=== PATIENT | male | born 1930 | race Caucasian/White ===

== ENCOUNTER 2017-07-07 23:55 | Inpatient (IN) ==
--- NOTE | 2017-07-08 00:06 | Emergency Department Note ---
Disposition Clinical Impression: Fracture of femoral neck, right, closed Qualifiers: Encounter type: initial encounter Qualified Code(s): S72.001A - Fracture of unspecified part of neck of right femur, initial encounter for closed fracture Fall Qualifiers: Encounter type: initial encounter Qualified Code(s): W19.XXXA - Unspecified fall, initial encounter Disposition: Home, Self-Care Condition: Fair Time of Disposition: 01:44 Fall HPI - General Chief Complaint: ED Extremity Injury, Lower Stated Complaint: rt hip pain fall Time Seen by Provider: 07/08/17 00:00 Nursing Notes Reviewed: Yes Vital Signs Reviewed: Yes - History of Present Illness HPI Narrative: Mr. Villarreal, 87-year-old male, presents from correction facility where he had a mechanical fall in his apartment. He was in his stocking feet went to the for kitchen and slipped. No loss of consciousness, no head trauma. He landed on his right elbow and right hip/femur. He has mild pain in his right elbow and moderate pain to his middle right femur. PMH: Atrial fibrillation on aspirin, Plavix, metoprolol, Imdur. Dementia. Parkinson's. Hyperlipidemia. No history CAD or ACS. No history of CVA or TIA. - Related Data Home Medications Medication Instructions Recorded Confirmed Aspirin Enteric Coated [Aspirin EC] 81 mg PO DAILY 02/08/16 02/08/16 Carbidopa/Levodopa 25/100 [Sinemet 1 each PO TID 02/08/16 02/08/16 25/100] Clopidogrel [Plavix] 75 mg PO DAILY 02/08/16 02/08/16 Isosorbide MONOnitrate (24 HR) 60 mg PO BID 02/08/16 02/08/16 [Imdur] Lisinopril [Zestril] 5 mg PO DAILY 02/08/16 02/08/16 Metformin HCl [Metformin HCl ER] 500 mg PO DAILY 02/08/16 02/08/16 Metoprolol Succinate [Toprol Xl] 50 mg PO BID 02/08/16 02/08/16 Nitroglycerin 0.4 mg PO AD PRN 02/08/16 02/08/16 Pravastatin Sodium 10 mg PO DAILY 02/08/16 02/08/16 Ranolazine [Ranexa] 500 mg PO BID 02/08/16 02/08/16 Previous Rx's Medication Instructions Recorded LORazepam [Ativan] 1 - 2 mg PO HS #14 tablet 02/14/16 Allergies Allergy/AdvReac Type Severity Reaction Status Date / Time No Known Allergies Allergy Verified 02/05/17 19:38 All systems ED: reviewed and negative except as stated. Review of Systems: As Per HPI Fall PMH - Past Medical History Medical history: Reports: atrial fibrillation, COPD, diabetes, hyperlipidemia, myocardial infarction Psychiatric history: Reports: no psych history - Social History Smoking Status: Former smoker Alcohol use: Reports: none Drug use: Reports: none Physical Exam Primary survey: Airway: Intact; patient is speaking in complete sentences and maintaining secretions. Breathing: No chest wall tenderness. Bilateral breath sounds equal. Circulation: Bilateral radial, posterior tibial, pulses 2/4. No hemorrhaging. Disability: GCS 15. Exposure: Lateral aspect of right elbow has superficial skin tear with spontaneous hemostasis; otherwise no abrasions, lacerations, ecchymosis, or hematomas on the patient's scalp or face, trunk, extremities. Secondary survey Vital Signs Reviewed General: Patient is alert, oriented, and in no acute distress. HEENT: No facial asymmetry. Head is normocephalic and atraumatic. PERRLA, EOMI. Nasal turbinates moist and pink without epistaxis. Oral mucosa moist. Tympanic membranes without hemotympanum bilaterally. Dentition intact. Cardiovascular: Heart regular rate and rhythm without clicks, rubs, gallops, or murmurs. No JVD. PMI nondisplaced. Respiratory: Symmetric chest rise with good respiratory effort. Bilateral breath sounds are clear without wheezing, crackles, or rhonchi. Abdomen: Bowel sounds present normoactive x-4 quadrants. Abdomen is soft, nondistended, and nontender. No organomegaly noted. Musculoskeletal: Pain with right hip flexion. Right lower extremity is 2 similar shortened and externally rotated versus left. Otherwise spontaneously moving all extremities. Neuro: Sensation light touch intact. Psych: Patient's affect is appropriate for situation. Course Course Narrative: Patient is neurovascular intact head to toe. No focal neurologic deficits. He denies chest pain. Concern for right hip fracture given physical exam findings. Patient denies any current analgesia at this time. Imaging a multiple areas shows a right femoral neck subcapital fracture. I discussed this with the patient as family at bedside. They are agreeable to admission. I discussed the patient with the admitting hospitalist, Dr. Chavez, and the on- call orthopedic surgeon, Dr. Khoury. They agreed to accept the patient with orthopedic consult and hospital admission. Head CT 07/08/17 00:00 IMPRESSION: Stable noncontrast examination of the brain without CT evidence of acute intracranial abnormality and chronic findings as described. D/ / Sameer Quick MD / Samere Quick MD Interpreting Provider: Sameer Quick MD Cervical Spine CT 07/08/17 00:01 IMPRESSION: No acute abnormality of the cervical spine with advanced multilevel degenerative changes as detailed above. D/ / Sameer Quick MD / Sameer Quick MD Interpreting Provider: Sameer Quick MD Elbow X-Ray 07/08/17 00:01 IMPRESSION: No acute osseous abnormality. D/ / Sameer Quick MD / Sameer Quick MD Interpreting Provider: Sameer Quick MD Femur X-Ray 07/08/17 00:01 IMPRESSION: Right subcapital femoral neck fracture as described. D/ / Sameer Quick MD / Sameer Quick MD Interpreting Provider: Sameer Quick MD Humerus X-Ray 07/08/17 00:01 IMPRESSION: No acute osseous abnormality. D/ / Sameer Quick MD / Sameer Quick MD Interpreting Provider: Sameer Quick MD Pelvis X-Ray 07/08/17 00:01 IMPRESSION: Right subcapital femoral neck fracture as described. D/ / Sameer Quick MD / Sameer Quick MD Interpreting Provider: Sameer Quick MD Shoulder X-Ray 07/08/17 00:01 IMPRESSION: No acute osseous abnormality. D/ / Sameer Quick MD / Sameer Quick MD Interpreting Provider: Sameer Quick MD Vital Signs Temperature 98.0 F 07/07/17 23:59 Pulse Rate 80 07/07/17 23:59 Respiratory Rate 16 07/07/17 23:59 Blood Pressure 137/84 07/07/17 23:59 O2 Sat by Pulse Oximetry 95 07/07/17 23:59 Temperature 98.0 F 07/07/17 23:59 Pulse Rate 71 07/08/17 02:01 Respiratory Rate 14 07/08/17 02:01 Blood Pressure 159/101 07/08/17 02:01 O2 Sat by Pulse Oximetry 94 07/08/17 02:01 Oxygen Delivery Oxygen Delivery Room Air Fall - Radiology Data Radiology results reviewed: Yes I reviewed the patient's radiology results. - EKG Data EKG attestation: Yes I reviewed and interpreted this EKG. EKG results narrative: EKG dated 07/08/17 and 00:17 interpreted as atrial fibrillation with a rate of 69. Appropriately narrow QRS at 108 ms. QT/QTC 400/419. Normal axis. Nonspecific ST-T changes. Compared to previous dated 02/08/2016 shows no acute ischemic changes comparison. Attestation Statement - Attestation Attestation: I, Lux Lazcano MD, personally evaluated this patient and discussed their management with the resident physician. I reviewed the resident's note and agree with the documented findings, medical decision making, and plan of care. 87-year-old male presents to the emergency department by ambulance from an assisted living facility after he slipped and fell on the floor landing on his right hip. No prolonged down time. He comes in complaining of pain in the right hip and femur area. He also has a skin tear to the right elbow but denies any significant pain in the elbow. He denies hitting his head or any loss of consciousness however he does have dementia. On examination patient is a well-developed well-nourished well-appearing elderly male in no acute distress. He is alert and appropriate. No cyanosis or diaphoresis. Chest is nontender to palpation. Breath sounds are clear and equal bilaterally. Heart irregularly irregular. Abdomen soft and nontender with normal bowel sounds. There is tenderness to palpation and movement of the right hip and proximal femur. Neurovascular function intact distally. Slight shortening noted. X-ray of the right hip shows a femoral neck fracture. CT of the head and neck negative. X-rays of the right shoulder humerus and elbow negative. The orthopedist airline lounge receptionist, Dr. Khoury, was consulted and will follow with the patient in the hospital. The hospitalist, Dr. Chavez, was consulted and accepted admission of the patient.
[2017-07-08] MEDS ORDERED: Ondansetron 4 MG/2 ML VIAL IVP ONE (01:44)
[2017-07-08] MEDS ORDERED: *HR* Morphine 2 MG/ML SYRINGE IVP ONE (01:44)
[2017-07-08] MEDS ORDERED: Acetaminophen 325 MG TABLET PO PRN (03:03)
[2017-07-08] MEDS ORDERED: Ondansetron 4 MG/2 ML VIAL IVP PRN ×3 (03:03→19:35)
[2017-07-08] MEDS ORDERED: Naloxone 0.4 MG/ML INJ IVP PRN ×3 (03:03→19:35)
[2017-07-08] MEDS ORDERED: Dextrose Gel 15 GM PO PRN ×4 (03:04→19:35)
[2017-07-08] MEDS ORDERED: D5% in Water 1,000 ML IVC PRN ×2 (03:04→19:35)
[2017-07-08] MEDS ORDERED: *HR* Dextrose 50 % in Water (Syg) 50 ML SYRINGE IVP PRN ×2 (03:04→19:35)
--- NOTE | 2017-07-08 03:09 | Internal Med History&Physical ---
Date of Encounter: 07/08/17 Time of Encounter: 03:00 Assessment and Plan (1) Fracture of femoral neck, right, closed Current visit: Yes Status: Acute Acute right subcapital femoral neck fracture - secondary to mechanical fall IV Morphine PRN, Tylenol PRN, IV fluids, NPO Pelvic x-ray - right subcapital femoral neck fracture Right elbow x-ray - no acute abnormality Right humerus x-ray - no acute abnormality Orthopedics consult - Dr. Khoury consulted from the ED Cardiac telemetry, NPO, labs in a.m., monitor closely Qualifiers: Encounter type: initial encounter Qualified Code(s): S72.001A - Fracture of unspecified part of neck of right femur, initial encounter for closed fracture (2) Fall Current visit: Yes Status: Acute Status post mechanical fall, with possible history of multiple falls - likely due to physical deconditioning Fall precautions, PT/OT consult CT head - no acute intracranial abnormality CT cervical spine - advanced multilevel degenerative changes, no acute abnormality Qualifiers: Encounter type: initial encounter Qualified Code(s): W19.XXXA - Unspecified fall, initial encounter (3) CAD (coronary artery disease) Current visit: Yes Status: Chronic 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 transplanted heart: [place] heart Associated angina: without angina Qualified Code(s): I25.10 - Atherosclerotic heart disease of [place] coronary artery without angina pectoris (4) Atrial fibrillation Current visit: Yes Status: Chronic Chronic atrial fibrillation, rate controlled Continue Aspirin, Plavix, Toprol-XL Patient is not on anticoagulation at home - likely due to fall risk and bleeding risk Qualifiers: Atrial fibrillation type: unspecified Qualified Code(s): I48.91 - Unspecified atrial fibrillation (5) Diabetes mellitus type II, non insulin dependent Current visit: Yes Status: Chronic Type 2 diabetes mellitus, [id number], hyperglycemia Continue insulin sliding scale medium dose, glucose checks every 6 hours Patient is on Metformin at home (6) Hypertension Current visit: Yes Status: Chronic Essential hypertension, controlled, monitor Continue home dose of Imdur, Toprol-XL, Zestril Qualifiers: Hypertension type: essential hypertension Qualified Code(s): I10 - Essential (primary) hypertension (7) Parkinson disease Current visit: Yes Status: Chronic Parkinson disease with dementia - without behavioral disturbances Continue home dose of Sinemet (8) Dementia Current visit: Yes Status: Chronic Chronic moderate dementia likely secondary to Parkinson's disease - without behavioral disturbances In senior home dose of Sinemet Qualifiers: Dementia type: Lewy body dementia Dementia behavioral disturbance: without behavioral disturbance Qualified Code(s): G31.83 - Dementia with Lewy bodies; F02.80 - Dementia in other diseases classified elsewhere without behavioral disturbance; F02.80 - Dementia in other diseases classified elsewhere without behavioral disturbance; F02.80 - Dementia in other diseases classified elsewhere without behavioral disturbance (9) DVT prophylaxis Current visit: Yes Status: Acute Heparin subcutaneous Internal Medicine - H&P: HPI Chief complaint: Fall, right hip pain Admitted From: Emergency Dept Plans for Post Hospital Care: Home History of present illness: Mr. Villarreal is a 87 year old male with past medical history of atrial fibrillation , COPD, diabetes, hyperlipidemia, Parkinson disease, dementia and hypertension. Patient presents to the ED from [facility] for right hip pain after a fall today. Examined in the room. Patient is awake and alert. Not in any distress. Able to answer some questions. He is overall a poor historian, likely due to dementia. No family members at bedside. Patient complains of right hip pain. States it is worse when he moves. Rates it about 5/10. No alleviating factors. Patient states he got up to walk to the kitchen today, at the [facility], and had a fall. States he did not lose consciousness. States he did not injure his head. He is unsure as to how he fell. He denies chest pain or shortness of breath. He denies headache or dizziness. Denies abdominal pain or vomiting or diarrhea. No fever. Patient seems to have landed on his right elbow and right hip. No alleviating factors. Patient does have a skin tear to his right elbow. No other associated symptoms. No other acute complaints. Initial workup in the ED is significant for right subcapital femoral neck fracture. Orthopedics was consulted from the ED. Patient will be NPO. He will be on IV morphine as needed for pain. Patient may require surgery today. Patient has been explained about his condition and bladder care in detail. Understood and agreed. No unanswered questions. CODE STATUS full code. Past Med Surg Social Fam HX - Past Medical History Medical history: atrial fibrillation, COPD, diabetes, hyperlipidemia, myocardial infarction Psychiatric history: no psych history - Past Surgical History Surgical History: coronary bypass (CABG) - Social History Smoking Status: Former smoker Smokeless Tobacco Status: No Alcohol use: none Drug use: none - Family History Mother Living Status: Father Living Status: Internal Medicine - H&P: Meds Aspirin Enteric Coated [Aspirin EC] 81 mg PO DAILY 02/08/16 [History] Carbidopa/Levodopa 25/100 [Sinemet 25/100] 1 each PO TID 02/08/16 [History] Clopidogrel [Plavix] 75 mg PO DAILY 02/08/16 [History] Isosorbide MONOnitrate (24 HR) [Imdur] 60 mg PO BID 02/08/16 [History] Lisinopril [Zestril] 5 mg PO DAILY 02/08/16 [History] Metformin HCl [Metformin HCl ER] 500 mg PO DAILY 02/08/16 [History] Metoprolol Succinate [Toprol Xl] 50 mg PO BID 02/08/16 [History] Nitroglycerin 0.4 mg PO AD PRN 02/08/16 [History] Pravastatin Sodium 10 mg PO DAILY 02/08/16 [History] Ranolazine [Ranexa] 500 mg PO BID 02/08/16 [History] LORazepam [Ativan] 1 - 2 mg PO HS #14 tablet 02/14/16 [Rx] 3 Allergy/AdvReac Type Severity Reaction Status Date / Time No Known Allergies Allergy Verified 02/05/17 19:38 All Systems PM: A 10-system review of systems was performed and is negative for pertinent findings except as documented above in the HPI. - Constitutional Constitutional: fatigue, weakness, no fever(s) - EENT Eyes: no blurry vision - Cardiovascular Cardiovascular ROS IM: no chest pain, no dyspnea, no dyspnea on exertion, no edema, no lightheadedness, no orthopnea, no palpitations, no syncope - Respiratory Respiratory: no cough, no dyspnea, no dyspnea on exertion, no wheezing, no chest congestion - Gastrointestinal Gastrointestinal: no abdominal pain, no bloating, no cramping, no diarrhea, no hematochezia, no loose stools, no nausea, no vomiting - Genitourinary Genitourinary ROS male: no dysuria - Musculoskeletal Musculoskeletal ROS IM: no back pain Additional comments: Right hip pain and right elbow pain. - Neurological Neurological ROS: confusion (History of dementia), frequent falls, no abnormal gait, no convulsions, no dizziness, no loss of vision, no numbness, no tingling - Constitutional Vitals: Temp Pulse Resp BP Pulse Ox 98.0 F 71 14 159/101 94 07/07/17 23:59 07/08/17 02:01 07/08/17 02:01 07/08/17 02:01 07/08/17 02:01 General appearance: Present: cooperative, A&O X 2, pleasant, no acute distress, answers questions appropriately Exam: Currently controlled. Able to answer questions. Patient has dementia. - Head Head exam: Present: atraumatic - Eye Eye exam: Present: EOMI - ENT ENT exam: Present: mucous membranes dry - Neck Neck exam general surgery: Present: full ROM - Respiratory Respiratory exam: Present: CTAB. Absent: rales, respiratory distress, stridor, wheezes, tachypnea - Cardiovascular Cardiovascular exam: Present: RRR, +S1, +S2 - GI/Abdominal GI/Abdominal exam: Present: soft. Absent: distended, firm, guarding, tenderness - Extremities Exam Extremities exam: Present: pedal edema (Mild bilateral lower leg edema), radial pulses palpable and symmetrical. Absent: calf tenderness, cyanotic Additional comments: Limited range of motion at the right hip. Tenderness over right hip. Mild shortening of the right lower extremity with external rotation. - Neurological Exam Neurological exam: Present: alert, no focal deficits. Absent: facial droop, speech deficit Additional comments: Awake and alert. Able to answer some questions. Able to verbalize well and follows commands. Patient is oriented to place and person but not time. He has dementia. No focal neurological deficits. Internal Med - H&P Results - Labs CBC & Chem 7: 07/08/17 04:27 07/08/17 04:27
[2017-07-08] MEDS ORDERED: 0.9 % Sodium Chloride 1,000 ML IVC SCH ×2 (03:15→19:35)
[2017-07-08 05:05] LABS: Basophils % 0.3 %; Hematocrit 46.2 % (37.5-50.1); Immature Granulocytes % 0.3 % (0-4); Lymphocytes # 1.5 K/mcL (0.6-4.6); Lymphocytes % 10.5 %; Mean Corpuscular HGB Conc 32.5 g/dL (31.6-35.5); Mean Corpuscular Hemoglobin 31.3 pg (28.0-33.3); Mean Corpuscular Volume 96.3 fL (83.0-100.0); Mean Platelet Volume 10.5 fL (9.4-12.4); Monocytes # 1.1 K/mcL (0.0-1.3); Monocytes % 7.8 %; Neutrophils # 11.4 K/mcL (1.6-8.9); Platelet Count 155 K/mcL (140-400); Red Cell Distribution Width 13.5 % (11.5-14.5); Segmented Neutrophils % 81.1 %
[2017-07-08 05:06] LABS: INR 1.1; Prothrombin Time 11.5 Seconds (9.4-12.1)
[2017-07-08 05:15] LABS: Hemoglobin A1C 6.1 %
[2017-07-08 05:18] LABS: Alanine Aminotransferase 9 Units/L (0-55); Albumin 3.5 g/dL (3.5-5.0); Albumin/Globulin Ratio 1.1 (1.1-2.2); Alkaline Phosphatase 70 Units/L (38-126); Aspartate Amino Transferase 18 Units/L (5-34); BUN/Creatinine Ratio 20 (6-26); Bilirubin,Total 0.6 mg/dL (0.2-1.2); Blood Urea Nitrogen 23 mg/dL (8-26); Calcium 9.7 mg/dL (8.6-10.8); Carbon Dioxide 24 mEq/L (19-29); Chloride 106 mEq/L (98-109); Globulin 3.3 g/dL (2.4-3.5); Glucose 141 mg/dL (70-99); Osmolality,Calculated 292 (280-300); Potassium 4.3 mEq/L (3.5-4.5); Sodium 138 mEq/L (136-145); Total Protein 6.8 g/dL (6.0-8.3); eGFR For African Americans > 60 (> 60); eGFR For Non-African Americans > 60 (> 60)
[2017-07-08] MEDS: Insulin LISPRO 300 UNITS/3 ML VIAL SQ SCH ×3 (05:28→16:27)
[2017-07-08] MEDS: *HR* Heparin 5,000 UNIT/ML VIAL SQ SCH ×2 (05:28→16:27)
--- NOTE | 2017-07-08 07:55 | Orthopedic Consult Note ---
Date of Encounter: 07/08/17 Time of Encounter: 07:58 Assessment and Plan (1) Fracture of femoral neck, right, closed Current Visit: Yes Status: Acute I did discuss the diagnosis and treatment plan with Edward. We discussed operative and non-operative treatment options. For pain control and ambulation post operatively we recommended surgical fixation with hemiarthroplasty of the right hip. We discussed the risks and benefits of surgery including but not limited to infection, blood loss, failure of surgery, DVT, PE, ME, and . He understands the risks and has elected to proceed. NPO at [place] Plan for hip hemiarthroplasty tomorrow pending medical clearance Bedrest until surgery Qualifiers: Encounter type: initial encounter Qualified Code(s): S72.001A - Fracture of unspecified part of neck of right femur, initial encounter for closed fracture History of Present Illness Chief complaint: R hip fracture HPI: Mr. Villarreal is a 87 year old male who sustained a mechanical fall onto his right hip this morning. He was brought to the emergency department and diagnosed with a displaced right femoral neck fracture. Denies other orthopedic complaints. Denies any chest pain or shortness of breath. Did not black out or lose consciousness during the fall. Past Med Surg Social Fam HX - Past Medical History Medical history: atrial fibrillation, COPD, diabetes, hyperlipidemia, myocardial infarction Psychiatric history: no psych history - Past Surgical History Surgical History: coronary bypass (CABG) - Social History Smoking Status: Former smoker Smokeless Tobacco Status: No Alcohol use: none Drug use: none - Family History Mother Living Status: Father Living Status: Medications and Allergies Aspirin Enteric Coated [Aspirin EC] 81 mg PO DAILY 02/08/16 [History] Carbidopa/Levodopa 25/100 [Sinemet 25/100] 1 each PO TID 02/08/16 [History] Clopidogrel [Plavix] 75 mg PO DAILY 02/08/16 [History] Isosorbide MONOnitrate (24 HR) [Imdur] 60 mg PO BID 02/08/16 [History] Lisinopril [Zestril] 5 mg PO DAILY 02/08/16 [History] Metformin HCl [Metformin HCl ER] 500 mg PO DAILY 02/08/16 [History] Metoprolol Succinate [Toprol Xl] 50 mg PO BID 02/08/16 [History] Nitroglycerin 0.4 mg PO AD PRN 02/08/16 [History] Pravastatin Sodium 10 mg PO DAILY 02/08/16 [History] Ranolazine [Ranexa] 500 mg PO BID 02/08/16 [History] LORazepam [Ativan] 1 - 2 mg PO HS #14 tablet 02/14/16 [Rx] 3 Allergy/AdvReac Type Severity Reaction Status Date / Time No Known Allergies Allergy Verified 02/05/17 19:38 All Systems Reviewed: A 10-system review of systems was performed and is negative for pertinent findings except as documented above in the HPI. Physical Exam - Constitutional Vitals: Temp Pulse Resp BP Pulse Ox 97.6 F 82 16 126/82 90 07/08/17 07:03 07/08/17 07:03 07/08/17 07:03 07/08/17 07:03 07/08/17 07:03 Exam: Consult Exam: Constitutional -Vitals reviewed -The patient is well developed and well nourished. -Mood is pleasant. -The patient is well groomed. Psychiatric -The patient is fully alert and oriented x 3. Respiratory: -Respiratory effort normal Abdomen: -Soft abdomen -Non tender -Non distended: Left upper extremity: -No deformities. The overlying skin is intact. No obvious signs of acute trauma. -No tenderness to palpation throughout. -No significant pain with passive motion of the shoulder, elbow, wrist, and fingers within the limits of the bed. -Able to make an "OK" sign, cross the index and long fingers, and extend the thumb. -Sensation grossly intact to light touch throughout the median, radial, and ulnar distributions. -Radial pulse is present; Fingers have good capillary refill. Right upper extremity: -No deformities. The overlying skin is intact. No obvious signs of acute trauma. -No tenderness to palpation throughout. -No significant pain with passive motion of the shoulder, elbow, wrist, and fingers within the limits of the bed. -Able to make an "OK" sign, cross the index and long fingers, and extend the thumb. -Sensation grossly intact to light touch throughout the median, radial, and ulnar distributions. -Radial pulse is present; Fingers have good capillary refill. Left lower extremity: -No deformities. The overlying skin is intact. No obvious signs of acute trauma. -No tenderness to palpation throughout. -No pain with passive motion of the hip, knee, ankle, and toes within the limits of the bed. -No pain with axial loading of the thigh. -Able to dorsiflex and plantarflex the ankle and toes. -Sensation is grossly intact to light touch throughout the sural, saphenous, superficial peroneal, and deep peroneal distributions. -Toes have good capillary refill. Right lower extremity: -Range of motion deferred due to known fracture Pain with logroll/IR Hip short/externally rotated -Able to dorsiflex and plantarflex the ankle and toes. -Sensation is grossly intact to light touch throughout the sural, saphenous, superficial peroneal, and deep peroneal distributions. -Toes have good capillary refill. Results - Labs Result Diagrams: 07/08/17 04:27 07/08/17 04:27 Labs: Abnormal lab results WBC 14.1 K/mcL (4.3-11.1) H 07/08/17 04:27 Neutrophils # 11.4 K/mcL (1.6-8.9) H 07/08/17 04:27 Glucose 141 mg/dL (70-99) H 07/08/17 04:27 Hemoglobin A1c 6.1 % (-5.6) H 07/08/17 04:27 H & H 07/08/17 Range/Units 04:27 Hgb 15.0 (12.9-16.9) g/dL Hct 46.2 (37.5-50.1) % All other labs normal. - Diagnostic results Hip x-ray: image reviewed (Displaced right femoral neck fracture) Consult Discharge Plan - Plan Referrals: Eileen Howard RIDE OPERATOR [Primary Care Provider] -
[2017-07-08] MEDS ORDERED: Aspirin Enteric Coated 81 MG Tablet PO SCH (09:00)
[2017-07-08] MEDS ORDERED: Isosorbide MONOnitrate (24 HR) 60 MG TAB.ER.24H PO SCH (09:00)
[2017-07-08] MEDS ORDERED: Ranolazine 500 MG TAB.ER.12H PO SCH (09:00)
[2017-07-08] MEDS ORDERED: Metoprolol XL (24 HR) Succ 50 MG TAB.ER.24H PO SCH (09:00)
[2017-07-08] MEDS: Carbidopa/Levodopa 25/100 TABLET PO SCH ×3 (09:32→22:18)
[2017-07-08] MEDS: *HR* Morphine 2 MG/ML SYRINGE IVP PRN ×2 (09:36→14:13)
--- NOTE | 2017-07-08 14:00 | Event Note ---
Date of Encounter: 07/08/17 Time of Encounter: 13:[address] Guillory to perform surgery. Patient seen and examined. Granddaughter at bedside. Exam found to be unchanged from Dr. Khoury' s evaluation. Spoke with daughter Anne via phone re: father's condition and plan for IM nail pending CT scan results. Granddaughter states that patient just returned from CT scan when this provider came to room. Patient pleasantly confused c/o pain in all of RLE. Awaiting consent - s/w Dr. Guillory - will await for family (daughters) to arrive to sign consent as dual POA in place.
--- NOTE | 2017-07-08 16:35 | Anesthesia Evaluation PreOp ---
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: Other (Parkinson's dementia) Other Medical History: Diabetes Type II Anesthesia History: No Prior Anesthetic Complications, Past Anesthesia (endo- AAA repair) Alcohol Use: none Drug use: none Medications and Allergies Aspirin Enteric Coated [Aspirin EC] 81 mg PO DAILY 02/08/16 [History] Carbidopa/Levodopa 25/100 [Sinemet 25/100] 1.5 tab PO TID 02/08/16 [History] Clopidogrel [Plavix] 75 mg PO DAILY 02/08/16 [History] Lisinopril [Zestril] 5 mg PO DAILY 02/08/16 [History] Metformin HCl [Metformin HCl ER] 500 mg PO DAILY 02/08/16 [History] Metoprolol Succinate [Toprol Xl] 50 mg PO BID 02/08/16 [History] Nitroglycerin 0.4 mg PO AD PRN 02/08/16 [History] Pravastatin Sodium 10 mg PO DAILY 02/08/16 [History] Ranolazine [Ranexa] 500 mg PO BID 02/08/16 [History] DULoxetine [Cymbalta] 20 mg PO DAILY 07/08/17 [History] Isosorbide MONOnitrate [Isosorbide Mononitrate ER] 120 mg PO DAILY 07/08/17 [ History] 3 Allergy/AdvReac Type Severity Reaction Status Date / Time No Known Allergies Allergy Verified 02/05/17 19:38 - Meds/Allergy Pre-op Review Medications Reviewed: Yes Allergies Reviewed: Yes Beta Blockers on Current Med List: Yes If Beta Blockers taken, Date/Time (Last Dose taken): 07/08/2017 at 0932 Anesthesia Results - Labs 07/08/17 04:27 07/08/17 04:27 - Imaging EKG: report reviewed (02/08/2016 ATRIAL FIBRILLATION ANTEROSEPTAL MYOCARDIAL INFARCTION, OF INDETERMINATE AGE) Additional studies: 02/09/2016 Echo Impressions: Mild LV systolic dysfunction, LVEF 45%. There are regional wall motion abnormalities, see diagram below. Indeterminate diastolic function due to atrial fibrillation. Normal right ventricular structure and function. Severely dilated left atrium. Mild mitral regurgitation. Mild pulmonary hypertension. Estimated RVSP = 36-41 mmHg. Anesthesia Exam Vital Signs/O2 Sat/Glucose, Most Recent Temp Pulse Resp BP Pulse Ox 98.1 F 86 16 138/81 90 07/08/17 15:48 07/08/17 15:48 07/08/17 15:48 07/08/17 15:48 07/08/17 15:48 Blood Glucose* 150 Height: 5'9''/1.75 m Weight: 226 lbs/102.9 kg NPO (# of Hours): 8 Pain Scale: 0 (at rest) Pain Scale Used: Numeric (1 - 10) - HEENT Pupil (Motor): EOMI Mallampati: II Teeth: Edentulous Oral Opening: Greater than 3 - LONG [employer] DRIER LOC: Confused - Cardiac Rhythm: Irregular Murmur: None - Pulmonary Breath Sounds: bilateral Clear Respiratory Effort: Symmetrical Anesthesia Assess/Plan ASA Score: 4 Modified [place] Scale for Level of Consciousness: Anixous, agitated or restless Anesthetic Plan: General Monitoring Plan: Standard Monitors Recovery Plan: PACU
[2017-07-08] MEDS ORDERED: Ethanol\\Acetic Acid\\Na Ace\\Ben 1,000 ML IRRIG.SOLN IR ONE (16:37)
--- NOTE | 2017-07-08 16:41 | Internal Med Progress Note ---
Date of Encounter: 07/08/17 Time of Encounter: 10:55 - Assessment and plan (1) Fracture of femoral neck, right, closed Current Visit: Yes Status: Acute Assessment and plan: With acute right subcapital femoral neck fracture. Secondary to mechanical fall. Obvious shortening and external rotation right leg. No vascular compromise noted. Family requests Dr. Guillory perform surgery. He was consulted and will take patient to surgery this evening. Femur X-Ray 07/08/17 00:01 IMPRESSION: Right subcapital femoral neck fracture as described. D/ / Sameer Quick MD / Sameer Quick MD Interpreting Provider: Sameer Quick MD Pelvis X-Ray 07/08/17 00:01 IMPRESSION: Right subcapital femoral neck fracture as described. D/ / Sameer Quick MD / Sameer Quick MD Interpreting Provider: Sameer Quick MD Hip CT 07/08/17 12:11 IMPRESSION: Acute traumatic closed right femoral neck fracture, transcervical versus subcapital. Degenerative changes to both hips, right more than left, as well as to both SI joints and to the visualized lower lumbar spine. There is also a small right hip joint effusion. Diffuse bone demineralization. Partially imaged abdominal aortic aneurysm through which partially imaged [id number] stent graft traverses. Visualized portion of the aneurysm measure 5.0 x 4.9 cm. D/ / 07/08/2017 13:53:53 Glenn Mancia MD / kaitlin Interpreting Provider: Glenn Mancia MD Qualifiers: Encounter type: initial encounter Qualified Code(s): S72.001A - Fracture of unspecified part of neck of right femur, initial encounter for closed fracture (2) CAD (coronary artery disease) of artery bypass graft Current Visit: Yes Status: Chronic Assessment and plan: Per patient history. He is status post CABG and stents. No apparent chest pain. The patient has been NPO, after surgery start aspirin, Plavix, beta jame, statin and Ranexa. Continue telemetry. EKG is A. fib with no acute ST changes. Troponins were negative. Qualifiers: [place] vs. transplanted heart: [place] heart Associated angina: without angina Qualified Code(s): I25.810 - Atherosclerosis of coronary artery bypass graft(s) without angina pectoris (3) Parkinson disease Current Visit: Yes Status: Chronic Assessment and plan: Chronic. Continue home medications. (4) Diabetes mellitus type II, non insulin dependent Current Visit: Yes Status: Chronic Assessment and plan: Patient takes metformin at home. Is being held. Continue sliding scale insulin , Accu-Cheks every 6 hours while nothing by mouth. Diabetic diet when he is able to eat again. A1c 6.1% currently. (5) DVT prophylaxis Current Visit: Yes Status: Acute Assessment and plan: Heparin subcutaneous. (6) Hypertension Current Visit: Yes Status: Chronic Assessment and plan: Blood pressure has been well controlled in the hospital setting. Continue current medication regimen. Qualifiers: Hypertension type: essential hypertension Qualified Code(s): I10 - Essential (primary) hypertension (7) Atrial fibrillation Current Visit: Yes Status: Chronic Assessment and plan: Chronic. Rate controlled with beta jame. Continue aspirin, Plavix, beta jame. Patient is not currently on anticoagulation, most likely due to fall risk and increased risk of bleeding. Qualifiers: Atrial fibrillation type: unspecified Qualified Code(s): I48.91 - Unspecified atrial fibrillation (8) Fall Current Visit: Yes Status: Acute Assessment and plan: Patient is status post mechanical fall at home. PT/OT consultations and impending. Patient with right hip fracture with surgery today. CT head was negative, CT cervical spine with chronic degenerative changes and no acute abnormalities. Elbow x-ray was negative for any acute osseous abnormality. Humerus and shoulder x-ray were negative as well. Femur and pelvis x-ray showed right subcapital femoral neck fracture. Hip CT showed acute traumatic) right femoral neck fracture, degenerative changes bilateral hips and SI joints, diffuse bone demineralization, and AAA measuring 5.0 x 4.9 cm. Qualifiers: Encounter type: initial encounter Qualified Code(s): W19.XXXA - Unspecified fall, initial encounter (9) Dementia Current Visit: Yes Status: Chronic Assessment and plan: Chronic. Continue home dose of Sinemet. Qualifiers: Dementia type: Lewy body dementia Dementia behavioral disturbance: without behavioral disturbance Qualified Code(s): G31.83 - Dementia with Lewy bodies; F02.80 - Dementia in other diseases classified elsewhere without behavioral disturbance; F02.80 - Dementia in other diseases classified elsewhere without behavioral disturbance; F02.80 - Dementia in other diseases classified elsewhere without behavioral disturbance (10) AAA (abdominal aortic aneurysm) without rupture Current Visit: Yes Status: Acute Assessment and plan: Patient with 5.0 x 4.9 cm AAA noted on CT right hip. There is evidence of prior stent graftpartially imaged. There is also partially imaged AAA to the distal abdominal aorta through which visualized portion of the stent graft traverses. Vascular consult. - Time Spent With Patient less than 15 minutes - Subjective Interval history: Patient was seen and assessed at 10:55 AM. Patient is alert, awake, not oriented. Patient states that he forgot his name. He does not answer questions appropriately. He denies pain and need for pain medication. Family at bedside, the answer questions. They have requested that Dr. Guillory do surgery on the hip. I spoke with Dr. Daniels who was manager contracting to make him aware. There is obvious shortening and external rotation to RLE. - Constitutional Vitals: Temp Pulse Resp BP Pulse Ox 98.1 F 86 16 138/81 90 07/08/17 15:48 07/08/17 15:48 07/08/17 15:48 07/08/17 15:48 07/08/17 15:48 General appearance: Present: cooperative, A&O X 1, pleasant, no acute distress. Absent: answers questions appropriately - Head Head exam: Present: atraumatic, normal inspection, normocephalic - Eye Eye exam: Present: normal appearance, conjuntiva pink, sclera anicteric - Neck Neck exam general surgery: Present: supple, trachea midline. Absent: lymphadenopathy, tenderness - Respiratory Respiratory exam: Present: chest wall tenderness, CTAB. Absent: accessory muscle use, rales, respiratory distress, rhonchi, wheezes - Cardiovascular Cardiovascular exam: Present: RRR, +S1, +S2. Absent: diastolic murmur, gallop, rubs, systolic murmur - GI/Abdominal GI/Abdominal exam: Present: normal bowel sounds, soft, no peritoneal signs. Absent: distended, hepatomegaly, tenderness - Extremities Exam Extremities exam: Present: warm, radial pulses palpable and symmetrical. Absent : calf tenderness, cyanotic, normal capillary refill, pedal edema, tenderness - Neurological Exam Neurological exam: Present: alert, altered, no focal deficits. Absent: oriented X3, facial droop, speech deficit - Skin Skin exam: Present: dry, intact, normal color. Absent: rash, warm Internal Medicine: Result - Labs CBC & Chem 7: 07/08/17 04:27 07/08/17 04:27 Labs: Short CBC 07/08/17 Range/Units 04:27 WBC 14.1 H (4.3-11.1) K/mcL Hgb 15.0 (12.9-16.9) g/dL Hct 46.2 (37.5-50.1) % Plt Count 155 (140-400) K/mcL Neutrophils # 11.4 H (1.6-8.9) K/mcL BMP 07/08/17 04:27 Sodium 138 Potassium 4.3 Chloride 106 Carbon Dioxide 24 BUN 23 Creatinine 1.13 Glucose 141 H Calcium 9.7 Cardiac Enzymes 07/08/17 Range/Units 04:27 Troponin I 0.00 (0-0.03) ng/mL Liver Function 07/08/17 Range/Units 04:27 Total Bilirubin 0.6 (0.2-1.2) mg/dL AST 18 (5-34) Units/L ALT 9 (0-55) Units/L Alkaline Phosphatase 70 (38-126) Units/L Albumin 3.5 (3.5-5.0) g/dL - ABG Interpretation ABG results: PT/INR, D-dimer PT 11.5 Seconds (9.4-12.1) 07/08/17 04:27 - Impressions Impressions Hip CT 07/08/17 12:11 IMPRESSION: Acute traumatic closed right femoral neck fracture, transcervical versus subcapital. Degenerative changes to both hips, right more than left, as well as to both SI joints and to the visualized lower lumbar spine. There is also a small right hip joint effusion. Diffuse bone demineralization. Partially imaged abdominal aortic aneurysm through which partially imaged [id number] stent graft traverses. Visualized portion of the aneurysm measure 5.0 x 4.9 cm. D/ / 07/08/2017 13:53:53 Glenn Mancia MD / kaitlin Interpreting Provider: Glenn Mancia MD Consult Discharge Plan - Plan Referrals: Eileen Howard, GUEST EXPERIENCE CAPTAIN [Primary Care Provider] -
--- NOTE | 2017-07-08 17:51 | Orthopedic Operative Note ---
Date of procedure: 07/08/17 Pre-op diagnosis: Displaced right femoral neck fracture Post-op diagnosis: same Procedure: Procedure: Right hip hemiarthroplasty Estimated blood loss: 200 cc Hardware: Metal replacement bipolar, Biomet 56 bipolar -6 head, 12 stem Procedural Notes: Displaced right femoral neck fracture Operative procedure: The patient was brought to the operating room and placed on the operating room table. After general anesthesia was administered the patient was placed in the lateral decubitus position with the operative leg up. All pressure points were padded appropriately and the head was stabilized in the neutral position. The operative extremity was prepped and draped in the sterile surgical fashion patient received IV antibiotic prior to skin incision. A standard posterior approach is made to the operative hip, the incision was made through the skin and subcutaneous tissue hemostasis was obtained with Bovie cautery. Using careful sharp dissection the fascia was identified and incised exposing the external rotators. The external rotators were released off the greater trochanter and tagged with #2 FiberWire suture. The capsule was T'd open the femoral head was removed. The femoral neck cut was made at the appropriate level. The hip was brought into internal rotation and prepared with the box maker wood followed by the canal finder followed by broaching process in 20 degrees anteversion. It was broached up to the appropriate size. The femoral implant was impacted in place in 20 degrees of anteversion. Trial reduction found the hip to be stable with the -6 head 56 bipolar. The trials were removed and the real implants were impacted in place. The hip was reduced, the hip had full extension and full flexion of the knee was in full extension.the patient had apparent equal leg length. The hip had excellent stability with forward flexion to 90 degrees adduction of 30 degrees and internal rotation of 60 degrees. The hip had no shuck. The hip was irrigated out with 2 L of pulse irrigation. The hip was closed by the PA. Fascia was closed with a running #2 FiberWire suture. The deep tissue was irrigated and closed deep with #1 PDS suture superficially with 0 PDS suture and skin was closed with zip tie. The patient was placed in a sterile dressing and abduction pillow. The patient was extubated and transferred to the recovery room in stable condition. Anesthesia: GETA Surgeon: Damián Guillory Condition: stable Disposition: PACU
[2017-07-08] MEDS ORDERED: EPHEDrine 50 MG/ML VIAL ONE (18:02)
[2017-07-08] MEDS ORDERED: *HR* Propofol 200 MG/20 ML VIAL IVP ONE (18:02)
[2017-07-08] MEDS ORDERED: *HR* FentaNYL (PF) 100 MCG/2 ML VIAL ONE (18:02)
[2017-07-08] MEDS ORDERED: Lidocaine -MPF 2% 2 ML VIAL ONE (18:02)
[2017-07-08] MEDS ORDERED: *HR* Labetalol 20 MG/4 ML SYRINGE IVP PRN (18:04)
[2017-07-08] MEDS ORDERED: *HR* HYDROmorphone (PF) 1 MG/ML SYRINGE IVP PRN (18:04)
[2017-07-08] MEDS ORDERED: *HR* HYDROmorphone 2 MG/ML SYRINGE ONE (18:19)
--- NOTE | 2017-07-08 19:23 | Anesthesia Evaluation Post Op ---
Date of Encounter: 07/08/17 Time of Encounter: 19:21 - Vital Signs Vital Signs: Vital Signs/O2 Sat, Most Current Temp Pulse Resp BP Pulse Ox 98.3 F 84 16 112/69 95 07/08/17 18:56 07/08/17 19:16 07/08/17 19:16 07/08/17 19:16 07/08/17 19:16 - Lungs Lungs: Clear Ascult./Percussion - Airway Airway: Non-obstructed - Cardiovascular Regular Rate - Mental Status Mental Status: Alert & Oriented, Answers Appropriately - Pain Pain Scale: 0 Pain Scale used: Numeric (1 - 10) - Hydration Hydration: NPO, Has not voided - Discharge PostOp Status: Transfer Patient to floor
[2017-07-08] MEDS ORDERED: Temazepam 15 MG CAPSULE PO PRN (19:35)
[2017-07-08] MEDS ORDERED: Sennosides 8.6 MG TABLET PO PRN (19:35)
[2017-07-08] MEDS ORDERED: *HR* Morphine 2 MG/ML SYRINGE IVP PRN (19:35)
[2017-07-08] MEDS ORDERED: MOM Conc 10 ML UD.LIQ PO PRN (19:35)
[2017-07-08 20:02] LABS: Hematocrit 42.5 % (37.5-50.1); Hemoglobin 14.2 g/dL (12.9-16.9)
--- NOTE | 2017-07-08 20:09 | Electrocardiograph Report ---
[place] [address] Test Date: 2017-07-08 Pat Name: Ranjith Villarreal Department: 102 Room: 3B Gender: M Laminator: : 1930 Requested By: Jesse Grace Order Number: [id number] Reading MD: Evan Watkins MD Measurements Intervals [place] Rate: 69 P: CA: 0 QRS: 55 QRSD: 108 T: 62 QT: 400 QTc: 419 Interpretive Statements ATRIAL FIBRILLATION Electronically Signed On 07-08-2017 20:08:14 EST by Evan Watkins MD
[2017-07-08] MEDS: Metoprolol XL (24 HR) Succ 50 MG TAB.ER.24H PO SCH (22:17)
[2017-07-08] MEDS: Ranolazine 500 MG TAB.ER.12H PO SCH (22:17)
[2017-07-08] MEDS: Ascorbic Acid 500 MG TABLET PO SCH (22:17)
[2017-07-09] MEDS: CeFAZolin Premix DUPLEX 2,000 MG/50 ML BAG IVPB SCH ×2 (00:35→07:35)
[2017-07-09] MEDS: Insulin LISPRO 300 UNITS/3 ML VIAL SQ SCH ×4 (03:00→17:08)
--- NOTE | 2017-07-09 06:21 | Orthopedics Progress Note ---
Date of Encounter: 07/09/17 Time of Encounter: 06:21 Subjective Interval history: Patient was seen this morning doing well without complaints. Afebrile vital signs stable. Operative extremity: Neurovascularly intact Dressing clean dry and intact Calves nontender Assessment and plan: Continue with postoperative care Objective Vital signs: Vital Signs Temp Pulse Resp BP Pulse Ox 07/09/17 03:16 98.5 F 86 17 102/63 94 07/08/17 22:06 98.2 F 80 19 96/62 94 07/08/17 21:22 97.9 F 93 18 102/65 93 07/08/17 20:12 97.4 F L 84 18 100/68 95 07/08/17 20:01 93 07/08/17 19:50 98.4 F 80 19 97/61 93 07/08/17 19:26 98.7 F 75 16 113/71 93 07/08/17 19:16 84 16 112/69 95 07/08/17 19:06 75 16 110/66 94 07/08/17 18:56 98.3 F 81 16 98/61 93 07/08/17 18:46 82 17 92/62 93 07/08/17 18:36 83 16 94/66 93 07/08/17 18:26 98.4 F 80 18 110/68 93 07/08/17 15:48 98.1 F 86 16 138/81 90 07/08/17 11:31 97.6 F 69 17 136/87 96 07/08/17 07:03 97.6 F 82 16 126/82 90 Intake and Output 07/08/17 07/08/17 07/09/17 15:59 23:59 07:59 Intake Total 400 / 400 Output Total 200 / 200 400 / 400 Balance -200 / -200 0 / 0 Intake: Oral 400 / 400 Output: Urine 0 / 0 400 / 400 Estimated Blood Loss 200 / 200 Other: Blood Glucose* 150 147 167 - Labs CBC & BMP: 07/08/17 19:18 07/08/17 04:27 Labs: Abnormal lab results WBC 14.1 K/mcL (4.3-11.1) H 07/08/17 04:27 Neutrophils # 11.4 K/mcL (1.6-8.9) H 07/08/17 04:27 Glucose 141 mg/dL (70-99) H 07/08/17 04:27 POC Glucose 167 (58-89) H 07/09/17 05:27 Hemoglobin A1c 6.1 % (-5.6) H 07/08/17 04:27 - VTE Documentation of Mechanical Device: Venous foot pump, device Consult Discharge Plan - Plan Referrals: Eileen Howard, OPERATIONS VICE PRESIDENT [Primary Care Provider] -
[2017-07-09] MEDS: *HR* Heparin 5,000 UNIT/ML VIAL SQ SCH ×2 (06:29→17:12)
[2017-07-09 07:28] LABS: Basophils # 0.1 K/mcL (0.0-0.2); Basophils % 0.4 %; Hematocrit 43.4 % (37.5-50.1); Hemoglobin 14.3 g/dL (12.9-16.9); Immature Granulocytes % 0.3 % (0-4); Lymphocytes # 0.9 K/mcL (0.6-4.6); Lymphocytes % 7.5 %; Mean Corpuscular HGB Conc 32.9 g/dL (31.6-35.5); Mean Corpuscular Hemoglobin 31.4 pg (28.0-33.3); Mean Corpuscular Volume 95.2 fL (83.0-100.0); Mean Platelet Volume 10.9 fL (9.4-12.4); Monocytes # 1.4 K/mcL (0.0-1.3); Monocytes % 11.7 %; Neutrophils # 9.4 K/mcL (1.6-8.9); Platelet Count 142 K/mcL (140-400); Red Blood Count 4.56 M/mcL (4.19-5.50); Red Cell Distribution Width 13.8 % (11.5-14.5); Segmented Neutrophils % 80.1 %
[2017-07-09] MEDS: Ranolazine 500 MG TAB.ER.12H PO SCH ×2 (07:34→20:58)
[2017-07-09] MEDS: Aspirin Enteric Coated 81 MG Tablet PO SCH (07:34)
[2017-07-09] MEDS: Ascorbic Acid 500 MG TABLET PO SCH ×2 (07:34→17:12)
[2017-07-09] MEDS: Metoprolol XL (24 HR) Succ 50 MG TAB.ER.24H PO SCH ×2 (07:35→20:58)
[2017-07-09] MEDS: Isosorbide MONOnitrate (24 HR) 60 MG TAB.ER.24H PO SCH (07:35)
[2017-07-09] MEDS: Multivit/Ca/Min/Fe/FA 1 TAB TABLET PO SCH (07:35)
[2017-07-09] MEDS: Carbidopa/Levodopa 25/100 TABLET PO SCH ×3 (07:35→20:57)
[2017-07-09 07:37] LABS: BUN/Creatinine Ratio 16 (6-26); Blood Urea Nitrogen 20 mg/dL (8-26); Carbon Dioxide 24 mEq/L (19-29); Chloride 106 mEq/L (98-109); Glucose 161 mg/dL (70-99); Osmolality,Calculated 298 (280-300); Potassium 4.4 mEq/L (3.5-4.5); Sodium 141 mEq/L (136-145); eGFR For African Americans > 60 (> 60); eGFR For Non-African Americans 54 (> 60)
[2017-07-09] MEDS ORDERED: Isosorbide MONOnitrate (24 HR) 60 MG TAB.ER.24H PO SCH (09:00)
[2017-07-09] MEDS ORDERED: NON-FORMULARY MEDICATION 1 EACH EACH (Isosorbide Mononitrate [Isosorbide Mononitrate Er] 1 PO SCH (09:00)
[2017-07-09] MEDS ORDERED: Ketorolac 30 MG/ML VIAL IVP PRN (09:59)
[2017-07-09] MEDS: Acetaminophen 325 MG TABLET PO PRN ×2 (10:03→17:12)
--- NOTE | 2017-07-09 10:59 | Internal Med Progress Note ---
Date of Encounter: 07/09/17 Time of Encounter: 10:57 - Assessment and plan (1) CAD (coronary artery disease) of artery bypass graft Current Visit: Yes Status: Chronic Assessment and plan: nom chest pain Qualifiers: [place] vs. transplanted heart: [place] heart Associated angina: without angina Qualified Code(s): I25.810 - Atherosclerosis of coronary artery bypass graft(s) without angina pectoris (2) Parkinson disease Current Visit: Yes Status: Chronic Assessment and plan: chronic continue home meds (3) Diabetes mellitus type II, non insulin dependent Current Visit: Yes Status: Chronic Assessment and plan: chronic continue sliding scale (4) Hypertension Current Visit: Yes Status: Chronic Assessment and plan: well controlled Qualifiers: Hypertension type: essential hypertension Qualified Code(s): I10 - Essential (primary) hypertension (5) Atrial fibrillation Current Visit: Yes Status: Chronic Assessment and plan: no new issues Qualifiers: Atrial fibrillation type: chronic Qualified Code(s): I48.2 - Chronic atrial fibrillation (6) Fracture of femoral neck, right, closed Current Visit: Yes Status: Acute Assessment and plan: s/p surgery no complicationawaiting bed for transfer Qualifiers: Encounter type: initial encounter Qualified Code(s): S72.001A - Fracture of unspecified part of neck of right femur, initial encounter for closed fracture (7) Dementia Current Visit: Yes Status: Chronic Assessment and plan: chronic continue current meds Qualifiers: Dementia type: Lewy body dementia Dementia behavioral disturbance: without behavioral disturbance Qualified Code(s): G31.83 - Dementia with Lewy bodies; F02.80 - Dementia in other diseases classified elsewhere without behavioral disturbance; F02.80 - Dementia in other diseases classified elsewhere without behavioral disturbance; F02.80 - Dementia in other diseases classified elsewhere without behavioral disturbance - Subjective Interval history: Patient with history of atrial fibrillation, CAD had a CABG in the past, diabetes, hypertension, Parkinson disease and dementia patient was admitted following a fall and sustained right hip fracture underwent surgery successfully, no complication the plan is for him to be transferred back to rehabilitation once bed is available . Is not having any acute issues daughter is in the room. His creatinine is mildly elevated probably due to dehydration which I will start normal saline - Constitutional Vitals: Temp Pulse Resp BP Pulse Ox 97.9 F 84 16 116/71 96 07/09/17 06:52 07/09/17 06:52 07/09/17 06:52 07/09/17 06:52 07/09/17 06:52 General appearance: Present: cooperative, A&O X 1, pleasant, no acute distress. Absent: answers questions appropriately - Head Head exam: Present: atraumatic, normocephalic - Neck Neck exam general surgery: Present: supple, trachea midline. Absent: lymphadenopathy - Respiratory Respiratory exam: Present: CTAB. Absent: accessory muscle use, rales, rhonchi, wheezes - Cardiovascular Cardiovascular exam: Present: RRR, +S1, +S2. Absent: diastolic murmur, gallop, rubs, systolic murmur Internal Medicine: Result - Labs CBC & Chem 7: 07/09/17 06:07 07/09/17 06:07 Labs: Short CBC 07/08/17 07/09/17 Range/Units 19:18 06:07 WBC 11.8 H (4.3-11.1) K/mcL Hgb 14.2 14.3 (12.9-16.9) g/dL Hct 42.5 43.4 (37.5-50.1) % Plt Count 142 (140-400) K/mcL Neutrophils # 9.4 H (1.6-8.9) K/mcL BMP 07/09/17 06:07 Sodium 141 Potassium 4.4 Chloride 106 Carbon Dioxide 24 BUN 20 Creatinine 1.27 H Glucose 161 H Calcium 9.0 - ABG Interpretation ABG results: PT/INR, D-dimer PT 11.5 Seconds (9.4-12.1) 07/08/17 04:27 - Impressions Impressions Hip CT 07/08/17 12:11 IMPRESSION: Acute traumatic closed right femoral neck fracture, transcervical versus subcapital. Degenerative changes to both hips, right more than left, as well as to both SI joints and to the visualized lower lumbar spine. There is also a small right hip joint effusion. Diffuse bone demineralization. Partially imaged abdominal aortic aneurysm through which partially imaged [id number] stent graft traverses. Visualized portion of the aneurysm measure 5.0 x 4.9 cm. D/ / 07/08/2017 13:53:53 Glenn Mancia MD / kaitlin Interpreting Provider: Glenn Mancia MD Hip X-Ray 07/08/17 16:52 IMPRESSION: 1. Interval right hip arthroplasty with no immediate complications. D/ / Luis A Parikh MD / Luis A Parikh MD Interpreting Provider: Luis A Parikh MD - VTE Documentation of Mechanical Device: Venous foot pump, device Consult Discharge Plan - Plan Referrals: Eileen Howard, TECHNICAL ANALYST [Primary Care Provider] -
[2017-07-09] MEDS ORDERED: 0.9 % Sodium Chloride 1,000 ML IVC SCH (11:45)
[2017-07-10] MEDS: Insulin LISPRO 300 UNITS/3 ML VIAL SQ SCH ×4 (00:32→17:55)
[2017-07-10 05:52] LABS: Hemoglobin 13.8 g/dL (12.9-16.9)
[2017-07-10] MEDS: *HR* Heparin 5,000 UNIT/ML VIAL SQ SCH ×2 (06:46→17:55)
--- NOTE | 2017-07-10 08:43 | Internal Med Progress Note ---
Date of Encounter: 07/10/17 Time of Encounter: 08:40 - Assessment and plan (1) CAD (coronary artery disease) of artery bypass graft Current Visit: Yes Status: Chronic Assessment and plan: no chest pain Qualifiers: [place] vs. transplanted heart: [place] heart Associated angina: without angina Qualified Code(s): I25.810 - Atherosclerosis of coronary artery bypass graft(s) without angina pectoris (2) Parkinson disease Current Visit: Yes Status: Chronic Assessment and plan: chronic (3) Diabetes mellitus type II, non insulin dependent Current Visit: Yes Status: Chronic Assessment and plan: continue sliding scale (4) Hypertension Current Visit: Yes Status: Chronic Assessment and plan: well controlled Qualifiers: Hypertension type: essential hypertension Qualified Code(s): I10 - Essential (primary) hypertension (5) Atrial fibrillation Current Visit: Yes Status: Chronic Qualifiers: Atrial fibrillation type: chronic Qualified Code(s): I48.2 - Chronic atrial fibrillation (6) Fracture of femoral neck, right, closed Current Visit: Yes Status: Acute Assessment and plan: s/p surgery no complication awaiting rehab transfer Qualifiers: Encounter type: initial encounter Qualified Code(s): S72.001A - Fracture of unspecified part of neck of right femur, initial encounter for closed fracture (7) Dementia Current Visit: Yes Status: Chronic Assessment and plan: chronic Qualifiers: Dementia type: Lewy body dementia Dementia behavioral disturbance: without behavioral disturbance Qualified Code(s): G31.83 - Dementia with Lewy bodies; F02.80 - Dementia in other diseases classified elsewhere without behavioral disturbance; F02.80 - Dementia in other diseases classified elsewhere without behavioral disturbance; F02.80 - Dementia in other diseases classified elsewhere without behavioral disturbance - Subjective Interval history: Patient with history of atrial fibrillation, CAD had a CABG in the past, diabetes, hypertension, Parkinson disease and dementia patient was admitted following a fall and sustained right hip fracture underwent surgery successfully, no complication the plan is for him to be transferred back to rehabilitation once bed is available . Is not having any acute issues daughter is in the room. His creatinine is mildly elevated probably due to dehydration which I will start normal saline today no new issues awaiting insurance approval to go back to tradition - Constitutional Vitals: Temp Pulse Resp BP Pulse Ox 98.4 F 92 16 134/73 96 07/10/17 06:58 07/10/17 06:58 07/10/17 06:58 07/10/17 06:58 07/10/17 06:58 General appearance: Present: cooperative, A&O X 1, pleasant, no acute distress. Absent: answers questions appropriately - Head Head exam: Present: atraumatic, normocephalic - Eye Eye exam: Present: PERRL, conjuntiva pink, sclera anicteric Pupils: Present: PERRL - Neck Neck exam general surgery: Present: supple, trachea midline. Absent: lymphadenopathy - Respiratory Respiratory exam: Present: CTAB. Absent: accessory muscle use, rales, rhonchi, wheezes - Cardiovascular Cardiovascular exam: Present: RRR, +S1, +S2. Absent: diastolic murmur, gallop, rubs, systolic murmur - GI/Abdominal GI/Abdominal exam: Present: normal bowel sounds, soft, no peritoneal signs. Absent: distended, tenderness Internal Medicine: Result - Labs CBC & Chem 7: 07/10/17 05:28 07/09/17 06:07 Labs: Short CBC 07/10/17 Range/Units 05:28 Hgb 13.8 (12.9-16.9) g/dL Hct 43.0 (37.5-50.1) % - ABG Interpretation ABG results: PT/INR, D-dimer PT 11.5 Seconds (9.4-12.1) 07/08/17 04:27 - VTE Documentation of Mechanical Device: Venous foot pump, device Consult Discharge Plan - Plan Referrals: Eileen Howard ROOFING CONTRACTOR [Primary Care Provider] -
--- NOTE | 2017-07-10 08:53 | Orthopedics Progress Note ---
Date of Encounter: 07/10/17 Time of Encounter: 08:53 Subjective Interval history: Patient was seen this morning doing well without complaints. Afebrile vital signs stable. Operative extremity: Neurovascularly intact Dressing clean dry and intact Calves nontender Assessment and plan: Continue with postoperative care Ortho stable for discharge Objective Vital signs: Vital Signs Temp Pulse Resp BP Pulse Ox 07/10/17 06:58 98.4 F 92 16 134/73 96 07/10/17 03:34 98.7 F 88 15 133/80 95 07/09/17 18:41 98.2 F 86 15 106/68 93 07/09/17 15:51 98.2 F 76 18 142/85 93 07/09/17 11:09 98.7 F 84 16 95/63 94 Intake and Output 07/09/17 07/10/17 07/10/17 23:59 07:59 15:59 Intake Total 1240 / 1240 Output Total 100 / 100 50 / 50 Balance 1140 / 1140 -50 / -50 Intake: IV Fluids 1000 / 1000 0.9 % Sodium Chloride 1,000 ML 1000 / 1000 @ 75 mls/hr IVC .[id number] MANDA Rx #:[id number] Oral 240 / 240 Output: Urine 100 / 100 50 / 50 Other: Meal Dinner Percent of Meal Consumed 85% # Urine Diapers 1 2 Blood Glucose* 207 147 - Labs CBC & BMP: 07/10/17 05:28 07/09/17 06:07 Labs: Abnormal lab results WBC 11.8 K/mcL (4.3-11.1) H 07/09/17 06:07 Neutrophils # 9.4 K/mcL (1.6-8.9) H 07/09/17 06:07 Monocytes # 1.4 K/mcL (0.0-1.3) H 07/09/17 06:07 Creatinine 1.27 mg/dL (0.72-1.25) H 07/09/17 06:07 Est GFR (Non-Af Amer) 54 (> 60) L 07/09/17 06:07 Glucose 161 mg/dL (70-99) H 07/09/17 06:07 POC Glucose 147 (58-89) H 07/10/17 06:51 Hemoglobin A1c 6.1 % (-5.6) H 07/08/17 04:27 - VTE Documentation of Mechanical Device: Venous foot pump, device Consult Discharge Plan - Plan Referrals: Eileen Howard CNP [Primary Care Provider] -
[2017-07-10] MEDS: Isosorbide MONOnitrate (24 HR) 60 MG TAB.ER.24H PO SCH ×2 (09:00→09:37)
[2017-07-10] MEDS: Carbidopa/Levodopa 25/100 TABLET PO SCH ×2 (09:03→16:20)
[2017-07-10] MEDS: Ranolazine 500 MG TAB.ER.12H PO SCH (09:03)
[2017-07-10] MEDS: Multivit/Ca/Min/Fe/FA 1 TAB TABLET PO SCH (09:04)
[2017-07-10] MEDS: Metoprolol XL (24 HR) Succ 50 MG TAB.ER.24H PO SCH (09:04)
[2017-07-10] MEDS: Aspirin Enteric Coated 81 MG Tablet PO SCH (09:04)
[2017-07-10] MEDS: Ascorbic Acid 500 MG TABLET PO SCH ×2 (09:04→16:20)
[2017-07-10 09:17] LABS: BUN/Creatinine Ratio 26 (6-26); Carbon Dioxide 19 mEq/L (19-29); Chloride 107 mEq/L (98-109); Glucose 127 mg/dL (70-99); Osmolality,Calculated 294 (280-300); Potassium 3.9 mEq/L (3.5-4.5); Sodium 138 mEq/L (136-145); eGFR For African Americans > 60 (> 60); eGFR For Non-African Americans 55 (> 60)
[2017-07-10 09:18] LABS: Blood Urea Nitrogen 32 mg/dL (8-26)
[2017-07-10 16:06] VITALS: BP 128/87
--- NOTE | 2017-07-10 16:44 | Discharge Summary ---
Date of Encounter: 07/10/17 Time of Encounter: 16:38 - Discharge Diagnosis (1) CAD (coronary artery disease) of artery bypass graft Priority: Secondary Status: Chronic Qualifiers: [place] vs. transplanted heart: [place] heart Associated angina: without angina Qualified Code(s): I25.810 - Atherosclerosis of coronary artery bypass graft(s) without angina pectoris (2) Parkinson disease Priority: Secondary Status: Chronic (3) Diabetes mellitus type II, non insulin dependent Priority: Secondary Status: Chronic (4) Hypertension Priority: Secondary Status: Chronic Qualifiers: Hypertension type: essential hypertension Qualified Code(s): I10 - Essential (primary) hypertension (5) Atrial fibrillation Priority: Secondary Status: Chronic Qualifiers: Atrial fibrillation type: chronic Qualified Code(s): I48.2 - Chronic atrial fibrillation (6) Fracture of femoral neck, right, closed Priority: Primary Status: Acute Qualifiers: Encounter type: initial encounter Qualified Code(s): S72.001A - Fracture of unspecified part of neck of right femur, initial encounter for closed fracture (7) Dementia Priority: Secondary Status: Chronic Qualifiers: Dementia type: Lewy body dementia Dementia behavioral disturbance: without behavioral disturbance Qualified Code(s): G31.83 - Dementia with Lewy bodies; F02.80 - Dementia in other diseases classified elsewhere without behavioral disturbance; F02.80 - Dementia in other diseases classified elsewhere without behavioral disturbance; F02.80 - Dementia in other diseases classified elsewhere without behavioral disturbance - Discharge Medications Prescriptions: Ferrous Sulfate 325 mg PO BIDWM #60 tablet Oxycodone HCl/Acetaminophen [Percocet 7.5-325 mg Tablet] 1 each PO Q4-6H PRN # 30 tablet PRN Reason: Pain Home Medications: Aspirin Enteric Coated [Aspirin EC] 81 mg PO DAILY 02/08/16 [History] Carbidopa/Levodopa 25/100 [Sinemet 25/100] 1.5 tab PO TID 02/08/16 [History] Clopidogrel [Plavix] 75 mg PO DAILY 02/08/16 [History] Lisinopril [Zestril] 5 mg PO DAILY 02/08/16 [History] Metformin HCl [Metformin HCl ER] 500 mg PO DAILY 02/08/16 [History] Metoprolol Succinate [Toprol Xl] 50 mg PO BID 02/08/16 [History] Nitroglycerin 0.4 mg PO AD PRN 02/08/16 [History] Pravastatin Sodium 10 mg PO DAILY 02/08/16 [History] Ranolazine [Ranexa] 500 mg PO BID 02/08/16 [History] DULoxetine [Cymbalta] 20 mg PO DAILY 07/08/17 [History] Isosorbide MONOnitrate [Isosorbide Mononitrate ER] 120 mg PO DAILY 07/08/17 [ History] Ferrous Sulfate 325 mg PO BIDWM #60 tablet 07/10/17 [Rx] Oxycodone HCl/Acetaminophen [Percocet 7.5-325 mg Tablet] 1 each PO Q4-6H PRN # 30 tablet 07/10/17 [Rx] Temazepam [Restoril] 15 mg PO HS PRN capsule 07/10/17 [Rx] Allergies/Adverse Reactions: 3 Allergy/AdvReac Type Severity Reaction Status Date / Time No Known Allergies Allergy Verified 02/05/17 19:38 Procedures/tests Complete & Pending: Procedures Performed prior 72 hours Category Date Time Status CT hip RT wo con [CT] Stat Cat Scan 07/08/17 12:11 Completed EKG [ECG 12 lead ECG] [ECG] Stat Y 07/08/17 15:10 Stop Req Date of admission: 07/08/17 02:55 Primary care physician: Eileen Howard CNP Consults: 07/08/17 06:21 Consult to Occupational Therapy [CONS] Routine Comment: Evaluate, develop and implement POC Reason for Consult: Fall, OT eval Consult to Physical Therapy [CONS] Routine Comment: Evaluate, develop and implement POC Reason for Consult: Fall, PT eval 07/08/17 19:35 Consult to Nurse Navigator [CONS] Routine Comment: ortho navigator Consult to Occupational Therapy [CONS] Routine Comment: Evaluate, develop and implement POC Reason for Consult: total hip replacement Consult to Physical Therapy [CONS] Routine Comment: Evaluate, develop and implement POC Reason for Consult: total hip replacement Consult to Wall To Wall Carpet Installer [CONS] Routine Reason for SW Consult: post op joint replacement RT Post Op Consult [CONS] Routine Discharging clinician: Valeri Allen Anticipated date of discharge: 07/10/17 - Patient Status Disposition: Transfer SNF Condition: Good Overall status at discharge: patient is progressing back to baseline - Discharge Instructions Additional Instructions: Discharge Instructions: Total Hip Replacement Please call [facility] ([phone]), your Primary Care Physician, or report to the Emergency Room if you have any of the following symptoms: Nausea, vomiting, fever greater that 101.5, swelling, chest pain, shortness of breath, increased pain/redness/drainage/odor for your incision site, numbness/ tingling, or any other concerning symptoms. ACTIVITY:Weight-bearing as tolerated for 8 weeks with hip dislocation precautions that physical therapy taught you. You may progress as tolerated under the guidance of your physical therapist. You do not need to sleep with a pillow between your legs. You can also seep on the operative side or on your stomach. MEDICATIONS: Upon discharge resume your home medications. Take all the medications as prescribed. Take a stool softener if taking narcotic pain medications. Stool softeners are only effective if you drink enough fluids. Drink 6-8 glass of water or fluids a day, unless this is not allowed for another health problem. Despite using stool softeners, if you haven't had a bowel movement in 3 days, please switch to a gentle laxative. Gentle laxatives are sold over the counter. You should have a bowel movement within 24 hours, if not call the office. You will be discharged from the hospital with a prescription for pain medication. You are encouraged to decrease the use of narcotic pain medication as tolerated. Should you require a refill, please call the office. [facility] prescribes narcotic pain medication for only 4-6 weeks after surgery. If you require pain medication beyond this time period, you may be referred to your Primary Care Physician or to the Pain Clinic for further evaluation. Plan ahead for refills on pain medication as many narcotics either need to be picked up at the office or mailed. It is best to call 48-72 hours in advance of needing a prescription refill so you don't run out of medication. To help control the post-operative pain, you may take NSAIDs (Aleve,Advil, Motrin, ibuprofen, naprosyn) or Tylenol as prescribed on the bottle in addition to the pain medication. ANTICOAGULATION (blood thinners): Continue your Aspirin, Lovenox or Coumadin as prescribed to help prevent a blood clot in the leg or in the lungs. As long as your incision remains dry and you tolerate the NSAIDs (Aleve, Advil, Motrin, Ibuprofen, Naprosyn), it is OK to use the NSAIDS while you are taking your anticoagulation medication. Should your incision start to drain, stop the NSAID and contact our office. Common symptoms of blood clot in the legs include: localized pain, swelling, calf tenderness, redness or discoloration of the skin. Blood clot in the lung symptoms include: shortness of breath, rapid pulse, sweating, and chest pain that worsens with deep breathing, coughing up blood, lightheadedness, feelings of anxiety. If you experience any of these symptoms notify your physician immediately, go to the emergency room, or if having trouble breathing, call 911. WOUND CARE: Leave the dressing on for 7 to 10days. You may change the dressing if it is saturated greater than 50%. Do not get the dressing wet at anytime. Wash your hands with antibacterial soap, rinse and dry prior to any wound care. If you have donn the visiting nurse or rehab facility can remove the stapes 10-14 days after surgery and place steri-strips across the wound. Leave the steri-strips in place until they fall off on their own. You may let water from the shower run on top of the steri-strips. If you do not have a visiting nurse or rehab facility, you will need to return to the office at 10-14 days for the donn to be removed. If you have itching or redness around the dressing call the office. FOLLOW-UP: Please follow up with your surgeon in the orthopedic clinic in 6 weeks from the day of surgery. If you have donn that need to be removed, you will need to come back to the office in 10-14 days from the day of surgery. - Diet and Activity Activity: other Diet: advance to your usual diet Hospital course: Mr. Villarreal is a 87 year old male - Time Spent with Patient Total time spent providing and/or coordinating discharge services: - Constitutional Vitals: Temp Pulse Resp BP Pulse Ox 98.5 F 83 16 128/87 95 07/10/17 15:48 07/10/17 15:48 07/10/17 15:48 07/10/17 15:48 07/10/17 15:48 General appearance: Present: cooperative, A&O X 1, pleasant, no acute distress. Absent: answers questions appropriately - VTE Documentation of Mechanical Device: Intermittent pneumatic compression device
--- NOTE | 2017-07-10 16:58 | Physician Discharge Referral ---
ExtendedCare Referral Info Transfer To: snf Provider in Charge after Transfer: PCP Institutional Level of Care: Skilled - Diagnosis (1) CAD (coronary artery disease) of artery bypass graft Status: Chronic (2) Parkinson disease Status: Chronic (3) Diabetes mellitus type II, non insulin dependent Status: Chronic (4) Hypertension Status: Chronic (5) Atrial fibrillation Status: Chronic (6) Fracture of femoral neck, right, closed Status: Acute (7) Dementia Status: Chronic - Transfer Medications Prescriptions: Ferrous Sulfate 325 mg PO BIDWM #60 tablet Oxycodone HCl/Acetaminophen [Percocet 7.5-325 mg Tablet] 1 each PO Q4-6H PRN # 30 tablet PRN Reason: Pain Home Medications: Aspirin Enteric Coated [Aspirin EC] 81 mg PO DAILY 02/08/16 [History] Carbidopa/Levodopa 25/100 [Sinemet 25/100] 1.5 tab PO TID 02/08/16 [History] Clopidogrel [Plavix] 75 mg PO DAILY 02/08/16 [History] Lisinopril [Zestril] 5 mg PO DAILY 02/08/16 [History] Metformin HCl [Metformin HCl ER] 500 mg PO DAILY 02/08/16 [History] Metoprolol Succinate [Toprol Xl] 50 mg PO BID 02/08/16 [History] Nitroglycerin 0.4 mg PO AD PRN 02/08/16 [History] Pravastatin Sodium 10 mg PO DAILY 02/08/16 [History] Ranolazine [Ranexa] 500 mg PO BID 02/08/16 [History] DULoxetine [Cymbalta] 20 mg PO DAILY 07/08/17 [History] Isosorbide MONOnitrate [Isosorbide Mononitrate ER] 120 mg PO DAILY 07/08/17 [ History] Ferrous Sulfate 325 mg PO BIDWM #60 tablet 07/10/17 [Rx] Oxycodone HCl/Acetaminophen [Percocet 7.5-325 mg Tablet] 1 each PO Q4-6H PRN # 30 tablet 07/10/17 [Rx] Temazepam [Restoril] 15 mg PO HS PRN capsule 07/10/17 [Rx] Allergies/Adverse Reactions: 3 Allergy/AdvReac Type Severity Reaction Status Date / Time No Known Allergies Allergy Verified 02/05/17 19:38 - Respiratory Orders Smoking Cessation: Smoking cessation has been advised. For more information, call the [place] Tobacco Quit Line at 5-697-SGKQ-NOW. - Mobility Orders Other - Rehabiliation Orders Rehab Orders: Evaluation for Physical Therapy, Evaluation for Occupational Therapy - Diet Orders Regular CERTIFICATION: I certify that the transfer of the above named patient to an Extended Care Facility is necessary for the continuing treatment of the diagnosis listed. The above information is true and accurate reflection of patient's current condition. Confidential - Redisclosure prohibited without a patient's written consent.
== END 2017-07-10 18:18 | DRG 470 ==
LOC: EMEROO 23:55 → 3NENU 23:55 → 3BNU 07-08 02:41 → 3NENU 07-08 23:53
PROVIDERS: ADMIT Family Medicine; ATTEND Internal Medicine

== ENCOUNTER 2017-07-12 12:15 | Inpatient (IN) ==
--- NOTE | 2017-07-12 12:24 | Emergency Department Note ---
Disposition Clinical Impression: Delirium due to general medical condition, Elevated troponin Disposition: Admitted As Inpatient Condition: Fair Referrals: Eileen Howard CNP [Primary Care Provider] - Forms: ED Satisfaction Letter Time of Disposition: 15:57 Altered Mental Status HPI - General Chief Complaint: ED Altered Mental Status Stated Complaint: AMS Time Seen by Provider: 07/12/17 12:20 Source: patient, family, EMS Mode of arrival: EMS Limitations: no limitations Nursing Notes Reviewed: Yes Vital Signs Reviewed: Yes - History of Present Illness HPI Narrative: 87-year-old male history of hypertension, diabetes, CAD s/p 7 stents and CABG presents to the ED via EMS from [facility] for confusion. Earlier this week on Saturday patient had right hip surgery. He has been getting treated with Toradol. Starting yesterday they reintroduced his Ativan which he has taken for several years now. Patient has been doing well with physical therapy. Earlier today around 10 o'clock he received a dose of Ativan and has since been confused and what the daughter's report unresponsive. On arrival here patient is awake joking around appears alert and knows where he is at. His pupils are pinpoint. Daughters denies any opiate medication. They deny any falls. Patient denies any, complaints at this time such as chest pain, shortness of breath, bowel pain, nausea or vomiting. Family denies any recent illness. Patient has some swelling noted to his lower extremity more so on the right. His surgery was on the right hip. Review of correction chart, patient received Percocet 7.5 mg. Unknown time of administration. MD complaint: confusion - Related Data Home Medications Medication Instructions Recorded Confirmed Aspirin Enteric Coated [Aspirin EC] 81 mg PO DAILY 02/08/16 07/12/17 Carbidopa/Levodopa 25/100 [Sinemet 1.5 tab PO TID 02/08/16 07/12/17 25/100] Clopidogrel [Plavix] 75 mg PO DAILY 02/08/16 07/12/17 Lisinopril [Zestril] 5 mg PO DAILY 02/08/16 07/12/17 Metformin HCl [Metformin HCl ER] 500 mg PO DAILY 02/08/16 07/12/17 Metoprolol Succinate [Toprol Xl] 50 mg PO BID 02/08/16 07/12/17 Nitroglycerin 0.4 mg PO AD PRN 02/08/16 07/12/17 Pravastatin Sodium 10 mg PO DAILY 02/08/16 07/12/17 Ranolazine [Ranexa] 500 mg PO BID 02/08/16 07/12/17 DULoxetine [Cymbalta] 20 mg PO DAILY 07/08/17 07/12/17 Isosorbide MONOnitrate [Isosorbide 120 mg PO DAILY 07/08/17 07/12/17 Mononitrate ER] LORazepam [Lorazepam] 2 mg PO HS 07/12/17 07/12/17 Lactose-Reduced Food [Ensure Plus] 1 bottle PO TID 07/12/17 07/12/17 Previous Rx's Medication Instructions Recorded Ferrous Sulfate 325 mg PO BIDWM #60 tablet 07/10/17 Oxycodone HCl/Acetaminophen 1 each PO Q4-6H PRN #30 tablet 07/10/17 [Percocet 7.5-325 mg Tablet] Allergies Allergy/AdvReac Type Severity Reaction Status Date / Time No Known Allergies Allergy Verified 07/12/17 13:47 All systems ED: reviewed and negative except as stated. Review of Systems: As Per HPI Constitutional: Denies: fever, chills Cardiovascular: Denies: chest pain Respiratory: Denies: cough, dyspnea Gastrointestinal: Denies: abdominal pain Musculoskeletal: Reports: arthralgia (right hip). Denies: back pain Integumentary: Denies: rash, abrasion Neurological: Denies: headache Past Medical History - Past Medical History Attestation: Yes The following information was validated with the patient. Source: obtained from family Medical history: Reports: atrial fibrillation, COPD, diabetes, hyperlipidemia, myocardial infarction Surgical history: Reports: coronary bypass (CABG) Psychiatric history: Reports: no psych history - Social History Smoking Status: Former smoker Smokeless Tobacco Status: No Alcohol use: Reports: none Drug use: Reports: none Physical Exam - General Limitations: no limitations General appearance: alert, in no apparent distress - Head Head exam: atraumatic, normocephalic, normal inspection - Eye Eye exam: Present: normal appearance, PERRL, EOMI, miosis, other ([place]) - ENT ENT exam: normal exam, normal oropharynx, mucous membranes moist - Neck Neck exam: Present: normal inspection, full ROM, trachea midline - Chest Chest inspection: Present: normal inspection, symmetric chest wall rise, other ( CABG). Absent: tenderness - Respiratory Respiratory exam: Present: normal lung sounds bilaterally. Absent: respiratory distress, wheezes - Cardiovascular Cardiovascular exam: Present: regular rate, irregular rhythm, normal heart sounds - Abdominal Exam Abdominal exam: Present: soft, Non-Tender, normal bowel sounds. Absent: tenderness, distention, guarding, rebound, rigidity - Extremities Exam Extremities exam: Present: normal inspection, full ROM, pedal edema (+2 R > L). Absent: tenderness - Neurological Exam Neurological exam: Present: alert, oriented X3 - Psychiatric Psychiatric exam: Present: normal affect, normal mood - Skin Skin exam: Present: warm, dry, intact, pallor Course Course Narrative: 87-year-old male presents for confusion. Daughters at bedside. States he is back to his baseline. On examination has been point pupils. He appears in no acute distress. No focal neural deficits. Family states he has been given Toradol and Ativan. Review of correction records show he has been receiving Percocet 7.5 mg. Suspect this could be the etiology of his symptoms today however will get a CT of the head, basic labs, EKG and troponin. - Reevaluation(s) Reevaluation #1: CT of the head is unremarkable, chronic sinusitis is suggested. Chest x-ray does not reveal any acute abnormality. Urinalysis appears contaminated and is not consistent with infection. Patient denies any symptoms at this time. Will await cultures prior to treating. Troponin was significantly elevated 0.49. He has normal creatinine. Another repeat EKG was performed and did not reveal any acute ischemic findings. Just last week's troponin was 0. I am unsure if this is the cause of his symptoms today. However will admit him for further treatment and management. His INR is subtherapeutic 1.2. As agreed with cardiology will start him on low-dose heparin for his elevated troponin and NSTEMI. Family is in agreement with this plan. Patient continues to be slightly somnolent but easily arousable and interactive with daughters. This is his baseline they report. Impression is elevated troponin - Consultations Consultation #1: Spoke with on-call hospitalist zoey Gorman to admit for altered mental status, elevated troponin, NSTEMI. No further orders at this time Time: 14:52 Consultation #2: Spoke to the barbering teacher Dr. Garcias, if INR is therapeutic no need for IV heparin. Will consult on the floor. Time: 14:52 Vital Signs Temperature 97.3 F L 07/12/17 12:18 Pulse Rate 72 07/12/17 12:18 Respiratory Rate 13 07/12/17 12:18 Blood Pressure 121/75 07/12/17 12:18 O2 Sat by Pulse Oximetry 95 07/12/17 12:18 Temperature 97.3 F L 07/12/17 12:18 Pulse Rate 68 07/12/17 15:13 Respiratory Rate 19 07/12/17 15:13 Blood Pressure 120/72 07/12/17 15:13 O2 Sat by Pulse Oximetry 97 07/12/17 15:13 Oxygen Delivery Oxygen Delivery Room Air Altered Mental Status - MDM Narrative Medical decision making narrative: Patient was discussed with my attending physician who agrees with ED management and final disposition. They independently evaluated the patient. Please refer to their attestation to this encounter for additional information. This note was generated by [employer] voice recognition software and as a result grammatical or spelling errors may occur using this program. - Medical Records Medical records reviewed: Yes I reviewed the patient's medical records. - Lab Data Lab results reviewed: Yes I reviewed the patient's lab results. Result diagrams: 07/12/17 13:00 07/12/17 13:00 Lab Results 07/12/17 07/12/17 07/12/17 Range/Units 12:25 13:00 13:00 WBC 10.1 (4.3-11.1) K/mcL RBC 3.92 L (4.19-5.50) M/mcL Hgb 12.3 L (12.9-16.9) g/dL Hct 38.1 (37.5-50.1) % MCV 97.2 (83.0-100.0) fL MCH 31.4 (28.0-33.3) pg MCHC 32.3 (31.6-35.5) g/dL RDW 14.0 (11.5-14.5) % Plt Count 173 (140-400) K/mcL MPV 10.9 (9.4-12.4) fL Immature Gran % 0.5 (0-4) % Seg Neutrophils % 78.1 % Lymphocytes % 9.6 % Monocytes % 11.4 % Eosinophils % 0.1 % Basophils % 0.3 % Neutrophils # 7.9 (1.6-8.9) K/mcL Lymphocytes # 1.0 (0.6-4.6) K/mcL Monocytes # 1.2 (0.0-1.3) K/mcL Eosinophils # 0.0 (0.0-0.6) K/mcL Basophils # 0.0 (0.0-0.2) K/mcL PT (9.4-12.1) Seconds INR APTT (26.0-36.0) Seconds Sodium 138 (136-145) mEq/L Potassium 3.7 (3.5-4.5) mEq/L Chloride 109 (98-109) mEq/L Carbon Dioxide 22 (19-29) mEq/L BUN 30 H (8-26) mg/dL Creatinine 0.86 (0.72-1.25) mg/dL Est GFR ( Amer) > 60 (> 60) Est GFR (Non-Af Amer) > 60 (> 60) BUN/Creatinine Ratio 35 H (6-26) Glucose 172 H (70-99) mg/dL POC Glucose 151 H (58-89) Calculated Osmolality 296 (280-300) Calcium 8.7 (8.6-10.8) mg/dL Total Bilirubin 0.9 (0.2-1.2) mg/dL Direct Bilirubin 0.5 (0.0-0.5) mg/dL Indirect Bilirubin 0.4 (0.0-1.2) mg/dL AST 28 (5-34) Units/L ALT 11 (0-55) Units/L Alkaline Phosphatase 58 (38-126) Units/L Troponin I (0-0.03) ng/mL Serum Total Protein 6.2 (6.0-8.3) g/dL Albumin 2.5 L (3.5-5.0) g/dL Globulin 3.7 H (2.4-3.5) g/dL Albumin/Globulin Ratio 0.7 L (1.1-2.2) Urine Color (Yellow) Urine Clarity (Clear) Urine pH (5.0-8.0) pH Units Ur Specific [place] (1.010-1.025) Urine Protein (Neg-Trace) mg/dL Urine Glucose (UA) (Normal) mg/dL Urine Ketones (Negative) mg/dL Urine Blood (Negative) Urine Nitrite (Negative) Urine Bilirubin (Negative) Urine Urobilinogen (Normal) mg/dL Ur Leukocyte Esterase (Negative) Urine Microscopic RBC (0-3) per hpf Urine Microscopic WBC (0-3) per hpf Ur Squamous Epith Cells (None-Few) per lpf Urine Bacteria (None-Few) per hpf Hyaline Casts (None-Few) per lpf Ur Culture Indicated? (NO) 07/12/17 07/12/17 07/12/17 Range/Units 13:00 13:00 13:18 WBC (4.3-11.1) K/mcL RBC (4.19-5.50) M/mcL Hgb (12.9-16.9) g/dL Hct (37.5-50.1) % MCV (83.0-100.0) fL MCH (28.0-33.3) pg MCHC (31.6-35.5) g/dL RDW (11.5-14.5) % Plt Count (140-400) K/mcL MPV (9.4-12.4) fL Immature Gran % (0-4) % Seg Neutrophils % % Lymphocytes % % Monocytes % % Eosinophils % % Basophils % % Neutrophils # (1.6-8.9) K/mcL Lymphocytes # (0.6-4.6) K/mcL Monocytes # (0.0-1.3) K/mcL Eosinophils # (0.0-0.6) K/mcL Basophils # (0.0-0.2) K/mcL PT 12.7 H (9.4-12.1) Seconds INR 1.2 APTT 27.3 (26.0-36.0) Seconds Sodium (136-145) mEq/L Potassium (3.5-4.5) mEq/L Chloride (98-109) mEq/L Carbon Dioxide (19-29) mEq/L BUN (8-26) mg/dL Creatinine (0.72-1.25) mg/dL Est GFR ( Amer) (> 60) Est GFR (Non-Af Amer) (> 60) BUN/Creatinine Ratio (6-26) Glucose (70-99) mg/dL POC Glucose (58-89) Calculated Osmolality (280-300) Calcium (8.6-10.8) mg/dL Total Bilirubin (0.2-1.2) mg/dL Direct Bilirubin (0.0-0.5) mg/dL Indirect Bilirubin (0.0-1.2) mg/dL AST (5-34) Units/L ALT (0-55) Units/L Alkaline Phosphatase (38-126) Units/L Troponin I 0.49 H* (0-0.03) ng/mL Serum Total Protein (6.0-8.3) g/dL Albumin (3.5-5.0) g/dL Globulin (2.4-3.5) g/dL Albumin/Globulin Ratio (1.1-2.2) Urine Color Dark Yellow (Yellow) Urine Clarity Clear (Clear) Urine pH 6.0 (5.0-8.0) pH Units Ur Specific [place] 1.029 H (1.010-1.025) Urine Protein Trace (Neg-Trace) mg/dL Urine Glucose (UA) Normal (Normal) mg/dL Urine Ketones Trace H (Negative) mg/dL Urine Blood Small H (Negative) Urine Nitrite Negative (Negative) Urine Bilirubin Negative (Negative) Urine Urobilinogen Normal (Normal) mg/dL Ur Leukocyte Esterase Trace H (Negative) Urine Microscopic RBC 15-30 H (0-3) per hpf Urine Microscopic WBC 0-3 (0-3) per hpf Ur Squamous Epith Cells Many H (None-Few) per lpf Urine Bacteria None Seen (None-Few) per hpf Hyaline Casts None Seen (None-Few) per lpf Ur Culture Indicated? YES A (NO) - Radiology Data Radiology results reviewed: Yes I reviewed the patient's radiology results. Chest X-Ray 07/12/17 12:20 IMPRESSION: 1. Perihilar vascular congestion without overt failure. 2. Left base atelectasis. D/ / 07/12/2017 12:52:56 Sherri Mathew MD / earnold Interpreting Provider: Sherir Mathew MD Head CT 07/12/17 12:21 IMPRESSION: No acute intracranial abnormality. Mild chronic mucosal thickening of the ethmoid air cells suggesting chronic sinusitis. D/ / Vipul Byrd MD / Vipul Byrd MD Interpreting Provider: Vipul Byrd MD - EKG Data EKG attestation: Yes I reviewed and interpreted this EKG. EKG results narrative: EKG performed 1229, atrial fibrillation 76 bpm QRS 101, normal axis, good R wave progression, no ST elevations or depression, T wave inversion in V2 seen on old EKG performed 07/08/2017. No acute ischemic changes. TPA Checklist - LKW: 3-4.5 hrs Add. Warnings/Precautions Patient/family understanding: The patient/family members have been counseled and understood the risk, benefit , and alternatives of treatment.
--- NOTE | 2017-07-12 12:24 | Emergency Department Note ---
Disposition Clinical Impression: Delirium due to general medical condition, Elevated troponin Disposition: Admitted As Inpatient Condition: Fair Referrals: Eileen Howard CNP [Primary Care Provider] - Forms: ED Satisfaction Letter General Adult HPI - General Chief complaint: ED Altered Mental Status Stated complaint: AMS Time Seen by Provider: 07/12/17 12:20 Nursing Notes Reviewed: Yes Vital Signs Reviewed: Yes - Related Data Home Medications Medication Instructions Recorded Confirmed Aspirin Enteric Coated [Aspirin EC] 81 mg PO DAILY 02/08/16 07/12/17 Carbidopa/Levodopa 25/100 [Sinemet 1.5 tab PO TID 02/08/16 07/12/17 25/100] Clopidogrel [Plavix] 75 mg PO DAILY 02/08/16 07/12/17 Lisinopril [Zestril] 5 mg PO DAILY 02/08/16 07/12/17 Metformin HCl [Metformin HCl ER] 500 mg PO DAILY 02/08/16 07/12/17 Metoprolol Succinate [Toprol Xl] 50 mg PO BID 02/08/16 07/12/17 Nitroglycerin 0.4 mg PO AD PRN 02/08/16 07/12/17 Pravastatin Sodium 10 mg PO DAILY 02/08/16 07/12/17 Ranolazine [Ranexa] 500 mg PO BID 02/08/16 07/12/17 DULoxetine [Cymbalta] 20 mg PO DAILY 07/08/17 07/12/17 Isosorbide MONOnitrate [Isosorbide 120 mg PO DAILY 07/08/17 07/12/17 Mononitrate ER] LORazepam [Lorazepam] 2 mg PO HS 07/12/17 07/12/17 Lactose-Reduced Food [Ensure Plus] 1 bottle PO TID 07/12/17 07/12/17 Previous Rx's Medication Instructions Recorded Ferrous Sulfate 325 mg PO BIDWM #60 tablet 07/10/17 Oxycodone HCl/Acetaminophen 1 each PO Q4-6H PRN #30 tablet 07/10/17 [Percocet 7.5-325 mg Tablet] Allergies Allergy/AdvReac Type Severity Reaction Status Date / Time No Known Allergies Allergy Verified 07/12/17 13:47 Past Medical History - Past Medical History Medical history: Reports: atrial fibrillation, COPD, diabetes, hyperlipidemia, myocardial infarction Surgical history: Reports: coronary bypass (CABG) Psychiatric history: Reports: no psych history - Social History Smoking Status: Former smoker Smokeless Tobacco Status: No Alcohol use: Reports: none Drug use: Reports: none Course Vital Signs Temperature 97.3 F L 07/12/17 12:18 Pulse Rate 72 07/12/17 12:18 Respiratory Rate 13 07/12/17 12:18 Blood Pressure 121/75 07/12/17 12:18 O2 Sat by Pulse Oximetry 95 07/12/17 12:18 Temperature 97.3 F L 07/12/17 12:18 Pulse Rate 68 07/12/17 13:04 Respiratory Rate 18 07/12/17 13:04 Blood Pressure 102/62 07/12/17 13:04 O2 Sat by Pulse Oximetry 97 07/12/17 13:04 Oxygen Delivery Oxygen Delivery Room Air Medical Decision Making - MDM Narrative Medical decision making narrative: I examined this patient and my medical decision-making was reviewed with the Resident Physician. I agree with the documented findings, disposition and treatment plan as described except to the extent set forth below. Patient arrives by EMS and was seen by Dr. Martini and myself, I agree with his evaluation and management plan, supervised care the patient's stay. Patient is in a nursing facility for rehabilitation from hip surgery. Daughter states she has been doing well. Was off his Ativan, the discharge him back yesterday this morning as he was very sleepy and difficult to stay or rales. Now he is more back to his normal self was still somewhat sleepy. No focal deficits. His does have a little bit of edema in his lower extremity from the surgery. No calf tenderness no signs of sepsis. Wound looks good. We will undergo workup on him then reassess. This may be medication related. Family is in agreement with this plan. This documentation is done with the assistance of [employer] dictation software. Though efforts have been made to ensure accuracy, there may be inaccuracies in manager in home or spelling or other typographical errors. 1245 hrs.: assisted confirmed that patient did get Ativan but also got Percocet today. That may explain some of his sedation. 1330 hrs.: Patient's troponin came back elevated. He denies any chest pain. That is new since she has been in the hospital. We repeated an EKG at 1343 hrs. : Showed atrial fibrillation, rate is 68, QRS is 96, QTC is 438 no signs of acute ischemia and he denies any chest pain. Compared this with his EKGs previously without change. - Lab Data Result diagrams: 07/12/17 13:00 07/12/17 13:00 Lab Results 07/12/17 07/12/17 07/12/17 Range/Units 12:25 13:00 13:00 WBC 10.1 (4.3-11.1) K/mcL RBC 3.92 L (4.19-5.50) M/mcL Hgb 12.3 L (12.9-16.9) g/dL Hct 38.1 (37.5-50.1) % MCV 97.2 (83.0-100.0) fL MCH 31.4 (28.0-33.3) pg MCHC 32.3 (31.6-35.5) g/dL RDW 14.0 (11.5-14.5) % Plt Count 173 (140-400) K/mcL MPV 10.9 (9.4-12.4) fL Immature Gran % 0.5 (0-4) % Seg Neutrophils % 78.1 % Lymphocytes % 9.6 % Monocytes % 11.4 % Eosinophils % 0.1 % Basophils % 0.3 % Neutrophils # 7.9 (1.6-8.9) K/mcL Lymphocytes # 1.0 (0.6-4.6) K/mcL Monocytes # 1.2 (0.0-1.3) K/mcL Eosinophils # 0.0 (0.0-0.6) K/mcL Basophils # 0.0 (0.0-0.2) K/mcL Sodium 138 (136-145) mEq/L Potassium 3.7 (3.5-4.5) mEq/L Chloride 109 (98-109) mEq/L Carbon Dioxide 22 (19-29) mEq/L BUN 30 H (8-26) mg/dL Creatinine 0.86 (0.72-1.25) mg/dL Est GFR ( Amer) > 60 (> 60) Est GFR (Non-Af Amer) > 60 (> 60) BUN/Creatinine Ratio 35 H (6-26) Glucose 172 H (70-99) mg/dL POC Glucose 151 H (58-89) Calculated Osmolality 296 (280-300) Calcium 8.7 (8.6-10.8) mg/dL Total Bilirubin 0.9 (0.2-1.2) mg/dL Direct Bilirubin 0.5 (0.0-0.5) mg/dL Indirect Bilirubin 0.4 (0.0-1.2) mg/dL AST 28 (5-34) Units/L ALT 11 (0-55) Units/L Alkaline Phosphatase 58 (38-126) Units/L Troponin I (0-0.03) ng/mL Serum Total Protein 6.2 (6.0-8.3) g/dL Albumin 2.5 L (3.5-5.0) g/dL Globulin 3.7 H (2.4-3.5) g/dL Albumin/Globulin Ratio 0.7 L (1.1-2.2) Urine Color (Yellow) Urine Clarity (Clear) Urine pH (5.0-8.0) pH Units Ur Specific [place] (1.010-1.025) Urine Protein (Neg-Trace) mg/dL Urine Glucose (UA) (Normal) mg/dL Urine Ketones (Negative) mg/dL Urine Blood (Negative) Urine Nitrite (Negative) Urine Bilirubin (Negative) Urine Urobilinogen (Normal) mg/dL Ur Leukocyte Esterase (Negative) Urine Microscopic RBC (0-3) per hpf Urine Microscopic WBC (0-3) per hpf Ur Squamous Epith Cells (None-Few) per lpf Urine Bacteria (None-Few) per hpf Hyaline Casts (None-Few) per lpf Ur Culture Indicated? (NO) 07/12/17 07/12/17 Range/Units 13:00 13:18 WBC (4.3-11.1) K/mcL RBC (4.19-5.50) M/mcL Hgb (12.9-16.9) g/dL Hct (37.5-50.1) % MCV (83.0-100.0) fL MCH (28.0-33.3) pg MCHC (31.6-35.5) g/dL RDW (11.5-14.5) % Plt Count (140-400) K/mcL MPV (9.4-12.4) fL Immature Gran % (0-4) % Seg Neutrophils % % Lymphocytes % % Monocytes % % Eosinophils % % Basophils % % Neutrophils # (1.6-8.9) K/mcL Lymphocytes # (0.6-4.6) K/mcL Monocytes # (0.0-1.3) K/mcL Eosinophils # (0.0-0.6) K/mcL Basophils # (0.0-0.2) K/mcL Sodium (136-145) mEq/L Potassium (3.5-4.5) mEq/L Chloride (98-109) mEq/L Carbon Dioxide (19-29) mEq/L BUN (8-26) mg/dL Creatinine (0.72-1.25) mg/dL Est GFR ( Amer) (> 60) Est GFR (Non-Af Amer) (> 60) BUN/Creatinine Ratio (6-26) Glucose (70-99) mg/dL POC Glucose (58-89) Calculated Osmolality (280-300) Calcium (8.6-10.8) mg/dL Total Bilirubin (0.2-1.2) mg/dL Direct Bilirubin (0.0-0.5) mg/dL Indirect Bilirubin (0.0-1.2) mg/dL AST (5-34) Units/L ALT (0-55) Units/L Alkaline Phosphatase (38-126) Units/L Troponin I 0.49 H* (0-0.03) ng/mL Serum Total Protein (6.0-8.3) g/dL Albumin (3.5-5.0) g/dL Globulin (2.4-3.5) g/dL Albumin/Globulin Ratio (1.1-2.2) Urine Color Dark Yellow (Yellow) Urine Clarity Clear (Clear) Urine pH 6.0 (5.0-8.0) pH Units Ur Specific [place] 1.029 H (1.010-1.025) Urine Protein Trace (Neg-Trace) mg/dL Urine Glucose (UA) Normal (Normal) mg/dL Urine Ketones Trace H (Negative) mg/dL Urine Blood Small H (Negative) Urine Nitrite Negative (Negative) Urine Bilirubin Negative (Negative) Urine Urobilinogen Normal (Normal) mg/dL Ur Leukocyte Esterase Trace H (Negative) Urine Microscopic RBC 15-30 H (0-3) per hpf Urine Microscopic WBC 0-3 (0-3) per hpf Ur Squamous Epith Cells Many H (None-Few) per lpf Urine Bacteria None Seen (None-Few) per hpf Hyaline Casts None Seen (None-Few) per lpf Ur Culture Indicated? YES A (NO)
[2017-07-12 13:06] LABS: Basophils % 0.3 %; Eosinophils % 0.1 %; Hematocrit 38.1 % (37.5-50.1); Hemoglobin 12.3 g/dL (12.9-16.9); Immature Granulocytes % 0.5 % (0-4); Lymphocytes % 9.6 %; Mean Corpuscular HGB Conc 32.3 g/dL (31.6-35.5); Mean Corpuscular Hemoglobin 31.4 pg (28.0-33.3); Mean Corpuscular Volume 97.2 fL (83.0-100.0); Mean Platelet Volume 10.9 fL (9.4-12.4); Monocytes # 1.2 K/mcL (0.0-1.3); Monocytes % 11.4 %; Neutrophils # 7.9 K/mcL (1.6-8.9); Platelet Count 173 K/mcL (140-400); Red Blood Count 3.92 M/mcL (4.19-5.50); Segmented Neutrophils % 78.1 %
[2017-07-12 13:20] LABS: Alanine Aminotransferase 11 Units/L (0-55); Albumin 2.5 g/dL (3.5-5.0); Albumin/Globulin Ratio 0.7 (1.1-2.2); Alkaline Phosphatase 58 Units/L (38-126); Aspartate Amino Transferase 28 Units/L (5-34); BUN/Creatinine Ratio 35 (6-26); Bilirubin,Direct 0.5 mg/dL (0.0-0.5); Bilirubin,Indirect 0.4 mg/dL (0.0-1.2); Bilirubin,Total 0.9 mg/dL (0.2-1.2); Blood Urea Nitrogen 30 mg/dL (8-26); Calcium 8.7 mg/dL (8.6-10.8); Carbon Dioxide 22 mEq/L (19-29); Chloride 109 mEq/L (98-109); Globulin 3.7 g/dL (2.4-3.5); Glucose 172 mg/dL (70-99); Osmolality,Calculated 296 (280-300); Potassium 3.7 mEq/L (3.5-4.5); Sodium 138 mEq/L (136-145); Total Protein 6.2 g/dL (6.0-8.3); eGFR For African Americans > 60 (> 60); eGFR For Non-African Americans > 60 (> 60)
[2017-07-12 13:24] LABS: Bilirubin,Urine Negative (Negative); Blood,Urine Small (Negative); Clarity,Urine Clear (Clear); Color,Urine Dark Yellow (Yellow); Glucose,Urine (UA) Normal (Normal); Ketones,Urine Trace mg/dL (Negative); Leukocyte Esterase,Urine Trace (Negative); Nitrite,Urine Negative (Negative); Protein,Urine Trace mg/dL (Neg-Trace); Specific Gravity,Urine 1.029 (1.010-1.025); Urobilinogen,Urine Normal (Normal)
[2017-07-12 13:26] LABS: Bacteria,Urine None Seen per hpf (None-Few); Hyaline Casts,Urine None Seen per lpf (None-Few); RBC,Urine 15-30 per hpf (0-3); Squamous Epithelial Cell,Urine Many per lpf (None-Few); WBC,Urine 0-3 per hpf (0-3)
[2017-07-12 15:00] LABS: INR 1.2; Prothrombin Time 12.7 Seconds (9.4-12.1)
[2017-07-12 15:02] LABS: Activated Partial Thrombo Time 27.3 Seconds (26.0-36.0)
[2017-07-12] MEDS ORDERED: *HR* Heparin 5,000 UNIT/ML VIAL IVP ONE (15:57)
[2017-07-12] MEDS ORDERED: *HR* Heparin 5,000 UNIT/ML VIAL IVP PRN (15:57)
[2017-07-12] MEDS: Heparin 25,000 UNIT/500 ML D5W 25,000 UNIT/500 ML MLS IVC SCH (16:29)
[2017-07-12] MEDS ORDERED: Furosemide 20 MG/2 ML VIAL IVP ONE (21:15)
[2017-07-12] MEDS ORDERED: Furosemide 20 MG TABLET PO PRN (21:16)
--- NOTE | 2017-07-12 21:43 | Internal Med History&Physical ---
Date of Encounter: 07/12/17 Time of Encounter: 21:32 Assessment and Plan (1) Lethargy Current visit: Yes Status: Acute Likely related to effect of pain medications and benzodiazepines. Will hold. Family already notices improve in the level of alertness throughout the day. CT scan of the head shows no intracranial bleed. No obvious infectious etiology (2) NSTEMI (non-ST elevated myocardial infarction) Current visit: Yes Status: Acute NSTEMI type 2 vs. 1. Etiology unclear. He may have been hypoxic from hypoventilation related to medications. However I will rule out PE since he was not on anticoagulants after hip surgery. Trend troponin. He is currently on heparin drip. (3) Afib Current visit: Yes Status: Acute Chronic persistent atrial fibrillation not on anticoagulation due to fall risk. Qualifiers: Qualified Code(s): I48.91 - Unspecified atrial fibrillation (4) Dementia Current visit: No Status: Chronic Qualifiers: Dementia type: Lewy body dementia Dementia behavioral disturbance: without behavioral disturbance Qualified Code(s): G31.83 - Dementia with Lewy bodies; F02.80 - Dementia in other diseases classified elsewhere without behavioral disturbance; F02.80 - Dementia in other diseases classified elsewhere without behavioral disturbance; F02.80 - Dementia in other diseases classified elsewhere without behavioral disturbance Internal Medicine - H&P: HPI Chief complaint: LETHARGY History of present illness: Mr. Villarreal is a 87 year old male patient with multiple medical problems who had a recent hip surgery 5 days ago presents from skilled care facility because of lethargy and altered mental status. Patient has baseline dementia but was noted today that he was more lethargic, sleepy. Patient has been taking Percocet as needed for pain approximately q 4-6 h according to documentation in addition to antivan that was started 2 days ago and received 2 mg yesterday. He has been however on antivan long-term 2 mg daily but has not started since surgery. No witnessed seizures. No reported fever chills cough expectoration diarrhea or urinary symptoms. No focal weakness. No hematemesis melena or hematochezia. He has not been on any anticoagulants after hip surgery. He denies any chest pain. Past Med Surg Social Fam HX - Past Medical History Medical history: atrial fibrillation, COPD, diabetes, hyperlipidemia, myocardial infarction Psychiatric history: no psych history - Past Surgical History Surgical History: coronary bypass (CABG) - Social History Smoking Status: Former smoker Smokeless Tobacco Status: No Alcohol use: none Drug use: none - Family History Mother Living Status: Age at : 66 Cause of : [place] Father Adopted: No Living Status: Age at : 76 Cause of : [place] Hx Family Cardiac Disorders: Yes Internal Medicine - H&P: Meds Aspirin Enteric Coated [Aspirin EC] 81 mg PO DAILY 02/08/16 [History] Carbidopa/Levodopa 25/100 [Sinemet 25/100] 1.5 tab PO TID 02/08/16 [History] Clopidogrel [Plavix] 75 mg PO DAILY 02/08/16 [History] Lisinopril [Zestril] 5 mg PO DAILY 02/08/16 [History] Metformin HCl [Metformin HCl ER] 500 mg PO DAILY 02/08/16 [History] Metoprolol Succinate [Toprol Xl] 50 mg PO BID 02/08/16 [History] Nitroglycerin 0.4 mg PO AD PRN 02/08/16 [History] Pravastatin Sodium 10 mg PO DAILY 02/08/16 [History] Ranolazine [Ranexa] 500 mg PO BID 02/08/16 [History] DULoxetine [Cymbalta] 20 mg PO DAILY 07/08/17 [History] Isosorbide MONOnitrate [Isosorbide Mononitrate ER] 120 mg PO DAILY 07/08/17 [ History] Ferrous Sulfate 325 mg PO BIDWM #60 tablet 07/10/17 [Rx] Oxycodone HCl/Acetaminophen [Percocet 7.5-325 mg Tablet] 1 each PO Q4-6H PRN # 30 tablet 07/10/17 [Rx] LORazepam [Lorazepam] 2 mg PO HS 07/12/17 [History] Lactose-Reduced Food [Ensure Plus] 1 bottle PO TID 07/12/17 [History] 3 Allergy/AdvReac Type Severity Reaction Status Date / Time No Known Allergies Allergy Verified 07/12/17 13:47 All Systems PM: A 10-system review of systems was performed and is negative for pertinent findings except as documented above in the HPI. Review of systems: 10 point ROS is negative except for HPI - Constitutional Vitals: Temp Pulse Resp BP Pulse Ox 97.3 F L 74 15 120/78 99 07/12/17 12:18 07/12/17 18:11 07/12/17 18:11 07/12/17 18:11 07/12/17 18:11 Exam: Gen.: patient is alert oriented times 3 not in distress cardiac: normal S1 S2 no additional sounds are murmurs chest: clear to auscultation abdomen: soft nontender nondistended lower extremity 1+ swelling Neuro: no focal deficits Internal Med - H&P Results - Labs CBC & Chem 7: 07/12/17 13:00 07/12/17 13:00 Labs: Cardiac Enzymes 07/12/17 Range/Units 19:19 Troponin I 0.45 H* (0-0.03) ng/mL
[2017-07-12] MEDS: *HR* Heparin 5,000 UNIT/ML VIAL IVP PRN (23:06)
[2017-07-13 04:53] LABS: BUN/Creatinine Ratio 33 (6-26); Blood Urea Nitrogen 27 mg/dL (8-26); Calcium 8.8 mg/dL (8.6-10.8); Carbon Dioxide 22 mEq/L (19-29); Chloride 106 mEq/L (98-109); Glucose 152 mg/dL (70-99); Magnesium 1.8 mg/dL (1.6-2.6); Osmolality,Calculated 296 (280-300); Potassium 3.8 mEq/L (3.5-4.5); Sodium 139 mEq/L (136-145); eGFR For African Americans > 60 (> 60); eGFR For Non-African Americans > 60 (> 60)
[2017-07-13 04:58] LABS: Basophils % 0.3 %; Hemoglobin 11.9 g/dL (12.9-16.9); Immature Granulocytes % 0.5 % (0-4); Lymphocytes # 0.8 K/mcL (0.6-4.6); Lymphocytes % 9.1 %; Mean Corpuscular HGB Conc 32.2 g/dL (31.6-35.5); Mean Corpuscular Hemoglobin 31.2 pg (28.0-33.3); Mean Corpuscular Volume 97.1 fL (83.0-100.0); Mean Platelet Volume 11.3 fL (9.4-12.4); Neutrophils # 5.8 K/mcL (1.6-8.9); Platelet Count 186 K/mcL (140-400); Red Blood Count 3.81 M/mcL (4.19-5.50); Red Cell Distribution Width 13.9 % (11.5-14.5); Segmented Neutrophils % 67.1 %
--- NOTE | 2017-07-13 07:30 | Internal Med Progress Note ---
Date of Encounter: 07/13/17 Time of Encounter: 07:28 - Assessment and plan (1) Generalized weakness Current Visit: No Status: Acute Assessment and plan: Likely due to pain medication benzodiazepine and narcotics (2) Parkinson disease Current Visit: No Status: Chronic Assessment and plan: Chronic we will continue home medication (3) Diabetes mellitus type II, non insulin dependent Current Visit: No Status: Chronic Assessment and plan: Chronic we will continue on sliding scale (4) Hypertension Current Visit: No Status: Chronic Assessment and plan: Chronic come blood pressure well controlled Qualifiers: Hypertension type: essential hypertension Qualified Code(s): I10 - Essential (primary) hypertension (5) Dementia Current Visit: No Status: Chronic Assessment and plan: Chronic we will resume home medication Qualifiers: Dementia type: Lewy body dementia Dementia behavioral disturbance: without behavioral disturbance Qualified Code(s): G31.83 - Dementia with Lewy bodies; F02.80 - Dementia in other diseases classified elsewhere without behavioral disturbance; F02.80 - Dementia in other diseases classified elsewhere without behavioral disturbance; F02.80 - Dementia in other diseases classified elsewhere without behavioral disturbance (6) Lethargy Current Visit: Yes Status: Acute (7) NSTEMI (non-ST elevated myocardial infarction) Current Visit: Yes Status: Acute Assessment and plan: The patient denies any chest pain Cardiology consult. We will also obtain CTA to rule out pulmonary embolism given recent surgery (8) Afib Current Visit: Yes Status: Chronic Assessment and plan: Chronic rate well controlled Qualifiers: Atrial fibrillation type: chronic Qualified Code(s): I48.2 - Chronic atrial fibrillation - Subjective Interval history: Patient with history of dementia, chronic atrial fibrillation, patient recently admitted underwent surgery for hip fracture and then discharged to rehabilitation patient was brought in due to increased confusion and lethargy and evaluation was found to have a positive troponin of non-STEMI patient this morning is more awake, less lethargic denies any chest pain. - Constitutional Vitals: Temp Pulse Resp BP Pulse Ox 98.2 F 80 15 124/81 97 07/13/17 07:14 07/13/17 07:14 07/13/17 07:14 07/13/17 07:14 07/13/17 07:14 - Eye Eye exam: Present: PERRL, conjuntiva pink, sclera anicteric Pupils: Present: PERRL - Respiratory Respiratory exam: Present: CTAB. Absent: accessory muscle use, rales, rhonchi, wheezes - Cardiovascular Cardiovascular exam: Present: irregular rhythm, +S1, +S2 - GI/Abdominal GI/Abdominal exam: Present: normal bowel sounds, soft, no peritoneal signs. Absent: distended, tenderness - Extremities Exam Extremities exam: Present: warm, radial pulses palpable and symmetrical. Absent : calf tenderness, cyanotic, pedal edema Internal Medicine: Result - Labs CBC & Chem 7: 07/13/17 03:53 07/13/17 03:53 Labs: Short CBC 07/13/17 Range/Units 03:53 WBC 8.6 (4.3-11.1) K/mcL Hgb 11.9 L (12.9-16.9) g/dL Hct 37.0 L (37.5-50.1) % Plt Count 186 (140-400) K/mcL Neutrophils # 5.8 (1.6-8.9) K/mcL BMP 07/13/17 03:53 Sodium 139 Potassium 3.8 Chloride 106 Carbon Dioxide 22 BUN 27 H Creatinine 0.83 Glucose 152 H Calcium 8.8 Cardiac Enzymes 07/12/17 07/13/17 07/13/17 Range/Units 19:19 00:56 03:53 Troponin I 0.45 H* 0.47 H* 0.41 H* (0-0.03) ng/mL - ABG Interpretation ABG results: PT/INR, D-dimer PT 12.7 Seconds (9.4-12.1) H 07/12/17 13:00 Consult Discharge Plan - Plan Referrals: Eileen Howard FOOD SERVICES COORDINATOR [Primary Care Provider] -
[2017-07-13] MEDS: Acetaminophen 325 MG TABLET PO PRN (08:47)
[2017-07-13] MEDS: Aspirin Enteric Coated 81 MG Tablet PO SCH (08:47)
[2017-07-13] MEDS: Carbidopa/Levodopa 25/100 TABLET PO SCH ×3 (08:48→23:36)
[2017-07-13] MEDS: Isosorbide MONOnitrate (24 HR) 60 MG TAB.ER.24H PO SCH (08:57)
[2017-07-13] MEDS: Metoprolol XL (24 HR) Succ 50 MG TAB.ER.24H PO SCH ×2 (08:57→23:36)
[2017-07-13] MEDS: Ranolazine 500 MG TAB.ER.12H PO SCH ×2 (08:57→23:36)
[2017-07-13] MEDS ORDERED: NON-FORMULARY MEDICATION 1 EACH EACH (Lactose-Reduced Food [Ensure Plus] 1 BOTTLE) PO SCH (09:00)
[2017-07-13] MEDS ORDERED: Dextrose Gel 15 GM PO PRN ×2 (09:31)
[2017-07-13] MEDS ORDERED: D5% in Water 1,000 ML IVC PRN (09:31)
[2017-07-13] MEDS ORDERED: *HR* Dextrose 50 % in Water (Syg) 50 ML SYRINGE IVP PRN (09:31)
--- NOTE | 2017-07-13 11:23 | Cardiology Consult Note ---
<Osman Jolly - Last Filed: 07/13/17 11:30> Date of Encounter: 07/13/17 Time of Encounter: 10:15 Assessment and Plan (1) Elevated troponin Current Visit: Yes Status: Acute Troponin elevation of unclear significance. Denies cardiovascular symptoms. Presented due to AMS that may have been medication related. Agree with checking CTA with recent hip surgery. Check TTE. Noted to have BLE edema. Perihilar vascular congestion on CXR. Will give IV lasix. Denies history of CHF. Records ordered from [facility]. Known severe CAD not ammendable to PCI per daughters. Continue heparin gtt. Continue asa, statin, and bb. On GDMT for CAD. (2) CAD (coronary artery disease) of artery bypass graft Current Visit: No Status: Chronic H/o remote CABG and multiple PCI. Known obstructive CAD. Continue medical therapy. Qualifiers: [place] vs. transplanted heart: redding heart Associated angina: without angina Qualified Code(s): I25.810 - Atherosclerosis of coronary artery bypass graft(s) without angina pectoris (3) Atrial fibrillation Current Visit: No Status: Chronic H/o atrial fibrillation. Appears to be permanent. Currently rate controlled. Not on AC due to fall risk. Qualifiers: Atrial fibrillation type: chronic Qualified Code(s): I48.2 - Chronic atrial fibrillation Discussion w patient/family: The assessment and plan as outlined above was discussed with the patient and/or family members who expressed understanding and agreement. All questions were answered. Thank you for involving us in the care of your patient. Please call with any questions. History of Present Illness Consult date: 07/13/17 Requesting physician: Donta Hernandez Consult reason: elevated troponin Chief complaint: AMS History of present illness: Mr. Villarreal is a 87 year old male with a past medical history of remote 3V CABG , multiple previous PCI, atrial fibrillation, parkinson' s disease, and hip fracture one week ago s/p repair. [facility]. The daughter states that he may have gotten ativan prior to the event. Cardiology consulted for troponin elevation up to 0.49. He denies chest pain, SOB, or other CV complaints. He follows with Dr. Manuel and [facility]. Last LHC was 2 years ago at [facility]. Daughters stated that he was told he could not have anymore stents and only has one artery open. Records were ordered for review. Past Med Surg Social Fam HX - Past Medical History Medical history: atrial fibrillation, COPD, coronary artery disease, diabetes, hyperlipidemia, myocardial infarction Psychiatric history: no psych history - Past Surgical History Surgical History: coronary bypass (CABG) - Social History Smoking Status: Former smoker Smokeless Tobacco Status: No Alcohol use: none Drug use: none - Family History Mother Living Status: Age at : 66 Cause of : [place] Father Adopted: No Living Status: Age at : 76 Cause of : [place] Hx Family Cardiac Disorders: Yes Medications and Allergies Aspirin Enteric Coated [Aspirin EC] 81 mg PO DAILY 02/08/16 [History] Carbidopa/Levodopa 25/100 [Sinemet 25/100] 1.5 tab PO TID 02/08/16 [History] Clopidogrel [Plavix] 75 mg PO DAILY 02/08/16 [History] Lisinopril [Zestril] 5 mg PO DAILY 02/08/16 [History] Metformin HCl [Metformin HCl ER] 500 mg PO DAILY 02/08/16 [History] Metoprolol Succinate [Toprol Xl] 50 mg PO BID 02/08/16 [History] Nitroglycerin 0.4 mg PO AD PRN 02/08/16 [History] Pravastatin Sodium 10 mg PO DAILY 02/08/16 [History] Ranolazine [Ranexa] 500 mg PO BID 02/08/16 [History] DULoxetine [Cymbalta] 20 mg PO DAILY 07/08/17 [History] Isosorbide MONOnitrate [Isosorbide Mononitrate ER] 120 mg PO DAILY 07/08/17 [ History] Ferrous Sulfate 325 mg PO BIDWM #60 tablet 07/10/17 [Rx] Oxycodone HCl/Acetaminophen [Percocet 7.5-325 mg Tablet] 1 each PO Q4-6H PRN # 30 tablet 07/10/17 [Rx] LORazepam [Lorazepam] 2 mg PO HS 07/12/17 [History] Lactose-Reduced Food [Ensure Plus] 1 bottle PO TID 07/12/17 [History] 3 Allergy/AdvReac Type Severity Reaction Status Date / Time No Known Allergies Allergy Verified 07/12/17 13:47 All Systems Review: A 10-system review of systems was performed and is negative for pertinent findings except as documented above in the HPI. Physical Examination Vital Signs Temp Pulse Resp BP Pulse Ox 07/13/17 07:14 98.2 F 80 15 124/81 97 07/13/17 05:16 97 07/13/17 04:06 77 18 128/83 97 07/12/17 22:54 98.8 F 89 17 113/72 99 07/12/17 18:11 74 15 120/78 99 07/12/17 16:36 77 19 126/77 97 07/12/17 15:13 68 19 120/72 97 07/12/17 14:10 70 19 118/70 98 07/12/17 13:04 68 18 102/62 97 07/12/17 12:50 79 17 121/75 97 07/12/17 12:18 97.3 F L 72 13 121/75 95 Intake and Output 07/12/17 07/13/17 07/13/17 23:59 07:59 15:59 Intake Total 180 / 180 0 / 0 255.8 / 255.8 Output Total 400 / 400 400 / 400 Balance -220 / -220 -400 / -400 255.8 / 255.8 Intake: IV Fluids 180 / 180 255.8 / 255.8 Heparin 25,000 UNIT/500 ML D5W 180 / 180 255.8 / 255.8 25,000 unit In 500 ml @ 10 UNIT /KG/HR 19.958 mls/hr IVC .Q24H MANDA Rx#:[id number] Oral 0 / 0 0 / 0 0 / 0 Output: Urine 400 / 400 400 / 400 Other: Meal Breakfast Percent of Meal Consumed 0% # Urine Diapers 3 Blood Glucose* 150 General: Conversant, No Apparent Distress, Other (slow to respond.) HEENT: Atraumatic, Normocephaly, Mucus Membranes Moist Neck: No JVD, Normal carotid pulses Cardiac: Other (Irregular) Lungs: Normal Breath Sounds, No Wheeze, Rales, Rhonchi Neuro: Alert and responsive, No focal deficits noted Abdomen: Soft, Non-Tender Skin: No rashes noted on visualized skin Musculoskeletal: No Chest Wall Tenderness, Other (genralized weakness) Extremities: No Clubbing, No Cyanosis, No Edema, Normal Pulses Results 07/13/17 03:53 07/13/17 03:53 Lab Results 07/13/17 10:23 APTT 37.9 H - Imaging and Cardiology Echo: pending - EKG Interpretation EKG results cardiology: personally reviewed (atrial fibrillation, no acute ST changes) Consult Discharge Plan - Plan Referrals: Eileen Howard, [employer] TRIMMER [Primary Care Provider] - <Rambo Garcias - Last Filed: 07/13/17 12:25> Date of Encounter: 07/13/17 - Attending Attestation I have personally performed a face to face evaluation on this patient. I have reviewed and agree with the care plan. History and Exam by me shows: Presented with AMS. Mild elevated trop., known triple vessel disease. Doubt ACS, would continue medical mgmt. Assessment and Plan Discussion w patient/family: The assessment and plan as outlined above was discussed with the patient and/or family members who expressed understanding and agreement. All questions were answered. Thank you for involving us in the care of your patient. Please call with any questions. History of Present Illness History of present illness: Mr. Villarreal is a 87 year old male All Systems Review: A 10-system review of systems was performed and is negative for pertinent findings except as documented above in the HPI. Results 07/13/17 03:53 07/13/17 03:53 Lab Results 07/13/17 10:23 APTT 37.9 H
[2017-07-13] MEDS: Insulin LISPRO 300 UNITS/3 ML VIAL SQ SCH ×3 (11:33→23:30)
[2017-07-13] MEDS ORDERED: Furosemide 40 MG/4 ML VIAL IVP ONE (11:45)
[2017-07-13] MEDS ORDERED: Acetaminophen 325 MG TABLET PO SCH (12:00)
[2017-07-13] MEDS: Heparin 25,000 UNIT/500 ML D5W 25,000 UNIT/500 ML MLS IVC SCH (14:29)
[2017-07-13 18:16] LABS: Activated Partial Thrombo Time 120.5 Seconds (26.0-36.0)
[2017-07-13 18:25] LABS: Heparin anti-factor XA UFH 0.71 IU/mL (0.30-0.70)
[2017-07-14] MEDS: *HR* Heparin 5,000 UNIT/ML VIAL IVP PRN (02:38)
[2017-07-14] MEDS: Metoprolol XL (24 HR) Succ 50 MG TAB.ER.24H PO SCH ×2 (08:39→21:41)
[2017-07-14] MEDS: Carbidopa/Levodopa 25/100 TABLET PO SCH ×3 (08:39→21:47)
[2017-07-14] MEDS: Aspirin Enteric Coated 81 MG Tablet PO SCH (08:40)
[2017-07-14] MEDS: Ranolazine 500 MG TAB.ER.12H PO SCH ×2 (08:40→21:42)
[2017-07-14] MEDS: Isosorbide MONOnitrate (24 HR) 60 MG TAB.ER.24H PO SCH (08:40)
[2017-07-14] MEDS: Insulin LISPRO 300 UNITS/3 ML VIAL SQ SCH ×4 (08:41→21:48)
[2017-07-14] MEDS: Heparin 25,000 UNIT/500 ML D5W 25,000 UNIT/500 ML MLS IVC SCH (09:52)
[2017-07-14 09:57] LABS: Activated Partial Thrombo Time 115.2 Seconds (26.0-36.0)
[2017-07-14] MEDS: Acetaminophen 325 MG TABLET PO PRN ×2 (10:25→21:46)
[2017-07-14 10:34] LABS: Heparin anti-factor XA UFH 0.56 IU/mL (0.30-0.70)
--- NOTE | 2017-07-14 13:39 | Internal Med Progress Note ---
Date of Encounter: 07/14/17 Time of Encounter: 12:15 - Assessment and plan (1) NSTEMI (non-ST elevated myocardial infarction) Current Visit: Yes Status: Acute Assessment and plan: Patient with history of coronary artery disease. Troponins trending down. Patient denies any chest pain. Cardiology following. Requested records from [facility] regarding patient's prior cardiac history. Currently on IV heparin drip. Also on aspirin, Plavix, statin and beta jame. Will follow cardiology recommendations. High risk for complications. (2) Atrial fibrillation Current Visit: Yes Status: Chronic Assessment and plan: Rate controlled. Currently on IV heparin for anticoagulation due to possible NSTEMI. Qualifiers: Atrial fibrillation type: chronic Qualified Code(s): I48.2 - Chronic atrial fibrillation (3) Generalized weakness Current Visit: Yes Status: Acute Assessment and plan: PT OT consulted. Plan to discharge back to skilled rehabilitation when patient is stable for discharge. (4) Hypertension Current Visit: Yes Status: Chronic Assessment and plan: Blood pressure is well controlled at this time Qualifiers: Hypertension type: essential hypertension Qualified Code(s): I10 - Essential (primary) hypertension (5) Lethargy Current Visit: Yes Status: Resolved Assessment and plan: Most likely due to medications. This is now resolved (6) Parkinson disease Current Visit: Yes Status: Chronic Assessment and plan: Continue carbidopa levodopa - Subjective Interval history: Patient is doing much better today. If she is awake and alert. Oriented. Denies any chest pain at this time. No shortness of breath. No other new complaints reported. - Constitutional Vitals: Temp Pulse Resp BP Pulse Ox 97.4 F L 75 15 128/81 94 07/14/17 11:15 07/14/17 11:15 07/14/17 11:15 07/14/17 11:15 07/14/17 11:15 General appearance: Present: cooperative, A&O X 3, pleasant, answers questions appropriately - Neck Neck exam general surgery: Present: supple, trachea midline. Absent: lymphadenopathy - Respiratory Respiratory exam: Present: CTAB. Absent: accessory muscle use, rales, rhonchi, wheezes - Cardiovascular Cardiovascular exam: Present: RRR, +S1, +S2. Absent: diastolic murmur, gallop, rubs, systolic murmur - GI/Abdominal GI/Abdominal exam: Present: normal bowel sounds, soft, no peritoneal signs. Absent: distended, tenderness - Extremities Exam Extremities exam: Present: pedal edema (Trace bilateral), warm, radial pulses palpable and symmetrical. Absent: calf tenderness, cyanotic - Neurological Exam Neurological exam: Present: CN II-XII intact, oriented X3, no focal deficits. Absent: facial droop, speech deficit - Skin Skin exam: Present: dry, intact Internal Medicine: Result - Labs CBC & Chem 7: 07/13/17 03:53 07/13/17 03:53 - ABG Interpretation ABG results: PT/INR, D-dimer PT 12.7 Seconds (9.4-12.1) H 07/12/17 13:00 Consult Discharge Plan - Plan Referrals: Eileen Howard CNP [Primary Care Provider] -
--- NOTE | 2017-07-14 14:09 | Cardiology Progress Note ---
Date of Encounter: 07/14/17 Time of Encounter: 14:10 Assessment and Plan (1) Dementia Current Visit: No Status: Chronic Per Cardiology: History of dementia. Patient alert and oriented to person only. Per nursing staff patient back to baseline. Records reviewed and patient presented initially with worsening mental status changes and lethargy. Qualifiers: Dementia type: Lewy body dementia Dementia behavioral disturbance: without behavioral disturbance Qualified Code(s): G31.83 - Dementia with Lewy bodies; F02.80 - Dementia in other diseases classified elsewhere without behavioral disturbance; F02.80 - Dementia in other diseases classified elsewhere without behavioral disturbance; F02.80 - Dementia in other diseases classified elsewhere without behavioral disturbance (2) Elevated troponin Current Visit: Yes Status: Acute Per Cardiology: Troponin elevation of unclear significance, flat and adynamic with peak of 0.49. Patient appears to be chest pain-free. CT negative for PE. Known severe CAD not ammendable to PCI per daughters (from other notes). No records noted from [facility]-- attempt to obtain. Per discussion with Dr. Vianca Garcias, echo remains similar to previous echo. We'll discontinue IV heparin drip. On aspirin, Plavix , statin, beta jame, long-acting nitrate, and Ranexa-- we'll maximize Ranexa 2000 mg by mouth twice a day. Cardiology will s/o, re-consult PRN, f/u scheduled. No cardiac rehab c/s warranted. (3) Atrial fibrillation Current Visit: Yes Status: Chronic Per Cardiology: H/o atrial fibrillation. Appears to be permanent. Currently rate controlled. Not on AC due to fall risk. Qualifiers: Atrial fibrillation type: chronic Qualified Code(s): I48.2 - Chronic atrial fibrillation (4) CAD (coronary artery disease) of artery bypass graft Current Visit: No Status: Chronic Per Cardiology: H/o remote CABG and multiple PCI. Known obstructive CAD. Continue medical therapy. Qualifiers: [place] vs. transplanted heart: [place] heart Associated angina: without angina Qualified Code(s): I25.810 - Atherosclerosis of coronary artery bypass graft(s) without angina pectoris Discussion w patient/family: No family at bedside. Subjective Principal diagnosis: Lethargy, Elevated trop Interval history: Patient seen with no family currently at bedside. Alert to person only. Patient did not know location and thought the year was 1989. He denies chest pain or any concerns. Per discussion with nurse family reports he is now back to his baseline mental status. Objective Vital Signs, Last 4 Hours Temp Pulse Resp BP Pulse Ox 07/14/17 11:15 97.4 F L 75 15 128/81 94 General: Conversant, No Apparent Distress Cardiac: Reg Rate and Rhythm, Normal S1 and S2, No Murmur Lungs: Normal Breath Sounds, No Wheeze, Rales, Rhonchi Neuro: Alert and responsive, No focal deficits noted, Other (A&O x 1) Skin: No rashes noted on visualized skin Extremities: No Edema Results 07/13/17 03:53 07/13/17 03:53 Lab Results Laboratory Tests 07/12/17 07/12/17 07/13/17 13:00 19:19 00:56 Troponin I 0.49 H* 0.45 H* 0.47 H* B-Natriuretic Peptide 07/13/17 07/13/17 03:52 03:53 Troponin I 0.41 H* B-Natriuretic Peptide 155 H ITS Impressions Chest X-Ray 07/12/17 12:20 IMPRESSION: 1. Perihilar vascular congestion without overt failure. 2. Left base atelectasis. D/ / 07/12/2017 12:52:56 Sherri Mathew MD / earnold Interpreting Provider: Sherri Mathew MD Head CT 07/12/17 12:21 IMPRESSION: No acute intracranial abnormality. Mild chronic mucosal thickening of the ethmoid air cells suggesting chronic sinusitis. D/ / Vipul Byrd MD / Vipul Byrd MD Interpreting Provider: Vipul Byrd MD Pulmonary Perfusion Imaging 07/12/17 21:11 IMPRESSION: Low probability for pulmonary embolism. D/ / Raghav Reza MD / Raghav Reza MD Interpreting Provider: Raghav Reza MD Chest CTA 07/13/17 10:00 IMPRESSION: 1. No findings of pulmonary embolism. 2. Mild cardiomegaly, left atrial dilation, and severe coronary atherosclerotic calcifications. Reflux of the contrast bolus suggests associated right heart dysfunction. 3. Trace bilateral pleural effusions. D/ / Raghav Reza MD / Raghav Reza MD Interpreting Provider: Raghav Reza MD Active Medications Acetaminophen (Tylenol) 650 mg PO Q4HR PRN PRN Reason: Fever Stop: 01/12/18 12:01 Last Admin: 07/14/17 10:25 Dose: 650 mg Aspirin (Aspirin Ec) 81 mg PO DAILY MANDA Stop: 01/12/18 09:01 Last Admin: 07/14/17 08:40 Dose: 81 mg Carbidopa/Levodopa (Sinemet) 1.5 each PO TID MANDA Stop: 01/12/18 09:01 Last Admin: 07/14/17 08:39 Dose: 1.5 each Clopidogrel Bisulfate (Plavix) 75 mg PO DAILY MANDA Stop: 01/12/18 09:01 Last Admin: 07/14/17 08:40 Dose: 75 mg Dextrose/Water (Dextrose 50% (Syg)) 25 ml IVP AD PRN PRN Reason: Hypoglycemia Stop: 01/12/18 09:32 Duloxetine HCl (Cymbalta) 20 mg PO DAILY MANDA Stop: 01/12/18 09:01 Last Admin: 07/14/17 08:40 Dose: 20 mg Furosemide (Lasix) 20 mg PO DAILY PRN PRN Reason: Edema Stop: 01/11/18 21:17 Glucagon (Glucagen) 1 mg IM ONCE PRN PRN Reason: Hypoglycemia Stop: 01/12/18 09:32 Glucose (Gluctose) 15 gm PO ONCE PRN PRN Reason: Hypoglycemia Stop: 01/12/18 09:32 Glucose (Gluctose) 30 gm PO ONCE PRN PRN Reason: Hypoglycemia Stop: 01/12/18 09:32 Heparin Sodium (Porcine) (Heparin) 4,000 unit IVP Q6HR PRN PRN Reason: SEE COMMENTS Stop: 01/11/18 15:58 Last Admin: 07/13/17 11:27 Dose: 4,000 unit Heparin Sodium (Porcine) (Heparin) 2,000 unit IVP Q6H PRN PRN Reason: SEE COMMENTS Stop: 01/11/18 15:58 Last Admin: 07/14/17 02:38 Dose: 2,000 unit Heparin Sodium/Dextrose (Heparin 25,000 Unit/500 Ml D5w) 25,000 unit in 500 mls @ 19.958 mls/hr IVC .Q24H MANDA; 10 UNIT/KG/HR PRN Reason: Protocol Stop: 01/11/18 16:01 Last Titration: 07/14/17 11:04 Dose: 11.97 unit/kg/hr, 23.9 mls/hr Dextrose (Dextrose 5%) 1,000 mls @ 100 mls/hr IVC .Q10H PRN PRN Reason: HYPOGLYCEMIA Stop: 01/12/18 09:32 Insulin Human Lispro (Humalog) 0 units SQ HS [facility] PRN Reason: Protocol Stop: 01/12/18 21:01 Last Admin: 07/13/17 23:30 Dose: Not Given Insulin Human Lispro (Humalog) 0 units SQ TIDAC [facility] PRN Reason: Protocol Stop: 01/12/18 11:31 Last Admin: 07/14/17 11:33 Dose: 4 units Isosorbide Mononitrate (Imdur) 120 mg PO DAILY [facility] Stop: 01/12/18 09:01 Last Admin: 07/14/17 08:40 Dose: 120 mg Metoprolol Succinate (Toprol Xl) 50 mg PO BID [facility] Stop: 01/12/18 09:01 Last Admin: 07/14/17 08:39 Dose: 50 mg Ranolazine (Ranexa) 500 mg PO BID [facility] Stop: 01/12/18 09:01 Last Admin: 07/14/17 08:40 Dose: 500 mg Simvastatin (Zocor) 10 mg PO HS [facility] Stop: 01/12/18 21:01 Last Admin: 07/13/17 23:33 Dose: 10 mg Consult Discharge Plan - Plan Referrals: Eileen Howard, [employer] [Primary Care Provider] -
[2017-07-15] MEDS: Acetaminophen 325 MG TABLET PO PRN ×3 (07:08→23:27)
[2017-07-15] MEDS: Insulin LISPRO 300 UNITS/3 ML VIAL SQ SCH ×4 (09:01→20:21)
[2017-07-15] MEDS: Isosorbide MONOnitrate (24 HR) 60 MG TAB.ER.24H PO SCH (09:02)
[2017-07-15] MEDS: Carbidopa/Levodopa 25/100 TABLET PO SCH ×3 (09:02→20:20)
[2017-07-15] MEDS: Aspirin Enteric Coated 81 MG Tablet PO SCH (09:02)
[2017-07-15] MEDS: Ranolazine 500 MG TAB.ER.12H PO SCH ×2 (09:02→20:20)
[2017-07-15] MEDS: Metoprolol XL (24 HR) Succ 50 MG TAB.ER.24H PO SCH ×2 (09:03→20:20)
--- NOTE | 2017-07-15 12:03 | Discharge Summary ---
Date of Encounter: 07/15/17 Time of Encounter: 09:00 - Discharge Diagnosis (1) Lethargy Priority: Primary Status: Resolved (2) NSTEMI (non-ST elevated myocardial infarction) Priority: Secondary Status: Ruled-out (3) Atrial fibrillation Priority: Secondary Status: Chronic Qualifiers: Atrial fibrillation type: chronic Qualified Code(s): I48.2 - Chronic atrial fibrillation (4) Generalized weakness Priority: Secondary Status: Acute (5) Hypertension Priority: Secondary Status: Chronic Qualifiers: Hypertension type: essential hypertension Qualified Code(s): I10 - Essential (primary) hypertension (6) Parkinson disease Priority: Secondary Status: Chronic (7) Delirium due to general medical condition Priority: Secondary Status: Acute (8) Elevated troponin Priority: Secondary Status: Acute (9) Diabetes mellitus type II, non insulin dependent Priority: Secondary Status: Chronic - Discharge Medications Home Medications: Aspirin Enteric Coated [Aspirin EC] 81 mg PO DAILY 02/08/16 [History] Carbidopa/Levodopa 25/100 [Sinemet 25/100] 1.5 tab PO TID 02/08/16 [History] Clopidogrel [Plavix] 75 mg PO DAILY 02/08/16 [History] Lisinopril [Zestril] 5 mg PO DAILY 02/08/16 [History] Metformin HCl [Metformin HCl ER] 500 mg PO DAILY 02/08/16 [History] Metoprolol Succinate [Toprol Xl] 50 mg PO BID 02/08/16 [History] Nitroglycerin 0.4 mg PO AD PRN 02/08/16 [History] Pravastatin Sodium 10 mg PO DAILY 02/08/16 [History] DULoxetine [Cymbalta] 20 mg PO DAILY 07/08/17 [History] Isosorbide MONOnitrate [Isosorbide Mononitrate ER] 120 mg PO DAILY 07/08/17 [ History] Ferrous Sulfate 325 mg PO BIDWM #60 tablet 07/10/17 [Rx] Lactose-Reduced Food [Ensure Plus] 1 bottle PO TID 07/12/17 [History] Bisacodyl [Dulcolax] 10 mg PO DAILY PRN tablet 07/15/17 [Rx] Docusate [Colace] 100 mg PO BID capsule 07/15/17 [Rx] Ranolazine [Ranexa] 1,000 mg PO BID tab.er.12h 07/15/17 [Rx] Allergies/Adverse Reactions: 3 Allergy/AdvReac Type Severity Reaction Status Date / Time No Known Allergies Allergy Verified 07/12/17 13:47 Procedures/tests Complete & Pending: Procedures Performed prior 72 hours Category Date Time Status CTA chest [CT angio chest] [CT] Routine Cat Scan 07/13/17 10:00 Completed EV echocardiogram Stat Y 07/14/17 07:40 Completed Date of admission: 07/13/17 07:35 Primary care physician: Eileen Howard CNP Consults: 07/13/17 09:36 Consult to Occupational Therapy [CONS] Routine Comment: Evaluate, develop and implement POC Reason for Consult: Right hip replacement Consult to Physical Therapy [CONS] Routine Comment: Evaluate, develop and implement POC Reason for Consult: right hip replacement by Dr. Guillory on 07/08/17 Discharging clinician: Puma Villagomez Anticipated date of discharge: 07/16/17 - Patient Status Disposition: Transfer SNF Condition: Good Functional capacity at discharge: uses cane/walker Overall status at discharge: patient is progressing back to baseline - Discharge Instructions Instructions: Atrial Fibrillation (DC), Chronic Hypertension (DC) Follow Up With: Eileen Howard CNP [Primary Care Provider] - 07/19/17 8:25 am - Diet and Activity Activity: increase activity as tolerated Diet: diabetic diet, low fat, low cholesterol, low salt diet Hospital course: Mr. Villarreal is a 87 year old male with history of Afib, CAD, COPD, Diabetes, Parkinson's disease, PR was brought in to ED from SNF after he was noted to be more lethargic and sleepy. He had received Ativan 2mg which was a senior living med but he had not received it for a while. He was in the rehab following recent hip surgery. He was evaluated here in the ED and a head CT done showed no acute intracranial abnormality. He had troponin elevation to 0.45. Cardiology was consulted. Patient was started on heparin drip due to suspected NSTEMI. CTA chest did not show any PE. Cardiology evaluated patient. 2D echo showed global dysfunction with EF 45%. Given his prior cardiac history with severe CAD not amenable to PCI, Cardiology did not recommend any further work up as patient did not have any chest pain and troponins were adynamic and stable. Heparin drip was stopped. Patient has been doing well since then. He is awake, alert and at baseline. Recommend stopping ativan. If patient becomes anxious consider using a much lower dose of short acting benzodiazepines. At this time he is stable for discharge back to SNF. He will go there once insurance approval has been obtained. - Time Spent with Patient Total time spent providing and/or coordinating discharge services: Greater than 30 minutes (35 min) - Constitutional Vitals: Temp Pulse Resp BP Pulse Ox 98.4 F 72 17 129/86 97 07/15/17 06:45 07/15/17 06:45 07/15/17 06:45 07/15/17 06:45 07/15/17 06:45 General appearance: Present: cooperative, A&O X 3, pleasant, answers questions appropriately - Neck Neck exam general surgery: Present: supple, trachea midline. Absent: lymphadenopathy - Respiratory Respiratory exam: Present: CTAB. Absent: accessory muscle use, rales, rhonchi, wheezes - Cardiovascular Cardiovascular exam: Present: RRR, +S1, +S2. Absent: diastolic murmur, gallop, rubs, systolic murmur - GI/Abdominal GI/Abdominal exam: Present: normal bowel sounds, soft, no peritoneal signs. Absent: distended, tenderness - Extremities Exam Extremities exam: Present: warm, radial pulses palpable and symmetrical. Absent : calf tenderness, cyanotic, pedal edema
--- NOTE | 2017-07-15 12:06 | Physician Discharge Referral ---
ExtendedCare Referral Info Institutional Level of Care: Skilled - Diagnosis (1) Lethargy Priority: Primary Status: Resolved (2) NSTEMI (non-ST elevated myocardial infarction) Priority: Secondary Status: Ruled-out (3) Atrial fibrillation Priority: Secondary Status: Chronic (4) Generalized weakness Priority: Secondary Status: Acute (5) Hypertension Priority: Secondary Status: Chronic (6) Parkinson disease Priority: Secondary Status: Chronic (7) Delirium due to general medical condition Priority: Secondary Status: Acute (8) Elevated troponin Priority: Secondary Status: Acute Prognosis: Fair Aware of Diagnosis: Patient, Family Aware of Prognosis: Patient, Family - Transfer Medications Home Medications: Aspirin Enteric Coated [Aspirin EC] 81 mg PO DAILY 02/08/16 [History] Carbidopa/Levodopa 25/100 [Sinemet 25/100] 1.5 tab PO TID 02/08/16 [History] Clopidogrel [Plavix] 75 mg PO DAILY 02/08/16 [History] Lisinopril [Zestril] 5 mg PO DAILY 02/08/16 [History] Metformin HCl [Metformin HCl ER] 500 mg PO DAILY 02/08/16 [History] Metoprolol Succinate [Toprol Xl] 50 mg PO BID 02/08/16 [History] Nitroglycerin 0.4 mg PO AD PRN 02/08/16 [History] Pravastatin Sodium 10 mg PO DAILY 02/08/16 [History] DULoxetine [Cymbalta] 20 mg PO DAILY 07/08/17 [History] Isosorbide MONOnitrate [Isosorbide Mononitrate ER] 120 mg PO DAILY 07/08/17 [ History] Ferrous Sulfate 325 mg PO BIDWM #60 tablet 07/10/17 [Rx] Lactose-Reduced Food [Ensure Plus] 1 bottle PO TID 07/12/17 [History] Bisacodyl [Dulcolax] 10 mg PO DAILY PRN tablet 07/15/17 [Rx] Docusate [Colace] 100 mg PO BID capsule 07/15/17 [Rx] Ranolazine [Ranexa] 1,000 mg PO BID tab.er.12h 07/15/17 [Rx] Allergies/Adverse Reactions: 3 Allergy/AdvReac Type Severity Reaction Status Date / Time No Known Allergies Allergy Verified 07/12/17 13:47 - Respiratory Orders Smoking Cessation: Smoking cessation has been advised. For more information, call the [place] Tobacco Quit Line at 3-608-ITNE-NOW. - Ancillary Orders May consult with Dentist, Head Teacher, Animal Geneticist PRN - Advance Directives Code Status: Full Code - Mobility Orders Ambulate (per PT) - Rehabiliation Orders Rehab Potential: Fair Rehab Orders: Evaluation for Physical Therapy, Evaluation for Occupational Therapy - Diet Orders Cardiac (and diabetic) House Supplement per Dietary: Ensure TID CERTIFICATION: I certify that the transfer of the above named patient to an Extended Care Facility is necessary for the continuing treatment of the diagnosis listed. The above information is true and accurate reflection of patient's current condition. Confidential - Redisclosure prohibited without a patient's written consent.
[2017-07-16] MEDS: Insulin LISPRO 300 UNITS/3 ML VIAL SQ SCH ×4 (09:10→22:29)
[2017-07-16] MEDS: Isosorbide MONOnitrate (24 HR) 60 MG TAB.ER.24H PO SCH (09:30)
[2017-07-16] MEDS: Carbidopa/Levodopa 25/100 TABLET PO SCH ×3 (09:30→20:49)
[2017-07-16] MEDS: Ranolazine 500 MG TAB.ER.12H PO SCH ×2 (09:32→20:49)
[2017-07-16] MEDS: Aspirin Enteric Coated 81 MG Tablet PO SCH (09:32)
[2017-07-16] MEDS: Metoprolol XL (24 HR) Succ 50 MG TAB.ER.24H PO SCH ×2 (09:32→20:49)
--- NOTE | 2017-07-16 11:07 | Internal Med Progress Note ---
Date of Encounter: 07/16/17 Time of Encounter: 11:03 - Subjective Interval history: Patient is an 87y/o male with extensive med history admitted for lethargy/AMS and NSTEMI from [facility]. Pt's lethargy/AMS was secondary to ativan use and he was found to have NSTEMI after his hospitalization. He was evaluated by cardiology and medical management was recommended. Pt's ativan has been discontinued and his mental status is back to baseline. He was discharged to [facility] yesterday, however discharge pending insurance authorization. Will continue patient's home medications Ranolazine added by cardiology, will continue sliding scale insulin algorithm prn monitor FS and BG vitals within acceptable range Pt seen and examined at bedside and denies any discomfort at this time pt encouraged to get out of bed to chair and increase activity as tolerated Assessment/Plan: (1) Lethargy Priority: Primary Status: Resolved (2) NSTEMI (non-ST elevated myocardial infarction) Priority: Secondary Status: Ruled-out (3) Atrial fibrillation Priority: Secondary Status: Chronic Qualifiers: Atrial fibrillation type: chronic Qualified Code(s): I48.2 - Chronic atrial fibrillation (4) Generalized weakness Priority: Secondary Status: Acute (5) Hypertension Priority: Secondary Status: Chronic Qualifiers: Hypertension type: essential hypertension Qualified Code(s): I10 - Essential (primary) hypertension (6) Parkinson disease Priority: Secondary Status: Chronic (7) Delirium due to general medical condition Priority: Secondary Status: Acute (8) Elevated troponin Priority: Secondary Status: Acute (9) Diabetes mellitus type II, non insulin dependent Priority: Secondary Status: Chronic - Constitutional Vitals: Temp Pulse Resp BP Pulse Ox 97.9 F 68 15 144/14 97 07/16/17 06:34 07/16/17 06:34 07/16/17 06:34 07/16/17 06:34 07/16/17 08:00 General appearance: Present: cooperative, A&O X 3, pleasant, answers questions appropriately - Head Head exam: Present: atraumatic, normocephalic - Eye Eye exam: Present: conjuntiva pink, sclera anicteric - Respiratory Respiratory exam: Present: CTAB. Absent: accessory muscle use, rales, rhonchi, wheezes - Cardiovascular Cardiovascular exam: Present: RRR, +S1, +S2. Absent: diastolic murmur, gallop, rubs, systolic murmur - GI/Abdominal GI/Abdominal exam: Present: normal bowel sounds, soft, no peritoneal signs. Absent: distended, tenderness - Extremities Exam Extremities exam: Present: warm, radial pulses palpable and symmetrical. Absent : calf tenderness Additional comments: trace pedal edema bilaterally - Neurological Exam Neurological exam: Present: alert, oriented X3 - Psychiatric Psychiatric exam: Present: normal affect, normal mood Internal Medicine: Result - Labs CBC & Chem 7: 07/13/17 03:53 07/13/17 03:53 - ABG Interpretation ABG results: PT/INR, D-dimer PT 12.7 Seconds (9.4-12.1) H 07/12/17 13:00 Consult Discharge Plan - Plan Instructions: Atrial Fibrillation (DC), Chronic Hypertension (DC) Referrals: Eileen Howard CNP [Primary Care Provider] - 07/19/17 8:25 am
[2017-07-16 20:11] LABS: CK-BB (CK isoenzymes) 1 % (0-0); CK-MB (CK isoenzymes) 0 % (0-4); CK-MM (CK-isoenzymes) 99 % (96-100)
--- NOTE | 2017-07-16 21:02 | Electrocardiograph Report ---
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
[2017-07-17] MEDS: Acetaminophen 325 MG TABLET PO PRN (01:10)
--- NOTE | 2017-07-17 06:52 | Electrocardiograph Report ---
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
[2017-07-17 06:53] VITALS: BP 118/72
[2017-07-17] MEDS: Metoprolol XL (24 HR) Succ 50 MG TAB.ER.24H PO SCH (07:27)
[2017-07-17] MEDS: Carbidopa/Levodopa 25/100 TABLET PO SCH (07:28)
[2017-07-17] MEDS: Ranolazine 500 MG TAB.ER.12H PO SCH (07:28)
[2017-07-17] MEDS: Aspirin Enteric Coated 81 MG Tablet PO SCH (07:28)
[2017-07-17] MEDS: Isosorbide MONOnitrate (24 HR) 60 MG TAB.ER.24H PO SCH (07:28)
[2017-07-17] MEDS: Insulin LISPRO 300 UNITS/3 ML VIAL SQ SCH ×2 (07:29→11:34)
[2017-07-17 08:35] LABS: CK Total (Ck Isoenzymes) 80 U/L (20-200)
--- NOTE | 2017-07-17 12:47 | Internal Med Progress Note ---
Date of Encounter: 07/17/17 Time of Encounter: 12:45 - Subjective Interval history: Patient is an 87y/o male with extensive med history admitted for lethargy/AMS and NSTEMI from [facility]. Pt's lethargy/AMS was secondary to ativan use and he was found to have NSTEMI after his hospitalization. He was evaluated by cardiology and medical management was recommended. Pt's ativan has been discontinued and his mental status is back to baseline. He was discharged to ECF on 07/15/17, however discharge pending insurance authorization, which has been approved today, pt will be discharged to ECF today (07/17/17) Will continue patient's home medications Ranolazine added by cardiology, will continue sliding scale insulin algorithm prn monitor FS and BG vitals within acceptable range Pt seen and examined in chair and denies any discomfort at this time pt encouraged to get out of bed to chair and increase activity as tolerated Assessment/Plan: (1) Lethargy Priority: Primary Status: Resolved (2) NSTEMI (non-ST elevated myocardial infarction) Priority: Secondary Status: Ruled-out (3) Atrial fibrillation Priority: Secondary Status: Chronic Qualifiers: Atrial fibrillation type: chronic Qualified Code(s): I48.2 - Chronic atrial fibrillation (4) Generalized weakness Priority: Secondary Status: Acute (5) Hypertension Priority: Secondary Status: Chronic Qualifiers: Hypertension type: essential hypertension Qualified Code(s): I10 - Essential (primary) hypertension (6) Parkinson disease Priority: Secondary Status: Chronic (7) Delirium due to general medical condition Priority: Secondary Status: Acute (8) Elevated troponin Priority: Secondary Status: Acute (9) Diabetes mellitus type II, non insulin dependent Priority: Secondary Status: Chronic - Constitutional Vitals: Temp Pulse Resp BP Pulse Ox 98.1 F 62 17 118/72 97 07/17/17 06:50 07/17/17 06:50 07/17/17 06:50 07/17/17 06:50 07/17/17 06:50 General appearance: Present: cooperative, A&O X 3, pleasant, answers questions appropriately - Head Head exam: Present: atraumatic, normocephalic - Eye Eye exam: Present: conjuntiva pink, sclera anicteric - Respiratory Respiratory exam: Absent: accessory muscle use, respiratory distress, wheezes - Cardiovascular Cardiovascular exam: Present: RRR, +S1, +S2. Absent: diastolic murmur, gallop, rubs, systolic murmur - GI/Abdominal GI/Abdominal exam: Present: normal bowel sounds, soft, no peritoneal signs. Absent: distended, tenderness - Extremities Exam Extremities exam: Present: warm, radial pulses palpable and symmetrical. Absent : calf tenderness - Neurological Exam Neurological exam: Present: alert, oriented X3 Internal Medicine: Result - Labs CBC & Chem 7: 07/13/17 03:53 07/13/17 03:53 - ABG Interpretation ABG results: PT/INR, D-dimer PT 12.7 Seconds (9.4-12.1) H 07/12/17 13:00 Consult Discharge Plan - Plan Instructions: Atrial Fibrillation (DC), Chronic Hypertension (DC) Referrals: Eileen Howard CNP [Primary Care Provider] - 07/19/17 8:25 am
== END 2017-07-17 16:36 | DRG 948 ==
LOC: EMEROO 12:15 → 2NENU 12:15 → SUATTDRO 07-13 07:35
PROVIDERS: ADMIT Internal Medicine; ATTEND Internal Medicine

== ENCOUNTER 2017-08-02 10:29 | Inpatient (IN) ==
[2017-08-02] MEDS ORDERED: 0.9 % Sodium Chloride 500 ML IVC ONE (10:33)
--- NOTE | 2017-08-02 10:33 | Emergency Department Note ---
Disposition Clinical Impression: Elevated troponin, GI bleed Disposition: Admitted As Inpatient Condition: Fair General Adult HPI - General Chief complaint: ED Chest Pain Stated complaint: CP last night Time Seen by Provider: 08/02/17 10:32 - Related Data Home Medications Medication Instructions Recorded Confirmed Aspirin Enteric Coated [Aspirin EC] 81 mg PO DAILY 02/08/16 08/02/17 Carbidopa/Levodopa 25/100 [Sinemet 1.5 tab PO TID 02/08/16 08/02/17 25/100] Clopidogrel [Plavix] 75 mg PO DAILY 02/08/16 08/02/17 Lisinopril [Zestril] 5 mg PO DAILY 02/08/16 08/02/17 Metformin HCl [Metformin HCl ER] 500 mg PO DAILY 02/08/16 08/02/17 Metoprolol Succinate [Toprol Xl] 50 mg PO BID 02/08/16 08/02/17 Nitroglycerin 0.4 mg PO AD PRN 02/08/16 08/02/17 Pravastatin Sodium 10 mg PO DAILY 02/08/16 08/02/17 DULoxetine [Cymbalta] 20 mg PO DAILY 07/08/17 08/02/17 Isosorbide MONOnitrate [Isosorbide 120 mg PO DAILY 07/08/17 08/02/17 Mononitrate ER] Lactose-Reduced Food [Ensure Plus] 1 bottle PO TID 07/12/17 08/02/17 Magnesium Hydroxide [Milk of 30 ml PO DAILY PRN 08/02/17 08/02/17 Magnesia] Mirtazapine 7.5 mg PO HS 08/02/17 08/02/17 Previous Rx's Medication Instructions Recorded Ferrous Sulfate 325 mg PO BIDWM #60 tablet 07/10/17 Bisacodyl [Dulcolax] 10 mg PO DAILY PRN tablet 07/15/17 Docusate [Colace] 100 mg PO BID capsule 07/15/17 Ranolazine [Ranexa] 1,000 mg PO BID tab.er.12h 07/15/17 Allergies Allergy/AdvReac Type Severity Reaction Status Date / Time No Known Allergies Allergy Verified 07/12/17 13:47 Past Medical History - Past Medical History Medical history: Reports: atrial fibrillation, COPD, coronary artery disease, diabetes, hyperlipidemia, myocardial infarction Surgical history: Reports: coronary bypass (CABG) Psychiatric history: Reports: no psych history - Social History Smoking Status: Former smoker Smokeless Tobacco Status: No Alcohol use: Reports: none Drug use: Reports: none Course Vital Signs Temperature 98.2 F 08/02/17 10:30 Pulse Rate 88 08/02/17 10:30 Respiratory Rate 20 08/02/17 10:30 Blood Pressure 108/60 08/02/17 10:30 O2 Sat by Pulse Oximetry 99 08/02/17 10:30 Temperature 97.9 F 08/02/17 16:06 Pulse Rate 70 08/02/17 16:06 Respiratory Rate 18 08/02/17 16:06 Blood Pressure 87/52 08/02/17 16:06 O2 Sat by Pulse Oximetry 99 08/02/17 15:51 Oxygen Delivery Oxygen Delivery Room Air Medical Decision Making - Lab Data Result diagrams: 08/02/17 10:51 08/02/17 10:51 Lab Results 08/02/17 08/02/17 08/02/17 Range/Units 10:51 10:51 10:51 WBC 12.7 H (4.3-11.1) K/mcL RBC 2.80 L (4.19-5.50) M/mcL Hgb 8.9 L (12.9-16.9) g/dL Hct 28.3 L (37.5-50.1) % MCV 101.1 H (83.0-100.0) fL MCH 31.8 (28.0-33.3) pg MCHC 31.4 L (31.6-35.5) g/dL RDW 14.8 H (11.5-14.5) % Plt Count 232 (140-400) K/mcL MPV 10.8 (9.4-12.4) fL Immature Gran % 0.9 (0-4) % Seg Neutrophils % 79.0 % Lymphocytes % 10.3 % Monocytes % 9.4 % Eosinophils % 0.0 % Basophils % 0.4 % Neutrophils # 10.0 H (1.6-8.9) K/mcL Lymphocytes # 1.3 (0.6-4.6) K/mcL Monocytes # 1.2 (0.0-1.3) K/mcL Eosinophils # 0.0 (0.0-0.6) K/mcL Basophils # 0.1 (0.0-0.2) K/mcL Nucleated RBCs/100 WBC 0.2 H (0) /100 WBC Sodium 136 (136-145) mEq/L Potassium 4.6 (3.5-5.1) mEq/L Chloride 105 (98-107) mEq/L Carbon Dioxide 22 L (23-29) mEq/L BUN 49 H (8-23) mg/dL Creatinine 0.93 (0.70-1.30) mg/dL Est GFR ( Amer) > 60 (> 60) Est GFR (Non-Af Amer) > 60 (> 60) BUN/Creatinine Ratio 53 H (6-26) Glucose 192 H (70-105) mg/dL Calculated Osmolality 300 (280-300) Calcium 9.4 (8.6-10.3) mg/dL Total Bilirubin 0.4 (0.3-1.0) mg/dL AST 16 (13-39) Units/L ALT 7 (7-52) Units/L Alkaline Phosphatase 68 (34-104) Units/L Troponin I 0.59 H* (< 0.04) ng/mL Serum Total Protein 6.2 L (6.4-8.9) g/dL Albumin 3.7 (3.5-5.7) g/dL Globulin 2.5 (2.4-3.5) g/dL Albumin/Globulin Ratio 1.5 (1.1-2.2) Urine Color (Yellow) Urine Clarity (Clear) Urine pH (5.0-8.0) pH Units Ur Specific [place] (1.010-1.025) Urine Protein (Neg-Trace) mg/dL Urine Glucose (UA) (Normal) mg/dL Urine Ketones (Negative) mg/dL Urine Blood (Negative) Urine Nitrite (Negative) Urine Bilirubin (Negative) Urine Urobilinogen (Normal) mg/dL Ur Leukocyte Esterase (Negative) Urine Microscopic RBC (0-3) per hpf Urine Microscopic WBC (0-3) per hpf Ur Squamous Epith Cells (None-Few) per lpf Urine Bacteria (None-Few) per hpf Hyaline Casts (None-Few) per lpf Stool Occult Blood (Negative) Blood Type Antibody Screen Crossmatch 08/02/17 08/02/17 08/02/17 Range/Units 11:03 13:25 13:35 WBC (4.3-11.1) K/mcL RBC (4.19-5.50) M/mcL Hgb (12.9-16.9) g/dL Hct (37.5-50.1) % MCV (83.0-100.0) fL MCH (28.0-33.3) pg MCHC (31.6-35.5) g/dL RDW (11.5-14.5) % Plt Count (140-400) K/mcL MPV (9.4-12.4) fL Immature Gran % (0-4) % Seg Neutrophils % % Lymphocytes % % Monocytes % % Eosinophils % % Basophils % % Neutrophils # (1.6-8.9) K/mcL Lymphocytes # (0.6-4.6) K/mcL Monocytes # (0.0-1.3) K/mcL Eosinophils # (0.0-0.6) K/mcL Basophils # (0.0-0.2) K/mcL Nucleated RBCs/100 WBC (0) /100 WBC Sodium (136-145) mEq/L Potassium (3.5-5.1) mEq/L Chloride (98-107) mEq/L Carbon Dioxide (23-29) mEq/L BUN (8-23) mg/dL Creatinine (0.70-1.30) mg/dL Est GFR ( Amer) (> 60) Est GFR (Non-Af Amer) (> 60) BUN/Creatinine Ratio (6-26) Glucose (70-105) mg/dL Calculated Osmolality (280-300) Calcium (8.6-10.3) mg/dL Total Bilirubin (0.3-1.0) mg/dL AST (13-39) Units/L ALT (7-52) Units/L Alkaline Phosphatase (34-104) Units/L Troponin I (< 0.04) ng/mL Serum Total Protein (6.4-8.9) g/dL Albumin (3.5-5.7) g/dL Globulin (2.4-3.5) g/dL Albumin/Globulin Ratio (1.1-2.2) Urine Color Yellow (Yellow) Urine Clarity Clear (Clear) Urine pH 5.0 (5.0-8.0) pH Units Ur Specific [place] 1.020 (1.010-1.025) Urine Protein Negative (Neg-Trace) mg/dL Urine Glucose (UA) Normal (Normal) mg/dL Urine Ketones Negative (Negative) mg/dL Urine Blood Negative (Negative) Urine Nitrite Negative (Negative) Urine Bilirubin Negative (Negative) Urine Urobilinogen Normal (Normal) mg/dL Ur Leukocyte Esterase Negative (Negative) Urine Microscopic RBC 0-3 (0-3) per hpf Urine Microscopic WBC 0-3 (0-3) per hpf Ur Squamous Epith Cells Moderate H (None-Few) per lpf Urine Bacteria None Seen (None-Few) per hpf Hyaline Casts None Seen (None-Few) per lpf Stool Occult Blood Positive A (Negative) Blood Type O POSITIVE Antibody Screen NEGATIVE Crossmatch See Detail Attestation Statement - Attestation Attestation: I examined this patient and my medical decision-making was reviewed with the Resident Physician. I agree with the documented findings, disposition and treatment plan as described except to the extent set forth below. Face to face time provided Patient arrives by EMS from [facility] facility after having chest pain last night that resolved after nitroglycerin. Family noted he was weak today. He appears in no acute distress on exam
--- NOTE | 2017-08-02 10:35 | Emergency Department Note ---
Disposition Clinical Impression: Elevated troponin GI bleed Qualifiers: GI bleed type/associated pathology: unspecified gastrointestinal hemorrhage type Qualified Code(s): K92.2 - Gastrointestinal hemorrhage, unspecified Disposition: Admitted As Inpatient Condition: Fair Referrals: Eileen Howard CNP [Primary Care Provider] - Forms: ED Satisfaction Letter Time of Disposition: 12:59 General Adult HPI - General Chief complaint: ED Chest Pain Stated complaint: CP last night Time Seen by Provider: 08/02/17 10:32 Source: patient Mode of arrival: EMS Limitations: no limitations Nursing Notes Reviewed: Yes Vital Signs Reviewed: Yes - History of Present Illness HPI Narrative: 87-year-old male history of CAD status post 7 stents present for evaluation of weakness and chest pain that occurred last night. Patient had chest pain that occurred last night. Patient's chest pain resolved with nitroglycerin. The time I examined the patient is chest pain-free. Patient did not receive any interventions prior to emergency department. Patient denies any nausea or vomiting. No charge breath. Family at bedside states that he has been getting progressively weak. Patient denies any other symptoms. No notable trauma or falls. Patient does have a history of A. fib not on anticoagulation. Patient denies history of GI bleeding. No dark tarry stools. No hematemesis. - Related Data Home Medications Medication Instructions Recorded Confirmed Aspirin Enteric Coated [Aspirin EC] 81 mg PO DAILY 02/08/16 08/02/17 Carbidopa/Levodopa 25/100 [Sinemet 1.5 tab PO TID 02/08/16 08/02/17 25/100] Clopidogrel [Plavix] 75 mg PO DAILY 02/08/16 08/02/17 Lisinopril [Zestril] 5 mg PO DAILY 02/08/16 08/02/17 Metformin HCl [Metformin HCl ER] 500 mg PO DAILY 02/08/16 08/02/17 Metoprolol Succinate [Toprol Xl] 50 mg PO BID 02/08/16 08/02/17 Nitroglycerin 0.4 mg PO AD PRN 02/08/16 08/02/17 Pravastatin Sodium 10 mg PO DAILY 02/08/16 08/02/17 DULoxetine [Cymbalta] 20 mg PO DAILY 07/08/17 08/02/17 Isosorbide MONOnitrate [Isosorbide 120 mg PO DAILY 07/08/17 08/02/17 Mononitrate ER] Lactose-Reduced Food [Ensure Plus] 1 bottle PO TID 07/12/17 08/02/17 Magnesium Hydroxide [Milk of 30 ml PO DAILY PRN 08/02/17 08/02/17 Magnesia] Mirtazapine 7.5 mg PO HS 08/02/17 08/02/17 Previous Rx's Medication Instructions Recorded Ferrous Sulfate 325 mg PO BIDWM #60 tablet 07/10/17 Bisacodyl [Dulcolax] 10 mg PO DAILY PRN tablet 07/15/17 Docusate [Colace] 100 mg PO BID capsule 07/15/17 Ranolazine [Ranexa] 1,000 mg PO BID tab.er.12h 07/15/17 Allergies Allergy/AdvReac Type Severity Reaction Status Date / Time No Known Allergies Allergy Verified 07/12/17 13:47 All systems ED: reviewed and negative except as stated. Constitutional: Reports: as per HPI. Denies: fever Eyes: Reports: as per HPI ENT ED: Reports: as per HPI Cardiovascular: Reports: as per HPI, chest pain Respiratory: Reports: as per HPI, dyspnea Gastrointestinal: Reports: as per HPI. Denies: nausea, vomiting Genitourinary: Reports: as per HPI Musculoskeletal: Reports: as per HPI Integumentary: Reports: as per HPI Neurological: Reports: as per HPI, weakness Psychiatric: Reports: as per HPI Endocrine: Reports: as per HPI Past Medical History - Past Medical History Medical history: Reports: atrial fibrillation, COPD, coronary artery disease, diabetes, hyperlipidemia, myocardial infarction Surgical history: Reports: coronary bypass (CABG) Psychiatric history: Reports: no psych history - Social History Smoking Status: Former smoker Smokeless Tobacco Status: No Alcohol use: Reports: none Drug use: Reports: none Physical Exam - General Limitations: no limitations General appearance: alert, in no apparent distress - Head Head exam: atraumatic, normocephalic, normal inspection - Eye Eye exam: Present: normal appearance, EOMI. Absent: scleral icterus - ENT ENT exam: normal exam - Neck Neck exam: Present: normal inspection, trachea midline - Chest Chest inspection: Present: normal inspection, symmetric chest wall rise - Respiratory Respiratory exam: Present: normal lung sounds bilaterally, other (decreased breath sounds). Absent: respiratory distress - Cardiovascular Cardiovascular exam: Present: irregular rhythm. Absent: systolic murmur - Abdominal Exam Abdominal exam: Present: soft, Non-Tender. Absent: tenderness, distention, guarding, rebound, rigidity - Extremities Exam Extremities exam: Present: normal inspection. Absent: pedal edema - Back Exam Back exam: Present: normal inspection - Neurological Exam Neurological exam: Present: alert, oriented X3, CN II-XII intact - Psychiatric Psychiatric exam: Present: normal affect, normal mood Course Course Narrative: Patient seen and examined. Patient's in no acute distress P patient's resting comfortably. Vital stable. Patient will get basic lab work, urinalysis, chest x-ray and EKG. Disposition pending. - Reevaluation(s) Reevaluation #1: Patient troponin came back elevated. Patient denying any chest pain. Time: 11:40 Reevaluation #2: Family updated on plan of care. Time: 12:24 - Consultations Consultation #1: Spoke with Dr. Hernandez, surgery who will evaluate the patient. Time: 13:20 Vital Signs Temperature 98.2 F 08/02/17 10:30 Pulse Rate 88 08/02/17 10:30 Respiratory Rate 20 08/02/17 10:30 Blood Pressure 108/60 08/02/17 10:30 O2 Sat by Pulse Oximetry 99 08/02/17 10:30 Temperature 98.2 F 08/02/17 10:30 Pulse Rate 74 08/02/17 13:34 Respiratory Rate 16 08/02/17 13:34 Blood Pressure 98/60 08/02/17 13:34 O2 Sat by Pulse Oximetry 99 08/02/17 13:34 Oxygen Delivery Oxygen Delivery Room Air Medical Decision Making - [facility] Narrative Medical decision making narrative: Patient presents for concern of generalized weakness and chest pain. Patient had chest pain last night. Resolve with nitroglycerin. Patient appears to have stable angina. Patient's labs show anemia which is worsened acutely in the past several weeks. Patient would likely need endoscopy for further evaluation. Patient's troponin is elevated as been elevated in the past. Patient denying chest pain currently. Patient likely has an upper GI bleed given the ratio elevated BUNs. Patient will be admitted to the hospitalist service with endoscopy. Patient was not anticoagulated with his elevated troponin given his concerns for GI bleed. - Lab Data Lab results reviewed: Yes I reviewed the patient's lab results. Result diagrams: 08/02/17 10:51 08/02/17 10:51 Lab Results 08/02/17 08/02/17 08/02/17 Range/Units 10:51 10:51 10:51 WBC 12.7 H (4.3-11.1) K/mcL RBC 2.80 L (4.19-5.50) M/mcL Hgb 8.9 L (12.9-16.9) g/dL Hct 28.3 L (37.5-50.1) % MCV 101.1 H (83.0-100.0) fL MCH 31.8 (28.0-33.3) pg MCHC 31.4 L (31.6-35.5) g/dL RDW 14.8 H (11.5-14.5) % Plt Count 232 (140-400) K/mcL MPV 10.8 (9.4-12.4) fL Immature Gran % 0.9 (0-4) % Seg Neutrophils % 79.0 % Lymphocytes % 10.3 % Monocytes % 9.4 % Eosinophils % 0.0 % Basophils % 0.4 % Neutrophils # 10.0 H (1.6-8.9) K/mcL Lymphocytes # 1.3 (0.6-4.6) K/mcL Monocytes # 1.2 (0.0-1.3) K/mcL Eosinophils # 0.0 (0.0-0.6) K/mcL Basophils # 0.1 (0.0-0.2) K/mcL Nucleated RBCs/100 WBC 0.2 H (0) /100 WBC Sodium 136 (136-145) mEq/L Potassium 4.6 (3.5-5.1) mEq/L Chloride 105 (98-107) mEq/L Carbon Dioxide 22 L (23-29) mEq/L BUN 49 H (8-23) mg/dL Creatinine 0.93 (0.70-1.30) mg/dL Est GFR ( Amer) > 60 (> 60) Est GFR (Non-Af Amer) > 60 (> 60) BUN/Creatinine Ratio 53 H (6-26) Glucose 192 H (70-105) mg/dL Calculated Osmolality 300 (280-300) Calcium 9.4 (8.6-10.3) mg/dL Total Bilirubin 0.4 (0.3-1.0) mg/dL AST 16 (13-39) Units/L ALT 7 (7-52) Units/L Alkaline Phosphatase 68 (34-104) Units/L Troponin I 0.59 H* (< 0.04) ng/mL Serum Total Protein 6.2 L (6.4-8.9) g/dL Albumin 3.7 (3.5-5.7) g/dL Globulin 2.5 (2.4-3.5) g/dL Albumin/Globulin Ratio 1.5 (1.1-2.2) Urine Color (Yellow) Urine Clarity (Clear) Urine pH (5.0-8.0) pH Units Ur Specific [place] (1.010-1.025) Urine Protein (Neg-Trace) mg/dL Urine Glucose (UA) (Normal) mg/dL Urine Ketones (Negative) mg/dL Urine Blood (Negative) Urine Nitrite (Negative) Urine Bilirubin (Negative) Urine Urobilinogen (Normal) mg/dL Ur Leukocyte Esterase (Negative) Urine Microscopic RBC (0-3) per hpf Urine Microscopic WBC (0-3) per hpf Ur Squamous Epith Cells (None-Few) per lpf Urine Bacteria (None-Few) per hpf Hyaline Casts (None-Few) per lpf 08/02/17 Range/Units 11:03 WBC (4.3-11.1) K/mcL RBC (4.19-5.50) M/mcL Hgb (12.9-16.9) g/dL Hct (37.5-50.1) % MCV (83.0-100.0) fL MCH (28.0-33.3) pg MCHC (31.6-35.5) g/dL RDW (11.5-14.5) % Plt Count (140-400) K/mcL MPV (9.4-12.4) fL Immature Gran % (0-4) % Seg Neutrophils % % Lymphocytes % % Monocytes % % Eosinophils % % Basophils % % Neutrophils # (1.6-8.9) K/mcL Lymphocytes # (0.6-4.6) K/mcL Monocytes # (0.0-1.3) K/mcL Eosinophils # (0.0-0.6) K/mcL Basophils # (0.0-0.2) K/mcL Nucleated RBCs/100 WBC (0) /100 WBC Sodium (136-145) mEq/L Potassium (3.5-5.1) mEq/L Chloride (98-107) mEq/L Carbon Dioxide (23-29) mEq/L BUN (8-23) mg/dL Creatinine (0.70-1.30) mg/dL Est GFR ( Amer) (> 60) Est GFR (Non-Af Amer) (> 60) BUN/Creatinine Ratio (6-26) Glucose (70-105) mg/dL Calculated Osmolality (280-300) Calcium (8.6-10.3) mg/dL Total Bilirubin (0.3-1.0) mg/dL AST (13-39) Units/L ALT (7-52) Units/L Alkaline Phosphatase (34-104) Units/L Troponin I (< 0.04) ng/mL Serum Total Protein (6.4-8.9) g/dL Albumin (3.5-5.7) g/dL Globulin (2.4-3.5) g/dL Albumin/Globulin Ratio (1.1-2.2) Urine Color Yellow (Yellow) Urine Clarity Clear (Clear) Urine pH 5.0 (5.0-8.0) pH Units Ur Specific [place] 1.020 (1.010-1.025) Urine Protein Negative (Neg-Trace) mg/dL Urine Glucose (UA) Normal (Normal) mg/dL Urine Ketones Negative (Negative) mg/dL Urine Blood Negative (Negative) Urine Nitrite Negative (Negative) Urine Bilirubin Negative (Negative) Urine Urobilinogen Normal (Normal) mg/dL Ur Leukocyte Esterase Negative (Negative) Urine Microscopic RBC 0-3 (0-3) per hpf Urine Microscopic WBC 0-3 (0-3) per hpf Ur Squamous Epith Cells Moderate H (None-Few) per lpf Urine Bacteria None Seen (None-Few) per hpf Hyaline Casts None Seen (None-Few) per lpf - Radiology Data Radiology results reviewed: Yes I reviewed the patient's radiology results. Chest X-Ray 08/02/17 10:33 IMPRESSION: 1. No active pulmonary disease. 2. Stable cardiomegaly without overt failure. D/ / Luis A Parikh MD / Luis A Parikh MD Interpreting Provider: Luis A Parikh MD - EKG Data EKG #1 Rate: normal Rhythm: A.Fib [place]/QRS: normal Q waves: aVR, v1, v2 QRS morphology: poor R-wave progression When compared to previous EKG there are: no significant changes Interpretation: nonspecific ST-T wave changes, other (QTC of 431) S.B.A.R. - S.B.A.RSamaria Situation: Demographics Background: Presenting Complaint Assessment: Vital Signs, Course and respsone to treatment, Patient/Family Expectation Recommendation: Barrier(s) to disposition, Recommendation based on pending studies, treatments, or consults S.B.A.RSamaria Report Given to: Dr. Abimael MerlosAOlamide Repor Time: 12:58
[2017-08-02 10:58] LABS: Basophils # 0.1 K/mcL (0.0-0.2); Basophils % 0.4 %; Hematocrit 28.3 % (37.5-50.1); Hemoglobin 8.9 g/dL (12.9-16.9); Immature Granulocytes % 0.9 % (0-4); Lymphocytes # 1.3 K/mcL (0.6-4.6); Lymphocytes % 10.3 %; Mean Corpuscular HGB Conc 31.4 g/dL (31.6-35.5); Mean Corpuscular Hemoglobin 31.8 pg (28.0-33.3); Mean Corpuscular Volume 101.1 fL (83.0-100.0); Mean Platelet Volume 10.8 fL (9.4-12.4); Monocytes # 1.2 K/mcL (0.0-1.3); Monocytes % 9.4 %; Nucleated Red Blood Cells 0.2 /100 WBC (0); Platelet Count 232 K/mcL (140-400); Red Cell Distribution Width 14.8 % (11.5-14.5)
[2017-08-02 11:11] LABS: Bacteria,Urine None Seen per hpf (None-Few); Bilirubin,Urine Negative (Negative); Blood,Urine Negative (Negative); Clarity,Urine Clear (Clear); Color,Urine Yellow (Yellow); Glucose,Urine (UA) Normal (Normal); Hyaline Casts,Urine None Seen per lpf (None-Few); Ketones,Urine Negative (Negative); Leukocyte Esterase,Urine Negative (Negative); Nitrite,Urine Negative (Negative); Protein,Urine Negative (Neg-Trace); RBC,Urine 0-3 per hpf (0-3); Squamous Epithelial Cell,Urine Moderate per lpf (None-Few); Urobilinogen,Urine Normal (Normal)
[2017-08-02 11:13] LABS: WBC,Urine 0-3 per hpf (0-3)
[2017-08-02] MEDS ORDERED: Aspirin 81 MG TAB.CHEW PO ONE (11:40)
[2017-08-02 12:08] LABS: Alanine Aminotransferase 7 Units/L (7-52); Albumin 3.7 g/dL (3.5-5.7); Albumin/Globulin Ratio 1.5 (1.1-2.2); Alkaline Phosphatase 68 Units/L (34-104); Aspartate Amino Transferase 16 Units/L (13-39); BUN/Creatinine Ratio 53 (6-26); Bilirubin,Total 0.4 mg/dL (0.3-1.0); Blood Urea Nitrogen 49 mg/dL (8-23); Calcium 9.4 mg/dL (8.6-10.3); Carbon Dioxide 22 mEq/L (23-29); Chloride 105 mEq/L (98-107); Globulin 2.5 g/dL (2.4-3.5); Glucose 192 mg/dL (70-105); Osmolality,Calculated 300 (280-300); Potassium 4.6 mEq/L (3.5-5.1); Sodium 136 mEq/L (136-145); Total Protein 6.2 g/dL (6.4-8.9); eGFR For African Americans > 60 (> 60); eGFR For Non-African Americans > 60 (> 60)
[2017-08-02] MEDS ORDERED: Pantoprazole 40 MG VIAL IVP ONE ×2 (12:57→14:17)
[2017-08-02] MEDS ORDERED: Naloxone 0.4 MG/ML INJ IVP PRN (13:59)
[2017-08-02] MEDS ORDERED: Pantoprazole 80 MG in 0.9 % Sodium Chloride 250 ML IVC SCH ×2 (14:30→18:30)
--- NOTE | 2017-08-02 15:04 | Internal Med History&Physical ---
Date of Encounter: 08/02/17 Time of Encounter: 14:00 Assessment and Plan (1) GI bleed Current visit: Yes Status: Acute 1 she has been experiencing increased weakness and chest pain. He has no history of previous GI bleed denies any tarry stools or hematemesis. He was occult stool positive He has had a 4 point drop in his hemoglobin since July 26. He is on aspirin and Plavix. He has been typed and screened for 1 unit we will continue to monitor H&H and maintain hemoglobin greater than 9 due to cardiovascular disease. 2 we will hold aspirin and Plavix for now. I did discuss with Dr. Diaz concerning Informed him last stent was 2 and half years ago states okay to hold for now. 3 Dr. [id number]- consulted for GI-per ER physician 4 initiate Protonix drip 5 nothing by mouth for now Qualifiers: GI bleed type/associated pathology: unspecified gastrointestinal hemorrhage type Qualified Code(s): K92.2 - Gastrointestinal hemorrhage, unspecified (2) Elevated troponin Current visit: Yes Status: Acute 1 patient has elevated troponin at 0.59 which it was elevated on previous admission earlier this month however this is the highest it has been. He did have chest pain last night that was relieved with nitroglycerin. EKG with no ST -T wave abnormalities. Patient's hemoglobin has dropped suspect this is contributing to elevation. We will transfuse and maintain hemoglobin greater than 9. 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 Most recent stent was placed 2-1/2 years ago he does follow with cardiology Dr. Jose Manuel at [facility] 2 we will hold aspirin and Plavix for now due to GI bleed and resume once stable. Continue with statin KATHIA beta jame Ranexa and nitrates-once able to take oral medication 3 continuous cardiac monitoring Qualifiers: Coronary Disease-Associated Artery/Lesion type: [place] artery [place] vs. transplanted heart: [place] heart Associated angina: without angina Qualified Code(s): I25.10 - Atherosclerotic heart disease of [place] coronary artery without angina pectoris (6) Afib Current visit: No Status: Chronic 1 rate controlled -we are holding aspirin and Plavix for now due to bleeding we will resume metoprolol once able to have oral medications 2 continuous cardiac monitoring Qualifiers: Atrial fibrillation type: chronic Qualified Code(s): I48.2 - Chronic atrial fibrillation (7) DVT prophylaxis Current visit: No Status: Acute SCDs due to bleeding Internal Medicine - H&P: HPI Chief complaint: CP Admitted From: Emergency Dept Plans for Post Hospital Care: Home History of present illness: Mr. Villarreal is a 87 year old male prior smoking history of chronic atrial fibrillation AAA repair COPD coronary artery disease with 7 stents last done 2-1 /2 years ago diabetes hyperlipidemia IN CABG Parkinson's. information obtained from daughters who are at bedside due to patient's patient resides in a assisted living he has been experiencing increased weakness and fatigue over the past week. He did have some chest pain last night which did resolve with one nitroglycerin. He has not had any nausea vomiting abdominal pain or shortness of breath. Patient does have a history of atrial fibrillation he is not on any anticoagulations however he does take aspirin and Plavix. No history of GI bleed. No hematemesis no melena. He presented to the ER with the above complaints. Upon presentation the upper was obtained which did show hemoglobin of 8.9 which is 4. From previous hemoglobin troponin was elevated 0.59 and he was stool occult positive. Surgery was consult. Patient was given Protonix IV typed and screened and has been admitted for further workup and evaluation. Presently patient is hemodynamically stable there is no active bleeding noted I did review this case with Dr. Varghese who agrees with plan 8 Past Med Surg Social Fam HX - Past Medical History Medical history: atrial fibrillation, COPD, coronary artery disease, diabetes, hyperlipidemia, myocardial infarction Psychiatric history: no psych history - Past Surgical History Surgical History: coronary bypass (CABG) - Social History Smoking Status: Former smoker Smokeless Tobacco Status: No Alcohol use: none Drug use: none - Family History Mother Living Status: Father Adopted: No Living Status: Hx Family Cardiac Disorders: Yes Internal Medicine - H&P: Meds Aspirin Enteric Coated [Aspirin EC] 81 mg PO DAILY 02/08/16 [History] Carbidopa/Levodopa 25/100 [Sinemet 25/100] 1.5 tab PO TID 02/08/16 [History] Clopidogrel [Plavix] 75 mg PO DAILY 02/08/16 [History] Lisinopril [Zestril] 5 mg PO DAILY 02/08/16 [History] Metformin HCl [Metformin HCl ER] 500 mg PO DAILY 02/08/16 [History] Metoprolol Succinate [Toprol Xl] 50 mg PO BID 02/08/16 [History] Nitroglycerin 0.4 mg PO AD PRN 02/08/16 [History] Pravastatin Sodium 10 mg PO DAILY 02/08/16 [History] DULoxetine [Cymbalta] 20 mg PO DAILY 07/08/17 [History] Isosorbide MONOnitrate [Isosorbide Mononitrate ER] 120 mg PO DAILY 07/08/17 [ History] Ferrous Sulfate 325 mg PO BIDWM #60 tablet 07/10/17 [Rx] Lactose-Reduced Food [Ensure Plus] 1 bottle PO TID 07/12/17 [History] Bisacodyl [Dulcolax] 10 mg PO DAILY PRN tablet 07/15/17 [Rx] Docusate [Colace] 100 mg PO BID capsule 07/15/17 [Rx] Ranolazine [Ranexa] 1,000 mg PO BID tab.er.12h 07/15/17 [Rx] Magnesium Hydroxide [Milk of Magnesia] 30 ml PO DAILY PRN 08/02/17 [History] Mirtazapine 7.5 mg PO HS 08/02/17 [History] 3 Allergy/AdvReac Type Severity Reaction Status Date / Time No Known Allergies Allergy Verified 07/12/17 13:47 ROS unobtainable: due to mental status All Systems PM: A 10-system review of systems was performed and is negative for pertinent findings except as documented above in the HPI. - Constitutional Vitals: Temp Pulse Resp BP Pulse Ox 97.7 F 76 16 101/56 100 08/02/17 14:51 08/02/17 14:51 08/02/17 15:00 08/02/17 15:00 08/02/17 14:51 General appearance: Present: A&O X 2 - Head Head exam: Present: atraumatic, normocephalic - Eye Eye exam: Present: PERRL, conjuntiva pink, sclera anicteric Pupils: Present: PERRL - Neck Neck exam general surgery: Present: supple, trachea midline. Absent: lymphadenopathy - Respiratory Respiratory exam: Present: CTAB. Absent: accessory muscle use, rales, rhonchi, wheezes - Cardiovascular Cardiovascular exam: Present: RRR, +S1, +S2. Absent: diastolic murmur, gallop, rubs, systolic murmur - GI/Abdominal GI/Abdominal exam: Present: normal bowel sounds, soft, no peritoneal signs. Absent: distended, tenderness - Extremities Exam Extremities exam: Present: warm, radial pulses palpable and symmetrical. Absent : calf tenderness, cyanotic, pedal edema - Neurological Exam Neurological exam: Present: CN II-XII intact, oriented X3, no focal deficits. Absent: pronater drift, facial droop, speech deficit - Skin Skin exam: Present: dry, intact Internal Med - H&P Results - Labs CBC & Chem 7: 08/02/17 10:51 08/02/17 10:51 - EKG Data EKG comments: 08/02/17 15:15 Atrial fibrillation with no ST-T wave abnormalities - Diagnostic Studies Other Images Additional comments: Chest X-Ray 08/02/17 10:33 IMPRESSION: 1. No active pulmonary disease. 2. Stable cardiomegaly without overt failure. D/ / Luis A Parikh MD / Luis A Parikh MD Interpreting Provider: Luis A Parikh MD
[2017-08-02] MEDS ORDERED: *HR* Dextrose 50 % in Water (Syg) 50 ML SYRINGE IVP PRN (15:17)
[2017-08-02] MEDS ORDERED: Dextrose Gel 15 GM/37.5 ML TUBE PO PRN ×2 (15:17)
[2017-08-02] MEDS ORDERED: D5% in Water 1,000 ML IVC PRN (15:17)
[2017-08-02] MEDS ORDERED: 0.9 % Sodium Chloride 500 ML ONE (15:33)
--- NOTE | 2017-08-02 15:53 | General Surgery Consult Note ---
<Mary Reyna - Last Filed: 08/02/17 15:57> Date of Encounter: 08/02/17 Time of Encounter: 15:30 Assessment and Plan (1) Anemia Current Visit: Yes Status: Acute Differential diagnosis: Anemia 2/2 acute blood loss given recent right hip fx vs GI bleed 2/2 warfarin and/or plavix vs anemia of chronic disease (takes Ferrous sulfate) Ranjith had an average hemoglobin of 12 to 15 in June through 07/26/2017. On 08/02/2017 his hemoglobin was 8.9. He has had chronically elevated troponin since 07/12/2017 ranging from .49 to 0.59 today. He has had elevated BUN since 07/10/2017 ranging from 27-51 ( daughter denies history of CKD). Discussed with daughter regarding the possibility of bowel prep for scope versus supportive care and watchful waiting. Also discussed with daughters regarding a possible outcome from the scope i.e. need for surgical intervention , given his comorbidities with this be an avenue they wish to pursue. Both daughters stayed they would prefer watchful waiting and would discuss their decision about further intervention if it becomes necessary to complete a scope. This is reasonable given his stable course, lack of melena or hematochezia, and acute on chronic conditions detailed previously. Plan: Continue supportive care and transfuse as indicated per primary medicine Surgery will follow from a distance and revisit the possibility of diagnostic scopes if indicated Recommend PPI BID IV Thank you for allowing us to participate in Mr. Villarreal's care Qualifiers: Anemia type: unspecified type Qualified Code(s): D64.9 - Anemia, unspecified (2) Elevated troponin Current Visit: Yes Status: Acute Management per primary medicine (3) AAA (abdominal aortic aneurysm) without rupture Current Visit: No Status: Chronic (4) Atrial fibrillation Current Visit: No Status: Chronic Qualifiers: Atrial fibrillation type: chronic Qualified Code(s): I48.2 - Chronic atrial fibrillation (5) CAD (coronary artery disease) of artery bypass graft Current Visit: No Status: Chronic Qualifiers: [place] vs. transplanted heart: [place] heart Associated angina: without angina Qualified Code(s): I25.810 - Atherosclerosis of coronary artery bypass graft(s) without angina pectoris (6) Dementia Current Visit: No Status: Chronic Qualifiers: Dementia type: Lewy body dementia Dementia behavioral disturbance: without behavioral disturbance Qualified Code(s): G31.83 - Dementia with Lewy bodies; F02.80 - Dementia in other diseases classified elsewhere without behavioral disturbance; F02.80 - Dementia in other diseases classified elsewhere without behavioral disturbance; F02.80 - Dementia in other diseases classified elsewhere without behavioral disturbance (7) Diabetes mellitus type II, non insulin dependent Current Visit: No Status: Chronic (8) Parkinson disease Current Visit: No Status: Chronic History of Present Illness Consult date: 08/02/17 (Dr. Hoda Hernandez) Reason for consult: other (low Hgb) Requesting physician: Jonny Goode History of present illness: Subjective information obtained via interview with Pt's Daughter at bedside and record review. Ranjith is an 87-year-old male with a past medical history of dementia , Parkinson's disease, (resident at [facility] for over one year given dementia and Parkinson's), ASHD, N STEMI, CHF, /CABG, PCI (7 cardiac stents), AAA, PAF ( recently on warfarin but was d/c'd at the beginning of July), T2 DM, HTN, and a recent fall resulting in a right hip fracture. He underwent a right hip mirlande-arthroplasty on 07/08/2017. He presented on 08/02/2017 for complaints of weakness and chest pain last night. Family is at bedside and noted that he had been getting progressively weak. The patient denies black, bloody, tarry, or bright red stools. The daughter states Ranjith would not be aware of the need to report the stool findings and that the F has not reported that the patient has had any of the stool findings nor have they reported any complaints of abdominal pain or vomiting. The daughter is unsure if or when the patient has had a EGD or colonoscopy. Daughter denies family history of colon cancer. Daughter denies history of GI bleeds, but record review reveals a call to his PCP in 2014 for reported GI bleed (for which he was recommended no colonoscopy until cardiac status stabilized. He was advised to avoid constipation). As noted, he had a right hip fracture right hemiarthroplasty 07/08. He was on warfarin therapy for atrial fibrillation which was stopped in early July. He has remained on Plavix. Per record review, Ranijth had an average hemoglobin of 12 to 15 in June through 07/26/2017. On 08/02/2017 his hemoglobin was 8.9. He has had chronically elevated troponin since 07/12/2017 ranging from .49 to 0.59 today. He has had elevated BUN since 07/10/2017 ranging from 27-51 (daughter denies history of CKD). Surgery has been asked to evaluate this patient for concern of possible acute upper G.I. bleed given his elevated BUN and decreased hemoglobin. Per record review, he was hem-positive in the emergency department that there was no visible bleeding noted. The daughter preemptively states that she would prefer to support the patient with blood transfusions and observe them over the next couple days to see if there is any bleeding noted. 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) Psychiatric history: no psych history - Past Surgical History Surgical History: angioplasty/stent, coronary bypass (CABG), hip replacement - Social History Smoking Status: Former smoker Smokeless Tobacco Status: No Alcohol use: none Drug use: none - Family History Mother Living Status: Father Adopted: No Living Status: Hx Family Cardiac Disorders: Yes Medications and Allergies Aspirin Enteric Coated [Aspirin EC] 81 mg PO DAILY 02/08/16 [History] Carbidopa/Levodopa 25/100 [Sinemet 25/100] 1.5 tab PO TID 02/08/16 [History] Clopidogrel [Plavix] 75 mg PO DAILY 02/08/16 [History] Lisinopril [Zestril] 5 mg PO DAILY 02/08/16 [History] Metformin HCl [Metformin HCl ER] 500 mg PO DAILY 02/08/16 [History] Metoprolol Succinate [Toprol Xl] 50 mg PO BID 02/08/16 [History] Nitroglycerin 0.4 mg PO AD PRN 02/08/16 [History] Pravastatin Sodium 10 mg PO DAILY 02/08/16 [History] DULoxetine [Cymbalta] 20 mg PO DAILY 07/08/17 [History] Isosorbide MONOnitrate [Isosorbide Mononitrate ER] 120 mg PO DAILY 07/08/17 [ History] Ferrous Sulfate 325 mg PO BIDWM #60 tablet 07/10/17 [Rx] Lactose-Reduced Food [Ensure Plus] 1 bottle PO TID 07/12/17 [History] Bisacodyl [Dulcolax] 10 mg PO DAILY PRN tablet 07/15/17 [Rx] Docusate [Colace] 100 mg PO BID capsule 07/15/17 [Rx] Ranolazine [Ranexa] 1,000 mg PO BID tab.er.12h 07/15/17 [Rx] Magnesium Hydroxide [Milk of Magnesia] 30 ml PO DAILY PRN 08/02/17 [History] Mirtazapine 7.5 mg PO HS 08/02/17 [History] 3 Allergy/AdvReac Type Severity Reaction Status Date / Time No Known Allergies Allergy Verified 07/12/17 13:47 Review of Systems All systems PM: reviewed and no additional remarkable complaints except as stated All systems PM: A 10-system review of systems was performed and is negative for pertinent findings except as documented above in the HPI. General Surgery Exam Initial Vital Signs Temp Pulse Resp BP Pulse Ox 98.2 F 88 20 108/60 99 08/02/17 10:30 08/02/17 10:30 08/02/17 10:30 08/02/17 10:30 08/02/17 10:30 - Additional Findings VITAL SIGNS: Reviewed. Stable GENERAL: In no apparent distress. Answers questions with yes or no, but is disoriented. HEENT: Atraumatic, normocephalic, normal occular movements, hearing grossly intact. Oropharynx WNL NECK: No adenopathy, no JVD. CHEST: Chest with decreased breath sounds bilaterally. No wheezes, rales, or rhonchi. CARDIAC: regularly irregular. S1 and S2, without murmurs, gallops, or rubs. VASCULAR: No Edema. Decreased pedal pulses. ABDOMEN: No signs of trauma or bleeding noted. Bowel sounds are active in all 4 quadrants. Soft, nontender. MUSCULOSKELETAL: left arm tremors noted. Generalized weakness.. NEUROLOGIC EXAM: see general. Speech normal. Follows commands. PSYCHIATRIC: Pleasant affect. Mood normal. SKIN: ecchymosis on bilateral upper extremities Exam Initial Vital Signs Temp Pulse Resp BP Pulse Ox 98.2 F 88 20 108/60 99 08/02/17 10:30 08/02/17 10:30 08/02/17 10:30 08/02/17 10:30 08/02/17 10:30 Results - Labs 08/02/17 10:51 08/02/17 10:51 Abnormal lab results WBC 12.7 K/mcL (4.3-11.1) H 08/02/17 10:51 RBC 2.80 M/mcL (4.19-5.50) L 08/02/17 10:51 Hgb 8.9 g/dL (12.9-16.9) L 08/02/17 10:51 Hct 28.3 % (37.5-50.1) L 08/02/17 10:51 MCV 101.1 fL (83.0-100.0) H 08/02/17 10:51 MCHC 31.4 g/dL (31.6-35.5) L 08/02/17 10:51 RDW 14.8 % (11.5-14.5) H 08/02/17 10:51 Neutrophils # 10.0 K/mcL (1.6-8.9) H 08/02/17 10:51 Nucleated RBCs/100 WBC 0.2 /100 WBC (0) H 08/02/17 10:51 Carbon Dioxide 22 mEq/L (23-29) L 08/02/17 10:51 BUN 49 mg/dL (8-23) H 08/02/17 10:51 BUN/Creatinine Ratio 53 (6-26) H 08/02/17 10:51 Glucose 192 mg/dL (70-105) H 08/02/17 10:51 Troponin I 0.59 ng/mL (< 0.04) H* 08/02/17 10:51 Serum Total Protein 6.2 g/dL (6.4-8.9) L 08/02/17 10:51 Ur Squamous Epith Cells Moderate per lpf (None-Few) H 08/02/17 11:03 Stool Occult Blood Positive (Negative) A 08/02/17 13:35 All other labs normal. 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 His one daughter feels he had a blood loss event due to being anticoagulated with heparin 1 month ago., despite him having tested positive for FOBT here in the hospital now. We discussed potential causes of anemia such as MARIOLA, gastritis, ulcers, angiodysplasia, polyps, cancer. They do not want to do any scopes at this time but want to continue to watch his hemoglobins. I explained that he has not been on IVF and his Hb was 8.4 yesterday and he was transfused 2 units prbc coming up to 9.3 today which is not an appropriate response. They expressed understanding. General surgery will sign off at this point, if family wants egd/ colonoscopy as outpatient that is an option as well. Please call back if needed , thanks ok for diabetic cardiac diet at this point Qualifiers: Anemia type: unspecified type Qualified Code(s): D64.9 - Anemia, unspecified (2) Elevated troponin Current Visit: Yes Status: Acute Review of Systems ROS unobtainable: due to mental status All systems PM: reviewed and no additional remarkable complaints except as stated All systems PM: A 10-system review of systems was performed and is negative for pertinent findings except as documented above in the HPI. General Surgery Exam Initial Vital Signs Temp Pulse Resp BP Pulse Ox 98.2 F 88 20 108/60 99 08/02/17 10:30 08/02/17 10:30 08/02/17 10:30 08/02/17 10:30 08/02/17 10:30 - General physical appearance well nourished, no distress, jaundice (?) - Eyes PERRL, normal ocular movement - ENT normal mucosa, normocephalic - Neck trachea midline - Respiratory normal expansion, clear to auscultation - Cardiovascular Cardiovascular exam: Present: RRR - Abdomen Abdomen general surgery: Present: bowel sounds present, soft, non tender. Absent: tender - Integumentary Integumentary general surgery: Present: warm and dry - Neurologic Present: CN 2-12 grossly intact - Musculoskeletal Present: normal posture - Psychiatric Psychiatric general surgery: Present: oriented to person Exam Initial Vital Signs Temp Pulse Resp BP Pulse Ox 98.2 F 88 20 108/60 99 08/02/17 10:30 08/02/17 10:30 08/02/17 10:30 08/02/17 10:30 08/02/17 10:30 Results - Labs 08/03/17 07:00 08/03/17 03:31 Abnormal lab results RBC 2.63 M/mcL (4.19-5.50) L 08/02/17 18:59 Hgb 9.3 g/dL (12.9-16.9) L 08/03/17 07:00 Hct 28.3 % (37.5-50.1) L 08/03/17 07:00 RDW 15.6 % (11.5-14.5) H 08/02/17 18:59 Nucleated RBCs/100 WBC 0.5 /100 WBC (0) H 08/02/17 18:59 PT 12.3 Seconds (9.4-12.1) H 08/03/17 03:31 APTT 25.4 Seconds (26.0-36.0) L 08/02/17 18:59 Sodium 135 mEq/L (136-145) L 08/03/17 03:31 Carbon Dioxide 20 mEq/L (23-29) L 08/03/17 03:31 BUN 51 mg/dL (8-23) H 08/03/17 03:31 BUN/Creatinine Ratio 58 (6-26) H 08/03/17 03:31 Glucose 171 mg/dL (70-105) H 08/03/17 03:31 POC Glucose 176 (58-89) H 08/03/17 04:56 Troponin I 0.37 ng/mL (< 0.04) H* 08/02/17 23:05 Serum Total Protein 6.2 g/dL (6.4-8.9) L 08/02/17 10:51 Ur Squamous Epith Cells Moderate per lpf (None-Few) H 08/02/17 11:03 Stool Occult Blood Positive (Negative) A 08/02/17 13:35 Diabetes panel 08/03/17 Range/Units 03:31 Sodium 135 L (136-145) mEq/L Potassium 4.9 (3.5-5.1) mEq/L Chloride 107 (98-107) mEq/L Carbon Dioxide 20 L (23-29) mEq/L BUN 51 H (8-23) mg/dL Creatinine 0.88 (0.70-1.30) mg/dL Glucose 171 H (70-105) mg/dL Calcium 8.8 (8.6-10.3) mg/dL Calcium panel 08/03/17 Range/Units 03:31 Calcium 8.8 (8.6-10.3) mg/dL Phosphorus 3.3 (2.7-4.5) mg/dL Pituitary panel 08/03/17 Range/Units 03:31 Sodium 135 L (136-145) mEq/L Potassium 4.9 (3.5-5.1) mEq/L Chloride 107 (98-107) mEq/L Carbon Dioxide 20 L (23-29) mEq/L BUN 51 H (8-23) mg/dL Creatinine 0.88 (0.70-1.30) mg/dL Glucose 171 H (70-105) mg/dL Calcium 8.8 (8.6-10.3) mg/dL Adrenal panel 08/03/17 Range/Units 03:31 Sodium 135 L (136-145) mEq/L Potassium 4.9 (3.5-5.1) mEq/L Chloride 107 (98-107) mEq/L Carbon Dioxide 20 L (23-29) mEq/L BUN 51 H (8-23) mg/dL Creatinine 0.88 (0.70-1.30) mg/dL Glucose 171 H (70-105) mg/dL Calcium 8.8 (8.6-10.3) mg/dL All other labs normal. - Attending Attestation I have personally performed a face to face evaluation on this patient. I have reviewed and agree with the care plan. History and Exam by me shows:
[2017-08-02] MEDS ORDERED: 0.9 % Sodium Chloride 1,000 ML IVC SCH ×2 (16:30→18:47)
[2017-08-02] MEDS: Insulin LISPRO 300 UNITS/3 ML VIAL SQ SCH (18:41)
[2017-08-02] MEDS: 0.9 % Sodium Chloride 500 ML IVC ONE ×2 (18:58→19:09)
[2017-08-02 19:19] LABS: Hematocrit 26.1 % (37.5-50.1); Hemoglobin 8.4 g/dL (12.9-16.9); Lymphocytes % 16.2 %; Mean Corpuscular HGB Conc 32.2 g/dL (31.6-35.5); Mean Corpuscular Hemoglobin 31.9 pg (28.0-33.3); Mean Corpuscular Volume 99.2 fL (83.0-100.0); Mean Platelet Volume 10.7 fL (9.4-12.4); Monocytes % 10.2 %; Platelet Count 200 K/mcL (140-400); Red Blood Count 2.63 M/mcL (4.19-5.50); Red Cell Distribution Width 15.6 % (11.5-14.5); Segmented Neutrophils % 72.3 %
[2017-08-02 19:20] LABS: Basophils % 0.3 %; Lymphocytes # 1.7 K/mcL (0.6-4.6); Monocytes # 1.1 K/mcL (0.0-1.3); Neutrophils # 7.8 K/mcL (1.6-8.9); Nucleated Red Blood Cells 0.5 /100 WBC (0)
[2017-08-02] MEDS: Pantoprazole 80 MG in 0.9 % Sodium Chloride 250 ML IVC SCH (20:24)
[2017-08-02 21:08] LABS: Hematocrit 25.3 % (37.5-50.1); Hemoglobin 8.3 g/dL (12.9-16.9)
[2017-08-03] MEDS: Insulin LISPRO 300 UNITS/3 ML VIAL SQ SCH ×5 (01:13→23:54)
[2017-08-03] MEDS ORDERED: 0.9 % Sodium Chloride 250 ML ONE (02:11)
[2017-08-03 04:15] LABS: INR 1.1; Prothrombin Time 12.3 Seconds (9.4-12.1)
[2017-08-03 04:23] LABS: BUN/Creatinine Ratio 58 (6-26); Blood Urea Nitrogen 51 mg/dL (8-23); Calcium 8.8 mg/dL (8.6-10.3); Carbon Dioxide 20 mEq/L (23-29); Chloride 107 mEq/L (98-107); Glucose 171 mg/dL (70-105); Magnesium 1.9 mg/dL (1.6-2.6); Osmolality,Calculated 298 (280-300); Phosphorous 3.3 mg/dL (2.7-4.5); Potassium 4.9 mEq/L (3.5-5.1); Sodium 135 mEq/L (136-145); eGFR For African Americans > 60 (> 60); eGFR For Non-African Americans > 60 (> 60)
[2017-08-03 07:10] LABS: Hematocrit 28.3 % (37.5-50.1); Hemoglobin 9.3 g/dL (12.9-16.9)
--- NOTE | 2017-08-03 07:43 | Electrocardiograph Report ---
[place] [id number] Test Date: 2017-08-02 Pat Name: Ranjith Villarreal Department: 104 Room: 2NE27 Gender: M [employer] Consultant: : [id number] Requested By: Jonny Goode Order Number: [id number] Reading MD: Eduardo Kang DO Measurements Intervals [place] Rate: 77 P: [place]: 0 QRS: 37 QRSD: 91 T: 81 QT: 399 QTc: 431 Interpretive Statements ATRIAL FIBRILLATION SEPTAL MYOCARDIAL INFARCTION, PROBABLY OLD Electronically Signed On 08-03-2017 7:41:26 EST by Edaurdo Kang DO
[2017-08-03] MEDS: Pantoprazole 80 MG in 0.9 % Sodium Chloride 250 ML IVC SCH ×2 (07:49→21:04)
[2017-08-03] MEDS: Carbidopa/Levodopa 25/100 TABLET PO SCH ×3 (09:38→21:30)
[2017-08-03] MEDS: Aspirin 81 MG TAB.CHEW PO SCH (09:39)
[2017-08-03] MEDS: Ranolazine 500 MG TAB.ER.12H PO SCH ×2 (09:40→21:30)
--- NOTE | 2017-08-03 10:56 | Cardiology Consult Note ---
<Mamadou Bradford Ruth - Last Filed: 08/03/17 10:57> Date of Encounter: 08/03/17 Time of Encounter: 10:53 Assessment and Plan (1) Elevated troponin Current Visit: Yes Status: Acute Troponin peak 0.60, downtrended to 0.37 in setting of acute blood loss anemia/ GI bleed. Hemoccult positive. Suspect demand ischemia, nondiagnostic for ACS. Episode of chest pain prior to admission, relieved with nitro--likely secondary to blood loss. No acute EKG changes. Known hx of CAD, CABG and PCI. Echo 07/14/17 Mild global and segmental LV dysfunction. EF 45%, Mild aortic stenosis, Mild mitral regurgitation, Mild pulmonary hypertension. Unchanged from prior. No further cardiac work-up warranted in setting of GI bleed. Anticipate sign off once seen and evaluated by Dr. Manjarrez. (2) Atrial fibrillation Current Visit: Yes Status: Chronic Known chronic A-Fib, rate controlled. Recommend resuming BB once BP allows. Not on anticoagulation given high falls risk and now with GI bleed. Continue ASA only. Qualifiers: Atrial fibrillation type: chronic Qualified Code(s): I48.2 - Chronic atrial fibrillation (3) CAD (coronary artery disease) Current Visit: Yes Status: Chronic Known hx of CABG and multiple PCI. Most recent PCI 2 1/2 years ago. Plavix currently stopped due to GI bleed. Family hesitant about stopping Plavix. Continue ASA for now, resume Plavix once safe/okay from GI standpoint. Continue Statin. Recommend resuming BB and Imdur once BP allows. Continue Ranexa. Qualifiers: Coronary Disease-Associated Artery/Lesion type: curyung artery [place] vs. transplanted heart: curyung heart Associated angina: without angina Qualified Code(s): I25.10 - Atherosclerotic heart disease of curyung coronary artery without angina pectoris (4) GI bleed Current Visit: Yes Status: Acute Management per primary team/surgery. Okay to hold Plavix. Resume once safe from GI standpoint. Continue ASA if able. Qualifiers: GI bleed type/associated pathology: unspecified gastrointestinal hemorrhage type Qualified Code(s): K92.2 - Gastrointestinal hemorrhage, unspecified Discussion w patient/family: The assessment and plan as outlined above was discussed with the patient and/or family members who expressed understanding and agreement. All questions were answered. Thank you for involving us in the care of your patient. Please call with any questions. I will discuss all the above with Dr. Manjarrez and make changes as necessary. History of Present Illness Consult date: 08/03/17 Requesting physician: Juany Palma Consult reason: Elevated troponin Chief complaint: weakness, chest pain History of present illness: Mr. Villarreal is a 87 year old male with PMH of tobacco abuse, chronic atrial fibrillation, AAA repair, COPD, CAD with hx of CABG and PCI--reports 7 stents last done 2-1/2 years ago, diabetes, hyperlipidemia, Parkinson's. Pt and his family report increased weakness and fatigue over the past week. He did have some chest pain two nights ago at rest which did resolve with one nitroglycerin. Upon presentation, HGB found to be 8.9, 4 point drop from earlier this month. Stool occult positive. Has received 2 units PRBCs. Troponins 0.59, 0.60, 0.37. Pt denies chest pain or dyspnea this AM. Pt was here a week ago and found to have elevated troponins at that time, medical management was recommended. Echo at that time showed EF 45%--similar to prior. He follows with Dr. Manuel at [facility] for cardiology. Past Med Surg Social Fam HX - Past Medical History Medical history: atrial fibrillation, COPD, coronary artery disease, diabetes, hyperlipidemia, myocardial infarction Psychiatric history: no psych history - Past Surgical History Surgical History: coronary bypass (CABG) - Social History Smoking Status: Former smoker Smokeless Tobacco Status: No Alcohol use: none Drug use: none - Family History Mother Living Status: Father Adopted: No Living Status: Hx Family Cardiac Disorders: Yes Medications and Allergies Aspirin Enteric Coated [Aspirin EC] 81 mg PO DAILY 02/08/16 [History] Carbidopa/Levodopa 25/100 [Sinemet 25/100] 1.5 tab PO TID 02/08/16 [History] Clopidogrel [Plavix] 75 mg PO DAILY 02/08/16 [History] Lisinopril [Zestril] 5 mg PO DAILY 02/08/16 [History] Metformin HCl [Metformin HCl ER] 500 mg PO DAILY 02/08/16 [History] Metoprolol Succinate [Toprol Xl] 50 mg PO BID 02/08/16 [History] Nitroglycerin 0.4 mg PO AD PRN 02/08/16 [History] Pravastatin Sodium 10 mg PO DAILY 02/08/16 [History] DULoxetine [Cymbalta] 20 mg PO DAILY 07/08/17 [History] Isosorbide MONOnitrate [Isosorbide Mononitrate ER] 120 mg PO DAILY 07/08/17 [ History] Ferrous Sulfate 325 mg PO BIDWM #60 tablet 07/10/17 [Rx] Lactose-Reduced Food [Ensure Plus] 1 bottle PO TID 07/12/17 [History] Bisacodyl [Dulcolax] 10 mg PO DAILY PRN tablet 07/15/17 [Rx] Docusate [Colace] 100 mg PO BID capsule 07/15/17 [Rx] Ranolazine [Ranexa] 1,000 mg PO BID tab.er.12h 07/15/17 [Rx] Magnesium Hydroxide [Milk of Magnesia] 30 ml PO DAILY PRN 08/02/17 [History] Mirtazapine 7.5 mg PO HS 08/02/17 [History] 3 Allergy/AdvReac Type Severity Reaction Status Date / Time No Known Allergies Allergy Verified 07/12/17 13:47 All Systems Review: A 10-system review of systems was performed and is negative for pertinent findings except as documented above in the HPI. - Constitutional Constitutional: fatigue, weakness - Cardiovascular Cardiovascular: as per HPI, chest pain at rest Physical Examination Vital Signs, Last 4 Hours Pulse Resp BP Pulse Ox 08/03/17 06:58 85 17 95/63 100 Vital Signs Temp Pulse Resp BP Pulse Ox 08/03/17 06:58 85 17 95/63 100 08/03/17 05:04 97.4 F L 83 18 113/84 100 08/03/17 05:02 97.4 F L 85 18 113/84 100 08/03/17 04:57 97.4 F L 85 18 113/84 100 08/03/17 03:38 97.8 F 78 20 96/69 98 08/03/17 03:00 97.4 F L 86 20 112/79 99 08/03/17 02:34 97.8 F 83 22 100/68 100 08/03/17 02:30 97.8 F 83 18 100/68 100 08/03/17 02:15 97.7 F 81 16 107/72 100 08/02/17 23:29 97.6 F 81 20 98/66 96 08/02/17 19:00 97.6 F 75 20 93/60 99 08/02/17 18:34 98.4 F 77 14 102/61 100 08/02/17 17:23 74 14 101/54 98 08/02/17 16:06 97.9 F 70 18 87/52 08/02/17 15:51 97.7 F 74 20 89/58 99 08/02/17 15:00 16 101/56 08/02/17 14:51 97.7 F 76 14 92/59 100 08/02/17 13:34 74 16 98/60 99 08/02/17 12:13 78 14 104/68 100 Intake and Output 08/02/17 08/03/17 08/03/17 23:59 07:59 15:59 Intake Total 800 / 800 550 / 550 0 / 0 Balance 800 / 800 550 / 550 0 / 0 Intake: IV Fluids 500 / 500 250 / 250 0.9 % Sodium Chloride 500 ML @ 500 / 500 1875 mls/hr IVC .Q16M ONE Rx#: [id number] Protonix 80 MG In 0.9 % Sodium 250 / 250 Chloride 250 ML @ 25 mls/hr IVC .Q10H [facility] Rx#:[id number] Oral 0 / 0 0 / 0 0 / 0 Blood Product 300 / 300 300 / 300 Rbcs Leuko Poor As-1 Unit 300 / 300 [id number] Rbcs Leuko Poor As-1 Unit 300 / 300 [id number] Other: Meal Dinner Breakfast Percent of Meal Consumed 0% 0% # Voids 1 1 # Urine Diapers 1 Weight 99.4 kg Blood Glucose* 140 176 Patient Weight 08/03/17 23:59 Weight 99.4 kg General: Conversant, No Apparent Distress HEENT: Atraumatic, Normocephaly, Mucus Membranes Moist Neck: No JVD, Normal carotid pulses Cardiac: Other (irregularly irregular) Lungs: Normal Breath Sounds, No Wheeze, Rales, Rhonchi Neuro: Alert and responsive, No focal deficits noted Abdomen: Soft, Non-Tender Skin: No rashes noted on visualized skin Musculoskeletal: No Chest Wall Tenderness Extremities: No Clubbing, No Cyanosis, No Edema, Normal Pulses Results 08/03/17 07:00 08/03/17 03:31 Lab Results 08/02/17 08/02/17 08/02/17 18:59 18:59 18:59 WBC 10.7 Hgb 8.4 L Hct 26.1 L Plt Count 200 INR APTT 25.4 L Sodium Potassium Chloride Carbon Dioxide BUN Creatinine Glucose Calcium Magnesium Troponin I 0.60 H* 08/02/17 08/02/17 08/03/17 20:44 23:05 03:31 WBC Hgb 8.3 L Hct 25.3 L Plt Count INR APTT Sodium 135 L Potassium 4.9 Chloride 107 Carbon Dioxide 20 L BUN 51 H Creatinine 0.88 Glucose 171 H Calcium 8.8 Magnesium 1.9 Troponin I 0.37 H* 08/03/17 08/03/17 03:31 07:00 WBC Hgb 9.3 L Hct 28.3 L Plt Count INR 1.1 APTT Sodium Potassium Chloride Carbon Dioxide BUN Creatinine Glucose Calcium Magnesium Troponin I Short CBC 08/03/17 08/02/17 08/02/17 Range/Units 07:00 20:44 18:59 WBC 10.7 (4.3-11.1) K/mcL Hgb 9.3 L 8.3 L 8.4 L (12.9-16.9) g/dL Hct 28.3 L 25.3 L 26.1 L (37.5-50.1) % Plt Count 200 (140-400) K/mcL Neutrophils # 7.8 (1.6-8.9) K/mcL BMP 08/03/17 08/02/17 Range/Units 03:31 10:51 Sodium 135 L 136 (136-145) mEq/L Potassium 4.9 4.6 (3.5-5.1) mEq/L Chloride 107 105 (98-107) mEq/L Carbon Dioxide 20 L 22 L (23-29) mEq/L BUN 51 H 49 H (8-23) mg/dL Creatinine 0.88 0.93 (0.70-1.30) mg/dL Glucose 171 H 192 H (70-105) mg/dL Calcium 8.8 9.4 (8.6-10.3) mg/dL Cardiac Enzymes 08/02/17 08/02/17 08/02/17 Range/Units 23:05 18:59 10:51 Troponin I 0.37 H* 0.60 H* 0.59 H* (< 0.04) ng/mL Liver Function 08/02/17 Range/Units 10:51 Total Bilirubin 0.4 (0.3-1.0) mg/dL AST 16 (13-39) Units/L ALT 7 (7-52) Units/L Alkaline Phosphatase 68 (34-104) Units/L Albumin 3.7 (3.5-5.7) g/dL Urine 08/02/17 Range/Units 11:03 Urine Color Yellow (Yellow) Urine Clarity Clear (Clear) Urine pH 5.0 (5.0-8.0) pH Units Ur Specific Clifford 1.020 (1.010-1.025) Urine Protein Negative (Neg-Trace) mg/dL Urine Glucose (UA) Normal (Normal) mg/dL Impressions Chest X-Ray 08/02/17 10:33 IMPRESSION: 1. No active pulmonary disease. 2. Stable cardiomegaly without overt failure. D/ / Luis A Parikh MD / Luis A Parikh MD Interpreting Provider: Luis A Parikh MD Active Medications Aspirin (Aspirin) 81 mg PO DAILY MANDA Stop: 02/02/18 09:01 Last Admin: 08/03/17 09:39 Dose: 81 mg Carbidopa/Levodopa (Sinemet) 1.5 each PO TID MANDA Stop: 02/02/18 09:01 Last Admin: 08/03/17 09:38 Dose: 1.5 each Dextrose/Water (Dextrose 50% (Syg)) 25 ml IVP AD PRN PRN Reason: Hypoglycemia Stop: 02/01/18 15:18 Duloxetine HCl (Cymbalta) 20 mg PO DAILY MANDA Stop: 02/02/18 09:01 Last Admin: 08/03/17 09:39 Dose: 20 mg Glucagon (Glucagen) 1 mg IM ONCE PRN PRN Reason: Hypoglycemia Stop: 02/01/18 15:18 Glucose (Gluctose) 15 gm PO ONCE PRN PRN Reason: Hypoglycemia Stop: 02/01/18 15:18 Glucose (Gluctose) 30 gm PO ONCE PRN PRN Reason: Hypoglycemia Stop: 02/01/18 15:18 Dextrose (Dextrose 5%) 1,000 mls @ 100 mls/hr IVC .Q10H PRN PRN Reason: HYPOGLYCEMIA Stop: 02/01/18 15:18 Pantoprazole Sodium 80 mg/ (Sodium Chloride) 250 mls @ 25 mls/hr IVC .Q10H MANDA Stop: 02/01/18 20:16 Last Admin: 08/03/17 07:49 Dose: 25 mls/hr Insulin Human Lispro (Humalog) 0 units SQ Q6HR MANDA PRN Reason: Protocol Stop: 02/01/18 18:01 Last Admin: 08/03/17 05:12 Dose: 2 units Naloxone HCl (Narcan) 0.4 mg IVP Q2MIN PRN PRN Reason: Opioid Reversal Stop: 02/01/18 14:00 Ranolazine (Ranexa) 1,000 mg PO BID [facility] Stop: 02/02/18 09:01 Last Admin: 08/03/17 09:40 Dose: 1,000 mg Simvastatin (Zocor) 5 mg PO DAILY [facility] Stop: 02/02/18 09:01 Last Admin: 08/03/17 09:40 Dose: 5 mg - Imaging and Cardiology Echo: report reviewed - EKG Interpretation EKG results cardiology: personally reviewed (A-Fib rate 77.) Consult Discharge Plan - Plan Instructions: Atrial Fibrillation (DC), Gastrointestinal Bleeding (DC), Gastrointestinal Bleeding (GEN), Parkinson's Disease (DC), Parkinson's Disease ( GEN), Diabetes Mellitus Type 2 in Adults (DC), Peripheral Vascular Disorders (DC ), Anemia (GEN), Fall Prevention (DC), Parkinson's Disease, Coding Quality Coordinator (GEN ) Referrals: Eileen Howard CNP [Primary Care Provider] - <Marychuy Manjarrez - Last Filed: 08/03/17 11:30> Date of Encounter: 08/03/17 - Attending Attestation I examined this patient and my medical decision-making was reviewed with the ACCESSIONER. I agree with the documented findings, disposition and treatment plan as described. Mr. Villarreal presents with a troponin elevation, peak 0.60 in setting of acute blood loss anemia and concern for GIB. Hemoccult positive. Suspect demand ischemia in this setting. Troponin is not diagnostic for ACS. No acute ECG findings. Recent echo demonstrated stable systolic dysfunction, EF 45%. In this setting, we do not recommend an invasive cardiac workup but rather conservative management. This was discussed with the patient and his . It is reasonable to stop plavix at this time - no recent PCI. Ideally, recommend continuing aspirin but can be stopped if situation warrants. Will defer to GI and primary team. At this time, we will sign off. Please call with questions. Assessment and Plan Discussion w patient/family: The assessment and plan as outlined above was discussed with the patient and/or family members who expressed understanding and agreement. All questions were answered. Thank you for involving us in the care of your patient. Please call with any questions. History of Present Illness History of present illness: Mr. Villarreal is a 87 year old male All Systems Review: A 10-system review of systems was performed and is negative for pertinent findings except as documented above in the HPI. Physical Examination Vital Signs, Last 4 Hours Temp Pulse Resp BP Pulse Ox 08/03/17 11:17 97.6 F 83 14 97/68 98 Results 08/03/17 07:00 08/03/17 03:31 Lab Results 08/02/17 08/02/17 08/02/17 18:59 18:59 18:59 WBC 10.7 Hgb 8.4 L Hct 26.1 L Plt Count 200 INR APTT 25.4 L Sodium Potassium Chloride Carbon Dioxide BUN Creatinine Glucose Calcium Magnesium Troponin I 0.60 H* 08/02/17 08/02/17 08/03/17 20:44 23:05 03:31 WBC Hgb 8.3 L Hct 25.3 L Plt Count INR APTT Sodium 135 L Potassium 4.9 Chloride 107 Carbon Dioxide 20 L BUN 51 H Creatinine 0.88 Glucose 171 H Calcium 8.8 Magnesium 1.9 Troponin I 0.37 H* 08/03/17 08/03/17 03:31 07:00 WBC Hgb 9.3 L Hct 28.3 L Plt Count INR 1.1 APTT Sodium Potassium Chloride Carbon Dioxide BUN Creatinine Glucose Calcium Magnesium Troponin I
[2017-08-03 15:21] LABS: Albumin 3.5 g/dL (3.5-5.7); Albumin/Globulin Ratio 1.5 (1.1-2.2); Bilirubin,Direct 0.1 mg/dL (0.0-0.2); Bilirubin,Indirect 0.6 mg/dL (0.0-1.2); Bilirubin,Total 0.7 mg/dL (0.3-1.0); Globulin 2.3 g/dL (2.4-3.5); Total Protein 5.8 g/dL (6.4-8.9)
--- NOTE | 2017-08-03 16:30 | Internal Med Progress Note ---
Date of Encounter: 08/03/17 Time of Encounter: 16:28 - Assessment and plan (1) Generalized weakness Current Visit: No Status: Acute Assessment and plan: Due to G.I. bleeding. Physical therapy occupational therapy to see the patient. (2) Diabetes mellitus type II, non insulin dependent Current Visit: No Status: Chronic Assessment and plan: Sliding scale insulin. (3) Atrial fibrillation Current Visit: Yes Status: Chronic Assessment and plan: Not on anticoagulants because of risk of falls. Qualifiers: Atrial fibrillation type: chronic Qualified Code(s): I48.2 - Chronic atrial fibrillation (4) Elevated troponin Current Visit: Yes Status: Acute (5) GI bleed Current Visit: Yes Status: Acute Assessment and plan: Patient presents with G.I. bleeding, suspect upper G.I. bleeding given that disproportionately elevated the UN. Patient received units of blood yesterday. Antiproton experiment 1 more day. Gastroenterology service as well as patient family decided to pursue conservative management and scope will not be done. Follow H&H trends. Will discontinue Plavix therapy and continue aspirin 81 mg daily according to animal scientist recommendations Qualifiers: GI bleed type/associated pathology: unspecified gastrointestinal hemorrhage type Qualified Code(s): K92.2 - Gastrointestinal hemorrhage, unspecified - Subjective Interval history: Patient seen and examined. Patient has not had any bowel movements yesterday. He received 2 units of blood transfusion hemoglobin this morning 9.3. Family has decided with surgeon regarding conservative management scope will not be done. Patient denies any obvious hematemesis, melena or hematochezia.. - Constitutional Vitals: Temp Pulse Resp BP Pulse Ox 97.6 F 83 14 97/68 98 08/03/17 11:17 08/03/17 11:17 08/03/17 11:17 08/03/17 11:17 08/03/17 11:17 General appearance: Present: A&O X 2 Exam: Gen.: patient is alert oriented times 3 not in distress. Pale Cardiac: normal S1 S2 no additional sounds chest: clear auscultation abdomen: soft nontender nondistended normal bowel sounds Neuro: no focal deficits LE: 1+ swelling Internal Medicine: Result - Labs CBC & Chem 7: 08/03/17 07:00 08/03/17 03:31 Labs: Short CBC 08/02/17 08/02/17 08/03/17 Range/Units 18:59 20:44 07:00 WBC 10.7 (4.3-11.1) K/mcL Hgb 8.4 L 8.3 L 9.3 L (12.9-16.9) g/dL Hct 26.1 L 25.3 L 28.3 L (37.5-50.1) % Plt Count 200 (140-400) K/mcL Neutrophils # 7.8 (1.6-8.9) K/mcL BMP 08/03/17 03:31 Sodium 135 L Potassium 4.9 Chloride 107 Carbon Dioxide 20 L BUN 51 H Creatinine 0.88 Glucose 171 H Calcium 8.8 Cardiac Enzymes 08/02/17 08/02/17 Range/Units 18:59 23:05 Troponin I 0.60 H* 0.37 H* (< 0.04) ng/mL Liver Function 08/03/17 Range/Units 14:49 Total Bilirubin 0.7 (0.3-1.0) mg/dL Direct Bilirubin 0.1 (0.0-0.2) mg/dL AST 29 (13-39) Units/L ALT 8 (7-52) Units/L Alkaline Phosphatase 65 (34-104) Units/L Albumin 3.5 (3.5-5.7) g/dL - ABG Interpretation ABG results: PT/INR, D-dimer PT 12.3 Seconds (9.4-12.1) H 08/03/17 03:31 - VTE Documentation of Mechanical Device: Intermittent pneumatic compression device Consult Discharge Plan - Plan Instructions: Atrial Fibrillation (DC), Gastrointestinal Bleeding (DC), Gastrointestinal Bleeding (GEN), Parkinson's Disease (DC), Parkinson's Disease ( GEN), Diabetes Mellitus Type 2 in Adults (DC), Peripheral Vascular Disorders (DC ), Anemia (GEN), Fall Prevention (DC), Parkinson's Disease, 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
[2017-08-03] MEDS ORDERED: Melatonin 3 MG TABLET PO ONE (19:59)
[2017-08-04] MEDS ORDERED: hydrOXYzine pamoate 25 MG CAPSULE PO PRN (03:24)
[2017-08-04 04:47] LABS: Basophils # 0.1 K/mcL (0.0-0.2); Basophils % 0.4 %; Hematocrit 25.8 % (37.5-50.1); Hemoglobin 8.6 g/dL (12.9-16.9); Immature Granulocytes % 0.7 % (0-4); Lymphocytes # 1.2 K/mcL (0.6-4.6); Lymphocytes % 8.6 %; Mean Corpuscular HGB Conc 33.3 g/dL (31.6-35.5); Mean Corpuscular Hemoglobin 32.1 pg (28.0-33.3); Mean Corpuscular Volume 96.3 fL (83.0-100.0); Mean Platelet Volume 10.6 fL (9.4-12.4); Monocytes # 1.5 K/mcL (0.0-1.3); Monocytes % 10.8 %; Neutrophils # 10.9 K/mcL (1.6-8.9); Nucleated Red Blood Cells 1.1 /100 WBC (0); Platelet Count 163 K/mcL (140-400); Red Blood Count 2.68 M/mcL (4.19-5.50); Segmented Neutrophils % 79.5 %
[2017-08-04 05:00] LABS: BUN/Creatinine Ratio 55 (6-26); Blood Urea Nitrogen 48 mg/dL (8-23); Calcium 8.4 mg/dL (8.6-10.3); Carbon Dioxide 22 mEq/L (23-29); Chloride 108 mEq/L (98-107); Glucose 142 mg/dL (70-105); Magnesium 1.8 mg/dL (1.6-2.6); Osmolality,Calculated 299 (280-300); Potassium 4.1 mEq/L (3.5-5.1); Sodium 137 mEq/L (136-145); eGFR For African Americans > 60 (> 60); eGFR For Non-African Americans > 60 (> 60)
[2017-08-04] MEDS ORDERED: 0.9 % Sodium Chloride 1,000 ML ONE ×2 (06:49→07:06)
[2017-08-04 09:13] LABS: ABG Base Excess -13 mEq/L (-2 to 3); ABG HCO3 10 mEq/L (21-27); ABG Oxygen Saturation 100 % (95-98); ABG PCO2 16 mmHg (35-45); ABG PO2 210 mmHg (85-104); ABG TCO2 11 mEq/L (20-26)
[2017-08-04] MEDS ORDERED: 0.9 % Sodium Chloride 250 ML ONE (09:41)
[2017-08-04 09:51] LABS: BUN/Creatinine Ratio 49 (6-26); Blood Urea Nitrogen 50 mg/dL (8-23); Carbon Dioxide 16 mEq/L (23-29); Chloride 107 mEq/L (98-107); Potassium 4.2 mEq/L (3.5-5.1); Sodium 136 mEq/L (136-145); eGFR For African Americans > 60 (> 60); eGFR For Non-African Americans > 60 (> 60)
[2017-08-04 09:52] LABS: Alanine Aminotransferase 7 Units/L (7-52); Albumin 3.3 g/dL (3.5-5.7); Albumin/Globulin Ratio 1.6 (1.1-2.2); Alkaline Phosphatase 62 Units/L (34-104); Aspartate Amino Transferase 41 Units/L (13-39); Bilirubin,Total 0.7 mg/dL (0.3-1.0); Calcium 8.5 mg/dL (8.6-10.3); Globulin 2.1 g/dL (2.4-3.5); Glucose 269 mg/dL (70-105); Magnesium 2.1 mg/dL (1.6-2.6); Osmolality,Calculated 305 (280-300); Phosphorous 2.8 mg/dL (2.7-4.5); Total Protein 5.4 g/dL (6.4-8.9)
[2017-08-04 10:03] LABS: Basophils # 0.1 K/mcL (0.0-0.2); Basophils % 0.4 %; Hematocrit 29.2 % (37.5-50.1); Immature Platelets 6.1 % (1.1-6.1); Lymphocytes % 17.8 %; Mean Corpuscular HGB Conc 30.8 g/dL (31.6-35.5); Mean Corpuscular Hemoglobin 31.7 pg (28.0-33.3); Mean Corpuscular Volume 102.8 fL (83.0-100.0); Monocytes # 1.8 K/mcL (0.0-1.3); Monocytes % 8.1 %; Neutrophils # 16.2 K/mcL (1.6-8.9); Nucleated Red Blood Cells 1.2 /100 WBC (0); Platelet Count 203 K/mcL (140-400); Red Blood Count 2.84 M/mcL (4.19-5.50); Red Cell Distribution Width 17.4 % (11.5-14.5); Segmented Neutrophils % 72.7 %
[2017-08-04 10:06] LABS: Activated Partial Thrombo Time 23.2 Seconds (26.0-36.0); INR 1.2; Prothrombin Time 13.2 Seconds (9.4-12.1)
[2017-08-04] MEDS: Insulin LISPRO 300 UNITS/3 ML VIAL SQ SCH ×4 (10:12→23:22)
--- NOTE | 2017-08-04 10:12 | Event Note ---
Date of Encounter: 08/04/17 Time of Encounter: 07:30 Patient is coming with altered mental status hypotensive , with suspected GI bleed spoke with family and patient about goals of care with both daughters who are his POA , patient advised his daughter that he doesnt want aggressive measures like central line , intubation and CPR so the code status was changed to [id number] will continue volume resuscitation.
--- NOTE | 2017-08-04 10:12 | Pulmonology Consult Note ---
Date of Encounter: 08/04/17 Time of Encounter: 07:30 Assessment and Plan (1) GI bleed Current Visit: Yes Status: Acute The altered mental status and increased lactate borderline blood pressure is due to ongoing occult GI bleed , with adequate resuscitation the HR, Blood pressure and lactate are trending down . To continue PPI drip , will do empirical antibiotics for possible intrabdominal sepsis patient and family didnt want to pursue endoscopy which might need intubation as he doesnt want any aggressive measures like central line , vasopressors , intubation or CPR , ok for now for resuscitation if the symptoms doesnt turn around will concentrate on comfort measures only. Qualifiers: GI bleed type/associated pathology: unspecified gastrointestinal hemorrhage type Qualified Code(s): K92.2 - Gastrointestinal hemorrhage, unspecified (2) Altered mental status Current Visit: Yes Status: Acute contributed by hypovolemia due to blood loss anemia and cardiac output compromise by ventricular arrhythmias Qualifiers: Qualified Code(s): R41.82 - Altered mental status, unspecified (3) NSTEMI (non-ST elevated myocardial infarction) Current Visit: Yes Status: Acute Patient has significant CAD s/p CABG with due to tachyarrhythmias complicated by volume depletion troponins jumped to 3.35 patient doesnt want to pursue aggressive measures like left heart catheterization will stop trending troponins . (4) Atrial fibrillation Current Visit: Yes Status: Chronic Patient has on and off atrial fibrillation with degeneration to sinus with PVC' S and runs of V tach after volume resuscitation now the rhythm stable at atrial fibrillation. Qualifiers: Atrial fibrillation type: chronic Qualified Code(s): I48.2 - Chronic atrial fibrillation (5) Diabetes mellitus type II, non insulin dependent Current Visit: No Status: Chronic To continue the current insulin regimen. (6) DVT prophylaxis Current Visit: No Status: Acute To continue SCD'S History of Present Illness Consult date: 08/04/17 Requesting physician: Dick Varghese Reason for consult: other (altered mental status with GI bleed) Chief complaint: weakness and altered mental status History of present illness: 87 year old male with past medical history for HTN, CAD MS in the past had stents 2 years ago was on Aspirin and plavix presents to the hospital with 1 week feeling tired and weakness with some altered mental status and some chest pain , denied any hematemesis and melena found to have hemoccult in stool and found have NSTEMI , was admitted to the general medical floor where he was resuscitated , today morning he became diaphoretic pale with tachycardia with with lot of PVCS and runs of v tach patient was symptomatic found to have labile blood pressure was transferred to further closer hemodynamic monitoring when i saw the patient was confused , patient had sinus with lot of PVC'S with paroxysmal atrial fibrillation no evidence of active bleeding denied any chest pain . Past Med Surg Social Fam HX - Past Medical History Medical history: atrial fibrillation, COPD, coronary artery disease, diabetes, hyperlipidemia, myocardial infarction Psychiatric history: no psych history - Past Surgical History Surgical History: coronary bypass (CABG) - Social History Smoking Status: Former smoker Smokeless Tobacco Status: No Alcohol use: none Drug use: none - Family History Mother Living Status: Father Adopted: No Living Status: Hx Family Cardiac Disorders: Yes Medications and Allergies Aspirin Enteric Coated [Aspirin EC] 81 mg PO DAILY 02/08/16 [History] Carbidopa/Levodopa 25/100 [Sinemet 25/100] 1.5 tab PO TID 02/08/16 [History] Clopidogrel [Plavix] 75 mg PO DAILY 02/08/16 [History] Lisinopril [Zestril] 5 mg PO DAILY 02/08/16 [History] Metformin HCl [Metformin HCl ER] 500 mg PO DAILY 02/08/16 [History] Metoprolol Succinate [Toprol Xl] 50 mg PO BID 02/08/16 [History] Nitroglycerin 0.4 mg PO AD PRN 02/08/16 [History] Pravastatin Sodium 10 mg PO DAILY 02/08/16 [History] DULoxetine [Cymbalta] 20 mg PO DAILY 07/08/17 [History] Isosorbide MONOnitrate [Isosorbide Mononitrate ER] 120 mg PO DAILY 07/08/17 [ History] Ferrous Sulfate 325 mg PO BIDWM #60 tablet 07/10/17 [Rx] Lactose-Reduced Food [Ensure Plus] 1 bottle PO TID 07/12/17 [History] Bisacodyl [Dulcolax] 10 mg PO DAILY PRN tablet 07/15/17 [Rx] Docusate [Colace] 100 mg PO BID capsule 07/15/17 [Rx] Ranolazine [Ranexa] 1,000 mg PO BID tab.er.12h 07/15/17 [Rx] Magnesium Hydroxide [Milk of Magnesia] 30 ml PO DAILY PRN 08/02/17 [History] Mirtazapine 7.5 mg PO HS 08/02/17 [History] 3 Allergy/AdvReac Type Severity Reaction Status Date / Time No Known Allergies Allergy Verified 07/12/17 13:47 ROS unobtainable: due to mental status Physical Examination General appearance: lethargic Effort: mildly labored Auscultation: bilateral: clear Cardiovascular: irregular rhythm, PVC's noted Gastrointestinal: hypoactive bowel sounds other (mental status altered ) Results - Laboratory Findings CBC and BMP: 08/04/17 14:39 08/04/17 07:06 ABG ABG pH 7.40 pH Units (7.32-7.45) 08/04/17 07:35 ABG pCO2 16 mmHg (35-45) L* 08/04/17 07:35 ABG pO2 210 mmHg (85-104) H 08/04/17 07:35 ABG O2 Saturation 100 % (95-98) H 08/04/17 07:35 PT/INR, D-dimer PT 13.2 Seconds (9.4-12.1) H 08/04/17 08:04 Abnormal lab findings: Abnormal lab results WBC 22.3 K/mcL (4.3-11.1) H D 08/04/17 07:06 RBC 2.84 M/mcL (4.19-5.50) L 08/04/17 07:06 Hgb 9.0 g/dL (12.9-16.9) L 08/04/17 07:06 Hct 29.2 % (37.5-50.1) L 08/04/17 07:06 MCV 102.8 fL (83.0-100.0) H D 08/04/17 07:06 MCHC 30.8 g/dL (31.6-35.5) L 08/04/17 07:06 RDW 17.4 % (11.5-14.5) H 08/04/17 07:06 Neutrophils # 16.2 K/mcL (1.6-8.9) H 08/04/17 07:06 Monocytes # 1.8 K/mcL (0.0-1.3) H 08/04/17 07:06 Nucleated RBCs/100 WBC 1.2 /100 WBC (0) H 08/04/17 07:06 PT 13.2 Seconds (9.4-12.1) H 08/04/17 08:04 APTT 23.2 Seconds (26.0-36.0) L 08/04/17 08:04 ABG pCO2 16 mmHg (35-45) L* 08/04/17 07:35 ABG pO2 210 mmHg (85-104) H 08/04/17 07:35 ABG HCO3 10 mEq/L (21-27) L 08/04/17 07:35 ABG Total CO2 11 mEq/L (20-26) L 08/04/17 07:35 ABG O2 Saturation 100 % (95-98) H 08/04/17 07:35 ABG Base Excess -13 mEq/L (-2 to 3) L 08/04/17 07:35 Carbon Dioxide 16 mEq/L (23-29) L 08/04/17 07:06 BUN 50 mg/dL (8-23) H 08/04/17 07:06 BUN/Creatinine Ratio 49 (6-26) H 08/04/17 07:06 Glucose 269 mg/dL (70-105) H 08/04/17 07:06 POC Glucose 142 (58-89) H 08/03/17 23:51 Calculated Osmolality 305 (280-300) H 08/04/17 07:06 Lactic Acid 5.9 mmol/L (0.5-2.2) H* 08/04/17 07:06 Calcium 8.5 mg/dL (8.6-10.3) L 08/04/17 07:06 AST 41 Units/L (13-39) H 08/04/17 07:06 Troponin I 3.35 ng/mL (< 0.04) H* 08/04/17 07:06 Serum Total Protein 5.4 g/dL (6.4-8.9) L 08/04/17 07:06 Albumin 3.3 g/dL (3.5-5.7) L 08/04/17 07:06 Globulin 2.1 g/dL (2.4-3.5) L 08/04/17 07:06 Ur Squamous Epith Cells Moderate per lpf (None-Few) H 08/02/17 11:03 Stool Occult Blood Positive (Negative) A 08/02/17 13:35 - Clinical Findings Intake & Output: Intake & Output 08/03/17 08/04/17 08/04/17 23:59 07:59 15:59 Intake Total 250 / 250 1000 / 1000 Output Total 150 / 150 Balance 250 / 250 850 / 850 Consult Discharge Plan - Plan Instructions: Atrial Fibrillation (DC), Gastrointestinal Bleeding (DC), Gastrointestinal Bleeding (GEN), Parkinson's Disease (DC), Parkinson's Disease ( GEN), Diabetes Mellitus Type 2 in Adults (DC), Peripheral Vascular Disorders (DC ), Anemia (GEN), Fall Prevention (DC), Parkinson's Disease, Shooting Gallery Operator (GEN ) Referrals: Eileen Howard, DIRECTOR OF RELIGIOUS LIFE [Primary Care Provider] -
[2017-08-04] MEDS: Carbidopa/Levodopa 25/100 TABLET PO SCH ×3 (10:14→19:27)
[2017-08-04] MEDS: Ranolazine 500 MG TAB.ER.12H PO SCH ×2 (10:14→19:27)
[2017-08-04] MEDS: Aspirin 81 MG TAB.CHEW PO SCH (10:14)
[2017-08-04 14:48] LABS: Basophils % 0.2 %; Hematocrit 33.9 % (37.5-50.1); Hemoglobin 11.3 g/dL (12.9-16.9); Immature Granulocytes % 0.8 % (0-4); Immature Platelets 7.1 % (1.1-6.1); Lymphocytes # 0.8 K/mcL (0.6-4.6); Lymphocytes % 4.2 %; Mean Corpuscular HGB Conc 33.3 g/dL (31.6-35.5); Mean Corpuscular Hemoglobin 31.7 pg (28.0-33.3); Monocytes # 1.4 K/mcL (0.0-1.3); Monocytes % 7.6 %; Neutrophils # 16.2 K/mcL (1.6-8.9); Nucleated Red Blood Cells 1.4 /100 WBC (0); Platelet Count 164 K/mcL (140-400); Red Blood Count 3.57 M/mcL (4.19-5.50); Red Cell Distribution Width 17.6 % (11.5-14.5); Segmented Neutrophils % 87.2 %
[2017-08-04] MEDS: Pantoprazole 80 MG in 0.9 % Sodium Chloride 250 ML IVC SCH ×2 (17:21→17:54)
[2017-08-04] MEDS: MetroNIDAZOLE 500 MG/100 ML 500 MG/100 ML BAG IVPB SCH ×2 (19:27→23:21)
[2017-08-04] MEDS: Cefepime HCl 1,000 MG in Water for inj. (sterile) 20 ML 10 ML IVP SCH ×2 (19:28→23:22)
[2017-08-05] MEDS: Pantoprazole 80 MG in 0.9 % Sodium Chloride 250 ML IVC SCH (03:27)
[2017-08-05] MEDS: Insulin LISPRO 300 UNITS/3 ML VIAL SQ SCH ×4 (06:05→22:40)
[2017-08-05] MEDS: MetroNIDAZOLE 500 MG/100 ML 500 MG/100 ML BAG IVPB SCH ×2 (07:46→16:26)
[2017-08-05] MEDS: Cefepime HCl 1,000 MG in Water for inj. (sterile) 20 ML 10 ML IVP SCH ×2 (07:46→16:26)
[2017-08-05] MEDS: Carbidopa/Levodopa 25/100 TABLET PO SCH ×3 (07:47→21:09)
[2017-08-05] MEDS: Ranolazine 500 MG TAB.ER.12H PO SCH ×2 (07:47→21:09)
--- NOTE | 2017-08-05 10:27 | Pulmonology Progress Note ---
Date of Encounter: 08/05/17 Time of Encounter: 08:00 Assessment and Plan (1) GI bleed Current Visit: Yes Status: Resolved There is no evidence of any significant GI bleed and his hemoglobin remained stable. Hemodynamically patient stable to be transferred to the floor and the signout on to the hospitalist. Patient was empirically started on antibiotics and de-escalate if cultures remain negative. 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 Qualifiers: Atrial fibrillation type: chronic Qualified Code(s): I48.2 - Chronic atrial fibrillation Subjective Principal diagnosis: GI bleed Interval history: Patient denies any complaints Objective PUL Vital signs: Last Vital Signs Temp 97.6 F 08/05/17 10:13 Pulse 96 08/05/17 10:13 Resp 14 08/05/17 10:13 BP 120/84 08/05/17 10:13 Pulse Ox 100 08/05/17 10:13 General appearance: no acute distress Eyes: nonicteric ENT: oropharynx moist Neck: supple Effort: normal Auscultation: bilateral: diminished breath sounds Percussion: bilateral: not dull Cardiovascular: irregular rhythm Gastrointestinal: normoactive bowel sounds, non-distended Extremities: no cyanosis non-focal exam Results - Laboratory Findings CBC and BMP: 08/04/17 14:39 08/04/17 07:06 ABG ABG pH 7.40 pH Units (7.32-7.45) 08/04/17 07:35 ABG pCO2 16 mmHg (35-45) L* 08/04/17 07:35 ABG pO2 210 mmHg (85-104) H 08/04/17 07:35 ABG O2 Saturation 100 % (95-98) H 08/04/17 07:35 PT/INR, D-dimer PT 13.2 Seconds (9.4-12.1) H 08/04/17 08:04 Abnormal lab findings: Abnormal lab results WBC 18.6 K/mcL (4.3-11.1) H 08/04/17 14:39 RBC 3.57 M/mcL (4.19-5.50) L 08/04/17 14:39 Hgb 11.3 g/dL (12.9-16.9) L D 08/04/17 14:39 Hct 33.9 % (37.5-50.1) L 08/04/17 14:39 RDW 17.6 % (11.5-14.5) H 08/04/17 14:39 Neutrophils # 16.2 K/mcL (1.6-8.9) H 08/04/17 14:39 Monocytes # 1.4 K/mcL (0.0-1.3) H 08/04/17 14:39 Nucleated RBCs/100 WBC 1.4 /100 WBC (0) H 08/04/17 14:39 Immature Plt Fraction 7.1 % (1.1-6.1) H 08/04/17 14:39 PT 13.2 Seconds (9.4-12.1) H 08/04/17 08:04 APTT 23.2 Seconds (26.0-36.0) L 08/04/17 08:04 ABG pCO2 16 mmHg (35-45) L* 08/04/17 07:35 ABG pO2 210 mmHg (85-104) H 08/04/17 07:35 ABG HCO3 10 mEq/L (21-27) L 08/04/17 07:35 ABG Total CO2 11 mEq/L (20-26) L 08/04/17 07:35 ABG O2 Saturation 100 % (95-98) H 08/04/17 07:35 ABG Base Excess -13 mEq/L (-2 to 3) L 08/04/17 07:35 Carbon Dioxide 16 mEq/L (23-29) L 08/04/17 07:06 BUN 50 mg/dL (8-23) H 08/04/17 07:06 BUN/Creatinine Ratio 49 (6-26) H 08/04/17 07:06 Glucose 269 mg/dL (70-105) H 08/04/17 07:06 POC Glucose 148 (58-89) H 08/04/17 23:18 Calculated Osmolality 305 (280-300) H 08/04/17 07:06 Lactic Acid 2.5 mmol/L (0.5-2.2) H 08/04/17 14:39 Calcium 8.5 mg/dL (8.6-10.3) L 08/04/17 07:06 AST 41 Units/L (13-39) H 08/04/17 07:06 Troponin I 3.35 ng/mL (< 0.04) H* 08/04/17 07:06 Serum Total Protein 5.4 g/dL (6.4-8.9) L 08/04/17 07:06 Albumin 3.3 g/dL (3.5-5.7) L 08/04/17 07:06 Globulin 2.1 g/dL (2.4-3.5) L 08/04/17 07:06 Ur Squamous Epith Cells Moderate per lpf (None-Few) H 08/02/17 11:03 Stool Occult Blood Positive (Negative) A 08/02/17 13:35 - Clinical Findings Intake & Output: Intake & Output 08/04/17 08/05/17 08/05/17 23:59 07:59 15:59 Intake Total 370 / 370 720 / 720 706 / 706 Output Total 100 / 100 400 / 400 Balance 270 / 270 320 / 320 706 / 706 Weight 100.78 kg 96.8 kg - VTE Documentation of Mechanical Device: Intermittent pneumatic compression device Consult Discharge Plan - Plan Instructions: Atrial Fibrillation (DC), Gastrointestinal Bleeding (DC), Gastrointestinal Bleeding (GEN), Parkinson's Disease (DC), Parkinson's Disease ( GEN), Diabetes Mellitus Type 2 in Adults (DC), Peripheral Vascular Disorders (DC ), Anemia (GEN), Fall Prevention (DC), Parkinson's Disease, Windows System Admin (GEN ) Referrals: Eileen Howard, HIDE SALTER [Primary Care Provider] -
[2017-08-05] MEDS: Pantoprazole 40 MG VIAL IVP SCH (18:54)
[2017-08-06] MEDS: Cefepime HCl 1,000 MG in Water for inj. (sterile) 20 ML 10 ML IVP SCH ×3 (01:12→08:10)
[2017-08-06] MEDS: MetroNIDAZOLE 500 MG/100 ML 500 MG/100 ML BAG IVPB SCH ×3 (01:20→08:10)
[2017-08-06 03:30] LABS: Basophils % 0.3 %; Hematocrit 28.8 % (37.5-50.1); Lymphocytes # 1.2 K/mcL (0.6-4.6); Lymphocytes % 9.2 %; Mean Corpuscular HGB Conc 31.6 g/dL (31.6-35.5); Mean Corpuscular Hemoglobin 31.3 pg (28.0-33.3); Mean Platelet Volume 11.4 fL (9.4-12.4); Monocytes # 1.6 K/mcL (0.0-1.3); Monocytes % 12.1 %; Neutrophils # 10.3 K/mcL (1.6-8.9); Nucleated Red Blood Cells 2.5 /100 WBC (0); Platelet Count 131 K/mcL (140-400); Red Blood Count 2.91 M/mcL (4.19-5.50); Red Cell Distribution Width 20.1 % (11.5-14.5); Segmented Neutrophils % 77.4 %
[2017-08-06 03:34] LABS: Hemoglobin 9.1 g/dL (12.9-16.9)
[2017-08-06 03:40] LABS: BUN/Creatinine Ratio 40 (6-26); Blood Urea Nitrogen 33 mg/dL (8-23); Calcium 8.2 mg/dL (8.6-10.3); Carbon Dioxide 21 mEq/L (23-29); Chloride 110 mEq/L (98-107); Glucose 128 mg/dL (70-105); Osmolality,Calculated 293 (280-300); Potassium 3.9 mEq/L (3.5-5.1); Sodium 137 mEq/L (136-145); eGFR For African Americans > 60 (> 60); eGFR For Non-African Americans > 60 (> 60)
[2017-08-06] MEDS: Pantoprazole 40 MG VIAL IVP SCH (06:41)
[2017-08-06] MEDS: Ranolazine 500 MG TAB.ER.12H PO SCH (08:08)
[2017-08-06] MEDS: Carbidopa/Levodopa 25/100 TABLET PO SCH ×2 (08:08→17:40)
[2017-08-06] MEDS: Insulin LISPRO 300 UNITS/3 ML VIAL SQ SCH ×3 (08:10→17:43)
--- NOTE | 2017-08-06 10:45 | Internal Med Progress Note ---
Date of Encounter: 08/06/17 Time of Encounter: 09:30 - Assessment and plan (1) Acute blood loss anemia Current Visit: Yes Status: Acute Assessment and plan: s/p 4 U PRBC mostly upper GI bleed switched to PO PPI cont close monitoring Hb dropped down to 9.1 from 11.3 no need of transfusion now (2) GI bleed Current Visit: Yes Status: Acute Assessment and plan: His HB still kept on dropping slowly spoke to surgeon Dr. Guerra for further eval cont holding ASA and Plavix Qualifiers: GI bleed type/associated pathology: unspecified gastrointestinal hemorrhage type Qualified Code(s): K92.2 - Gastrointestinal hemorrhage, unspecified (3) Generalized weakness Current Visit: No Status: Acute Assessment and plan: Due to G.I. bleed feels little better today concerned for acute abdomen inf but no signs cont trending on WBC switched to PO abx Doxy (4) NSTEMI (non-ST elevated myocardial infarction) Current Visit: No Status: Acute Assessment and plan: due to demand ischemia with GI bleed Card evaluated the pt no further work up needed (5) CAD (coronary artery disease) of artery bypass graft Current Visit: No Status: Chronic Assessment and plan: resumed all other home meds.. held ASA and Plavix Qualifiers: [place] vs. transplanted heart: [place] heart Associated angina: without angina Qualified Code(s): I25.810 - Atherosclerosis of coronary artery bypass graft(s) without angina pectoris (6) Parkinson disease Current Visit: No Status: Chronic Assessment and plan: resumed home meds (7) Diabetes mellitus type II, non insulin dependent Current Visit: No Status: Chronic Assessment and plan: Sliding scale insulin. (8) Hypertension Current Visit: No Status: Chronic Assessment and plan: stable Qualifiers: Hypertension type: essential hypertension Qualified Code(s): I10 - Essential (primary) hypertension (9) Atrial fibrillation Current Visit: Yes Status: Chronic Assessment and plan: rate fairly controlled Resumed home med Metoprolol today Not on anticoagulants because of risk of falls and anemia Qualifiers: Atrial fibrillation type: chronic Qualified Code(s): I48.2 - Chronic atrial fibrillation - Subjective Interval history: 87 year old male with past medical history for PMH of tobacco abuse, chronic atrial fibrillation, AAA repair, COPD, , diabetes, hyperlipidemia, Parkinson's, HTN, dmentia, CAD with hx of CABG and PCI--reports 7 stents last done 2-1/2 years ago who was on Aspirin and plavix presented to the hospital with 1 week feeling tired and weakness with some altered mental status and some chest pain , denied any hematemesis and melena found to have hemoccult in stool and found have NSTEMI , was admitted to the general medical floor. Eventually he became diaphoretic pale with tachycardia with with lot of PVCS and runs of v tach patient was symptomatic found to have labile blood pressure was transferred to ICU further closer hemodynamic monitoring. He did receive 4 U PRBC and tolerating PO intake ok as well as his Hb seems to be little stable now. He transferred back to Telemetry for further care. Pt denied any CP / SOB. Had a BM this morning. - Constitutional Vitals: Temp Pulse Resp BP Pulse Ox 97.5 F L 99 16 126/69 100 08/06/17 08:30 08/06/17 08:30 08/06/17 08:30 08/06/17 08:30 08/06/17 08:30 General appearance: Present: A&O X 2 - Head Head exam: Present: atraumatic, normal inspection - Respiratory Respiratory exam: Present: decreased breath sounds, wheezes (mild). Absent: rales, respiratory distress, rhonchi - Cardiovascular Cardiovascular exam: Present: +S1, +S2, tachycardia (mild) - GI/Abdominal GI/Abdominal exam: Present: normal bowel sounds, soft. Absent: rebound, rigid, tenderness - Extremities Exam Extremities exam: Present: pedal edema (trace). Absent: calf tenderness, tenderness - Back Exam Back exam: Absent: CVA tenderness (L), CVA tenderness (R) - Neurological Exam Neurological exam: Present: alert, oriented X3 - Psychiatric Psychiatric exam: Present: normal affect, normal mood Internal Medicine: Result - Labs CBC & Chem 7: 08/06/17 02:52 08/06/17 02:52 Labs: Short CBC 08/06/17 Range/Units 02:52 WBC 13.3 H (4.3-11.1) K/mcL Hgb 9.1 L D (12.9-16.9) g/dL Hct 28.8 L (37.5-50.1) % Plt Count 131 L (140-400) K/mcL Neutrophils # 10.3 H (1.6-8.9) K/mcL BMP 08/06/17 02:52 Sodium 137 Potassium 3.9 Chloride 110 H Carbon Dioxide 21 L BUN 33 H Creatinine 0.83 Glucose 128 H Calcium 8.2 L - ABG Interpretation ABG results: ABG ABG pH 7.40 pH Units (7.32-7.45) 08/04/17 07:35 ABG pCO2 16 mmHg (35-45) L* 08/04/17 07:35 ABG pO2 210 mmHg (85-104) H 08/04/17 07:35 ABG O2 Saturation 100 % (95-98) H 08/04/17 07:35 PT/INR, D-dimer PT 13.2 Seconds (9.4-12.1) H 08/04/17 08:04 - VTE Documentation of Mechanical Device: Graduated compression elastic hosiery Consult Discharge Plan - Plan Instructions: Atrial Fibrillation (DC), Gastrointestinal Bleeding (DC), Gastrointestinal Bleeding (GEN), Parkinson's Disease (DC), Parkinson's Disease ( GEN), Diabetes Mellitus Type 2 in Adults (DC), Peripheral Vascular Disorders (DC ), Anemia (GEN), Fall Prevention (DC), Parkinson's Disease, Cleat Feeder (GEN ) Referrals: Eileen Howard, LEATHER SCRUBBER [Primary Care Provider] -
[2017-08-06] MEDS: Doxycycline 100 MG CAPSULE PO SCH (10:47)
[2017-08-06] MEDS: Metoprolol XL (24 HR) Succ 25 MG TAB.ER.24H PO SCH (10:47)
[2017-08-06 17:31] LABS: Hematocrit 31.6 % (37.5-50.1); Hemoglobin 9.6 g/dL (12.9-16.9)
[2017-08-07] MEDS: Carbidopa/Levodopa 25/100 TABLET PO SCH ×4 (02:51→19:43)
[2017-08-07] MEDS: Doxycycline 100 MG CAPSULE PO SCH ×3 (02:51→19:43)
[2017-08-07] MEDS: Ranolazine 500 MG TAB.ER.12H PO SCH ×3 (02:51→19:43)
[2017-08-07] MEDS: Metoprolol XL (24 HR) Succ 25 MG TAB.ER.24H PO SCH ×3 (02:51→19:43)
[2017-08-07] MEDS: Insulin LISPRO 300 UNITS/3 ML VIAL SQ SCH ×5 (02:51→19:35)
[2017-08-07] MEDS: Mirtazapine 15 MG TABLET PO SCH ×2 (02:51→19:42)
--- NOTE | 2017-08-07 12:25 | Internal Med Progress Note ---
Date of Encounter: 08/07/17 Time of Encounter: 12:23 - Assessment and plan (1) Acute blood loss anemia Current Visit: Yes Status: Acute Assessment and plan: s/p 4 U PRBC mostly upper GI bleed switched to PO PPI cont close monitoring Hb improved to 9.6 y/d evening no need of transfusion now waiting on labs today talked to pt's daughter over the ph, she does not feel comfortable to sending him to ECF today, since they may not able to provide the care he needs with his confusion as well as she wants to monitor his Hb and WBC another day. (2) GI bleed Current Visit: Yes Status: Acute Assessment and plan: Stable Hb so far cont holding ASA and Plavix spoke to airamron Dr. ortiz, who suggested out pt EGD if his Hb does not dropped down further Qualifiers: GI bleed type/associated pathology: unspecified gastrointestinal hemorrhage type Qualified Code(s): K92.2 - Gastrointestinal hemorrhage, unspecified (3) Generalized weakness Current Visit: No Status: Acute Assessment and plan: Due to G.I. bleed feels little better today concerned for acute abdomen inf but no signs cont trending on WBC switched to PO abx Doxy (4) NSTEMI (non-ST elevated myocardial infarction) Current Visit: No Status: Acute Assessment and plan: due to demand ischemia with GI bleed Card evaluated the pt no further work up needed (5) CAD (coronary artery disease) of artery bypass graft Current Visit: No Status: Chronic Assessment and plan: resumed all other home meds.. held ASA and Plavix Qualifiers: [place] vs. transplanted heart: [place] heart Associated angina: without angina Qualified Code(s): I25.810 - Atherosclerosis of coronary artery bypass graft(s) without angina pectoris (6) Parkinson disease Current Visit: No Status: Chronic Assessment and plan: resumed home meds (7) Diabetes mellitus type II, non insulin dependent Current Visit: No Status: Chronic Assessment and plan: Sliding scale insulin. (8) Hypertension Current Visit: No Status: Chronic Assessment and plan: stable Qualifiers: Hypertension type: essential hypertension Qualified Code(s): I10 - Essential (primary) hypertension (9) Atrial fibrillation Current Visit: Yes Status: Chronic Assessment and plan: rate well controlled with med Metoprolol today Not on anticoagulants because of risk of falls and anemia Qualifiers: Atrial fibrillation type: chronic Qualified Code(s): I48.2 - Chronic atrial fibrillation (10) Acute delirium Current Visit: Yes Status: Acute Assessment and plan: His delirium is due to dementia related sun down syndrome monitor closely will give him Haldol PO PRN for agitation (11) Dementia Current Visit: No Status: Chronic Qualifiers: Dementia type: Lewy body dementia Dementia behavioral disturbance: without behavioral disturbance Qualified Code(s): G31.83 - Dementia with Lewy bodies; F02.80 - Dementia in other diseases classified elsewhere without behavioral disturbance; F02.80 - Dementia in other diseases classified elsewhere without behavioral disturbance; F02.80 - Dementia in other diseases classified elsewhere without behavioral disturbance - Subjective Interval history: 87 year old male with past medical history for PMH of tobacco abuse, chronic atrial fibrillation, AAA repair, COPD, , diabetes, hyperlipidemia, Parkinson's, HTN, dmentia, CAD with hx of CABG and PCI--reports 7 stents last done 2-1/2 years ago who was on Aspirin and plavix presented to the hospital with 1 week feeling tired and weakness with some altered mental status and some chest pain , denied any hematemesis and melena found to have hemoccult in stool and found have NSTEMI , was admitted to the general medical floor. Eventually he became diaphoretic pale with tachycardia with with lot of PVCS and runs of v tach patient was symptomatic found to have labile blood pressure was transferred to ICU further closer hemodynamic monitoring. He did receive 4 U PRBC and tolerating PO intake ok as well as his Hb seems to be little stable now. He transferred back to Telemetry for further care. Pt denied any CP / SOB. Pt seems to be more confused and agitated this morning, required 1 to 1 sitter. now he is alert, awake and oriented to self. his grand daughter with him, I did talk to his daughter over the ph. - Constitutional Vitals: Temp Pulse Resp BP Pulse Ox 97.4 F L 94 19 119/76 96 08/07/17 11:38 08/07/17 11:38 08/07/17 11:38 08/07/17 11:38 08/07/17 11:38 General appearance: Present: A&O X 2 - Head Head exam: Present: atraumatic, normal inspection - Neck Neck exam general surgery: Present: supple - Respiratory Respiratory exam: Present: decreased breath sounds. Absent: rales, respiratory distress, rhonchi, wheezes - Cardiovascular Cardiovascular exam: Present: RRR, +S1, +S2. Absent: tachycardia - GI/Abdominal GI/Abdominal exam: Present: normal bowel sounds, soft. Absent: rigid, tenderness - Extremities Exam Extremities exam: Absent: calf tenderness, pedal edema, tenderness - Back Exam Back exam: Absent: CVA tenderness (L), CVA tenderness (R) - Neurological Exam Neurological exam: Present: alert, altered - Psychiatric Psychiatric exam: Present: anxious Additional comments: demented Internal Medicine: Result - Labs CBC & Chem 7: 08/06/17 17:11 08/06/17 02:52 Labs: Short CBC 08/06/17 Range/Units 17:11 Hgb 9.6 L (12.9-16.9) g/dL Hct 31.6 L (37.5-50.1) % - ABG Interpretation ABG results: ABG ABG pH 7.40 pH Units (7.32-7.45) 08/04/17 07:35 ABG pCO2 16 mmHg (35-45) L* 08/04/17 07:35 ABG pO2 210 mmHg (85-104) H 08/04/17 07:35 ABG O2 Saturation 100 % (95-98) H 08/04/17 07:35 PT/INR, D-dimer PT 13.2 Seconds (9.4-12.1) H 08/04/17 08:04 - VTE Documentation of Mechanical Device: Graduated compression elastic hosiery Consult Discharge Plan - Plan Instructions: Atrial Fibrillation (DC), Gastrointestinal Bleeding (DC), Gastrointestinal Bleeding (GEN), Parkinson's Disease (DC), Parkinson's Disease ( GEN), Diabetes Mellitus Type 2 in Adults (DC), Peripheral Vascular Disorders (DC ), Anemia (GEN), Fall Prevention (DC), Parkinson's Disease, Portfolio Lead (GEN ) Referrals: Eileen Howard BANKING OFFICER [Primary Care Provider] -
[2017-08-07 12:44] LABS: Basophils % 0.3 %; Hematocrit 28.3 % (37.5-50.1); Hemoglobin 9.2 g/dL (12.9-16.9); Immature Granulocytes % 1.4 % (0-4); Lymphocytes % 8.8 %; Mean Corpuscular HGB Conc 32.5 g/dL (31.6-35.5); Mean Corpuscular Hemoglobin 32.2 pg (28.0-33.3); Mean Platelet Volume 11.3 fL (9.4-12.4); Monocytes # 1.5 K/mcL (0.0-1.3); Monocytes % 12.5 %; Neutrophils # 9.1 K/mcL (1.6-8.9); Nucleated Red Blood Cells 2.9 /100 WBC (0); Platelet Count 153 K/mcL (140-400); Red Blood Count 2.86 M/mcL (4.19-5.50); Red Cell Distribution Width 21.2 % (11.5-14.5)
[2017-08-07] MEDS ORDERED: hydrOXYzine pamoate 25 MG CAPSULE PO PRN (13:28)
[2017-08-08 04:01] LABS: Basophils % 0.2 %; Hematocrit 30.6 % (37.5-50.1); Hemoglobin 9.7 g/dL (12.9-16.9); Lymphocytes % 8.1 %; Mean Corpuscular HGB Conc 31.7 g/dL (31.6-35.5); Mean Corpuscular Hemoglobin 31.9 pg (28.0-33.3); Mean Corpuscular Volume 100.7 fL (83.0-100.0); Monocytes # 1.5 K/mcL (0.0-1.3); Monocytes % 12.6 %; Neutrophils # 9.6 K/mcL (1.6-8.9); Nucleated Red Blood Cells 2.7 /100 WBC (0); Platelet Count 164 K/mcL (140-400); Red Blood Count 3.04 M/mcL (4.19-5.50); Red Cell Distribution Width 21.9 % (11.5-14.5); Segmented Neutrophils % 78.1 %
[2017-08-08] MEDS: Ranolazine 500 MG TAB.ER.12H PO SCH ×2 (10:00→22:22)
[2017-08-08] MEDS: Doxycycline 100 MG CAPSULE PO SCH ×2 (10:01→22:23)
[2017-08-08] MEDS: Carbidopa/Levodopa 25/100 TABLET PO SCH ×3 (10:01→22:23)
[2017-08-08] MEDS: Metoprolol XL (24 HR) Succ 25 MG TAB.ER.24H PO SCH ×2 (10:01→22:22)
[2017-08-08] MEDS: Insulin LISPRO 300 UNITS/3 ML VIAL SQ SCH ×4 (10:01→22:23)
--- NOTE | 2017-08-08 10:08 | Discharge Summary ---
Date of Encounter: 08/08/17 Time of Encounter: 09:50 - Discharge Diagnosis (1) Acute blood loss anemia Priority: Primary Status: Acute (2) GI bleed Priority: Primary Status: Acute Qualifiers: GI bleed type/associated pathology: unspecified gastrointestinal hemorrhage type Qualified Code(s): K92.2 - Gastrointestinal hemorrhage, unspecified (3) Generalized weakness Priority: Secondary Status: Acute (4) NSTEMI (non-ST elevated myocardial infarction) Priority: Secondary Status: Acute (5) CAD (coronary artery disease) of artery bypass graft Priority: Secondary Status: Chronic Qualifiers: [place] vs. transplanted heart: [place] heart Associated angina: without angina Qualified Code(s): I25.810 - Atherosclerosis of coronary artery bypass graft(s) without angina pectoris (6) Parkinson disease Priority: Secondary Status: Chronic (7) Diabetes mellitus type II, non insulin dependent Priority: Secondary Status: Chronic (8) Hypertension Priority: Secondary Status: Chronic Qualifiers: Hypertension type: essential hypertension Qualified Code(s): I10 - Essential (primary) hypertension (9) Atrial fibrillation Priority: Secondary Status: Chronic Qualifiers: Atrial fibrillation type: chronic Qualified Code(s): I48.2 - Chronic atrial fibrillation (10) Acute delirium Priority: Secondary Status: Acute (11) Dementia Priority: Secondary Status: Chronic Qualifiers: Dementia type: Lewy body dementia Dementia behavioral disturbance: without behavioral disturbance Qualified Code(s): G31.83 - Dementia with Lewy bodies; F02.80 - Dementia in other diseases classified elsewhere without behavioral disturbance; F02.80 - Dementia in other diseases classified elsewhere without behavioral disturbance; F02.80 - Dementia in other diseases classified elsewhere without behavioral disturbance - Discharge Medications Home Medications: Carbidopa/Levodopa 25/100 [Sinemet 25/100] 1.5 tab PO TID 02/08/16 [History] Lisinopril [Zestril] 5 mg PO DAILY 02/08/16 [History] Metformin HCl [Metformin HCl ER] 500 mg PO DAILY 02/08/16 [History] Metoprolol Succinate [Toprol Xl] 50 mg PO BID 02/08/16 [History] Nitroglycerin 0.4 mg PO AD PRN 02/08/16 [History] Pravastatin Sodium 10 mg PO DAILY 02/08/16 [History] DULoxetine [Cymbalta] 20 mg PO DAILY 07/08/17 [History] Isosorbide MONOnitrate [Isosorbide Mononitrate ER] 120 mg PO DAILY 07/08/17 [ History] Ferrous Sulfate 325 mg PO BIDWM #60 tablet 07/10/17 [Rx] Lactose-Reduced Food [Ensure Plus] 1 bottle PO TID 07/12/17 [History] Bisacodyl [Dulcolax] 10 mg PO DAILY PRN tablet 07/15/17 [Rx] Docusate [Colace] 100 mg PO BID capsule 07/15/17 [Rx] Ranolazine [Ranexa] 1,000 mg PO BID tab.er.12h 07/15/17 [Rx] Magnesium Hydroxide [Milk of Magnesia] 30 ml PO DAILY PRN 08/02/17 [History] Mirtazapine 7.5 mg PO HS 08/02/17 [History] Aspirin Enteric Coated [Aspirin EC] 81 mg PO DAILY #0 08/08/17 [Rx] Doxycycline 100 mg PO BID 4 Days capsule 08/08/17 [Rx] Omeprazole [PriLOSEC] 20 mg PO BIDAC capsule. 08/08/17 [Rx] Allergies/Adverse Reactions: 3 Allergy/AdvReac Type Severity Reaction Status Date / Time No Known Allergies Allergy Verified 07/12/17 13:47 Date of admission: 08/02/17 14:15 Primary care physician: Eileen Howard CNP Consults: 08/03/17 08:33 Consult to Cardiology [CONS] Routine Comment: Consulting Provider: Cardiology Nilsa Reason for Consult: GI bleed. Decision re: Aspirin and plavix. (History of CABG and 7 stents) Call Completed: Yes 08/04/17 10:08 Consult to Critical Care [CONS] Stat Consulting Provider: Pulm Crit Care & Sleep Nilsa Reason for Consult: CHANGE IN MENTAL STATUS, AFIB RVR, HYPOTENSION Call Completed: Yes 08/06/17 10:07 Consult to Invasive Line Access Team [CONS] Routine Reason for Consult: Limited access Line Type: EPIV 08/06/17 12:43 Consult to Molded Goods Controls Operator [CONS] Routine Reason for SW Consult: Patient from [facility] 08/06/17 12:46 Consult to Physical Therapy [CONS] Routine Comment: Evaluate, develop and implement POC Reason for Consult: Will need pre-cert to return to ECF 08/06/17 12:48 Consult to Occupational Therapy [CONS] Routine Comment: Evaluate, develop and implement POC Reason for Consult: Will need pre-cert to return to ECF - Patient Status Disposition: Transfer SNF Condition: Good Overall status at discharge: patient is back to baseline - Ambulatory Orders Ambulatory Orders: Complete Blood Count [HEME] Time Frame: 08/12/17, Facility: [facility], Location: Lab - Discharge Instructions Instructions: Atrial Fibrillation (DC), Gastrointestinal Bleeding (DC), Gastrointestinal Bleeding (GEN), Parkinson's Disease (DC), Parkinson's Disease ( GEN), Diabetes Mellitus Type 2 in Adults (DC), Peripheral Vascular Disorders (DC ), Anemia (GEN), Fall Prevention (DC), Parkinson's Disease, Securities Consultant (GEN ) Follow Up With: Eileen Howard CNP [Primary Care Provider] - Marychuy Manjarrez DO [Partnered Physician] - Hoda Hernandez MD [Partnered Physician] - Additional Instructions: Please discontinue Plavix until he follows with PCP / Card as an out pt. Please check CBC on Saturday, if his Hb stays stable he can resume taking ASA from saturday Need to f/u with Surgery Dr. Marcos as an out pt in 1 week for possible EGD Need to f/u with Card Dr. Manjarrez in 2-3 weeks - Diet and Activity Activity: as per physical therapy, increase activity as tolerated Diet: advance to your usual diet Hospital course: Mr. Villarreal is a 87 year old male with past medical history of tobacco abuse, chronic atrial fibrillation, AAA repair, COPD, , diabetes, hyperlipidemia, Parkinson's, HTN, dmentia, CAD with hx of CABG and PCI--reports 7 stents last done 2-1/2 years ago who was on Aspirin and plavix presented to the hospital with 1 week feeling tired and weakness with some altered mental status and some chest pain , denied any hematemesis and melena found to have hemoccult in stool and found have NSTEMI , was admitted to the general medical floor. Eventually he became diaphoretic pale with tachycardia with with lot of PVCS and runs of v tach patient was symptomatic found to have labile blood pressure was transferred to ICU further closer hemodynamic monitoring. He did receive 4 U PRBC and tolerating PO intake ok as well as his Hb seems to be stable now. He transferred back to Telemetry for further care. He does not have any more melena and his Hb stayed stable around 9.7. Pt denied any CP / SOB. 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 Initially he was placed on IV abx in suspect of questionable intra abdomen infection, however he never had fever and he never had any bright red blood per rectum. He remained afebrile. His WBC came down to 12, switched his abx to PO Doxy. Talked to pt's daughters at bed side and explained to them about current care and discharge instructions. Requested to d/ c Plavix until he follows with PCP / Card as an out pt. Also recommend to check CBC on Saturday, if his Hb stays stable he can resume taking ASA from saturday. - Time Spent with Patient Total time spent providing and/or coordinating discharge services: Greater than 30 minutes (Spent 35 minutes on this pt's discharge summaru due to his complex medical history, needed more instructins for safe discharge) - Constitutional Vitals: Temp Pulse Resp BP Pulse Ox 98.3 F 80 20 106/58 99 08/08/17 04:18 08/08/17 04:18 08/08/17 04:18 08/08/17 04:18 08/08/17 04:18 General appearance: Present: A&O X 2, no acute distress - Head Head exam: Present: atraumatic, normal inspection - Neck Neck exam general surgery: Present: supple - Respiratory Respiratory exam: Present: decreased breath sounds. Absent: rales, rhonchi, wheezes - Cardiovascular Cardiovascular exam: Present: RRR, +S1, +S2 - GI/Abdominal GI/Abdominal exam: Present: normal bowel sounds, soft. Absent: rebound, rigid, tenderness - Extremities Exam Extremities exam: Absent: calf tenderness, pedal edema, tenderness - Back Exam Back exam: Absent: CVA tenderness (L), CVA tenderness (R) - Psychiatric Additional comments: Demented - VTE Documentation of Mechanical Device: Graduated compression elastic hosiery
--- NOTE | 2017-08-08 13:01 | Physician Discharge Referral ---
ExtendedCare Referral Info Transfer To: F Provider in Charge after Transfer: PCP Institutional Level of Care: Skilled - Diagnosis (1) Acute blood loss anemia Status: Acute (2) GI bleed Status: Acute (3) Generalized weakness Status: Acute (4) NSTEMI (non-ST elevated myocardial infarction) Status: Acute (5) CAD (coronary artery disease) of artery bypass graft Status: Chronic (6) Parkinson disease Status: Chronic (7) Diabetes mellitus type II, non insulin dependent Status: Chronic (8) Hypertension Status: Chronic (9) Atrial fibrillation Status: Chronic (10) Acute delirium Status: Acute (11) Dementia Status: Chronic - Transfer Medications Home Medications: Carbidopa/Levodopa 25/100 [Sinemet 25/100] 1.5 tab PO TID 02/08/16 [History] Lisinopril [Zestril] 5 mg PO DAILY 02/08/16 [History] Metformin HCl [Metformin HCl ER] 500 mg PO DAILY 02/08/16 [History] Metoprolol Succinate [Toprol Xl] 50 mg PO BID 02/08/16 [History] Nitroglycerin 0.4 mg PO AD PRN 02/08/16 [History] Pravastatin Sodium 10 mg PO DAILY 02/08/16 [History] DULoxetine [Cymbalta] 20 mg PO DAILY 07/08/17 [History] Isosorbide MONOnitrate [Isosorbide Mononitrate ER] 120 mg PO DAILY 07/08/17 [ History] Ferrous Sulfate 325 mg PO BIDWM #60 tablet 07/10/17 [Rx] Lactose-Reduced Food [Ensure Plus] 1 bottle PO TID 07/12/17 [History] Bisacodyl [Dulcolax] 10 mg PO DAILY PRN tablet 07/15/17 [Rx] Docusate [Colace] 100 mg PO BID capsule 07/15/17 [Rx] Ranolazine [Ranexa] 1,000 mg PO BID tab.er.12h 07/15/17 [Rx] Magnesium Hydroxide [Milk of Magnesia] 30 ml PO DAILY PRN 08/02/17 [History] Mirtazapine 7.5 mg PO HS 08/02/17 [History] Aspirin Enteric Coated [Aspirin EC] 81 mg PO DAILY #0 08/08/17 [Rx] Doxycycline 100 mg PO BID 4 Days capsule 08/08/17 [Rx] Omeprazole [PriLOSEC] 20 mg PO BIDAC capsule. 08/08/17 [Rx] Allergies/Adverse Reactions: 3 Allergy/AdvReac Type Severity Reaction Status Date / Time No Known Allergies Allergy Verified 07/12/17 13:47 - Respiratory Orders Smoking Cessation: Smoking cessation has been advised. For more information, call the [place] Tobacco Quit Line at 2-536-MCQR-NOW. - Lab Orders Lab Orders: CBC (on saturday08/12/17) CERTIFICATION: I certify that the transfer of the above named patient to an Extended Care Facility is necessary for the continuing treatment of the diagnosis listed. The above information is true and accurate reflection of patient's current condition. Confidential - Redisclosure prohibited without a patient's written consent.
[2017-08-08] MEDS: Ipratropium/Albuterol Neb 3 ML IH SCH ×3 (16:24→23:53)
[2017-08-08] MEDS: Mirtazapine 15 MG TABLET PO SCH (22:24)
[2017-08-09] MEDS: Ipratropium/Albuterol Neb 3 ML IH SCH ×5 (04:37→20:38)
--- NOTE | 2017-08-09 06:55 | Electrocardiograph Report ---
[place] [id number] Test Date: 2017-08-04 Pat Name: Ranjith Villarreal Department: 109 Room: 2NE35 Gender: M Multicraft Operator: : [id number] Requested By: Aaron Rockwell Order Number: [id number] Reading MD: Evan Watkins MD Measurements Intervals [place] Rate: 123 P: 13 HI: 238 QRS: 137 QRSD: 179 T: 24 QT: 379 QTc: 452 Interpretive Statements ATRIAL FIBRILLATION WITH RAPID VENTRICULAR RESPONSE AND RATE RELATED ABERRANCY VERSUS ECTOPIC BEATS Electronically Signed On 08-09-2017 6:53:51 EST by Evan Watkins MD
[2017-08-09] MEDS: Insulin LISPRO 300 UNITS/3 ML VIAL SQ SCH ×3 (08:16→16:21)
[2017-08-09] MEDS: Metoprolol XL (24 HR) Succ 25 MG TAB.ER.24H PO SCH (08:17)
[2017-08-09] MEDS: Doxycycline 100 MG CAPSULE PO SCH (08:17)
[2017-08-09] MEDS: Carbidopa/Levodopa 25/100 TABLET PO SCH ×2 (08:17→16:18)
[2017-08-09] MEDS: Ranolazine 500 MG TAB.ER.12H PO SCH (08:17)
--- NOTE | 2017-08-09 15:50 | Internal Med Progress Note ---
Date of Encounter: 08/09/17 Time of Encounter: 15:49 - Assessment and plan (1) Acute blood loss anemia Current Visit: Yes Status: Acute Assessment and plan: s/p 4 U PRBC mostly upper GI bleed Cont PO PPI Stable HB no need of transfusion now He did not go to ECF y/d since his insurance not approved yet. He is medically stable to d/c back to ECF whenever ECF gets approval from Insurance (2) Acute delirium Current Visit: Yes Status: Acute Assessment and plan: His delirium is due to dementia related sun down syndrome monitor closely unable to give him Haldol since he is Cardi dopa gave Melatonin for Sleep tonight (3) GI bleed Current Visit: Yes Status: Acute Assessment and plan: Stable Hb so far cont holding ASA and Plavix Surgeron Dr. ortiz, suggested out pt EGD if his Hb does not dropped down further Qualifiers: GI bleed type/associated pathology: unspecified gastrointestinal hemorrhage type Qualified Code(s): K92.2 - Gastrointestinal hemorrhage, unspecified (4) Generalized weakness Current Visit: No Status: Acute Assessment and plan: Due to G.I. bleed feels little better today concerned for acute abdomen inf but no signs cont trending on WBC switched to PO abx Doxy (5) NSTEMI (non-ST elevated myocardial infarction) Current Visit: No Status: Acute Assessment and plan: due to demand ischemia with GI bleed Card evaluated the pt no further work up needed (6) CAD (coronary artery disease) of artery bypass graft Current Visit: No Status: Chronic Assessment and plan: resumed all other home meds.. held ASA and Plavix Qualifiers: [place] vs. transplanted heart: [place] heart Associated angina: without angina Qualified Code(s): I25.810 - Atherosclerosis of coronary artery bypass graft(s) without angina pectoris (7) Parkinson disease Current Visit: No Status: Chronic Assessment and plan: resumed home meds (8) Diabetes mellitus type II, non insulin dependent Current Visit: No Status: Chronic Assessment and plan: Sliding scale insulin. (9) Hypertension Current Visit: No Status: Chronic Assessment and plan: stable Qualifiers: Hypertension type: essential hypertension Qualified Code(s): I10 - Essential (primary) hypertension (10) Atrial fibrillation Current Visit: Yes Status: Chronic Assessment and plan: rate well controlled with med Metoprolol today Not on anticoagulants because of risk of falls and anemia Qualifiers: Atrial fibrillation type: chronic Qualified Code(s): I48.2 - Chronic atrial fibrillation (11) Dementia Current Visit: No Status: Chronic Qualifiers: Dementia type: Lewy body dementia Dementia behavioral disturbance: without behavioral disturbance Qualified Code(s): G31.83 - Dementia with Lewy bodies; F02.80 - Dementia in other diseases classified elsewhere without behavioral disturbance; F02.80 - Dementia in other diseases classified elsewhere without behavioral disturbance; F02.80 - Dementia in other diseases classified elsewhere without behavioral disturbance - Subjective Interval history: 87 year old male with past medical history for PMH of tobacco abuse, chronic atrial fibrillation, AAA repair, COPD, , diabetes, hyperlipidemia, Parkinson's, HTN, dmentia, CAD with hx of CABG and PCI--reports 7 stents last done 2-1/2 years ago who was on Aspirin and plavix presented to the hospital with 1 week feeling tired and weakness with some altered mental status and some chest pain , denied any hematemesis and melena found to have hemoccult in stool and found have NSTEMI , was admitted to the general medical floor. Eventually he became diaphoretic pale with tachycardia with with lot of PVCS and runs of v tach patient was symptomatic found to have labile blood pressure was transferred to ICU further closer hemodynamic monitoring. He did receive 4 U PRBC and tolerating PO intake ok as well as his Hb seems to be little stable now. He transferred back to Telemetry for further care. Pt denied any CP / SOB. Pt seems to be more more alert, awake and oriented to place, person and self today. No events over night - Constitutional Vitals: Temp Pulse Resp BP Pulse Ox 97.6 F 84 20 135/89 94 08/09/17 11:38 08/09/17 11:38 08/09/17 11:38 08/09/17 11:38 08/09/17 11:38 General appearance: Present: A&O X 2, no acute distress - Head Head exam: Present: atraumatic, normal inspection - Neck Neck exam general surgery: Present: supple - Cardiovascular Cardiovascular exam: Present: RRR, +S1, +S2. Absent: tachycardia - GI/Abdominal GI/Abdominal exam: Present: distended, normal bowel sounds, soft. Absent: rebound, rigid, tenderness - Extremities Exam Extremities exam: Present: pedal edema (trace). Absent: calf tenderness, tenderness - Back Exam Back exam: Absent: CVA tenderness (L), CVA tenderness (R) - Neurological Exam Neurological exam: Present: alert, altered - Psychiatric Psychiatric exam: Present: depressed Additional comments: demented Internal Medicine: Result - Labs CBC & Chem 7: 08/08/17 03:51 08/06/17 02:52 - ABG Interpretation ABG results: ABG ABG pH 7.40 pH Units (7.32-7.45) 08/04/17 07:35 ABG pCO2 16 mmHg (35-45) L* 08/04/17 07:35 ABG pO2 210 mmHg (85-104) H 08/04/17 07:35 ABG O2 Saturation 100 % (95-98) H 08/04/17 07:35 PT/INR, D-dimer PT 13.2 Seconds (9.4-12.1) H 08/04/17 08:04 - VTE Documentation of Mechanical Device: Graduated compression elastic hosiery Consult Discharge Plan - Plan Instructions: Atrial Fibrillation (DC), Gastrointestinal Bleeding (DC), Parkinson's Disease (DC), Parkinson's Disease (GEN), Diabetes Mellitus Type 2 in Adults (DC), Peripheral Vascular Disorders (DC), Anemia (GEN), Fall Prevention (DC), Parkinson's Disease, Senior Chemist (GEN) Additional Instructions: Please discontinue Plavix until he follows with PCP / Card as an out pt. Please check CBC on Saturday, if his Hb stays stable he can resume taking ASA from saturday Need to f/u with Surgery Dr. Marcos as an out pt in 1 week for possible EGD Need to f/u with Card Dr. Manjarrez in 2-3 weeks Referrals: Eileen Howard CNP [Primary Care Provider] - Hoda Hernandez MD [Partnered Physician] - Marychuy Manjarrez DO [Partnered Physician] -
[2017-08-10] MEDS: Ipratropium/Albuterol Neb 3 ML IH SCH ×6 (00:24→21:35)
[2017-08-10 05:14] LABS: Basophils % 0.3 %; Eosinophils # 0.7 K/mcL (0.0-0.6); Eosinophils % 6.1 %; Hematocrit 34.4 % (37.5-50.1); Hemoglobin 10.2 g/dL (12.9-16.9); Immature Granulocytes % 1.1 % (0-4); Lymphocytes # 0.8 K/mcL (0.6-4.6); Lymphocytes % 6.3 %; Mean Corpuscular HGB Conc 29.7 g/dL (31.6-35.5); Mean Corpuscular Volume 104.6 fL (83.0-100.0); Mean Platelet Volume 11.3 fL (9.4-12.4); Monocytes # 1.6 K/mcL (0.0-1.3); Monocytes % 13.5 %; Neutrophils # 8.7 K/mcL (1.6-8.9); Nucleated Red Blood Cells 1.1 /100 WBC (0); Platelet Count 150 K/mcL (140-400); Red Blood Count 3.29 M/mcL (4.19-5.50); Red Cell Distribution Width 23.4 % (11.5-14.5); Segmented Neutrophils % 72.7 %
[2017-08-10 05:30] LABS: BUN/Creatinine Ratio 24 (6-26); Blood Urea Nitrogen 21 mg/dL (8-23); Calcium 8.4 mg/dL (8.6-10.3); Carbon Dioxide 23 mEq/L (23-29); Chloride 109 mEq/L (98-107); Glucose 130 mg/dL (70-105); Osmolality,Calculated 293 (280-300); Potassium 4.2 mEq/L (3.5-5.1); Sodium 139 mEq/L (136-145); eGFR For African Americans > 60 (> 60); eGFR For Non-African Americans > 60 (> 60)
[2017-08-10 06:15] LABS: Platelet Estimate Normal (Normal)
[2017-08-10 06:16] LABS: Anisocytosis 1+ (Not Present); Polychromasia 1+ (Not Present)
[2017-08-10] MEDS: Insulin LISPRO 300 UNITS/3 ML VIAL SQ SCH ×4 (13:52→22:22)
[2017-08-10] MEDS: Doxycycline 100 MG CAPSULE PO SCH ×3 (14:00→22:21)
[2017-08-10] MEDS: Metoprolol XL (24 HR) Succ 25 MG TAB.ER.24H PO SCH ×3 (14:01→22:22)
[2017-08-10] MEDS: Ranolazine 500 MG TAB.ER.12H PO SCH ×3 (14:01→22:22)
[2017-08-10] MEDS: Carbidopa/Levodopa 25/100 TABLET PO SCH ×4 (14:01→22:22)
--- NOTE | 2017-08-10 15:46 | Internal Med Progress Note ---
Date of Encounter: 08/10/17 Time of Encounter: 11:30 - Assessment and plan (1) Acute blood loss anemia Current Visit: Yes Status: Acute Assessment and plan: s/p 4 U PRBC mostly upper GI bleed Cont PO PPI Stable HB @ 10.2 no need of transfusion now He did not go to ECF on 07/2817 since his insurance not approved yet. He is medically stable to d/c back to ECF whenever ECF gets approval from Insurance (2) Acute delirium Current Visit: Yes Status: Acute Assessment and plan: His delirium is due to dementia related sun down syndrome monitor closely unable to give him Haldol since he is Carbi dopa cont Melatonin for Sleep (3) GI bleed Current Visit: Yes Status: Acute Assessment and plan: Stable Hb so far cont holding ASA and Plavix Surgeron Dr. ortiz, suggested out pt EGD if his Hb does not dropped down further Qualifiers: GI bleed type/associated pathology: unspecified gastrointestinal hemorrhage type Qualified Code(s): K92.2 - Gastrointestinal hemorrhage, unspecified (4) Generalized weakness Current Visit: No Status: Acute Assessment and plan: Due to G.I. bleed feels little better today concerned for acute abdomen inf but no signs cont trending on WBC switched to PO abx Doxy (5) NSTEMI (non-ST elevated myocardial infarction) Current Visit: No Status: Acute Assessment and plan: due to demand ischemia with GI bleed Card evaluated the pt no further work up needed (6) CAD (coronary artery disease) of artery bypass graft Current Visit: No Status: Chronic Assessment and plan: resumed all other home meds.. held ASA and Plavix Qualifiers: [place] vs. transplanted heart: [place] heart Associated angina: without angina Qualified Code(s): I25.810 - Atherosclerosis of coronary artery bypass graft(s) without angina pectoris (7) Parkinson disease Current Visit: No Status: Chronic Assessment and plan: resumed home meds (8) Diabetes mellitus type II, non insulin dependent Current Visit: No Status: Chronic Assessment and plan: Sliding scale insulin. (9) Hypertension Current Visit: No Status: Chronic Assessment and plan: stable Qualifiers: Hypertension type: essential hypertension Qualified Code(s): I10 - Essential (primary) hypertension (10) Atrial fibrillation Current Visit: Yes Status: Chronic Assessment and plan: rate well controlled with med Metoprolol today Not on anticoagulants because of risk of falls and anemia Qualifiers: Atrial fibrillation type: chronic Qualified Code(s): I48.2 - Chronic atrial fibrillation (11) Dementia Current Visit: No Status: Chronic Qualifiers: Dementia type: Lewy body dementia Dementia behavioral disturbance: without behavioral disturbance Qualified Code(s): G31.83 - Dementia with Lewy bodies; F02.80 - Dementia in other diseases classified elsewhere without behavioral disturbance; F02.80 - Dementia in other diseases classified elsewhere without behavioral disturbance; F02.80 - Dementia in other diseases classified elsewhere without behavioral disturbance - Subjective Interval history: 87 year old male with past medical history for PMH of tobacco abuse, chronic atrial fibrillation, AAA repair, COPD, , diabetes, hyperlipidemia, Parkinson's, HTN, dmentia, CAD with hx of CABG and PCI--reports 7 stents last done 2-1/2 years ago who was on Aspirin and plavix presented to the hospital with 1 week feeling tired and weakness with some altered mental status and some chest pain , denied any hematemesis and melena found to have hemoccult in stool and found have NSTEMI , was admitted to the general medical floor. Eventually he became diaphoretic pale with tachycardia with with lot of PVCS and runs of v tach patient was symptomatic found to have labile blood pressure was transferred to ICU further closer hemodynamic monitoring. He did receive 4 U PRBC and tolerating PO intake ok as well as his Hb seems to be little stable now. He transferred back to Telemetry for further care. Pt denied any CP / SOB. Pt seems to be more more alert, awake and oriented to place, person and self today. No events over night - Constitutional Vitals: Temp Pulse Resp BP Pulse Ox 98.1 F 83 18 133/69 94 08/10/17 10:46 08/10/17 10:46 08/10/17 11:08 08/10/17 10:46 08/10/17 11:08 General appearance: Present: A&O X 2, no acute distress - Head Head exam: Present: atraumatic, normal inspection - Neck Neck exam general surgery: Present: supple - Respiratory Respiratory exam: Present: decreased breath sounds. Absent: rales, respiratory distress, rhonchi, wheezes - Cardiovascular Cardiovascular exam: Present: irregular rhythm, +S1, +S2. Absent: tachycardia - GI/Abdominal GI/Abdominal exam: Present: normal bowel sounds, soft. Absent: rebound, rigid, tenderness - Extremities Exam Extremities exam: Absent: calf tenderness, pedal edema, tenderness - Back Exam Back exam: Absent: CVA tenderness (L), CVA tenderness (R) - Psychiatric Additional comments: Demented Internal Medicine: Result - Labs CBC & Chem 7: 08/10/17 04:38 08/10/17 04:38 Labs: Short CBC 08/10/17 Range/Units 04:38 WBC 11.9 H (4.3-11.1) K/mcL Hgb 10.2 L (12.9-16.9) g/dL Hct 34.4 L (37.5-50.1) % Plt Count 150 (140-400) K/mcL Neutrophils # 8.7 (1.6-8.9) K/mcL BMP 08/10/17 04:38 Sodium 139 Potassium 4.2 Chloride 109 H Carbon Dioxide 23 BUN 21 Creatinine 0.87 Glucose 130 H Calcium 8.4 L - ABG Interpretation ABG results: ABG ABG pH 7.40 pH Units (7.32-7.45) 08/04/17 07:35 ABG pCO2 16 mmHg (35-45) L* 08/04/17 07:35 ABG pO2 210 mmHg (85-104) H 08/04/17 07:35 ABG O2 Saturation 100 % (95-98) H 08/04/17 07:35 PT/INR, D-dimer PT 13.2 Seconds (9.4-12.1) H 08/04/17 08:04 - VTE Documentation of Mechanical Device: Graduated compression elastic hosiery Consult Discharge Plan - Plan Instructions: Atrial Fibrillation (DC), Gastrointestinal Bleeding (DC), Parkinson's Disease (DC), Parkinson's Disease (GEN), Diabetes Mellitus Type 2 in Adults (DC), Peripheral Vascular Disorders (DC), Anemia (GEN), Fall Prevention (DC), Parkinson's Disease, Finishing Range Supervisor (GEN) Additional Instructions: Please discontinue Plavix until he follows with PCP / Card as an out pt. Please check CBC on Saturday, if his Hb stays stable he can resume taking ASA from saturday Need to f/u with Surgery Dr. Marcos as an out pt in 1 week for possible EGD Need to f/u with Card Dr. Manjarrez in 2-3 weeks Referrals: Eileen Howard CNP [Primary Care Provider] - Hoda Hernandez MD [Partnered Physician] - Marychuy Manjarrez DO [Partnered Physician] -
[2017-08-10] MEDS: Mirtazapine 15 MG TABLET PO SCH ×2 (22:22→22:23)
[2017-08-10] MEDS: Melatonin 3 MG TABLET PO SCH ×2 (22:22→22:23)
[2017-08-11] MEDS: Ipratropium/Albuterol Neb 3 ML IH SCH ×5 (00:07→21:21)
[2017-08-11] MEDS: Carbidopa/Levodopa 25/100 TABLET PO SCH ×3 (09:17→21:20)
[2017-08-11] MEDS: Ranolazine 500 MG TAB.ER.12H PO SCH ×2 (09:17→21:21)
[2017-08-11] MEDS: Doxycycline 100 MG CAPSULE PO SCH ×2 (09:17→21:20)
[2017-08-11] MEDS: Metoprolol XL (24 HR) Succ 25 MG TAB.ER.24H PO SCH ×2 (09:18→21:23)
[2017-08-11] MEDS: Insulin LISPRO 300 UNITS/3 ML VIAL SQ SCH ×4 (09:23→21:24)
--- NOTE | 2017-08-11 16:45 | Internal Med Progress Note ---
Date of Encounter: 08/11/17 Time of Encounter: 13:00 - Assessment and plan (1) Acute blood loss anemia Current Visit: Yes Status: Acute Assessment and plan: s/p 4 U PRBC mostly upper GI bleed Cont PO PPI Stable HB @ 10.2 no need of transfusion now He did not go to ECF on 07/2817 since his insurance not approved yet. He is medically stable to d/c back to ECF whenever ECF gets approval from Insurance (2) Acute delirium Current Visit: Yes Status: Acute Assessment and plan: His delirium is due to dementia related sun down syndrome Improved now unable to give him Haldol since he is Carbi dopa cont Melatonin for Sleep (3) GI bleed Current Visit: Yes Status: Acute Assessment and plan: Stable Hb so far cont holding ASA and Plavix Surgeron Dr. ortiz, suggested out pt EGD if his Hb does not dropped down further Qualifiers: GI bleed type/associated pathology: unspecified gastrointestinal hemorrhage type Qualified Code(s): K92.2 - Gastrointestinal hemorrhage, unspecified (4) Generalized weakness Current Visit: No Status: Acute Assessment and plan: Due to G.I. bleed finished complete course of abx. (5) NSTEMI (non-ST elevated myocardial infarction) Current Visit: No Status: Acute Assessment and plan: due to demand ischemia with GI bleed Card evaluated the pt no further work up needed (6) CAD (coronary artery disease) of artery bypass graft Current Visit: No Status: Chronic Assessment and plan: resumed all other home meds.. held ASA and Plavix Qualifiers: [place] vs. transplanted heart: [place] heart Associated angina: without angina Qualified Code(s): I25.810 - Atherosclerosis of coronary artery bypass graft(s) without angina pectoris (7) Parkinson disease Current Visit: No Status: Chronic Assessment and plan: resumed home meds (8) Diabetes mellitus type II, non insulin dependent Current Visit: No Status: Chronic Assessment and plan: Sliding scale insulin. (9) Hypertension Current Visit: No Status: Chronic Assessment and plan: stable Qualifiers: Hypertension type: essential hypertension Qualified Code(s): I10 - Essential (primary) hypertension (10) Atrial fibrillation Current Visit: Yes Status: Chronic Assessment and plan: rate well controlled with med Metoprolol Not on anticoagulants because of risk of falls and anemia Qualifiers: Atrial fibrillation type: chronic Qualified Code(s): I48.2 - Chronic atrial fibrillation (11) Dementia Current Visit: No Status: Chronic Qualifiers: Dementia type: Lewy body dementia Dementia behavioral disturbance: without behavioral disturbance Qualified Code(s): G31.83 - Dementia with Lewy bodies; F02.80 - Dementia in other diseases classified elsewhere without behavioral disturbance; F02.80 - Dementia in other diseases classified elsewhere without behavioral disturbance; F02.80 - Dementia in other diseases classified elsewhere without behavioral disturbance - Subjective Interval history: 87 year old male with past medical history for PMH of tobacco abuse, chronic atrial fibrillation, AAA repair, COPD, , diabetes, hyperlipidemia, Parkinson's, HTN, dmentia, CAD with hx of CABG and PCI--reports 7 stents last done 2-1/2 years ago who was on Aspirin and plavix presented to the hospital with 1 week feeling tired and weakness with some altered mental status and some chest pain , denied any hematemesis and melena found to have hemoccult in stool and found have NSTEMI , was admitted to the general medical floor. Eventually he became diaphoretic pale with tachycardia with with lot of PVCS and runs of v tach patient was symptomatic found to have labile blood pressure was transferred to ICU further closer hemodynamic monitoring. He did receive 4 U PRBC and tolerating PO intake ok as well as his Hb seems to be little stable now. He transferred back to Telemetry for further care. Pt denied any CP / SOB. Pt seems to be more more alert, awake and oriented to place, person and self today. No events over night..Met with his daughter at bed side and discussed about discharge plan - Constitutional Vitals: Temp Pulse Resp BP Pulse Ox 97.8 F 83 21 106/68 100 08/11/17 11:43 08/11/17 11:43 08/11/17 11:43 08/11/17 11:43 08/11/17 11:43 General appearance: Present: A&O X 2, no acute distress - Head Head exam: Present: atraumatic, normal inspection - Neck Neck exam general surgery: Present: supple - Respiratory Respiratory exam: Present: decreased breath sounds. Absent: rales, respiratory distress, wheezes - Cardiovascular Cardiovascular exam: Present: irregular rhythm, +S1, +S2. Absent: tachycardia - GI/Abdominal GI/Abdominal exam: Present: soft. Absent: rebound, rigid, tenderness - Extremities Exam Extremities exam: Present: pedal edema (trace). Absent: calf tenderness, tenderness - Back Exam Back exam: Absent: CVA tenderness (L), CVA tenderness (R) - Neurological Exam Neurological exam: Present: alert - Psychiatric Additional comments: Demented Internal Medicine: Result - Labs CBC & Chem 7: 08/10/17 04:38 08/10/17 04:38 - ABG Interpretation ABG results: ABG ABG pH 7.40 pH Units (7.32-7.45) 08/04/17 07:35 ABG pCO2 16 mmHg (35-45) L* 08/04/17 07:35 ABG pO2 210 mmHg (85-104) H 08/04/17 07:35 ABG O2 Saturation 100 % (95-98) H 08/04/17 07:35 PT/INR, D-dimer PT 13.2 Seconds (9.4-12.1) H 08/04/17 08:04 - VTE Documentation of Mechanical Device: Intermittent pneumatic compression device Consult Discharge Plan - Plan Instructions: Atrial Fibrillation (DC), Gastrointestinal Bleeding (DC), Parkinson's Disease (DC), Parkinson's Disease (GEN), Diabetes Mellitus Type 2 in Adults (DC), Peripheral Vascular Disorders (DC), Anemia (GEN), Fall Prevention (DC), Parkinson's Disease, 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 Please check CBC on Saturday, if his Hb stays stable he can resume taking ASA from saturday Need to f/u with Surgery Dr. Marcos as an out pt in 1 week for possible EGD Need to f/u with Card Dr. Manjarrez in 2-3 weeks Referrals: Eileen Howard CNP [Primary Care Provider] - Hoda Hernandez MD [Partnered Physician] - Marychuy Manjarrez DO [Partnered Physician] -
[2017-08-11] MEDS: Mirtazapine 15 MG TABLET PO SCH (21:22)
[2017-08-11] MEDS: Melatonin 3 MG TABLET PO SCH (21:23)
[2017-08-12] MEDS: Ipratropium/Albuterol Neb 3 ML IH SCH ×7 (00:23→23:57)
[2017-08-12] MEDS: Insulin LISPRO 300 UNITS/3 ML VIAL SQ SCH ×4 (09:42→22:27)
[2017-08-12] MEDS: Doxycycline 100 MG CAPSULE PO SCH (09:42)
[2017-08-12] MEDS: Carbidopa/Levodopa 25/100 TABLET PO SCH ×3 (09:42→22:31)
[2017-08-12] MEDS: Metoprolol XL (24 HR) Succ 25 MG TAB.ER.24H PO SCH ×2 (09:43→22:28)
[2017-08-12] MEDS: Ranolazine 500 MG TAB.ER.12H PO SCH ×2 (09:43→22:31)
--- NOTE | 2017-08-12 15:01 | Internal Med Progress Note ---
Date of Encounter: 08/12/17 Time of Encounter: 14:59 - Assessment and plan (1) Acute blood loss anemia Current Visit: Yes Status: Acute Assessment and plan: s/p 4 U PRBC mostly upper GI bleed Cont PO PPI Stable HB @ 10.2 no need of transfusion now He did not go to ECF on 07/2817 since his insurance not approved yet. He is medically stable to d/c back to ECF whenever ECF gets approval from Insurance (2) Acute delirium Current Visit: Yes Status: Acute Assessment and plan: His delirium is due to dementia related sun down syndrome Improved now unable to give him Haldol since he is Carbi dopa cont Melatonin for Sleep (3) GI bleed Current Visit: Yes Status: Acute Assessment and plan: Stable Hb so far cont holding ASA and Plavix Surgeon Dr. ortiz, suggested out pt EGD if his Hb does not dropped down further Qualifiers: GI bleed type/associated pathology: unspecified gastrointestinal hemorrhage type Qualified Code(s): K92.2 - Gastrointestinal hemorrhage, unspecified (4) Generalized weakness Current Visit: No Status: Acute Assessment and plan: Due to G.I. bleed finished complete course of abx. (5) NSTEMI (non-ST elevated myocardial infarction) Current Visit: No Status: Acute Assessment and plan: due to demand ischemia with GI bleed Card evaluated the pt no further work up needed (6) CAD (coronary artery disease) of artery bypass graft Current Visit: No Status: Chronic Assessment and plan: resumed all other home meds.. Since his Hb stable.. resume ASA today Cont holding Plavix Qualifiers: [place] vs. transplanted heart: [place] heart Associated angina: without angina Qualified Code(s): I25.810 - Atherosclerosis of coronary artery bypass graft(s) without angina pectoris (7) Parkinson disease Current Visit: No Status: Chronic Assessment and plan: resumed home meds (8) Diabetes mellitus type II, non insulin dependent Current Visit: No Status: Chronic Assessment and plan: Sliding scale insulin. (9) Hypertension Current Visit: No Status: Chronic Assessment and plan: stable Qualifiers: Hypertension type: essential hypertension Qualified Code(s): I10 - Essential (primary) hypertension (10) Atrial fibrillation Current Visit: Yes Status: Chronic Assessment and plan: rate well controlled with med Metoprolol Not on anticoagulants because of risk of falls and anemia Qualifiers: Atrial fibrillation type: chronic Qualified Code(s): I48.2 - Chronic atrial fibrillation (11) Dementia Current Visit: No Status: Chronic Qualifiers: Dementia type: Lewy body dementia Dementia behavioral disturbance: without behavioral disturbance Qualified Code(s): G31.83 - Dementia with Lewy bodies; F02.80 - Dementia in other diseases classified elsewhere without behavioral disturbance; F02.80 - Dementia in other diseases classified elsewhere without behavioral disturbance; F02.80 - Dementia in other diseases classified elsewhere without behavioral disturbance - Subjective Interval history: 87 year old male with past medical history for PMH of tobacco abuse, chronic atrial fibrillation, AAA repair, COPD, , diabetes, hyperlipidemia, Parkinson's, HTN, dmentia, CAD with hx of CABG and PCI--reports 7 stents last done 2-1/2 years ago who was on Aspirin and plavix presented to the hospital with 1 week feeling tired and weakness with some altered mental status and some chest pain , denied any hematemesis and melena found to have hemoccult in stool and found have NSTEMI , was admitted to the general medical floor. Eventually he became diaphoretic pale with tachycardia with with lot of PVCS and runs of v tach patient was symptomatic found to have labile blood pressure was transferred to ICU further closer hemodynamic monitoring. He did receive 4 U PRBC and tolerating PO intake ok as well as his Hb seems to be little stable now. He transferred back to Telemetry for further care. Pt denied any CP / SOB. Pt seems to be more more alert, awake and oriented to place, person and self today. No events over night..y/d met with his daughter at bed side and discussed about discharge plan - Constitutional Vitals: Temp Pulse Resp BP Pulse Ox 96 F L 98 24 102/65 96 08/12/17 11:25 08/12/17 14:02 08/12/17 14:02 08/12/17 14:02 08/12/17 14:02 General appearance: Present: A&O X 2, no acute distress - Head Head exam: Present: atraumatic, normal inspection - Neck Neck exam general surgery: Present: supple - Respiratory Respiratory exam: Present: decreased breath sounds. Absent: rales, respiratory distress, rhonchi, wheezes - Cardiovascular Cardiovascular exam: Present: irregular rhythm, +S1, +S2. Absent: tachycardia - GI/Abdominal GI/Abdominal exam: Present: soft. Absent: rebound, rigid - Extremities Exam Extremities exam: Present: pedal edema (trace). Absent: calf tenderness, tenderness - Back Exam Back exam: Absent: CVA tenderness (L), CVA tenderness (R) - Neurological Exam Neurological exam: Present: alert, altered - Psychiatric Additional comments: demented Internal Medicine: Result - Labs CBC & Chem 7: 08/10/17 04:38 08/10/17 04:38 - ABG Interpretation ABG results: ABG ABG pH 7.40 pH Units (7.32-7.45) 08/04/17 07:35 ABG pCO2 16 mmHg (35-45) L* 08/04/17 07:35 ABG pO2 210 mmHg (85-104) H 08/04/17 07:35 ABG O2 Saturation 100 % (95-98) H 08/04/17 07:35 PT/INR, D-dimer PT 13.2 Seconds (9.4-12.1) H 08/04/17 08:04 - VTE Documentation of Mechanical Device: Intermittent pneumatic compression device Consult Discharge Plan - Plan Instructions: Atrial Fibrillation (DC), Gastrointestinal Bleeding (DC), Parkinson's Disease (DC), Parkinson's Disease (GEN), Diabetes Mellitus Type 2 in Adults (DC), Peripheral Vascular Disorders (DC), Anemia (GEN), Fall Prevention (DC), Parkinson's Disease, 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 Please check CBC on Saturday, if his Hb stays stable he can resume taking ASA from saturday Need to f/u with Surgery Dr. Marcos as an out pt in 1 week for possible EGD Need to f/u with Card Dr. Manjarrez in 2-3 weeks Referrals: Eileen Howard CNP [Primary Care Provider] - Hoda Hernandez MD [Partnered Physician] - Marychuy Manjarrez DO [Partnered Physician] -
[2017-08-12] MEDS: Aspirin Enteric Coated 81 MG Tablet PO SCH (17:20)
[2017-08-12] MEDS: Mirtazapine 15 MG TABLET PO SCH (22:31)
[2017-08-12] MEDS: Melatonin 3 MG TABLET PO SCH (22:31)
[2017-08-13] MEDS: Ipratropium/Albuterol Neb 3 ML IH SCH ×3 (04:28→11:54)
[2017-08-13] MEDS: Carbidopa/Levodopa 25/100 TABLET PO SCH (09:23)
[2017-08-13] MEDS: Metoprolol XL (24 HR) Succ 25 MG TAB.ER.24H PO SCH (09:23)
[2017-08-13] MEDS: Aspirin Enteric Coated 81 MG Tablet PO SCH (09:23)
[2017-08-13] MEDS: Ranolazine 500 MG TAB.ER.12H PO SCH (09:24)
[2017-08-13] MEDS: Insulin LISPRO 300 UNITS/3 ML VIAL SQ SCH ×2 (09:25→12:04)
[2017-08-13 11:10] LABS: Basophils % 0.3 %; Hematocrit 35.5 % (37.5-50.1); Immature Granulocytes % 0.5 % (0-4); Lymphocytes # 0.7 K/mcL (0.6-4.6); Lymphocytes % 5.9 %; Mean Corpuscular Hemoglobin 31.7 pg (28.0-33.3); Mean Corpuscular Volume 102.3 fL (83.0-100.0); Monocytes # 1.3 K/mcL (0.0-1.3); Monocytes % 10.7 %; Neutrophils # 9.7 K/mcL (1.6-8.9); Platelet Count 191 K/mcL (140-400); Red Blood Count 3.47 M/mcL (4.19-5.50); Red Cell Distribution Width 21.2 % (11.5-14.5); Segmented Neutrophils % 82.6 %
--- NOTE | 2017-08-13 11:10 | Internal Med Progress Note ---
Date of Encounter: 08/13/17 Time of Encounter: 11:04 - Subjective Interval history: Patient seen and examined with daughter present at bedside. Resting comfortably in bed and denies any discomfort at this time. As per daughter pt has parkinson's dementia and is mental status waxes and wanes. At this time he was oriented to self, daughter, and place. No overnight issues reported. D/C pending ECF placement If ECF placement is arranged today, pt is stable for discharge today (1) Acute blood loss anemia Current Visit: Yes Status: Acute Assessment and plan: s/p 4 U PRBC mostly upper GI bleed Cont PO PPI Stable HB @ 11.0 no need of transfusion now He did not go to ECF on 07/2817 since his insurance not approved yet. He is medically stable to d/c back to ECF whenever ECF gets approval from Insurance (2) Acute delirium Current Visit: Yes Status: Acute Assessment and plan: His delirium is due to dementia related sun down syndrome Improved now unable to give him Haldol since he is Carbi dopa cont Melatonin for Sleep (3) GI bleed Current Visit: Yes Status: Acute Assessment and plan: Stable Hb so far cont holding ASA and Plavix Surgeon Dr. ortiz, suggested out pt EGD if his Hb does not dropped down further Qualifiers: GI bleed type/associated pathology: unspecified gastrointestinal hemorrhage type Qualified Code(s): K92.2 - Gastrointestinal hemorrhage, unspecified (4) Generalized weakness Current Visit: No Status: Acute Assessment and plan: Due to G.I. bleed finished complete course of abx. (5) NSTEMI (non-ST elevated myocardial infarction) Current Visit: No Status: Acute Assessment and plan: due to demand ischemia with GI bleed Card evaluated the pt no further work up needed (6) CAD (coronary artery disease) of artery bypass graft Current Visit: No Status: Chronic Assessment and plan: resumed all other home meds.. Since his Hb stable.. resume ASA Cont holding Plavix Qualifiers: [place] vs. transplanted heart: [place] heart Associated angina: without angina Qualified Code(s): I25.810 - Atherosclerosis of coronary artery bypass graft(s) without angina pectoris (7) Parkinson disease Current Visit: No Status: Chronic Assessment and plan: resumed home meds (8) Diabetes mellitus type II, non insulin dependent Current Visit: No Status: Chronic Assessment and plan: Sliding scale insulin. (9) Hypertension Current Visit: No Status: Chronic Assessment and plan: stable Qualifiers: Hypertension type: essential hypertension Qualified Code(s): I10 - Essential (primary) hypertension (10) Atrial fibrillation Current Visit: Yes Status: Chronic Assessment and plan: rate well controlled with med Metoprolol Not on anticoagulants because of risk of falls and anemia Qualifiers: Atrial fibrillation type: chronic Qualified Code(s): I48.2 - Chronic atrial fibrillation (11) Dementia Current Visit: No Status: Chronic Qualifiers: Dementia type: Lewy body dementia Dementia behavioral disturbance: without behavioral disturbance Qualified Code(s): G31.83 - Dementia with Lewy bodies; F02.80 - Dementia in other diseases classified elsewhere without behavioral disturbance; F02.80 - Dementia in other diseases classified elsewhere without behavioral disturbance; F02.80 - Dementia in other diseases classified elsewhere without behavioral disturbance - Constitutional Vitals: Temp Pulse Resp BP Pulse Ox 97.2 F L 87 19 119/78 97 08/13/17 07:45 08/13/17 07:45 08/13/17 07:45 08/13/17 07:45 08/13/17 07:45 General appearance: Present: A&O X 2, no acute distress, obese - Head Head exam: Present: atraumatic, normocephalic - Eye Eye exam: Present: conjuntiva pink, sclera anicteric - Respiratory Respiratory exam: Present: CTAB. Absent: respiratory distress, wheezes - Cardiovascular Cardiovascular exam: Present: RRR, +S1, +S2. Absent: diastolic murmur, gallop, rubs, systolic murmur - GI/Abdominal GI/Abdominal exam: Present: normal bowel sounds, soft, no peritoneal signs. Absent: distended, tenderness - Extremities Exam Extremities exam: Present: pedal edema (trace pedal edema bilaterally ), warm, radial pulses palpable and symmetrical. Absent: calf tenderness - Neurological Exam Neurological exam: Present: alert - Psychiatric Psychiatric exam: Present: normal affect, normal mood Internal Medicine: Result - Labs CBC & Chem 7: 08/13/17 10:54 08/13/17 10:54 - ABG Interpretation ABG results: ABG ABG pH 7.40 pH Units (7.32-7.45) 08/04/17 07:35 ABG pCO2 16 mmHg (35-45) L* 08/04/17 07:35 ABG pO2 210 mmHg (85-104) H 08/04/17 07:35 ABG O2 Saturation 100 % (95-98) H 08/04/17 07:35 PT/INR, D-dimer PT 13.2 Seconds (9.4-12.1) H 08/04/17 08:04 - VTE Documentation of Mechanical Device: Intermittent pneumatic compression device Consult Discharge Plan - Plan Instructions: Atrial Fibrillation (DC), Gastrointestinal Bleeding (DC), Parkinson's Disease (DC), Parkinson's Disease (GEN), Diabetes Mellitus Type 2 in Adults (DC), Peripheral Vascular Disorders (DC), Anemia (GEN), Fall Prevention (DC), Parkinson's Disease, 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 Please check CBC on Saturday, if his Hb stays stable he can resume taking ASA from saturday Need to f/u with Surgery Dr. Marcos as an out pt in 1 week for possible EGD Need to f/u with Card Dr. Manjarrez in 2-3 weeks Referrals: Eileen Howard CNP [Primary Care Provider] - Hoda Hernandez MD [Partnered Physician] - Marychuy Manjarrez DO [Partnered Physician] -
[2017-08-13 11:26] LABS: BUN/Creatinine Ratio 19 (6-26); Blood Urea Nitrogen 16 mg/dL (8-23); Calcium 8.6 mg/dL (8.6-10.3); Carbon Dioxide 25 mEq/L (23-29); Chloride 104 mEq/L (98-107); Glucose 165 mg/dL (70-105); Osmolality,Calculated 283 (280-300); Sodium 134 mEq/L (136-145); eGFR For African Americans > 60 (> 60); eGFR For Non-African Americans > 60 (> 60)
[2017-08-13 16:30] VITALS: BP 142/76
== END 2017-08-13 15:24 | DRG 377 ==
LOC: EMEROO 10:29 → 2NENU 14:15 → SUATTDRO 14:15 → 2NENU 15:02 → ICNU 08-04 07:30 → 2NENU 08-05 09:55
PROVIDERS: ADMIT Hospitalist; ATTEND Internal Medicine

== ENCOUNTER 2017-08-30 14:31 | Inpatient (IN) ==
--- NOTE | 2017-08-30 15:01 | Emergency Department Note ---
Disposition Clinical Impression: CHF (congestive heart failure) Qualifiers: Congestive heart failure type: unspecified Congestive heart failure chronicity : chronic Qualified Code(s): I50.9 - Heart failure, unspecified UTI (urinary tract infection) Qualifiers: Urinary tract infection type: acute cystitis Hematuria presence: without hematuria Qualified Code(s): N30.00 - Acute cystitis without hematuria Disposition: Admitted As Inpatient Condition: Good Time of Disposition: 19:00 Altered Mental Status HPI - General Chief Complaint: ED Altered Mental Status Stated Complaint: AMS Time Seen by Provider: 08/30/17 14:40 Source: EMS Limitations: no limitations Nursing Notes Reviewed: Yes Vital Signs Reviewed: Yes - History of Present Illness HPI Narrative: Mr. Villarreal, an 87yo male, presents from [facility] via EMS for evaluation of slurring speech. No facial asymmetry or focal motor defects. Last known well was 2 days ago per his daughter. She is well familiar with the patient. She describes slurring of speech and occasional stuttering which interrupts otherwise would be complete sentences. At baseline, patient is pleasantly mildly demented. ROS: Positive: As above Negative: Trauma, headache, fever, chills, nausea, vomiting, chest pains, palpitations, abdominal pain, hematochezia, melena, dysuria, changes in vision - Related Data Home Medications Medication Instructions Recorded Confirmed Carbidopa/Levodopa 25/100 [Sinemet 1.5 tab PO Q8H 02/08/16 08/30/17 25/100] Lisinopril [Zestril] 5 mg PO DAILY 02/08/16 08/30/17 Metformin HCl [Metformin HCl ER] 500 mg PO DAILY 02/08/16 08/30/17 Metoprolol Succinate [Toprol Xl] 50 mg PO BID 02/08/16 08/30/17 Nitroglycerin 0.4 mg PO Q5M PRN 02/08/16 08/30/17 Pravastatin Sodium 10 mg PO HS 02/08/16 08/30/17 DULoxetine [Cymbalta] 20 mg PO DAILY 07/08/17 08/30/17 Isosorbide MONOnitrate [Isosorbide 120 mg PO DAILY 07/08/17 08/30/17 Mononitrate ER] Lactose-Reduced Food [Ensure Plus] 1 bottle PO TID 07/12/17 08/30/17 Magnesium Hydroxide [Milk of 30 ml PO DAILY PRN 08/02/17 08/30/17 Magnesia] Acetaminophen [Tylenol] 650 mg PO Q6H 08/30/17 08/30/17 Calcium Carbonate [Calcium] 500 mg PO DAILY 08/30/17 08/30/17 Ferrous Sulfate 324 mg PO BID 08/30/17 08/30/17 LORazepam [Ativan] 0.5 mg PO BID 08/30/17 08/30/17 Oseltamivir [Tamiflu] 75 mg PO DAILY 08/30/17 08/30/17 Pantoprazole Sodium [Protonix] 40 mg PO BID 08/30/17 08/30/17 Sennosides [Senna] 17.2 mg PO DAILY 08/30/17 08/30/17 Sucralfate [Carafate] 1 gm PO TID 08/30/17 08/30/17 Previous Rx's Medication Instructions Recorded Bisacodyl [Dulcolax] 10 mg PO DAILY PRN tablet 07/15/17 Docusate [Colace] 100 mg PO BID capsule 07/15/17 Ranolazine [Ranexa] 1,000 mg PO BID tab.er.12h 07/15/17 Aspirin Enteric Coated [Aspirin EC] 81 mg PO DAILY #0 08/08/17 Allergies Allergy/AdvReac Type Severity Reaction Status Date / Time ezetimibe [From Zetia] AdvReac See Verified 08/30/17 16:18 Comments Widshjx-Knk-Tmr Reductase AdvReac See Verified 08/30/17 16:18 Inhibitor Comments All systems ED: reviewed and negative except as stated. Review of Systems: As Per HPI Past Medical History - Past Medical History Medical history: Reports: atrial fibrillation, COPD, coronary artery disease, diabetes, hyperlipidemia, myocardial infarction Surgical history: Reports: coronary bypass (CABG) Psychiatric history: Reports: no psych history - Social History Smoking Status: Former smoker Smokeless Tobacco Status: No Alcohol use: Reports: none Drug use: Reports: none Physical Exam Vital Signs Reviewed General: Patient is alert, oriented, and in no acute distress. HEENT: No facial asymmetry. Head is normocephalic and atraumatic. PERRL, EOMI. oral mucosa tacky. Trachea midline. Cardiovascular: Heart regular rate and rhythm without clicks, rubs, gallops, or murmurs. No JVD. PMI nondisplaced. Respiratory: Symmetric chest rise with good respiratory effort. Bilateral breath sounds are clear without wheezing, crackles, or rhonchi. Abdomen: Bowel sounds present normoactive x-4 quadrants. Abdomen is soft, nondistended, and nontender. No organomegaly noted. Musculoskeletal: Muscle strength 5/5 and symmetric bilaterally in upper and lower extremities. Neuro: Cranial nerves II through XII without deficit. Sensation light touch intact. No pronator drift. No finger-nose ataxia. Intermittent mild slurring of speech. Psych: Patient's affect is appropriate for situation. - General Limitations: no limitations General appearance: alert Course Course Narrative: Patient presents with slurring of speech noticed this morning by his daughter; last known well as 2 days ago. I saw the patient in this department 2 days ago and assisted in relocating his right hip dislocation. At that time, patient had no noticeable slurring of speech. He does, however, have mild intermittent slurred speech today. No facial asymmetry. No focal motor deficits. No focal sensory deficits. Daughter also notes that patient recently had a urinary catheter which was left in place several days beyond its intended removal date. Patient's chest x-ray and 1+ pitting bilateral edema lean towards congestive heart failure. CT chest suspicious for pneumonia however patient has no white count, is saturating well on room air. In speaking with the admitting hospitalist, Dr. Varghese, he agrees to accept the patient for continued evaluation and management. We will begin Lasix 40 mg IV push and hold on antibiotics at that time. Urinalysis is pending. 19:40 Straight cath urinalysis is consistent with UTI. This clinically makes sense given patient's 2.5wk indwelling catheter removed Saturday. Will begin empiric rocephin. Chest X-Ray 08/30/17 14:40 IMPRESSION: Cardiomegaly and evidence of pulmonary edema, including trace bilateral pleural effusions. Findings may reflect congestive heart failure. D/ /30/2017 15:07:13 Fern Chavira MD / Christiane Inman Interpreting Provider: Fern Chavira MD Head CT 08/30/17 14:44 IMPRESSION: 1. No acute intracranial abnormality. 2. Diffuse cerebral atrophy with chronic small vessel ischemic disease. D/ / Luis A Parikh MD / Luis A Parikh MD Interpreting Provider: Luis A Parikh MD Chest CT 08/30/17 14:57 IMPRESSION: Small-moderate layering bilateral pleural effusions with associated passive atelectasis. Additional airspace disease may indicate pneumonia. D/ / Baldev Harrell MD / Baldev Harrell MD Interpreting Provider: Baldev Harrell MD Abdomen/Pelvis CT 08/30/17 14:58 IMPRESSION: 1. No acute findings within the abdomen or pelvis. No evidence of obstructive uropathy. Moderate diffuse colonic stool burden with suggestion of fecal impaction. Diverticulosis without acute features. 2. Suspected cholelithiasis with no acute features. 3. Fusiform infrarenal abdominal aortic aneurysm with evidence of previous endovascular repair. Maximum diameter 6.1 cm. RECOMMENDATIONS: Managing Abdominal Aortic Aneurysms Greater than or equal to 5.5 cm: Referral to vascular surgeon. *For abdominal aortas with maximum diameter of 2.6-2.9 cm meeting criteria for AAA (>50% of proximal normal segment). Reference: J Vasc Surg. 2008;50(4 Suppl):S2-49 D/ / 08/30/2017 18:07:32 Michael Meehan MD / kaitlin Interpreting Provider: Michael Meehan MD Vital Signs Temperature 97.3 F L 08/30/17 14:33 Pulse Rate 76 08/30/17 14:33 Respiratory Rate 18 08/30/17 14:33 Blood Pressure 113/94 08/30/17 14:33 O2 Sat by Pulse Oximetry 97 08/30/17 14:33 Temperature 97.6 F 08/31/17 11:01 Pulse Rate 89 08/31/17 11:01 Respiratory Rate 14 08/31/17 11:01 Blood Pressure 113/79 08/31/17 11:01 O2 Sat by Pulse Oximetry 100 08/31/17 11:01 Oxygen Delivery Oxygen Delivery Nasal Cannula Altered Mental Status - Medical Records Medical records reviewed: Yes I reviewed the patient's medical records. - Lab Data Result diagrams: 08/31/17 04:50 08/31/17 04:50 Lab Results 08/30/17 08/30/17 08/30/17 Range/Units 15:46 15:46 15:46 WBC 6.8 (4.3-11.1) K/mcL RBC 3.31 L (4.19-5.50) M/mcL Hgb 10.2 L (12.9-16.9) g/dL Hct 34.0 L (37.5-50.1) % MCV 102.7 H (83.0-100.0) fL MCH 30.8 (28.0-33.3) pg MCHC 30.0 L (31.6-35.5) g/dL RDW 18.8 H (11.5-14.5) % Plt Count 296 (140-400) K/mcL MPV 10.8 (9.4-12.4) fL Immature Gran % 0.9 (0-4) % Seg Neutrophils % 75.5 % Lymphocytes % 11.9 % Monocytes % 11.4 % Eosinophils % 0.0 % Basophils % 0.3 % Neutrophils # 5.2 (1.6-8.9) K/mcL Lymphocytes # 0.8 (0.6-4.6) K/mcL Monocytes # 0.8 (0.0-1.3) K/mcL Eosinophils # 0.0 (0.0-0.6) K/mcL Basophils # 0.0 (0.0-0.2) K/mcL Nucleated RBCs/100 WBC 0.7 H (0) /100 WBC PT 15.8 H (9.4-12.1) Seconds INR 1.5 APTT 26.9 (26.0-36.0) Seconds Sodium 143 (136-145) mEq/L Potassium 3.7 (3.5-5.1) mEq/L Chloride 109 H (98-107) mEq/L Carbon Dioxide 26 (23-29) mEq/L BUN 22 (8-23) mg/dL Creatinine 0.91 (0.70-1.30) mg/dL Est GFR ( Amer) > 60 (> 60) Est GFR (Non-Af Amer) > 60 (> 60) BUN/Creatinine Ratio 24 (6-26) Glucose 126 H (70-105) mg/dL Calculated Osmolality 301 H (280-300) Lactic Acid (0.5-2.2) mmol/L Calcium 8.8 (8.6-10.3) mg/dL Troponin I (< 0.04) ng/mL B-Natriuretic Peptide (Less than 100) pg/mL Urine Color (Yellow) Urine Clarity (Clear) Urine pH (5.0-8.0) pH Units Ur Specific [place] (1.010-1.025) Urine Protein (Neg-Trace) mg/dL Urine Glucose (UA) (Normal) mg/dL Urine Ketones (Negative) mg/dL Urine Blood (Negative) Urine Nitrite (Negative) Urine Bilirubin (Negative) Urine Urobilinogen (Normal) mg/dL Ur Leukocyte Esterase (Negative) Urine Microscopic RBC (0-3) per hpf Urine Microscopic WBC (0-3) per hpf Ur Squamous Epith Cells (None-Few) per lpf Urine Bacteria (None-Few) per hpf Hyaline Casts (None-Few) per lpf Ur Culture Indicated? (NO) 08/30/17 08/30/17 08/30/17 Range/Units 15:46 15:46 15:46 WBC (4.3-11.1) K/mcL RBC (4.19-5.50) M/mcL Hgb (12.9-16.9) g/dL Hct (37.5-50.1) % MCV (83.0-100.0) fL MCH (28.0-33.3) pg MCHC (31.6-35.5) g/dL RDW (11.5-14.5) % Plt Count (140-400) K/mcL MPV (9.4-12.4) fL Immature Gran % (0-4) % Seg Neutrophils % % Lymphocytes % % Monocytes % % Eosinophils % % Basophils % % Neutrophils # (1.6-8.9) K/mcL Lymphocytes # (0.6-4.6) K/mcL Monocytes # (0.0-1.3) K/mcL Eosinophils # (0.0-0.6) K/mcL Basophils # (0.0-0.2) K/mcL Nucleated RBCs/100 WBC (0) /100 WBC PT (9.4-12.1) Seconds INR APTT (26.0-36.0) Seconds Sodium (136-145) mEq/L Potassium (3.5-5.1) mEq/L Chloride (98-107) mEq/L Carbon Dioxide (23-29) mEq/L BUN (8-23) mg/dL Creatinine (0.70-1.30) mg/dL Est GFR ( Amer) (> 60) Est GFR (Non-Af Amer) (> 60) BUN/Creatinine Ratio (6-26) Glucose (70-105) mg/dL Calculated Osmolality (280-300) Lactic Acid 2.2 (0.5-2.2) mmol/L Calcium (8.6-10.3) mg/dL Troponin I < 0.03 (< 0.04) ng/mL B-Natriuretic Peptide 783 H (Less than 100) pg/mL Urine Color (Yellow) Urine Clarity (Clear) Urine pH (5.0-8.0) pH Units Ur Specific [place] (1.010-1.025) Urine Protein (Neg-Trace) mg/dL Urine Glucose (UA) (Normal) mg/dL Urine Ketones (Negative) mg/dL Urine Blood (Negative) Urine Nitrite (Negative) Urine Bilirubin (Negative) Urine Urobilinogen (Normal) mg/dL Ur Leukocyte Esterase (Negative) Urine Microscopic RBC (0-3) per hpf Urine Microscopic WBC (0-3) per hpf Ur Squamous Epith Cells (None-Few) per lpf Urine Bacteria (None-Few) per hpf Hyaline Casts (None-Few) per lpf Ur Culture Indicated? (NO) 08/30/17 Range/Units 19:15 WBC (4.3-11.1) K/mcL RBC (4.19-5.50) M/mcL Hgb (12.9-16.9) g/dL Hct (37.5-50.1) % MCV (83.0-100.0) fL MCH (28.0-33.3) pg MCHC (31.6-35.5) g/dL RDW (11.5-14.5) % Plt Count (140-400) K/mcL MPV (9.4-12.4) fL Immature Gran % (0-4) % Seg Neutrophils % % Lymphocytes % % Monocytes % % Eosinophils % % Basophils % % Neutrophils # (1.6-8.9) K/mcL Lymphocytes # (0.6-4.6) K/mcL Monocytes # (0.0-1.3) K/mcL Eosinophils # (0.0-0.6) K/mcL Basophils # (0.0-0.2) K/mcL Nucleated RBCs/100 WBC (0) /100 WBC PT (9.4-12.1) Seconds INR APTT (26.0-36.0) Seconds Sodium (136-145) mEq/L Potassium (3.5-5.1) mEq/L Chloride (98-107) mEq/L Carbon Dioxide (23-29) mEq/L BUN (8-23) mg/dL Creatinine (0.70-1.30) mg/dL Est GFR ( Amer) (> 60) Est GFR (Non-Af Amer) (> 60) BUN/Creatinine Ratio (6-26) Glucose (70-105) mg/dL Calculated Osmolality (280-300) Lactic Acid (0.5-2.2) mmol/L Calcium (8.6-10.3) mg/dL Troponin I (< 0.04) ng/mL B-Natriuretic Peptide (Less than 100) pg/mL Urine Color Red A (Yellow) Urine Clarity Clear (Clear) Urine pH 5.0 (5.0-8.0) pH Units Ur Specific [place] > 1.030 H (1.010-1.025) Urine Protein 30 H (Neg-Trace) mg/dL Urine Glucose (UA) Normal (Normal) mg/dL Urine Ketones Trace H (Negative) mg/dL Urine Blood Trace H (Negative) Urine Nitrite Positive A (Negative) Urine Bilirubin Small H (Negative) Urine Urobilinogen Normal (Normal) mg/dL Ur Leukocyte Esterase Small H (Negative) Urine Microscopic RBC 5-15 H (0-3) per hpf Urine Microscopic WBC 0-3 (0-3) per hpf Ur Squamous Epith Cells Moderate H (None-Few) per lpf Urine Bacteria None Seen (None-Few) per hpf Hyaline Casts None Seen (None-Few) per lpf Ur Culture Indicated? YES A (NO) - EKG Data EKG attestation: Yes I reviewed and interpreted this EKG. EKG results narrative: EKG dated 08/30/17 at 14:43 and interpreted as sinus rhythm with a rate of 77. Normal intervals. Normal axis. Nonspecific ST-T changes. Compared to previous dated 08/14/2017 show no acute extremity changes comparison; Davidson rojas also had an EKG. Attestation Statement - Attestation Attestation: I, Robert Clay DO, examined this patient [id number] and my medical decision-making was reviewed with Dr. Jesse Grace, Resident Physician. I agree with the documented findings, disposition and treatment plan as described except to the extent set forth below. Please see my progress notes for details. 87-year-old male presents to emergency room in the care of the family after being seen today at his [facility]. The family is concerned because he was acting more confused. They are concerned about a possible stroke. On presentation here the patient is confused but he does use bilateral upper and lower extremities with symmetry. He has difficulty with answering questions with yes no signs of acute facial droop or symptoms. The time of onset was unknown based on 24+ hours with of symptoms and the last time the family had seen him being greater than [address] of the head chest x-ray screening laboratory workup infectious etiology will be completed at this time with concern being the patient has an infection causing altered mentation of strokelike evaluation. He is not currently an acute stroke based on the symptoms presentation and history. Evaluation will be completed looking for other etiology and evaluating for stroke at this time. CT head was negative for bleed or signs of ischemia presentation. Urinalysis is positive for acute urinary tract infection. Patient started on Rocephin here. Symptoms do appear to be associated with infectious etiology. He is currently not septic but with the altered mentation we will treat appropriately. Fluid hydration given as needed. Impression vital signs of otherwise been stable. Symptomatic control to be completed in the hospital setting. No other acute pathology. Patient is hemodynamically stable. Family is informed to comfortable with the plan. CT imaging and laboratory workup was reviewed. Patient will be admitted for definitive management and stabilization. Detailed documentation of physical exam, medical intervention, medical decision-making and disposition in the resident physician's note. No critical care provider this patient's treatment course
[2017-08-30 16:12] LABS: Basophils % 0.3 %; Hemoglobin 10.2 g/dL (12.9-16.9); Immature Granulocytes % 0.9 % (0-4); Lymphocytes # 0.8 K/mcL (0.6-4.6); Lymphocytes % 11.9 %; Mean Corpuscular Hemoglobin 30.8 pg (28.0-33.3); Mean Corpuscular Volume 102.7 fL (83.0-100.0); Mean Platelet Volume 10.8 fL (9.4-12.4); Monocytes # 0.8 K/mcL (0.0-1.3); Monocytes % 11.4 %; Neutrophils # 5.2 K/mcL (1.6-8.9); Nucleated Red Blood Cells 0.7 /100 WBC (0); Platelet Count 296 K/mcL (140-400); Red Blood Count 3.31 M/mcL (4.19-5.50); Red Cell Distribution Width 18.8 % (11.5-14.5); Segmented Neutrophils % 75.5 %
[2017-08-30 16:18] LABS: INR 1.5; Prothrombin Time 15.8 Seconds (9.4-12.1)
[2017-08-30 16:21] LABS: Activated Partial Thrombo Time 26.9 Seconds (26.0-36.0)
[2017-08-30 16:23] LABS: BUN/Creatinine Ratio 24 (6-26); Blood Urea Nitrogen 22 mg/dL (8-23); Calcium 8.8 mg/dL (8.6-10.3); Carbon Dioxide 26 mEq/L (23-29); Chloride 109 mEq/L (98-107); Glucose 126 mg/dL (70-105); Osmolality,Calculated 301 (280-300); Potassium 3.7 mEq/L (3.5-5.1); Sodium 143 mEq/L (136-145); eGFR For African Americans > 60 (> 60); eGFR For Non-African Americans > 60 (> 60)
[2017-08-30] MEDS ORDERED: Furosemide 40 MG/4 ML VIAL IVP ONE (18:44)
[2017-08-30 19:38] LABS: Bilirubin,Urine Small (Negative); Blood,Urine Trace (Negative); Clarity,Urine Clear (Clear); Color,Urine Red (Yellow); Glucose,Urine (UA) Normal (Normal); Ketones,Urine Trace mg/dL (Negative); Leukocyte Esterase,Urine Small (Negative); Nitrite,Urine Positive (Negative); Protein,Urine 30 mg/dL (Neg-Trace); Specific Gravity,Urine > 1.030 (1.010-1.025); Urobilinogen,Urine Normal (Normal)
[2017-08-30 19:40] LABS: Bacteria,Urine None Seen per hpf (None-Few); Hyaline Casts,Urine None Seen per lpf (None-Few); Squamous Epithelial Cell,Urine Moderate per lpf (None-Few); WBC,Urine 0-3 per hpf (0-3)
[2017-08-30] MEDS ORDERED: cefTRIAXone 1,000 MG in Water for inj. (sterile) 20 ML 10 ML IVP ONE (19:41)
[2017-08-30] MEDS ORDERED: Naloxone 0.4 MG/ML INJ IVP PRN (23:03)
[2017-08-30] MEDS ORDERED: Acetaminophen 325 MG TABLET PO PRN (23:03)
[2017-08-30] MEDS ORDERED: Nitroglycerin 0.4 MG TAB.SUBL SL PRN (23:15)
[2017-08-30] MEDS ORDERED: MOM Conc 10 ML UD.LIQ PO PRN (23:15)
[2017-08-30] MEDS ORDERED: Lactulose Oral Soln 20 GM/30 ML UDC PO ONE (23:17)
[2017-08-31] MEDS: Carbidopa/Levodopa 25/100 TABLET PO SCH ×4 (00:47→23:29)
--- NOTE | 2017-08-31 03:45 | Internal Med History&Physical ---
Date of Encounter: 08/30/17 Time of Encounter: 21:00 Assessment and Plan (1) Acute metabolic encephalopathy Current visit: Yes Status: Acute Most likely due to CHF exacerbation or UTI. Will treat the underlying disease. However, patient present with slurred speech, need to rule out CVA. - Place patient on continuous cardiac monitoring - Echo and duplex carotid - MRI in a.m. - PTOT evaluation - Patient passed bedside swallow screen, diet has been placed (2) CAD (coronary artery disease) of artery bypass graft Current visit: No Status: Chronic Denies chest pain. Continue home medications Qualifiers: [place] vs. transplanted heart: [place] heart Associated angina: without angina Qualified Code(s): I25.810 - Atherosclerosis of coronary artery bypass graft(s) without angina pectoris (3) Parkinson disease Current visit: No Status: Chronic Continue home medication carbidopa and levodopa (4) Diabetes mellitus type II, non insulin dependent Current visit: No Status: Chronic Cover patient with a sliding scale insulin (5) DVT prophylaxis Current visit: No Status: Acute Heparin subcutaneously (6) Hypertension Current visit: No Status: Chronic Continue home medications Qualifiers: Hypertension type: essential hypertension Qualified Code(s): I10 - Essential (primary) hypertension (7) CHF exacerbation Current visit: Yes Status: Acute Previous echo reviewed, EF 45%. Patient has elevated BNP and chest x-ray shows pulmonary edema. Consider CHF exacerbation. Patient is not in respiratory distress at this point. - Continue Lasix 40 mg IV twice a day - Strict in and out - Cardiac and fluid restriction diet. - Body weight daily. - Continue home medication beta ajme and KATHIA inhibitor Qualifiers: Congestive heart failure type: systolic Qualified Code(s): I50.23 - Acute on chronic systolic (congestive) heart failure (8) UTI (urinary tract infection) Current visit: Yes Status: Acute Continue Rocephin 1000 mg IV daily. Follow-up urine culture Qualifiers: Urinary tract infection type: acute cystitis Hematuria presence: without hematuria Qualified Code(s): N30.00 - Acute cystitis without hematuria Internal Medicine - H&P: HPI Chief complaint: Altered mental status Admitted From: Long-term Nursing Facility Plans for Post Hospital Care: [facility] History of present illness: Mr. Villarreal is a 87 year old male with history of systolic CHF, CAD, diabetes, send from [facility] for altered mental status. Patient is not a good historian and the family is not at the bedside. History is obtained from old chart and transportation documentation. Patient was found slurred speech. Last known well was 2 days ago per his daughter. Patient was sent to rule out CVA. In the emergency room, CT head shows negative. Patient was found pulmonary edema and elevated BNP. Patient also has UTI for urinary analysis. Patient was admitted for further management. The RN Ree has discussed CODE STATUS with the patient's daughter. She was told patient is DNR CCA. Past Med Surg Social Fam HX - Past Medical History Medical history: atrial fibrillation, COPD, coronary artery disease, diabetes, hyperlipidemia, myocardial infarction Psychiatric history: no psych history - Past Surgical History Surgical History: coronary bypass (CABG) - Social History Smoking Status: Former smoker Smokeless Tobacco Status: No Alcohol use: none Drug use: none - Family History Mother Living Status: Father Adopted: No Living Status: Cause of : heart attack Hx Family Cardiac Disorders: Yes Hx Family Respiratory Disorders: No Hx Family Cancer: Yes (Mother) Hx Family GI Disorders: No Hx Family Genitourinary Disorders: No Hx Family Endocrine Disorder: No Hx Family Musculoskeletal Disorders: No Hx Family Neuromuscular Disorders: No Hx Family Neurologic Disorders: No Hx Family HEENT Disorders: No Hx Family Autoimmune Disorders: No Hx Family Reproductive Disorders: No Hx Family Psychosocial Disorders: No Hx Family Medical Disorders: No Internal Medicine - H&P: Meds Carbidopa/Levodopa 25/100 [Sinemet 25/100] 1.5 tab PO Q8H 02/08/16 [History] Lisinopril [Zestril] 5 mg PO DAILY 02/08/16 [History] Metformin HCl [Metformin HCl ER] 500 mg PO DAILY 02/08/16 [History] Metoprolol Succinate [Toprol Xl] 50 mg PO BID 02/08/16 [History] Nitroglycerin 0.4 mg PO Q5M PRN 02/08/16 [History] Pravastatin Sodium 10 mg PO HS 02/08/16 [History] DULoxetine [Cymbalta] 20 mg PO DAILY 07/08/17 [History] Isosorbide MONOnitrate [Isosorbide Mononitrate ER] 120 mg PO DAILY 07/08/17 [ History] Lactose-Reduced Food [Ensure Plus] 1 bottle PO TID 07/12/17 [History] Bisacodyl [Dulcolax] 10 mg PO DAILY PRN tablet 07/15/17 [Rx] Docusate [Colace] 100 mg PO BID capsule 07/15/17 [Rx] Ranolazine [Ranexa] 1,000 mg PO BID tab.er.12h 07/15/17 [Rx] Magnesium Hydroxide [Milk of Magnesia] 30 ml PO DAILY PRN 08/02/17 [History] Aspirin Enteric Coated [Aspirin EC] 81 mg PO DAILY #0 08/08/17 [Rx] Acetaminophen [Tylenol] 650 mg PO Q6H 08/30/17 [History] Calcium Carbonate [Calcium] 500 mg PO DAILY 08/30/17 [History] Ferrous Sulfate 324 mg PO BID 08/30/17 [History] LORazepam [Ativan] 0.5 mg PO BID 08/30/17 [History] Oseltamivir [Tamiflu] 75 mg PO DAILY 08/30/17 [History] Pantoprazole Sodium [Protonix] 40 mg PO BID 08/30/17 [History] Sennosides [Senna] 17.2 mg PO DAILY 08/30/17 [History] Sucralfate [Carafate] 1 gm PO TID 08/30/17 [History] 3 Allergy/AdvReac Type Severity Reaction Status Date / Time ezetimibe [From Zetia] AdvReac See Verified 08/30/17 16:18 Comments Dhtpjfk-Gxm-Rpm Reductase AdvReac See Verified 08/30/17 16:18 Inhibitor Comments All Systems PM: A 10-system review of systems was performed and is negative for pertinent findings except as documented above in the HPI. - Constitutional Vitals: Temp Pulse Resp BP Pulse Ox 98.1 F 72 17 108/68 98 08/31/17 02:58 08/31/17 02:58 08/31/17 02:58 08/31/17 02:58 08/31/17 02:58 General appearance: Present: A&O X 1, pleasant, no acute distress, answers questions appropriately - Head Head exam: Present: atraumatic, normocephalic - Eye Eye exam: Present: PERRL, conjuntiva pink, sclera anicteric Pupils: Present: PERRL - Neck Neck exam general surgery: Present: supple, trachea midline. Absent: lymphadenopathy - Respiratory Respiratory exam: Present: CTAB. Absent: accessory muscle use, rales, rhonchi, wheezes - Cardiovascular Cardiovascular exam: Present: RRR, +S1, +S2. Absent: diastolic murmur, gallop, rubs, systolic murmur - GI/Abdominal GI/Abdominal exam: Present: normal bowel sounds, soft, no peritoneal signs. Absent: distended, tenderness - Extremities Exam Extremities exam: Present: warm, radial pulses palpable and symmetrical. Absent : calf tenderness, cyanotic, pedal edema - Neurological Exam Neurological exam: Present: CN II-XII intact, oriented X3, no focal deficits, facial droop (Patient has left facial drop but I was told it is old). Absent: pronater drift, speech deficit - Skin Skin exam: Present: dry, intact Internal Med - H&P Results - Labs CBC & Chem 7: 08/30/17 15:46 08/30/17 15:46 - EKG Data -: EKG Interpreted by Myself EKG shows normal: sinus rhythm Rate: normal
[2017-08-31] MEDS ORDERED: D5% in Water 1,000 ML IVC PRN (03:46)
[2017-08-31] MEDS ORDERED: *HR* Dextrose 50 % in Water (Syg) 50 ML SYRINGE IVP PRN (03:46)
[2017-08-31] MEDS ORDERED: Dextrose Gel 15 GM/37.5 ML TUBE PO PRN ×2 (03:46)
[2017-08-31 05:12] LABS: Basophils # 0.1 K/mcL (0.0-0.2); Basophils % 0.6 %; Eosinophils # 0.5 K/mcL (0.0-0.6); Eosinophils % 5.8 %; Hematocrit 33.6 % (37.5-50.1); Immature Granulocytes % 0.5 % (0-4); Lymphocytes # 0.8 K/mcL (0.6-4.6); Lymphocytes % 10.3 %; Mean Corpuscular HGB Conc 29.8 g/dL (31.6-35.5); Mean Corpuscular Hemoglobin 30.3 pg (28.0-33.3); Mean Corpuscular Volume 101.8 fL (83.0-100.0); Mean Platelet Volume 10.5 fL (9.4-12.4); Monocytes # 0.9 K/mcL (0.0-1.3); Neutrophils # 5.5 K/mcL (1.6-8.9); Platelet Count 254 K/mcL (140-400); Red Cell Distribution Width 19.1 % (11.5-14.5); Segmented Neutrophils % 70.8 %
[2017-08-31 05:22] LABS: BUN/Creatinine Ratio 20 (6-26); Blood Urea Nitrogen 18 mg/dL (8-23); Calcium 8.6 mg/dL (8.6-10.3); Carbon Dioxide 29 mEq/L (23-29); Chloride 110 mEq/L (98-107); Glucose 101 mg/dL (70-105); Magnesium 1.9 mg/dL (1.6-2.6); Osmolality,Calculated 300 (280-300); Potassium 3.7 mEq/L (3.5-5.1); Sodium 144 mEq/L (136-145); eGFR For African Americans > 60 (> 60); eGFR For Non-African Americans > 60 (> 60)
[2017-08-31] MEDS: *HR* Heparin 5,000 UNIT/ML VIAL SQ SCH ×2 (06:03→17:21)
[2017-08-31] MEDS: Insulin LISPRO 300 UNITS/3 ML VIAL SQ SCH ×4 (08:00→20:40)
[2017-08-31] MEDS: Aspirin Enteric Coated 81 MG Tablet PO SCH (08:14)
[2017-08-31] MEDS: Sucralfate 1 GM TABLET PO SCH ×3 (08:14→20:30)
[2017-08-31] MEDS: Sennosides 8.6 MG TABLET PO SCH (08:15)
[2017-08-31] MEDS: Isosorbide MONOnitrate (24 HR) 60 MG TAB.ER.24H PO SCH (08:15)
[2017-08-31] MEDS: Furosemide 40 MG/4 ML VIAL IVP SCH ×2 (08:16→20:28)
[2017-08-31] MEDS: Ranolazine 500 MG TAB.ER.12H PO SCH ×2 (08:16→20:30)
[2017-08-31] MEDS: *HR* LORazepam 0.5 MG TABLET PO SCH ×2 (08:16→20:30)
[2017-08-31] MEDS: Metoprolol XL (24 HR) Succ 50 MG TAB.ER.24H PO SCH ×2 (08:16→20:30)
[2017-08-31] MEDS: (Ensure Plus] 1 BOTTLE) PO SCH ×3 (08:33→20:30)
--- NOTE | 2017-08-31 08:33 | Internal Med Progress Note ---
Date of Encounter: 08/31/17 Time of Encounter: 08:00 - Assessment and plan (1) CHF exacerbation Current Visit: Yes Status: Acute Assessment and plan: Hx of systolic heart failure chronically with EF of 45% Does not need oxygen supplementation Continue IV diuresis and monitoring of fluid status with I/Os and weights. Qualifiers: Congestive heart failure type: systolic Qualified Code(s): I50.23 - Acute on chronic systolic (congestive) heart failure (2) Acute metabolic encephalopathy Current Visit: Yes Status: Acute Assessment and plan: MRI negative for acute CVA Most likely related to UTI and exac CHF Will continue supportive care with IV abx and diuresis for now. (3) UTI (urinary tract infection) Current Visit: Yes Status: Acute Assessment and plan: Currently on IV abx. Clinically stable at this time. Qualifiers: Urinary tract infection type: acute cystitis Hematuria presence: without hematuria Qualified Code(s): N30.00 - Acute cystitis without hematuria (4) CAD (coronary artery disease) of artery bypass graft Current Visit: No Status: Chronic Assessment and plan: Chronic issue. Qualifiers: [place] vs. transplanted heart: [place] heart Associated angina: without angina Qualified Code(s): I25.810 - Atherosclerosis of coronary artery bypass graft(s) without angina pectoris (5) Diabetes mellitus Current Visit: No Status: Chronic Assessment and plan: Continue to monitor blood sugars and cover as needed. Qualifiers: Diabetes mellitus type: type 2 Diabetes mellitus complication status: without complication Diabetes mellitus joint terminal attack controller insulin use: without fci use Qualified Code(s): E11.9 - Type 2 diabetes mellitus without complications (6) Afib Current Visit: No Status: Chronic Assessment and plan: Chronic issue Qualifiers: Atrial fibrillation type: chronic Qualified Code(s): I48.2 - Chronic atrial fibrillation (7) Hypertension Current Visit: No Status: Chronic Assessment and plan: Controlled at this time. Qualifiers: Hypertension type: essential hypertension Qualified Code(s): I10 - Essential (primary) hypertension (8) Parkinson disease Current Visit: No Status: Chronic Assessment and plan: Chronic issue - Subjective Interval history: Mr Villarreal is currently admitted for acute encephalopathy and UTI. He remains moderate to high risk due to potential for worsening clinical status. He is on Mr Villarreal just awoke. He is still quite confused and is not sure where he is at this time. No fever noted. He is on abx for UTI. His breathing seems OK at this time. He is being diuresed with IV Lasix. - Constitutional Vitals: Temp Pulse Resp BP Pulse Ox 98.1 F 84 15 123/79 96 08/31/17 06:40 08/31/17 06:40 08/31/17 06:40 08/31/17 06:40 08/31/17 06:40 General appearance: Present: A&O X 1, pleasant, no acute distress, answers questions appropriately - Head Head exam: Present: normocephalic - Eye Eye exam: Present: EOMI, conjuntiva pink - ENT ENT exam: Present: mucous membranes dry - Respiratory Respiratory exam: Present: decreased breath sounds, rales - Cardiovascular Cardiovascular exam: Present: RRR. Absent: tachycardia - GI/Abdominal GI/Abdominal exam: Present: soft. Absent: tenderness - Extremities Exam Extremities exam: Present: pedal edema, warm. Absent: tenderness - Neurological Exam Neurological exam: Present: alert, no focal deficits - Skin Skin exam: Present: warm. Absent: rash Internal Medicine: Result - Labs CBC & Chem 7: 08/31/17 04:50 08/31/17 04:50 Labs: Short CBC 08/31/17 Range/Units 04:50 WBC 7.8 (4.3-11.1) K/mcL Hgb 10.0 L (12.9-16.9) g/dL Hct 33.6 L (37.5-50.1) % Plt Count 254 (140-400) K/mcL Neutrophils # 5.5 (1.6-8.9) K/mcL BMP 08/31/17 04:50 Sodium 144 Potassium 3.7 Chloride 110 H Carbon Dioxide 29 BUN 18 Creatinine 0.92 Glucose 101 Calcium 8.6 - ABG Interpretation ABG results: PT/INR, D-dimer PT 15.8 Seconds (9.4-12.1) H 08/30/17 15:46 Consult Discharge Plan - Plan Referrals: Eileen Howard, SUPERVISOR IN [employer] TESTING [Primary Care Provider] -
[2017-08-31] MEDS ORDERED: cefTRIAXone 1,000 MG in Water for inj. (sterile) 10 ML IVP SCH (19:00)
[2017-09-01] MEDS: *HR* Heparin 5,000 UNIT/ML VIAL SQ SCH ×2 (05:30→16:55)
[2017-09-01 06:46] LABS: BUN/Creatinine Ratio 20 (6-26); Blood Urea Nitrogen 18 mg/dL (8-23); Carbon Dioxide 29 mEq/L (23-29); Chloride 103 mEq/L (98-107); Glucose 116 mg/dL (70-105); Potassium 3.3 mEq/L (3.5-5.1); Sodium 141 mEq/L (136-145); eGFR For African Americans > 60 (> 60); eGFR For Non-African Americans > 60 (> 60)
[2017-09-01 06:47] LABS: Calcium 8.6 mg/dL (8.6-10.3); Magnesium 1.8 mg/dL (1.6-2.6); Osmolality,Calculated 295 (280-300)
[2017-09-01 06:58] LABS: Hematocrit 34.8 % (37.5-50.1); Hemoglobin 10.5 g/dL (12.9-16.9); Mean Corpuscular HGB Conc 30.2 g/dL (31.6-35.5); Mean Corpuscular Hemoglobin 30.2 pg (28.0-33.3); Mean Platelet Volume 10.6 fL (9.4-12.4); Platelet Count 262 K/mcL (140-400); Red Blood Count 3.48 M/mcL (4.19-5.50); Red Cell Distribution Width 18.6 % (11.5-14.5)
[2017-09-01] MEDS: Insulin LISPRO 300 UNITS/3 ML VIAL SQ SCH ×4 (07:31→21:20)
[2017-09-01] MEDS: Furosemide 40 MG/4 ML VIAL IVP SCH ×2 (08:44→21:16)
[2017-09-01] MEDS: Sennosides 8.6 MG TABLET PO SCH (08:46)
[2017-09-01] MEDS: Aspirin Enteric Coated 81 MG Tablet PO SCH (08:47)
[2017-09-01] MEDS: Carbidopa/Levodopa 25/100 TABLET PO SCH ×2 (08:47→15:02)
[2017-09-01] MEDS: Ranolazine 500 MG TAB.ER.12H PO SCH ×2 (08:48→21:19)
[2017-09-01] MEDS: Isosorbide MONOnitrate (24 HR) 60 MG TAB.ER.24H PO SCH (08:48)
[2017-09-01] MEDS: Metoprolol XL (24 HR) Succ 50 MG TAB.ER.24H PO SCH ×2 (08:48→21:20)
[2017-09-01] MEDS: Sucralfate 1 GM TABLET PO SCH ×3 (08:49→21:19)
[2017-09-01] MEDS: *HR* LORazepam 0.5 MG TABLET PO SCH ×2 (08:49→21:19)
[2017-09-01] MEDS ORDERED: Vancomycin 1,250 MG in D5% in Water 250 ML IVPB SCH (12:00)
[2017-09-01] MEDS: (Ensure Plus] 1 BOTTLE) PO SCH ×3 (13:04→21:24)
[2017-09-01] MEDS: Ampicillin/Sulbactam 1,500 MG in 0.9 % Sodium Chloride Mini Bag 100 ML IVPB SCH ×2 (13:20→18:10)
--- NOTE | 2017-09-01 14:28 | Internal Med Progress Note ---
Date of Encounter: 09/01/17 Time of Encounter: 08:00 - Assessment and plan (1) UTI (urinary tract infection) Current Visit: Yes Status: Acute Assessment and plan: Culture with enterococcus - sensitivities pending. Abx changed to Unasyn and Vanc pending results of sensitivities. Qualifiers: Urinary tract infection type: acute cystitis Hematuria presence: without hematuria Qualified Code(s): N30.00 - Acute cystitis without hematuria (2) CHF exacerbation Current Visit: Yes Status: Acute Assessment and plan: Currently has been slowly improving. Weaning oxygen as able Continue diuresis and change to PO when able as well. Qualifiers: Congestive heart failure type: systolic Qualified Code(s): I50.23 - Acute on chronic systolic (congestive) heart failure (3) Acute metabolic encephalopathy Current Visit: Yes Status: Acute Assessment and plan: Seems to be a little better today. Continue treatment of UTI and CHF Continue supportive care. (4) CAD (coronary artery disease) of artery bypass graft Current Visit: No Status: Chronic Assessment and plan: Chronic issue. Qualifiers: [place] vs. transplanted heart: [place] heart Associated angina: without angina Qualified Code(s): I25.810 - Atherosclerosis of coronary artery bypass graft(s) without angina pectoris (5) Diabetes mellitus Current Visit: No Status: Chronic Assessment and plan: Continue to monitor blood sugars and cover as needed. Blood sugar fairly controlled at this time. Qualifiers: Diabetes mellitus type: type 2 Diabetes mellitus complication status: without complication Diabetes mellitus mcc insulin use: without termite control servicer use Qualified Code(s): E11.9 - Type 2 diabetes mellitus without complications (6) Afib Current Visit: No Status: Chronic Assessment and plan: Chronic issue Qualifiers: Atrial fibrillation type: chronic Qualified Code(s): I48.2 - Chronic atrial fibrillation (7) Hypertension Current Visit: No Status: Chronic Assessment and plan: Controlled at this time. Qualifiers: Hypertension type: essential hypertension Qualified Code(s): I10 - Essential (primary) hypertension (8) Parkinson disease Current Visit: No Status: Chronic Assessment and plan: Chronic issue (9) Hypokalemia Current Visit: Yes Status: Acute Assessment and plan: Replace today. - Subjective Interval history: Mr Villarreal is currently admitted for acute encephalopathy and UTI. He remains moderate to high risk due to potential for worsening clinical status. Mr Villarreal seems somewhat clearer today. He is answering questions more appropriately. No fever. Daughters at bedside and feel he is doing somewhat better. Urine cx with Enterococcus - sensitivities pending. Hip xray was OK - no dislocation. Pain is controlled at this time. - Constitutional Vitals: Temp Pulse Resp BP Pulse Ox 98.0 F 70 15 119/83 93 09/01/17 06:34 09/01/17 06:34 09/01/17 06:34 09/01/17 06:34 09/01/17 07:44 General appearance: Present: A&O X 1, pleasant, answers questions appropriately - Head Head exam: Present: atraumatic, normocephalic - Eye Eye exam: Present: EOMI, conjuntiva pink - ENT ENT exam: Present: mucous membranes dry - Respiratory Respiratory exam: Present: decreased breath sounds, CTAB. Absent: rales, rhonchi, wheezes - Cardiovascular Cardiovascular exam: Present: irregular rhythm. Absent: tachycardia - GI/Abdominal GI/Abdominal exam: Present: soft. Absent: tenderness - Extremities Exam Extremities exam: Present: warm. Absent: tenderness - Neurological Exam Neurological exam: Present: alert, no focal deficits - Skin Skin exam: Present: dry, warm. Absent: rash Internal Medicine: Result - Labs CBC & Chem 7: 09/01/17 06:15 09/01/17 06:15 Labs: Short CBC 09/01/17 Range/Units 06:15 WBC 6.4 (4.3-11.1) K/mcL Hgb 10.5 L (12.9-16.9) g/dL Hct 34.8 L (37.5-50.1) % Plt Count 262 (140-400) K/mcL [facility] 09/01/17 06:15 Sodium 141 Potassium 3.3 L Chloride 103 Carbon Dioxide 29 BUN 18 Creatinine 0.90 Glucose 116 H Calcium 8.6 - ABG Interpretation ABG results: PT/INR, D-dimer PT 15.8 Seconds (9.4-12.1) H 08/30/17 15:46 - Impressions Impressions Pelvis X-Ray 08/31/17 17:01 IMPRESSION: No acute osseous abnormality in the pelvis. Osteopenia. Status post right hip arthroplasty. No evidence of dislocation. D/ / Shefali Villarreal MD / Shefali Villarreal MD Interpreting Provider: Shefali Villarreal MD Echocardiogram 08/31/17 23:01 Impressions: LVEF 50%. Indeterminate diastolic function. Normal right ventricular structure and function. Moderate aortic stenosis. Moderate mitral regurgitation. Mild tricuspid regurgitation. Interatrial septum not well evaluated. Suboptimal image quality to detect PFO with saline contrast injection. No pulmonary hypertension. Left Ventricular Wall Motion: Rest Echo Findings The apical septal wall was hypokinetic. The mid inferior septal and basal inferior septal welch were akinetic. The mid anterior septal and basal anterior septal welch were dyskinetic. All other wall segments showed normal motion. Findings: Study Quality * Technically adequate exam. ECG Findings * Atrial fibrillation. Left Ventricle * LVEF 50%. * Indeterminate diastolic function. * Normal LV size and wall thickness. Right Ventricle * Normal right ventricular structure and function. Left Atrium * Severely dilated left atrium. Right Atrium * Mildly dilated right atrium. Aortic Valve * No aortic regurgitation. * Aortic valve not well visualized. * Moderate aortic stenosis. MELI 1.2cm2 Mitral Valve * No mitral stenosis. * Mildly calcified mitral valve leaflets. * Moderate mitral regurgitation. Tricuspid Valve * Tricuspid valve not well visualized. * Mild tricuspid regurgitation. Pulmonic Valve * Pulmonic valve is not well visualized. * No pulmonic stenosis. * Trace pulmonic regurgitation. Pulmonary Artery * Pulmonary artery not well visualized. Aorta * Normally sized aortic root. Pericardium * There is no pericardial effusion present. Interatrial Septum * Interatrial septum not well evaluated. Suboptimal image quality to detect PFO with saline contrast injection. IVC * The IVC is not well evaluated. Consult Discharge Plan - Plan Referrals: Eileen Howard, CABLE TECHNICIAN [Primary Care Provider] -
[2017-09-02] MEDS: Carbidopa/Levodopa 25/100 TABLET PO SCH ×3 (00:09→15:44)
[2017-09-02] MEDS: Ampicillin/Sulbactam 1,500 MG in 0.9 % Sodium Chloride Mini Bag 100 ML IVPB SCH ×2 (00:09→04:59)
[2017-09-02] MEDS ORDERED: *HR* LORazepam 2 MG/ML VIAL IVP ONE ×2 (04:35→06:00)
[2017-09-02 04:40] LABS: Hematocrit 35.8 % (37.5-50.1); Hemoglobin 11.2 g/dL (12.9-16.9); Mean Corpuscular HGB Conc 31.3 g/dL (31.6-35.5); Mean Corpuscular Hemoglobin 30.5 pg (28.0-33.3); Mean Corpuscular Volume 97.5 fL (83.0-100.0); Mean Platelet Volume 10.6 fL (9.4-12.4); Platelet Count 250 K/mcL (140-400); Red Blood Count 3.67 M/mcL (4.19-5.50); Red Cell Distribution Width 18.6 % (11.5-14.5)
[2017-09-02] MEDS: *HR* Heparin 5,000 UNIT/ML VIAL SQ SCH ×2 (04:59→18:34)
[2017-09-02 05:04] LABS: BUN/Creatinine Ratio 21 (6-26); Blood Urea Nitrogen 24 mg/dL (8-23); Calcium 8.7 mg/dL (8.6-10.3); Carbon Dioxide 29 mEq/L (23-29); Chloride 100 mEq/L (98-107); Glucose 117 mg/dL (70-105); Osmolality,Calculated 291 (280-300); Potassium 3.6 mEq/L (3.5-5.1); Sodium 138 mEq/L (136-145); eGFR For African Americans > 60 (> 60); eGFR For Non-African Americans > 60 (> 60)
[2017-09-02] MEDS ORDERED: Aminoglycoside Consult 1 EACH MC ONE (07:28)
[2017-09-02] MEDS: Insulin LISPRO 300 UNITS/3 ML VIAL SQ SCH ×4 (07:41→21:49)
[2017-09-02] MEDS: Sennosides 8.6 MG TABLET PO SCH (08:40)
[2017-09-02] MEDS: *HR* LORazepam 0.5 MG TABLET PO SCH ×2 (08:41→21:32)
[2017-09-02] MEDS: Aspirin Enteric Coated 81 MG Tablet PO SCH (08:41)
[2017-09-02] MEDS: Sucralfate 1 GM TABLET PO SCH ×3 (08:41→21:23)
[2017-09-02] MEDS: Isosorbide MONOnitrate (24 HR) 60 MG TAB.ER.24H PO SCH (08:41)
[2017-09-02] MEDS: Ranolazine 500 MG TAB.ER.12H PO SCH ×2 (08:42→21:31)
[2017-09-02] MEDS: Furosemide 40 MG/4 ML VIAL IVP SCH ×2 (08:42→17:59)
[2017-09-02] MEDS: Metoprolol XL (24 HR) Succ 50 MG TAB.ER.24H PO SCH ×2 (08:42→21:36)
[2017-09-02] MEDS: (Ensure Plus] 1 BOTTLE) PO SCH (08:58)
[2017-09-02] MEDS: Ampicillin 2 GM in 0.9 % Sodium Chloride Mini Bag 100 ML IVPB SCH ×3 (12:36→21:56)
[2017-09-02] MEDS ORDERED: traZODone 50 MG TABLET PO PRN (15:37)
--- NOTE | 2017-09-02 15:42 | Internal Med Progress Note ---
<Baldev Singh - Last Filed: 09/02/17 15:37> Date of Encounter: 09/02/17 Time of Encounter: 15:39 - Assessment and plan (1) Acute metabolic encephalopathy Current Visit: Yes Status: Acute Assessment and plan: Continues to be confused and does not answer questions appropriately. MRI negative for acute CVA. Most likely multifactorial 2/2 UTI and exacerbation of CHF. - continue supportive care w/ IV abx and diuresis - agitation at night will give trazodone, if fails consider haldol or seroquel (2) UTI (urinary tract infection) Current Visit: Yes Status: Acute Assessment and plan: Culture with enterococcus, resistent ot doxycycline only - deescalated abx to ampicillin - strict I/O - will closely monitor clinical status Qualifiers: Urinary tract infection type: acute cystitis Hematuria presence: without hematuria Qualified Code(s): N30.00 - Acute cystitis without hematuria (3) CHF exacerbation Current Visit: Yes Status: Acute Assessment and plan: Patient remains altered. - Wean oxygen as able - Continue diuresis and change to PO when able as well. Qualifiers: Congestive heart failure type: systolic Qualified Code(s): I50.23 - Acute on chronic systolic (congestive) heart failure (4) CAD (coronary artery disease) of artery bypass graft Current Visit: No Status: Chronic Assessment and plan: Chronic issue. Qualifiers: [place] vs. transplanted heart: [place] heart Associated angina: without angina Qualified Code(s): I25.810 - Atherosclerosis of coronary artery bypass graft(s) without angina pectoris (5) Parkinson disease Current Visit: No Status: Chronic Assessment and plan: Chronic issue (6) Hypertension Current Visit: No Status: Chronic Assessment and plan: Controlled at this time. Qualifiers: Hypertension type: essential hypertension Qualified Code(s): I10 - Essential (primary) hypertension (7) Afib Current Visit: No Status: Chronic Assessment and plan: Chronic issue Qualifiers: Atrial fibrillation type: chronic Qualified Code(s): I48.2 - Chronic atrial fibrillation (8) Diabetes mellitus Current Visit: No Status: Chronic Assessment and plan: Continue to monitor blood sugars and cover as needed. Blood sugar fairly controlled at this time. 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 Patient remains confused, and mumbled when seen. He was able to report that he was at "[facility]" and where and when he was born, these questions were not asked and patient responded with this information when asked "how are you doing". Hx unattainable due to current mental state. - Constitutional Vitals: Temp Pulse Resp BP Pulse Ox 98.1 F 70 19 107/64 86 09/01/17 19:00 09/02/17 11:09 09/02/17 11:09 09/02/17 11:09 09/02/17 11:09 General appearance: Present: A&O X 1, disheveled, pleasant - Head Head exam: Present: atraumatic, normocephalic - Respiratory Respiratory exam: Present: CTAB. Absent: accessory muscle use, rales, rhonchi, wheezes - Cardiovascular Cardiovascular exam: Present: RRR, +S1, +S2. Absent: diastolic murmur, gallop, rubs, systolic murmur - GI/Abdominal GI/Abdominal exam: Present: normal bowel sounds, soft, no peritoneal signs. Absent: distended, tenderness - Expanded GI/Abdominal Exam GI/Abdominal exam expanded: Absent: ascites, heel tap sign, Olsen's sign, obturator sign, psoas sign, Rovsing's sign, tenderness at McBurney's Point - Psychiatric Psychiatric exam: Present: agitated. Absent: anxious, depressed Additional comments: patient was confused, and disoriented during exam Internal Medicine: Result - Labs CBC & Chem 7: 09/02/17 03:36 09/02/17 03:36 Labs: Short CBC 09/02/17 Range/Units 03:36 WBC 7.0 (4.3-11.1) K/mcL Hgb 11.2 L (12.9-16.9) g/dL Hct 35.8 L (37.5-50.1) % Plt Count 250 (140-400) K/mcL BMP 09/02/17 03:36 Sodium 138 Potassium 3.6 Chloride 100 Carbon Dioxide 29 BUN 24 H Creatinine 1.13 Glucose 117 H Calcium 8.7 - ABG Interpretation ABG results: PT/INR, D-dimer PT 15.8 Seconds (9.4-12.1) H 08/30/17 15:46 Consult Discharge Plan - Plan Referrals: Eileen Howard CNP [Primary Care Provider] - <Martir Paul - Last Filed: 09/02/17 17:54> Date of Encounter: 09/02/17 - Assessment and plan (1) UTI (urinary tract infection) Current Visit: Yes Status: Acute Qualifiers: Urinary tract infection type: acute cystitis Hematuria presence: without hematuria Qualified Code(s): N30.00 - Acute cystitis without hematuria (2) Enterococcal infection Current Visit: Yes Status: Acute Assessment and plan: UTI (3) CHF exacerbation Current Visit: Yes Status: Acute Qualifiers: Congestive heart failure type: systolic Qualified Code(s): I50.23 - Acute on chronic systolic (congestive) heart failure (4) Acute metabolic encephalopathy Current Visit: Yes Status: Acute (5) CAD (coronary artery disease) of artery bypass graft Current Visit: No Status: Chronic Qualifiers: [place] vs. transplanted heart: [place] heart Associated angina: without angina Qualified Code(s): I25.810 - Atherosclerosis of coronary artery bypass graft(s) without angina pectoris (6) Diabetes mellitus Current Visit: No Status: Chronic Qualifiers: Diabetes mellitus type: type 2 Diabetes mellitus complication status: without complication Diabetes mellitus prison insulin use: without laborer marine terminal use Qualified Code(s): E11.9 - Type 2 diabetes mellitus without complications (7) Afib Current Visit: No Status: Chronic Qualifiers: Atrial fibrillation type: chronic Qualified Code(s): I48.2 - Chronic atrial fibrillation (8) Hypertension Current Visit: No Status: Chronic Qualifiers: Hypertension type: essential hypertension Qualified Code(s): I10 - Essential (primary) hypertension (9) Parkinson disease Current Visit: No Status: Chronic (10) Hypokalemia Current Visit: Yes Status: Resolved - Constitutional Vitals: Temp Pulse Resp BP Pulse Ox 98.1 F 70 19 107/64 86 09/01/17 19:00 09/02/17 11:09 09/02/17 11:09 09/02/17 11:09 09/02/17 11:09 Internal Medicine: Result - Labs CBC & Chem 7: 09/02/17 03:36 09/02/17 03:36 Labs: Short CBC 09/02/17 Range/Units 03:36 WBC 7.0 (4.3-11.1) K/mcL Hgb 11.2 L (12.9-16.9) g/dL Hct 35.8 L (37.5-50.1) % Plt Count 250 (140-400) K/mcL BMP 09/02/17 03:36 Sodium 138 Potassium 3.6 Chloride 100 Carbon Dioxide 29 BUN 24 H Creatinine 1.13 Glucose 117 H Calcium 8.7 - ABG Interpretation ABG results: PT/INR, D-dimer PT 15.8 Seconds (9.4-12.1) H 08/30/17 15:46 - Attending Attestation I examined this patient and my medical decision-making was reviewed with the Resident Physician on 09/02/17. I agree with the documented findings, disposition and treatment plan as described except to the extent set forth below. Mr Villarreal is currently admitted for UTI and acute encephalopathy. He remains moderate to high risk due to potential for worsening clinical status. Mr Villarreal was more agitated last night. He received medication and was sleeping this AM. No fever or chills noted. Appetite fair. Exam Alert. Confused to person, place and time Mucus membranes dry Heart irreg Lungs diminished Abd soft I/P 1. Enterococcal UTI - changed to Ampicillin today 2. Acute encephalopathy - Trazodone added for night. Further diagnoses and plan as above.
[2017-09-03] MEDS: Ampicillin 2 GM in 0.9 % Sodium Chloride Mini Bag 100 ML IVPB SCH ×6 (01:05→21:57)
[2017-09-03] MEDS: Carbidopa/Levodopa 25/100 TABLET PO SCH ×4 (04:56→22:04)
[2017-09-03] MEDS: *HR* Heparin 5,000 UNIT/ML VIAL SQ SCH ×2 (05:06→17:20)
--- NOTE | 2017-09-03 06:50 | Electrocardiograph Report ---
[place] [id number] Test Date: 2017-08-30 Pat Name: Ranjith Villarreal Department: 102 Room: [id number] Gender: M Director Of Radio Services: : 1930 Requested By: Jesse Grace Order Number: [id number] Reading MD: Evan Watkins MD Measurements Intervals Era Rate: 77 P: MT: 0 QRS: 64 QRSD: 105 T: 65 QT: 406 QTc: 438 Interpretive Statements ATRIAL FIBRILLATION Electronically Signed On 09-03-2017 6:48:46 EST by Evan Watkins MD
[2017-09-03 07:40] LABS: BUN/Creatinine Ratio 23 (6-26); Blood Urea Nitrogen 23 mg/dL (8-23); Calcium 8.8 mg/dL (8.6-10.3); Carbon Dioxide 30 mEq/L (23-29); Chloride 100 mEq/L (98-107); Glucose 113 mg/dL (70-105); Osmolality,Calculated 292 (280-300); Potassium 3.5 mEq/L (3.5-5.1); Sodium 139 mEq/L (136-145); eGFR For African Americans > 60 (> 60); eGFR For Non-African Americans > 60 (> 60)
[2017-09-03 08:07] LABS: Hematocrit 37.3 % (37.5-50.1); Hemoglobin 11.6 g/dL (12.9-16.9); Mean Corpuscular HGB Conc 31.1 g/dL (31.6-35.5); Mean Corpuscular Hemoglobin 30.9 pg (28.0-33.3); Mean Corpuscular Volume 99.2 fL (83.0-100.0); Mean Platelet Volume 10.7 fL (9.4-12.4); Platelet Count 227 K/mcL (140-400); Red Blood Count 3.76 M/mcL (4.19-5.50); Red Cell Distribution Width 18.6 % (11.5-14.5)
[2017-09-03] MEDS: Insulin LISPRO 300 UNITS/3 ML VIAL SQ SCH ×4 (08:18→22:02)
[2017-09-03] MEDS: Furosemide 40 MG/4 ML VIAL IVP SCH ×2 (08:19→17:20)
[2017-09-03] MEDS: Oseltamivir Phosphate 30 MG CAPSULE PO SCH (08:28)
[2017-09-03] MEDS: Sennosides 8.6 MG TABLET PO SCH (08:29)
[2017-09-03] MEDS: Ranolazine 500 MG TAB.ER.12H PO SCH ×2 (08:29→22:04)
[2017-09-03] MEDS: Aspirin Enteric Coated 81 MG Tablet PO SCH (08:30)
[2017-09-03] MEDS: *HR* LORazepam 0.5 MG TABLET PO SCH (08:30)
[2017-09-03] MEDS: Sucralfate 1 GM TABLET PO SCH ×3 (08:30→22:04)
[2017-09-03] MEDS: Metoprolol XL (24 HR) Succ 50 MG TAB.ER.24H PO SCH ×2 (08:30→22:01)
[2017-09-03] MEDS: Isosorbide MONOnitrate (24 HR) 60 MG TAB.ER.24H PO SCH (08:30)
--- NOTE | 2017-09-03 17:22 | Internal Med Progress Note ---
<Baldev Singh - Last Filed: 09/03/17 17:20> Date of Encounter: 09/03/17 Time of Encounter: 10:00 - Assessment and plan (1) Acute metabolic encephalopathy Current Visit: Yes Status: Acute Assessment and plan: MRI negative for acute CVA. Most likely multifactorial 2/2 UTI and exacerbation of CHF. Today patient is A+O x3, mentation has returned back to baseline. - patient will continue to be monitored tonight, if no events overnight expect D /C tomorrow - continue supportive care w/ IV abx and diuresis - trazodone appears effective, continue trazodone and consider prescribing at discharge (2) UTI (urinary tract infection) Current Visit: Yes Status: Acute Assessment and plan: Culture with enterococcus, resistent to doxycycline only - continue ampicillin day 2 - strict I/O - will closely monitor clinical status Qualifiers: Urinary tract infection type: acute cystitis Hematuria presence: without hematuria Qualified Code(s): N30.00 - Acute cystitis without hematuria (3) CHF exacerbation Current Visit: Yes Status: Acute Assessment and plan: patient is currently euvolemic. and not showing symptoms of chf - keep cath for now - Wean oxygen as able - Continue diuresis and change to PO when able as well. Qualifiers: Congestive heart failure type: systolic Qualified Code(s): I50.23 - Acute on chronic systolic (congestive) heart failure (4) CAD (coronary artery disease) of artery bypass graft Current Visit: No Status: Chronic Assessment and plan: Chronic issue. Qualifiers: [place] vs. transplanted heart: [place] heart Associated angina: without angina Qualified Code(s): I25.810 - Atherosclerosis of coronary artery bypass graft(s) without angina pectoris (5) Parkinson disease Current Visit: No Status: Chronic Assessment and plan: Chronic issue (6) Hypertension Current Visit: No Status: Chronic Assessment and plan: Controlled at this time. Qualifiers: Hypertension type: essential hypertension Qualified Code(s): I10 - Essential (primary) hypertension (7) Afib Current Visit: No Status: Chronic Assessment and plan: Chronic issue Qualifiers: Atrial fibrillation type: chronic Qualified Code(s): I48.2 - Chronic atrial fibrillation (8) Diabetes mellitus Current Visit: No Status: Chronic Assessment and plan: Continue to monitor blood sugars and cover as needed. Blood sugar fairly controlled at this time. Qualifiers: Diabetes mellitus type: type 2 Diabetes mellitus complication status: without complication Diabetes mellitus watermelon harvesting supervisor insulin use: without watermelon harvesting supervisor use Qualified Code(s): E11.9 - Type 2 diabetes mellitus without complications - Subjective Interval history: Mr Villarreal is an 87 yo M who is currently admitted for acute encephalopathy and UTI. Patient is coherent and appropriately answering questions today. Patient states he remembers me and feels a lot better today. He reports he slept really well last night, and remains tired. Patient denies feeling confused, fever or chills, n/v, SOB, chest pain, orthopnea, PND. - Constitutional Vitals: Temp Pulse Resp BP Pulse Ox 97.8 F 77 18 106/61 92 09/03/17 16:43 09/03/17 16:43 09/03/17 16:43 09/03/17 16:43 09/03/17 16:43 General appearance: Present: disheveled, A&O X 3, pleasant, no acute distress, answers questions appropriately - Head Head exam: Present: atraumatic, normocephalic - Respiratory Respiratory exam: Present: CTAB. Absent: accessory muscle use, rales, rhonchi, wheezes - Cardiovascular Cardiovascular exam: Present: RRR, +S1, +S2. Absent: diastolic murmur, gallop, rubs, systolic murmur - GI/Abdominal GI/Abdominal exam: Present: normal bowel sounds, soft, no peritoneal signs. Absent: distended, tenderness - Psychiatric Psychiatric exam: Present: normal affect, normal mood Internal Medicine: Result - Labs CBC & Chem 7: 09/03/17 06:52 09/03/17 06:52 Labs: Short CBC 09/03/17 Range/Units 06:52 WBC 5.6 (4.3-11.1) K/mcL Hgb 11.6 L (12.9-16.9) g/dL Hct 37.3 L (37.5-50.1) % Plt Count 227 (140-400) K/mcL BMP 09/03/17 06:52 Sodium 139 Potassium 3.5 Chloride 100 Carbon Dioxide 30 H BUN 23 Creatinine 1.00 Glucose 113 H Calcium 8.8 - ABG Interpretation ABG results: PT/INR, D-dimer PT 15.8 Seconds (9.4-12.1) H 08/30/17 15:46 Consult Discharge Plan - Plan Referrals: Eileen Howard, [place] [Primary Care Provider] - <Martir Paul - Last Filed: 09/03/17 18:18> Date of Encounter: 09/03/17 - Assessment and plan (1) UTI (urinary tract infection) Current Visit: Yes Status: Acute Qualifiers: Urinary tract infection type: acute cystitis Hematuria presence: without hematuria Qualified Code(s): N30.00 - Acute cystitis without hematuria (2) Enterococcal infection Current Visit: Yes Status: Acute (3) CHF exacerbation Current Visit: Yes Status: Acute Qualifiers: Congestive heart failure type: systolic Qualified Code(s): I50.23 - Acute on chronic systolic (congestive) heart failure (4) Acute metabolic encephalopathy Current Visit: Yes Status: Acute (5) CAD (coronary artery disease) of artery bypass graft Current Visit: No Status: Chronic Qualifiers: [place] vs. transplanted heart: [place] heart Associated angina: without angina Qualified Code(s): I25.810 - Atherosclerosis of coronary artery bypass graft(s) without angina pectoris (6) Diabetes mellitus Current Visit: No Status: Chronic Qualifiers: Diabetes mellitus type: type 2 Diabetes mellitus complication status: without complication Diabetes mellitus snf insulin use: without snf use Qualified Code(s): E11.9 - Type 2 diabetes mellitus without complications (7) Afib Current Visit: No Status: Chronic Qualifiers: Atrial fibrillation type: chronic Qualified Code(s): I48.2 - Chronic atrial fibrillation (8) Hypertension Current Visit: No Status: Chronic Qualifiers: Hypertension type: essential hypertension Qualified Code(s): I10 - Essential (primary) hypertension (9) Parkinson disease Current Visit: No Status: Chronic (10) Hypokalemia Current Visit: Yes Status: Resolved - Constitutional Vitals: Temp Pulse Resp BP Pulse Ox 97.8 F 77 18 106/61 92 09/03/17 16:43 09/03/17 16:43 09/03/17 16:43 09/03/17 16:43 09/03/17 16:43 Internal Medicine: Result - Labs CBC & Chem 7: 09/03/17 06:52 09/03/17 06:52 Labs: Short CBC 09/03/17 Range/Units 06:52 WBC 5.6 (4.3-11.1) K/mcL Hgb 11.6 L (12.9-16.9) g/dL Hct 37.3 L (37.5-50.1) % Plt Count 227 (140-400) K/mcL [facility] 09/03/17 06:52 Sodium 139 Potassium 3.5 Chloride 100 Carbon Dioxide 30 H BUN 23 Creatinine 1.00 Glucose 113 H Calcium 8.8 - ABG Interpretation ABG results: PT/INR, D-dimer PT 15.8 Seconds (9.4-12.1) H 08/30/17 15:46 - Attending Attestation I examined this patient and my medical decision-making was reviewed with the Resident Physician on 09/03/17. I agree with the documented findings, disposition and treatment plan as described except to the extent set forth below. Mr Villarreal is currently admitted with acute encephalopathy and enterococcal UTI. He remains moderate to high risk due to potential for worsening clinical status. Mr Villarreal is intermittently confused today. Denies pain. No fever. Breathing OK at this time. Exam Alert. Comfortable Mucus membranes dry Heart distant No wheeze Abd soft I/P 1. Enterococcal UTI 2. Encephalopathy Further diagnoses and plan as above Anticipate return to SNF tomorrow. Spoke with daughter at bedside. Will d/c Ativan and iron. He has hallucinations at night so will try low dose Seroquel instead of Trazadone.
[2017-09-04] MEDS: Ampicillin 2 GM in 0.9 % Sodium Chloride Mini Bag 100 ML IVPB SCH ×4 (02:43→17:03)
[2017-09-04] MEDS: *HR* Heparin 5,000 UNIT/ML VIAL SQ SCH (06:31)
[2017-09-04] MEDS: Carbidopa/Levodopa 25/100 TABLET PO SCH ×2 (06:31→16:31)
[2017-09-04] MEDS: Insulin LISPRO 300 UNITS/3 ML VIAL SQ SCH ×3 (08:08→17:03)
[2017-09-04] MEDS: Oseltamivir Phosphate 30 MG CAPSULE PO SCH (08:12)
[2017-09-04] MEDS: Metoprolol XL (24 HR) Succ 50 MG TAB.ER.24H PO SCH (08:13)
[2017-09-04] MEDS: Aspirin Enteric Coated 81 MG Tablet PO SCH (08:13)
[2017-09-04] MEDS: Ranolazine 500 MG TAB.ER.12H PO SCH (08:13)
[2017-09-04] MEDS: Sennosides 8.6 MG TABLET PO SCH (08:13)
[2017-09-04] MEDS: Sucralfate 1 GM TABLET PO SCH ×2 (08:13→16:32)
[2017-09-04] MEDS: Furosemide 40 MG/4 ML VIAL IVP SCH ×2 (08:14→16:32)
[2017-09-04] MEDS: Isosorbide MONOnitrate (24 HR) 60 MG TAB.ER.24H PO SCH (08:24)
--- NOTE | 2017-09-04 09:41 | Discharge Summary ---
<Baldev Singh - Last Filed: 09/04/17 10:06> Date of Encounter: 09/04/17 Time of Encounter: 09:34 - Discharge Diagnosis (1) Acute metabolic encephalopathy Priority: Primary Status: Acute (2) UTI (urinary tract infection) Priority: Secondary Status: Acute Qualifiers: Urinary tract infection type: acute cystitis Hematuria presence: without hematuria Qualified Code(s): N30.00 - Acute cystitis without hematuria (3) CHF exacerbation Priority: Secondary Status: Acute Qualifiers: Congestive heart failure type: systolic Qualified Code(s): I50.23 - Acute on chronic systolic (congestive) heart failure (4) CAD (coronary artery disease) of artery bypass graft Priority: Secondary Status: Chronic Qualifiers: [place] vs. transplanted heart: [place] heart Associated angina: without angina Qualified Code(s): I25.810 - Atherosclerosis of coronary artery bypass graft(s) without angina pectoris (5) Parkinson disease Priority: Secondary Status: Chronic (6) Hypertension Priority: Secondary Status: Chronic Qualifiers: Hypertension type: essential hypertension Qualified Code(s): I10 - Essential (primary) hypertension (7) Afib Priority: Secondary Status: Chronic Qualifiers: Atrial fibrillation type: chronic Qualified Code(s): I48.2 - Chronic atrial fibrillation (8) Diabetes mellitus Priority: Secondary Status: Chronic Qualifiers: Diabetes mellitus type: type 2 Diabetes mellitus complication status: without complication Diabetes mellitus snf insulin use: without snf use Qualified Code(s): E11.9 - Type 2 diabetes mellitus without complications - Discharge Medications Prescriptions: Ampicillin Trihydrate 500 mg PO DAILY 4 Days #4 capsule Quetiapine Fumarate [Seroquel] 25 mg PO HS 30 Days #30 tablet Home Medications: Carbidopa/Levodopa 25/100 [Sinemet 25/100] 1.5 tab PO Q8H 02/08/16 [History] Lisinopril [Zestril] 5 mg PO DAILY 02/08/16 [History] Metformin HCl [Metformin HCl ER] 500 mg PO DAILY 02/08/16 [History] Metoprolol Succinate [Toprol Xl] 50 mg PO BID 02/08/16 [History] Nitroglycerin 0.4 mg PO Q5M PRN 02/08/16 [History] Pravastatin Sodium 10 mg PO HS 02/08/16 [History] DULoxetine [Cymbalta] 20 mg PO DAILY 11/27/17 [History] Isosorbide MONOnitrate [Isosorbide Mononitrate ER] 120 mg PO DAILY 07/08/17 [ History] Lactose-Reduced Food [Ensure Plus] 1 bottle PO TID 07/12/17 [History] Bisacodyl [Dulcolax] 10 mg PO DAILY PRN tablet 07/15/17 [Rx] Docusate [Colace] 100 mg PO BID capsule 07/15/17 [Rx] Ranolazine [Ranexa] 1,000 mg PO BID tab.er.12h 07/15/17 [Rx] Magnesium Hydroxide [Milk of Magnesia] 30 ml PO DAILY PRN 08/02/17 [History] Aspirin Enteric Coated [Aspirin EC] 81 mg PO DAILY #0 08/08/17 [Rx] Acetaminophen [Tylenol] 650 mg PO Q6H 08/30/17 [History] Calcium Carbonate [Calcium] 500 mg PO DAILY 08/30/17 [History] Ferrous Sulfate 324 mg PO BID 08/30/17 [History] LORazepam [Ativan] 0.5 mg PO BID 08/30/17 [History] Oseltamivir [Tamiflu] 75 mg PO DAILY 08/30/17 [History] Pantoprazole Sodium [Protonix] 40 mg PO BID 08/30/17 [History] Sennosides [Senna] 17.2 mg PO DAILY 08/30/17 [History] Sucralfate [Carafate] 1 gm PO TID 08/30/17 [History] Ampicillin Trihydrate 500 mg PO DAILY 4 Days #4 capsule 09/04/17 [Rx] Quetiapine Fumarate [Seroquel] 25 mg PO HS 30 Days #30 tablet 09/04/17 [Rx] Allergies/Adverse Reactions: 3 Allergy/AdvReac Type Severity Reaction Status Date / Time ezetimibe [From Zetia] AdvReac See Verified 08/30/17 16:18 Comments Idgymhl-Tbf-Fxg Reductase AdvReac See Verified 08/30/17 16:18 Inhibitor Comments Date of admission: 08/30/17 23:03 Primary care physician: Eileen Howard CNP Consults: 08/30/17 23:08 Consult to Occupational Therapy [CONS] Stat Comment: Evaluate, develop and implement POC Reason for Consult: weakness Consult to Physical Therapy [CONS] Routine Comment: Evaluate, develop and implement POC Reason for Consult: weakness - Patient Status Disposition: Transfer SNF Condition: Good Functional capacity at discharge: bed bound Overall status at discharge: patient is progressing back to baseline - Discharge Instructions Follow Up With: Eileen Howard CNP [Primary Care Provider] - Additional Instructions: ambulate with assistance - Diet and Activity Activity: increase activity as tolerated Diet: low salt diet Hospital course: Mr. Villarreal is a 87 year old male pmh of systolic CHF, CAD, diabetes, and sent from alf for altered mental status. Symptomatically patient was confused, slurred speech. Patient was admitted to rule out CVA. CT head was taken in ED and no acute processes were found. Patient had an elevated BNP 783 , as well as UTI on UA. His AMS was most likely multifactoral from CHF exacerbation and UTI. Patient was diuresed during hospitalization, and treated with Ampicillin for 3 days. He was originally treated with unasyn and vanc, and deescalated after urine cultures returned positive for enterococcus sensitive to ampicillin. Patient remained confused for 2 days and was agitated throughout the night. He was initiated on Trazodone and mentation improved, and the night before discharge patient was given seroquel and patient in the morning was back to baseline. Further workup included: Ct chest - Small-moderate layering bilateral pleural effusions with associated passive atelectasis. Additional airspace disease may indicate pneumonia. ct abd/pevlis - No acute findings within the abdomen or pelvis. suspected cholelithiasis carotid imaging - LOIS 60-79%, and L 40-59% echo - LVEF 50%, normal wall motiion Patient was treated with 3 days of ampicillin inpatient, and will be sent home with 4 more doses. And he will also be sent with a prescription for seroquel. Time spent discussing smoking cessation with patient: more than 10 minutes - Time Spent with Patient Total time spent providing and/or coordinating discharge services: Greater than 30 minutes - Constitutional Vitals: Temp Pulse Resp BP Pulse Ox 97.7 F 73 16 105/78 94 09/04/17 07:24 09/04/17 07:24 09/04/17 07:24 09/04/17 07:24 09/04/17 07:24 General appearance: Present: disheveled, A&O X 3, pleasant, no acute distress, answers questions appropriately - Head Head exam: Present: atraumatic, normocephalic - Respiratory Respiratory exam: Present: CTAB. Absent: accessory muscle use, rales, rhonchi, wheezes - Cardiovascular Cardiovascular exam: Present: RRR, +S1, +S2. Absent: diastolic murmur, gallop, rubs, systolic murmur - Psychiatric Psychiatric exam: Present: normal affect, normal mood <Martir Paul - Last Filed: 09/04/17 12:52> Date of Encounter: 09/04/17 - Discharge Diagnosis (1) UTI (urinary tract infection) Priority: Primary Status: Acute Qualifiers: Urinary tract infection type: acute cystitis Hematuria presence: without hematuria Qualified Code(s): N30.00 - Acute cystitis without hematuria (2) Enterococcal infection Priority: Secondary Status: Acute (3) CHF exacerbation Status: Resolved Qualifiers: Congestive heart failure type: systolic Qualified Code(s): I50.23 - Acute on chronic systolic (congestive) heart failure (4) Acute metabolic encephalopathy Status: Resolved (5) CAD (coronary artery disease) of artery bypass graft Status: Chronic Qualifiers: [place] vs. transplanted heart: [place] heart Associated angina: without angina Qualified Code(s): I25.810 - Atherosclerosis of coronary artery bypass graft(s) without angina pectoris (6) Diabetes mellitus Status: Chronic Qualifiers: Diabetes mellitus type: type 2 Diabetes mellitus complication status: without complication Diabetes mellitus snf insulin use: without intermediate project manager use Qualified Code(s): E11.9 - Type 2 diabetes mellitus without complications (7) Afib Status: Chronic Qualifiers: Atrial fibrillation type: chronic Qualified Code(s): I48.2 - Chronic atrial fibrillation (8) Hypertension Status: Chronic Qualifiers: Hypertension type: essential hypertension Qualified Code(s): I10 - Essential (primary) hypertension (9) Parkinson disease Status: Chronic (10) Hypokalemia Priority: Secondary Status: Resolved Date of admission: 08/30/17 23:03 Primary care physician: Eileen Howard CNP Consults: 08/30/17 23:08 Consult to Occupational Therapy [CONS] Stat Comment: Evaluate, develop and implement POC Reason for Consult: weakness Consult to Physical Therapy [CONS] Routine Comment: Evaluate, develop and implement POC Reason for Consult: weakness Hospital course: Mr. Villarreal is a 87 year old male - Time Spent with Patient Total time spent providing and/or coordinating discharge services: 38min - Constitutional Vitals: Temp Pulse Resp BP Pulse Ox 97.6 F 65 16 98/66 94 09/04/17 11:09 09/04/17 11:09 09/04/17 11:09 09/04/17 11:09 09/04/17 11:09 - Attending Attestation I examined this patient and my medical decision-making was reviewed with the Resident Physician on 09/04/17. I agree with the documented findings, disposition and treatment plan as described except to the extent set forth below. Mr Villarreal has been admitted due to acute encephalopathy and UTI. He is now afebrile with stable vitals. He slept well last night with Seroquel and did not have hallucinations. He is ready for discharge to SNF Exam Alert. Comfortable Mucus membranes dry Heart not tachy Lungs clear Plan D/C to SNF today Complete Ampicillin Continue Seroquel for nighttime hallucinations from Parkinsons
[2017-09-04 11:11] VITALS: BP 98/66
== END 2017-09-04 17:07 | DRG 291 ==
LOC: 2NENU 14:31 → EMEROO 14:31 → 2NENU 20:00
PROVIDERS: ADMIT Internal Medicine; ATTEND Internal Medicine

== ENCOUNTER 2017-09-06 14:20 | Inpatient (IN) ==
--- NOTE | 2017-09-06 14:18 | Discharge Summary ---
Date of Encounter: 09/16/17 Time of Encounter: 14:54 - Discharge Diagnosis (1) Pain with hip hemiarthroplasty Priority: Primary Status: Acute Qualifiers: Encounter type: subsequent encounter Qualified Code(s): T84.84XD - Pain due to internal orthopedic prosthetic devices, implants and grafts, subsequent encounter; Z96.649 - Presence of unspecified artificial hip joint; Z96.649 - Presence of unspecified artificial hip joint (2) Generalized weakness Priority: Secondary Status: Chronic (3) CAD (coronary artery disease) of artery bypass graft Priority: Secondary Status: Chronic Qualifiers: [place] vs. transplanted heart: [place] heart Associated angina: with unspecified angina Qualified Code(s): I25.709 - Atherosclerosis of coronary artery bypass graft(s), unspecified, with unspecified angina pectoris (4) Parkinson disease Priority: Secondary Status: Chronic (5) Diabetes mellitus type II, non insulin dependent Priority: Secondary Status: Chronic (6) DVT prophylaxis Priority: Secondary Status: Acute (7) Hypertension Priority: Secondary Status: Chronic Qualifiers: Hypertension type: essential hypertension Qualified Code(s): I10 - Essential (primary) hypertension (8) Atrial fibrillation Priority: Secondary Status: Chronic Qualifiers: Atrial fibrillation type: chronic Qualified Code(s): I48.2 - Chronic atrial fibrillation (9) Dementia Priority: Secondary Status: Chronic Qualifiers: Dementia type: Alzheimer's disease Alzheimer's disease onset: unspecified onset Dementia behavioral disturbance: with behavioral disturbance Qualified Code(s): G30.9 - Alzheimer's disease, unspecified; F02.81 - Dementia in other diseases classified elsewhere with behavioral disturbance; F02.81 - Dementia in other diseases classified elsewhere with behavioral disturbance; F02.81 - Dementia in other diseases classified elsewhere with behavioral disturbance (10) AAA (abdominal aortic aneurysm) without rupture Priority: Secondary Status: Chronic (11) CHF (congestive heart failure) Priority: Primary Status: Chronic Qualifiers: Congestive heart failure type: diastolic Congestive heart failure chronicity: chronic Qualified Code(s): I50.32 - Chronic diastolic (congestive ) heart failure (12) JOSE (acute kidney injury) Priority: Primary Status: Acute (13) Acute respiratory failure Priority: Primary Status: Acute Qualifiers: Respiratory failure complication: hypoxia Qualified Code(s): J96.01 - Acute respiratory failure with hypoxia (14) Acute systolic CHF (congestive heart failure) Priority: Primary Status: Acute (15) Cardiac arrest Priority: Primary Status: Acute - Discharge Medications Prescriptions: Aspirin Enteric Coated [Aspirin EC] 325 mg PO BID #20 tablet. OxyCOD[place] Immed Rel [Roxicodone 5 MG] 5 mg PO Q4HR PRN #20 tablet PRN Reason: Pain Home Medications: Carbidopa/Levodopa 25/100 [Sinemet 25/100] 1 tab PO Q8H 02/08/16 [History] Lisinopril [Zestril] 5 mg PO DAILY 02/08/16 [History] Metformin HCl [Metformin HCl ER] 500 mg PO DAILY 02/08/16 [History] Metoprolol Succinate [Toprol Xl] 50 mg PO BID 02/08/16 [History] Nitroglycerin 0.4 mg PO Q5M PRN 02/08/16 [History] DULoxetine [Cymbalta] 20 mg PO DAILY 07/08/17 [History] Isosorbide MONOnitrate [Isosorbide Mononitrate ER] 120 mg PO DAILY 07/08/17 [ History] Bisacodyl [Dulcolax] 10 mg PO DAILY PRN tablet 07/15/17 [Rx] Docusate [Colace] 100 mg PO BID capsule 07/15/17 [Rx] Ranolazine [Ranexa] 1,000 mg PO BID tab.er.12h 07/15/17 [Rx] Magnesium Hydroxide [Milk of Magnesia] 30 ml PO DAILY PRN 08/02/17 [History] Aspirin Enteric Coated [Aspirin EC] 81 mg PO DAILY #0 08/08/17 [Rx] Acetaminophen [Tylenol] 650 mg PO Q6H 08/30/17 [History] Calcium Carbonate [Calcium] 500 mg PO DAILY 08/30/17 [History] Ferrous Sulfate 324 mg PO BID 08/30/17 [History] LORazepam [Ativan] 0.5 mg PO BID PRN 08/30/17 [History] Pantoprazole Sodium [Protonix] 40 mg PO BID 08/30/17 [History] Sennosides [Senna] 17.2 mg PO DAILY 08/30/17 [History] Sucralfate [Carafate] 1 gm PO TIDAC 08/30/17 [History] Quetiapine Fumarate [Seroquel] 25 mg PO HS 30 Days #30 tablet 09/04/17 [Rx] Aspirin Enteric Coated [Aspirin EC] 325 mg PO BID #20 tablet. 09/06/17 [Rx] OxyCODONE Immed Rel [Roxicodone 5 MG] 5 mg PO Q4HR PRN #20 tablet 09/06/17 [Rx] Lactose-Reduced Food [Ensure Liquid] 1 bottle PO TIDAC 09/13/17 [History] Allergies/Adverse Reactions: 3 Allergy/AdvReac Type Severity Reaction Status Date / Time ezetimibe [From Zetia] AdvReac See Verified 09/06/17 15:18 Comments Irbsgll-Gba-Den Reductase AdvReac See Verified 09/06/17 15:18 Inhibitor Comments Primary care physician: Eileen Howard CNP - Patient Status Disposition: Overall status at discharge: other - Discharge Instructions Follow Up With: Anny Currie PAC [Physician Supervisor Sc[employer]] - 09/19/17 2:45 pm (If PT still in hospital at the time of this appointment, we will reschedule appointment.) Damián Guillory MD [Partnered Physician] - 10/09/17 5:15 pm Eduardo Kang DO [Partnered Physician] - 09/19/17 8:15 am (If PT still in hospital at the time of this appointment, we will need to contact office and reschedule appointment.) Rosa Maria Mendiola [Non-Partnered Physician] - (PATIENT IS FROM [facility] NO PCP APPOINTMENT NEEDED) - Hospital Course Hospital course: Mr. Villarreal is a 87 year old male Status post revision total hip replacement last week. Patient developed respiratory distress was intubated for almost a week. Patient was socially extubated and transferred to the regular floor. This morning the patient was noted to be in slight respiratory distress was evaluated by the medical team and there was concern that he aspirated. Patient was transferred to [facility]. Patient subsequently . - Time Spent with Patient Total time spent providing and/or coordinating discharge services:
[2017-09-06] MEDS ORDERED: CeFAZolin Syr 2,000MG/20 ML 2,000 MG/20 ML SYRINGE IVPB ONE (15:02)
[2017-09-06] MEDS ORDERED: Ringers Solution, Lactated 1,000 ML IVC SCH (15:15)
--- NOTE | 2017-09-06 15:17 | History & Physical Report ---
Date of Encounter: 09/06/17 Time of Encounter: 15:17 24 Hour HP Update - Instructions Instructions: If the History and Physical is less than 30 days old and was completed prior to A.M. admission and or procedure and has NOT been updated on calendar day of procedure please complete this update prior to performing procedure. - Update Patient reports changes in Medical Condition: No Changes in examination, assessment, or condition: No Changes in Medication: No Preop tests/diagnostics Reviewed: Yes Surgery Remains Indicated: Yes Consent for Planned Operative Procedure(s) Verified: Yes - Pre-Operative Checklist Preoperative Checklist Indicated: No Prophylactic Antibiotic Ordered: Yes Is VTE Prophylaxis Indicated?: Yes
--- NOTE | 2017-09-06 15:35 | Anesthesia Evaluation PreOp ---
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: Other (Parkinson's dementia) Other Medical History: Diabetes Type II Anesthesia History: No Prior Anesthetic Complications, Past Anesthesia (endo- AAA repair) Alcohol Use: none Drug use: none Medications and Allergies Carbidopa/Levodopa 25/100 [Sinemet 25/100] 1.5 tab PO Q8H 02/08/16 [History] Lisinopril [Zestril] 5 mg PO DAILY 02/08/16 [History] Metformin HCl [Metformin HCl ER] 500 mg PO DAILY 02/08/16 [History] Metoprolol Succinate [Toprol Xl] 50 mg PO BID 02/08/16 [History] Nitroglycerin 0.4 mg PO Q5M PRN 02/08/16 [History] Pravastatin Sodium 10 mg PO HS 02/08/16 [History] DULoxetine [Cymbalta] 20 mg PO DAILY 07/08/17 [History] Isosorbide MONOnitrate [Isosorbide Mononitrate ER] 120 mg PO DAILY 07/08/17 [ History] Lactose-Reduced Food [Ensure Plus] 1 bottle PO TID 07/12/17 [History] Bisacodyl [Dulcolax] 10 mg PO DAILY PRN tablet 07/15/17 [Rx] Docusate [Colace] 100 mg PO BID capsule 07/15/17 [Rx] Ranolazine [Ranexa] 1,000 mg PO BID tab.er.12h 07/15/17 [Rx] Magnesium Hydroxide [Milk of Magnesia] 30 ml PO DAILY PRN 08/02/17 [History] Aspirin Enteric Coated [Aspirin EC] 81 mg PO DAILY #0 08/08/17 [Rx] Acetaminophen [Tylenol] 650 mg PO Q6H 08/30/17 [History] Calcium Carbonate [Calcium] 500 mg PO DAILY 08/30/17 [History] Ferrous Sulfate 324 mg PO BID 08/30/17 [History] LORazepam [Ativan] 0.5 mg PO BID 08/30/17 [History] Oseltamivir [Tamiflu] 75 mg PO DAILY 08/30/17 [History] Pantoprazole Sodium [Protonix] 40 mg PO BID 08/30/17 [History] Sennosides [Senna] 17.2 mg PO DAILY 08/30/17 [History] Sucralfate [Carafate] 1 gm PO TID 08/30/17 [History] Ampicillin Trihydrate 500 mg PO DAILY 4 Days #4 capsule 09/04/17 [Rx] Quetiapine Fumarate [Seroquel] 25 mg PO HS 30 Days #30 tablet 09/04/17 [Rx] 3 Allergy/AdvReac Type Severity Reaction Status Date / Time ezetimibe [From Zetia] AdvReac See Verified 09/06/17 15:18 Comments Imwhgne-Rsp-Hvt Reductase AdvReac See Verified 09/06/17 15:18 Inhibitor Comments - Meds/Allergy Pre-op Review Medications Reviewed: Yes Allergies Reviewed: Yes Beta Blockers on Current Med List: Yes If Beta Blockers taken, Date/Time (Last Dose taken): 09/06/2017 at 0900 Anesthesia Results - Labs Laboratory Tests 08/30/17 09/05/17 09/05/17 15:46 04:50 04:50 WBC 7.0 Hgb 13.0 Hct 42.2 Plt Count 217 PT 15.8 H INR 1.5 APTT 26.9 Sodium 139 Potassium 3.7 BUN 21 Creatinine 1.09 - Imaging EKG: report reviewed (08/30/2017 A-Fib, septal infarct 02/08/2016 ATRIAL FIBRILLATION ANTEROSEPTAL MYOCARDIAL INFARCTION, OF INDETERMINATE AGE) Additional studies: 08/31/2017 Echo Impressions: LVEF 50%. Indeterminate diastolic function. Normal right ventricular structure and function. Moderate aortic stenosis. MELI 1.2cm2 Moderate mitral regurgitation. Mild tricuspid regurgitation. Interatrial septum not well evaluated. Suboptimal image quality to detect PFO with saline contrast injection. No pulmonary hypertension. 02/09/2016 Echo Impressions: Mild LV systolic dysfunction, LVEF 45%. There are regional wall motion abnormalities, see diagram below. Indeterminate diastolic function due to atrial fibrillation. Normal right ventricular structure and function. Severely dilated left atrium. Mild mitral regurgitation. Mild pulmonary hypertension. Estimated RVSP = 36-41 mmHg. 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 Patient's POA wishes to proceed.) Modified Renan Scale for Level of Consciousness: Cooperative, oriented, and tranquil (patient confused but otherwise cooperative and tranquil) Anesthetic Plan: General Monitoring Plan: Standard Monitors, A-Line Recovery Plan: PACU
[2017-09-06] MEDS ORDERED: Heparin 1,000 UNITS/500 mL 500 ML ONE (16:06)
[2017-09-06] MEDS ORDERED: Povidone-Iodine 5% 60 ML, Sodium Chloride IRRigation 500 ML IR ONE (16:10)
[2017-09-06] MEDS ORDERED: *HR* FentaNYL (PF) 100 MCG/2 ML VIAL ONE (16:24)
[2017-09-06] MEDS ORDERED: Lidocaine -MPF 2% 2 ML VIAL ONE ×2 (16:25→16:29)
[2017-09-06] MEDS ORDERED: *HR* Etomidate 40 MG/20 ML VIAL IVP ONE (16:26)
[2017-09-06] MEDS ORDERED: *HR* Succinylcholine 200 MG/10 ML VIAL IVP ONE (16:27)
[2017-09-06] MEDS ORDERED: *HR* Remifentanil 2 MG VIAL IVP ONE (16:29)
[2017-09-06] MEDS ORDERED: *HR* Phenylephrine 10 MG/ML VIAL ONE (16:31)
[2017-09-06] MEDS ORDERED: Lidocaine -MPF 4% 5 ML AMPUL ONE (16:51)
[2017-09-06] MEDS ORDERED: Ethanol\\Acetic Acid\\Na Ace\\Ben 1,000 ML IRRIG.SOLN IR ONE (16:54)
[2017-09-06] MEDS ORDERED: EPHEDrine 50 MG/ML VIAL ONE (17:25)
[2017-09-06] MEDS ORDERED: Dexamethasone 4 MG/ML VIAL ONE (17:46)
[2017-09-06] MEDS ORDERED: Ondansetron 4 MG/2 ML VIAL ONE (17:46)
[2017-09-06] MEDS ORDERED: *HR* Enoxaparin 30 MG/0.3 ML SYRINGE SQ SCH (18:00)
--- NOTE | 2017-09-06 18:38 | Orthopedic Operative Note ---
Date of procedure: 09/06/17 Pre-op diagnosis: Unstable right total hip Post-op diagnosis: same Procedure: Procedure: Right Total Hip Replacment robotic-assisted Estimated blood loss: 400 cc Hardware: Metal and polyethylene replacement. [place] DM Cup: cup 62 with a constrained liner Femoral size 9 stem Head: head +8 Procedural Notes: Well-positioned hemiarthroplasty bipolar right hip. Patient' s hip actually very stable on exam after arthrotomy. Operative procedure: The patient was brought to the operating room and placed on the operating room table. After general anesthesia was administered the patient was placed in the lateral decubitus position with the operative leg up. All pressure points were padded appropriately and the head was stabilized in the neutral position. The operative extremity was prepped and draped in the sterile surgical fashion patient received IV antibiotic prior to skin incision. 3 Steinmann pins were placed in the iliac crest 3 cm proximal to the anterior superior iliac spine this was for the robotic-assisted sensor. This was done through a small 2 cm incision. A standard posterior approach is made to the operative hip, the incision was made through the old incision, through the skin and subcutaneous tissue hemostasis was obtained with Bovie cautery. Using careful sharp dissection the fascia was identified and incised hematoma was encountered and cultured. Soft tissue scar was removed. Leg lengths were measured. The hip was examined patient had excellent stability. Flexion to 90 degrees adduction of greater than 30 degrees and internal rotation of greater than 60 degrees until the hip dislocated. The femoral component was removed without incident. Attention was then turned to the acetabulum. An anterior capsulotomy was performed for the anterior retractor. Soft tissues removed from the acetabulum. Patient noted to have grade 4 arthritic changes acetabulum. The acetabulum checkpoint was placed confirmed. The acetabulum was then mapped with robotic assistance. Based on the preoperative plan the acetabulum was reamed in one step with a 61 reamer. The 62 acetabulum was impacted with robotic assistance and 40 degrees of abduction and 10 degrees of anteversion. The constrained liner was seated. The hip was brought back in to internal rotation and prepared with the reaming process to a size 9/10 all by broaching process in 20 degrees anteversion. It was broached up to the appropriate size 9. Trial reduction revealed leg lengths close to normal. The femoral implant was impacted in place in 20 degrees of anteversion. Trial reduction found the hip to be stable with 8 head and [place]. The trials were removed and the real implants were impacted in place. The hip was reduced, patient had robotic confirmed leg length of 10mm longer than the contralateral side. The hip had excellent stability with the constrained liner. The hips after 2 minutes with a Betadine saline solution. It was irrigated out with 2 L of pulse irrigation. The checkpoints were removed, Steinmann pins were removed. The deep tissue was irrigated and closed deep with #1 PDS suture superficially with 0 PDS suture and skin was closed with Dermabond and zip tie. The patient was placed in a sterile dressing and abduction pillow. The patient was extubated and transferred to the recovery room in stable condition. Anesthesia: GETA Surgeon: Damián Guillory Was there an high school assistant football coach present: No Estimated blood loss (cc): 400 Condition: stable Disposition: PACU
[2017-09-06 20:13] LABS: Hematocrit 33.2 % (37.5-50.1)
[2017-09-06 20:28] LABS: Hemoglobin 10.5 g/dL (12.9-16.9)
[2017-09-06] MEDS ORDERED: traMADol 50 MG TABLET PO PRN (21:15)
[2017-09-06] MEDS ORDERED: Dextrose Gel 15 GM/37.5 ML TUBE PO PRN ×2 (21:15)
[2017-09-06] MEDS ORDERED: Ondansetron 4 MG/2 ML VIAL IVP PRN (21:15)
[2017-09-06] MEDS ORDERED: MOM Conc 10 ML UD.LIQ PO PRN (21:15)
[2017-09-06] MEDS ORDERED: *HR* OxyCODONE/APAP 5/325 TABLET PO PRN (21:15)
[2017-09-06] MEDS ORDERED: Naloxone 0.4 MG/ML INJ IVP PRN (21:15)
[2017-09-06] MEDS ORDERED: D5% in Water 1,000 ML IVC PRN (21:15)
[2017-09-06] MEDS ORDERED: Sennosides 8.6 MG TABLET PO PRN (21:15)
[2017-09-06] MEDS ORDERED: *HR* OxyCODONE Immed Rel 5 MG TABLET PO PRN (21:15)
[2017-09-06] MEDS ORDERED: *HR* Dextrose 50 % in Water (Syg) 50 ML SYRINGE IVP PRN (21:15)
[2017-09-06] MEDS ORDERED: Temazepam 15 MG CAPSULE PO PRN (21:15)
[2017-09-06] MEDS: *HR* HYDROmorphone (PF) 1 MG/ML SYRINGE IVP PRN (21:49)
[2017-09-06] MEDS: CeFAZolin Premix DUPLEX 2,000 MG/50 ML BAG IVPB SCH (22:16)
[2017-09-06] MEDS: *HR* LORazepam 2 MG/ML VIAL IVP PRN (22:17)
[2017-09-06] MEDS: Ringers Solution, Lactated 1,000 ML IVC SCH (22:24)
[2017-09-06] MEDS: Insulin LISPRO 300 UNITS/3 ML VIAL SQ SCH ×2 (22:30→22:33)
[2017-09-06] MEDS: Ascorbic Acid 500 MG TABLET PO SCH (22:33)
[2017-09-07 03:48] LABS: Hematocrit 31.5 % (37.5-50.1); Hemoglobin 9.8 g/dL (12.9-16.9)
[2017-09-07 04:15] LABS: BUN/Creatinine Ratio 23 (6-26); Blood Urea Nitrogen 25 mg/dL (8-23); Calcium 8.8 mg/dL (8.6-10.3); Carbon Dioxide 29 mEq/L (23-29); Chloride 104 mEq/L (98-107); Glucose 156 mg/dL (70-105); Osmolality,Calculated 294 (280-300); Potassium 4.4 mEq/L (3.5-5.1); Sodium 138 mEq/L (136-145); eGFR For African Americans > 60 (> 60); eGFR For Non-African Americans > 60 (> 60)
[2017-09-07] MEDS: *HR* LORazepam 2 MG/ML VIAL IVP PRN (04:15)
[2017-09-07] MEDS: CeFAZolin Premix DUPLEX 2,000 MG/50 ML BAG IVPB SCH (04:16)
[2017-09-07] MEDS ORDERED: *HR* Enoxaparin 30 MG/0.3 ML SYRINGE SQ SCH (06:00)
[2017-09-07] MEDS: Insulin LISPRO 300 UNITS/3 ML VIAL SQ SCH ×4 (07:50→21:15)
[2017-09-07] MEDS: *HR* HYDROmorphone (PF) 1 MG/ML SYRINGE IVP PRN ×2 (08:06→15:34)
[2017-09-07] MEDS: Ascorbic Acid 500 MG TABLET PO SCH ×2 (08:06→15:08)
[2017-09-07] MEDS: Multivit/Ca/Min/Fe/FA 1 TAB TABLET PO SCH (08:06)
[2017-09-07] MEDS: Ringers Solution, Lactated 1,000 ML IVC SCH (11:15)
--- NOTE | 2017-09-07 14:42 | Internal Medicine Consult Note ---
Date of Encounter: 09/07/17 Time of Encounter: 14:38 - Assessment and Plan (1) Hypotension Current Visit: Yes Status: Acute Assessment and plan: Multifactorial secondary to anesthesia, blood loss, and pain medications. Hypotension has resolved. Safe to hold IV fluid hydration for now, as patient has a history of CHF. Patient is safe to be just transferred out of the medical ICU to orthopedics unit. Continue to monitor vital signs every 4 hours. Continue to hold home blood pressure medications until systolic blood pressure persistently greater than 130 Qualifiers: Hypotension type: unspecified hypotension type Qualified Code(s): I95.9 - Hypotension, unspecified (2) Parkinson disease Current Visit: Yes Status: Chronic Assessment and plan: Resume home meds (3) Diabetes mellitus type II, non insulin dependent Current Visit: Yes Status: Chronic Assessment and plan: FS acceptable Continue sliding scale insulin, ADA diet, monitor FS ACHS (4) DVT prophylaxis Current Visit: Yes Status: Acute Assessment and plan: Continue ASA BID for hip surgery prophylaxis (5) Hypertension Current Visit: Yes Status: Chronic Assessment and plan: Hold blood pressure medications for now-Isosorbide, MEtoprolol, Lisinopril Resume for SBP >130 Qualifiers: Hypertension type: essential hypertension Qualified Code(s): I10 - Essential (primary) hypertension (6) Atrial fibrillation Current Visit: Yes Status: Chronic Assessment and plan: Not on anticoagulation due to falls and GIB HR controlled at this time Metoprolol for HR >110 Qualifiers: Atrial fibrillation type: paroxysmal Qualified Code(s): I48.0 - Paroxysmal atrial fibrillation (7) Dementia Current Visit: Yes Status: Chronic Assessment and plan: REsume home meds Fall risk, place on fall precautions Qualifiers: Dementia type: Alzheimer's disease Alzheimer's disease onset: unspecified onset Dementia behavioral disturbance: with behavioral disturbance Qualified Code(s): G30.9 - Alzheimer's disease, unspecified; F02.81 - Dementia in other diseases classified elsewhere with behavioral disturbance; F02.81 - Dementia in other diseases classified elsewhere with behavioral disturbance; F02.81 - Dementia in other diseases classified elsewhere with behavioral disturbance (8) CAD (coronary artery disease) Current Visit: Yes Status: Chronic Assessment and plan: Continue ASA. Plavix held since last admission for GIB Qualifiers: Coronary Disease-Associated Artery/Lesion type: [place] artery [place] vs. transplanted heart: [place] heart Associated angina: without angina Qualified Code(s): I25.10 - Atherosclerotic heart disease of [place] coronary artery without angina pectoris (9) History of right hip hemiarthroplasty Current Visit: Yes Status: Acute Assessment and plan: POD 1 Management per ortho PTOT and DVT prophylaxis (10) CHF (congestive heart failure) Current Visit: Yes Status: Chronic Assessment and plan: Euvolemic at this time, pedal edema is chronic Continue to monitor ECHO from last admission 08/2017 noted Qualifiers: Congestive heart failure type: diastolic Congestive heart failure chronicity: chronic Qualified Code(s): I50.32 - Chronic diastolic (congestive ) heart failure Internal Medicine - CN: HPI - Data of Consult Patient: new to practice Consult date: 09/07/17 Requesting Physician: Damián Guillory MD - Consult Narrative Reason for consult: Hypotension History of present illness: Mr. Villarreal is a 87 year old male with past medical history of tobacco abuse, chronic atrial fibrillation, AAA repair, COPD, , diabetes, hyperlipidemia, Parkinson's, HTN, dmentia, CAD with hx of CABG and PCI--reports 7 stents last done 2-1/2 years ago He was admitted to [facility] by orthopedic surgery for right hip replacement. He is seen and evaluated in the intensive care unit with his daughter at the bedside. Today's postop day 1. Medicine is consulted for evaluation for hypertension and management of his multiple medical problems. The patient has had multiple admissions in the past 3 months or right hip dislocation, and GI bleed respectively. He is a resident of a retirement facility, and currently has no complaints. Patient also reports a recent diagnosis of moderate aortic stenosis without surgical intervention. The patient developed hypotension immediately postop last night and was transferred to the medical ICU. He has had less than 800 cc of IV fluid resuscitation, and his blood pressure has been stable. He did not require pressors. HE is asymptomatic and oriented to person and sometimes place at baseline, he is currently disoriented to time. EBL in surgery magan to be ~400cc. Baseline Hb is 11-12, Hb today is 9.8. No other labs to review Past Med Surg Social Fam HX - Past Medical History Medical history: atrial fibrillation, COPD, coronary artery disease, diabetes, hyperlipidemia, myocardial infarction Psychiatric history: no psych history - Past Surgical History Surgical History: coronary bypass (CABG) - Social History Smoking Status: Unknown if ever smoked Smokeless Tobacco Status: No Alcohol use: none Drug use: none - Family History Mother Living Status: Father Adopted: No Living Status: Hx Family Cardiac Disorders: Yes Hx Family Respiratory Disorders: No Hx Family Cancer: Yes (Mother) Hx Family GI Disorders: No Hx Family Endocrine Disorder: No Hx Family Neuromuscular Disorders: No Hx Family Neurologic Disorders: No Hx Family HEENT Disorders: No Hx Family Autoimmune Disorders: No Internal Medicine - CN: Meds Carbidopa/Levodopa 25/100 [Sinemet 25/100] 1.5 tab PO Q8H 02/08/16 [History] Lisinopril [Zestril] 5 mg PO DAILY 02/08/16 [History] Metformin HCl [Metformin HCl ER] 500 mg PO DAILY 02/08/16 [History] Metoprolol Succinate [Toprol Xl] 50 mg PO BID 02/08/16 [History] Nitroglycerin 0.4 mg PO Q5M PRN 02/08/16 [History] Pravastatin Sodium 10 mg PO HS 02/08/16 [History] DULoxetine [Cymbalta] 20 mg PO DAILY 07/08/17 [History] Isosorbide MONOnitrate [Isosorbide Mononitrate ER] 120 mg PO DAILY 07/08/17 [ History] Lactose-Reduced Food [Ensure Plus] 1 bottle PO TID 07/12/17 [History] Bisacodyl [Dulcolax] 10 mg PO DAILY PRN tablet 07/15/17 [Rx] Docusate [Colace] 100 mg PO BID capsule 07/15/17 [Rx] Ranolazine [Ranexa] 1,000 mg PO BID tab.er.12h 07/15/17 [Rx] Magnesium Hydroxide [Milk of Magnesia] 30 ml PO DAILY PRN 08/02/17 [History] Aspirin Enteric Coated [Aspirin EC] 81 mg PO DAILY #0 08/08/17 [Rx] Acetaminophen [Tylenol] 650 mg PO Q6H 08/30/17 [History] Calcium Carbonate [Calcium] 500 mg PO DAILY 08/30/17 [History] Ferrous Sulfate 324 mg PO BID 08/30/17 [History] LORazepam [Ativan] 0.5 mg PO BID 08/30/17 [History] Oseltamivir [Tamiflu] 75 mg PO DAILY 08/30/17 [History] Pantoprazole Sodium [Protonix] 40 mg PO BID 08/30/17 [History] Sennosides [Senna] 17.2 mg PO DAILY 08/30/17 [History] Sucralfate [Carafate] 1 gm PO TID 08/30/17 [History] Ampicillin Trihydrate 500 mg PO DAILY 4 Days #4 capsule 09/04/17 [Rx] Quetiapine Fumarate [Seroquel] 25 mg PO HS 30 Days #30 tablet 09/04/17 [Rx] Aspirin Enteric Coated [Aspirin EC] 325 mg PO BID #20 tablet. 09/06/17 [Rx] OxyCODONE Immed Rel [Roxicodone 5 MG] 5 mg PO Q4HR PRN #20 tablet 09/06/17 [Rx] 3 Allergy/AdvReac Type Severity Reaction Status Date / Time ezetimibe [From Zetia] AdvReac See Verified 09/06/17 15:18 Comments Esimlnn-Ofn-Whp Reductase AdvReac See Verified 09/06/17 15:18 Inhibitor Comments Internal Medicine - CN: Exam - Constitutional Vitals: Temp Pulse Resp BP Pulse Ox 97.8 F 77 16 110/58 100 09/07/17 11:38 09/07/17 13:05 09/07/17 13:05 09/07/17 13:05 09/07/17 13:05 General appearance IM: Present: A&O X 2, no acute distress, obese - Eye Eye exam: Present: EOMI, PERRL - Neck Neck exam general surgery: Present: normal inspection - Respiratory Respiratory exam: Present: CTAB - Cardiovascular Cardiovascular exam IM: Present: RRR, +S1, +S2, systolic murmur - Additional comments: [place] draining clear urine - Extremities Exam Extremities exam IM: Present: pedal edema - Back Exam Back exam: Present: normal inspection - Neurological Exam Neurological exam: Present: alert, no focal deficits. Absent: oriented X3, facial droop, speech deficit - Skin Skin exam IM: Present: intact. Absent: rash Internal Medicine - CN: Reslt - Labs CBC & Chem 7: 09/07/17 03:38 09/07/17 03:38 Labs: Short CBC 09/06/17 09/07/17 Range/Units 19:54 03:38 Hgb 10.5 L D 9.8 L (12.9-16.9) g/dL Hct 33.2 L 31.5 L (37.5-50.1) % BMP 09/07/17 03:38 Sodium 138 Potassium 4.4 Chloride 104 Carbon Dioxide 29 BUN 25 H Creatinine 1.09 Glucose 156 H Calcium 8.8 - Impressions Impressions Hip X-Ray 09/06/17 15:19 IMPRESSION: Postsurgical changes of the right hip. D/ / Sherri Mcpherson Cha, MD / Sherri Mcpherson Cha, MD Interpreting Provider: Sherri Mcpherson Cha, MD Consult Discharge Plan - Plan Referrals: Eileen Howard CNP [Primary Care Provider] - Prescriptions: OxyCODONE Immed Rel [Roxicodone 5 MG] 5 mg PO Q4HR PRN #20 tablet PRN Reason: Pain Aspirin Enteric Coated [Aspirin EC] 325 mg PO BID #20 tablet.
[2017-09-07] MEDS: Carbidopa/Levodopa 25/100 TABLET PO SCH ×2 (15:08→22:22)
[2017-09-07] MEDS: *HR* LORazepam 0.5 MG TABLET PO SCH (21:13)
[2017-09-08] MEDS ORDERED: *HR* Heparin 5,000 UNIT/ML VIAL IVP PRN (01:09)
[2017-09-08] MEDS ORDERED: Amiodarone Premix 150 MG/100 ML BAG IVPB ONE (01:11)
[2017-09-08] MEDS ORDERED: Lacri-Lube 3.5 GM TUBE BOTH EYES PRN (01:21)
[2017-09-08] MEDS ORDERED: Ipratropium/Albuterol Neb 3 ML IH PRN (01:25)
[2017-09-08] MEDS ORDERED: Dextrose Gel 15 GM/37.5 ML TUBE PO PRN ×2 (01:27)
[2017-09-08] MEDS ORDERED: *HR* Dextrose 50 % in Water (Syg) 50 ML SYRINGE IVP PRN (01:27)
[2017-09-08] MEDS ORDERED: D5% in Water 1,000 ML IVC PRN (01:27)
[2017-09-08] MEDS ORDERED: Amiodarone Premix 360 MG/200 ML BAG IVC ONE (01:30)
[2017-09-08] MEDS ORDERED: 0.9 % Sodium Chloride 1,000 ML IVC SCH (01:30)
[2017-09-08 01:35] LABS: Basophils % 0.3 %; Hematocrit 34.3 % (37.5-50.1); Hemoglobin 10.3 g/dL (12.9-16.9); Immature Granulocytes % 1.1 % (0-4); Lymphocytes # 3.7 K/mcL (0.6-4.6); Lymphocytes % 25.6 %; Mean Corpuscular Hemoglobin 30.6 pg (28.0-33.3); Mean Corpuscular Volume 101.8 fL (83.0-100.0); Mean Platelet Volume 10.8 fL (9.4-12.4); Monocytes # 1.7 K/mcL (0.0-1.3); Monocytes % 11.5 %; Platelet Count 211 K/mcL (140-400); Red Blood Count 3.37 M/mcL (4.19-5.50); Red Cell Distribution Width 18.1 % (11.5-14.5); Segmented Neutrophils % 61.5 %
[2017-09-08 01:48] LABS: INR 1.1; Prothrombin Time 12.4 Seconds (9.4-12.1)
[2017-09-08 01:50] LABS: Activated Partial Thrombo Time 28.7 Seconds (26.0-36.0)
[2017-09-08] MEDS: Ringers Solution, Lactated 1,000 ML IVC SCH ×2 (01:54→13:58)
[2017-09-08 01:59] LABS: ABG Base Excess -1 mEq/L (-2 to 3); ABG HCO3 23 mEq/L (21-27); ABG Oxygen Saturation 94 % (95-98); ABG PCO2 37 mmHg (35-45); ABG PH 7.41 pH Units (7.32-7.45); ABG PO2 70 mmHg (85-104); ABG TCO2 25 mEq/L (20-26); Blood Gas Modality ASSIST CONTROL; Blood Gas PEEP 5 cm H2O; Blood Gas Respiration Rate 12; Blood Gas VT 500 cc
[2017-09-08 02:00] LABS: Alanine Aminotransferase 5 Units/L (7-52); Albumin 3.2 g/dL (3.5-5.7); Albumin/Globulin Ratio 1.3 (1.1-2.2); Alkaline Phosphatase 72 Units/L (34-104); Aspartate Amino Transferase 33 Units/L (13-39); BUN/Creatinine Ratio 18 (6-26); Bilirubin,Total 0.6 mg/dL (0.3-1.0); Blood Urea Nitrogen 23 mg/dL (8-23); Carbon Dioxide 22 mEq/L (23-29); Chloride 102 mEq/L (98-107); Globulin 2.5 g/dL (2.4-3.5); Glucose 211 mg/dL (70-105); Osmolality,Calculated 296 (280-300); Potassium 3.8 mEq/L (3.5-5.1); Sodium 138 mEq/L (136-145); Total Protein 5.7 g/dL (6.4-8.9); eGFR For African Americans > 60 (> 60); eGFR For Non-African Americans 55 (> 60)
[2017-09-08] MEDS: Heparin 25,000 UNIT/500 ML D5W 25,000 UNIT/500 ML BAG IVC SCH ×2 (02:00→23:35)
[2017-09-08] MEDS ORDERED: Potassium Chloride Elixir 20 MEQ/15 ML UDC PO ONE (02:04)
[2017-09-08] MEDS: Piperacillin/Tazobactam 3.375 GM/200 ML BAG IVPB SCH ×3 (02:17→16:51)
--- NOTE | 2017-09-08 02:26 | Event Note ---
Date of Encounter: 09/08/17 Time of Encounter: 00:45 Izabel perkins called around 0045. Patient was in agonal breathing, no pulse palpable Performed CPR and delivered 2mg total of epinephrine with ROSC approx 8-10 mins. Intubated Transfer to ICU Review on tele in unit revealed at leas 1-2 mins of VT rhythm which likely explains code Post-op patient since saturday. Missed lovenox dose per report Hx of CAD s/p stents, AFib Repeat EKG after code noted AFib - appears chronic per family Collateral hx of his dtr revealed similar VT episodes when he was here for GIB recently A/P - Admit to ICU - consult card and PCCM to evaluate - D/w cardiology conference planner who will see - will likely get TTE - check post intubated CXR, KUB for ETT and OGT placement - amiodarone gtt with bolus given evidence of VT on tele - IVF bolus - repeat labs, ABG -correct lytes - IV zosyn empiric coverage for aspiration while unconscious - start empiric heparing gtt w/o bolus, check doppler US of b/l LE - unsure he had VTE but will empirically treat for now to avoid further decline/delay if present d/w 2 dtrs, patient is critically ill with high risk of mortality, morbidity At 240 AM, his 2 dtrs who has joint POA has decided to change his code status to DNRCCA. No shocks or compression
[2017-09-08] MEDS: FentaNYL (PF) 1,000 MCG in 0.9 % Sodium Chloride 80 ML IVC SCH (03:24)
[2017-09-08] MEDS: Famotidine 20 MG/2 ML VIAL IVP SCH ×3 (03:31→19:06)
[2017-09-08] MEDS ORDERED: 0.9 % Sodium Chloride 1,000 ML IVC ONE (03:32)
[2017-09-08] MEDS: Lacri-Lube 3.5 GM TUBE BOTH EYES SCH ×5 (04:16→20:00)
[2017-09-08] MEDS: Ipratropium/Albuterol Neb 3 ML IH SCH ×4 (04:25→23:10)
[2017-09-08 05:53] LABS: Basophils % 0.2 %; Hematocrit 30.7 % (37.5-50.1); Hemoglobin 9.2 g/dL (12.9-16.9); Immature Granulocytes % 0.6 % (0-4); Lymphocytes # 1.2 K/mcL (0.6-4.6); Lymphocytes % 8.9 %; Mean Corpuscular Hemoglobin 30.4 pg (28.0-33.3); Mean Corpuscular Volume 101.3 fL (83.0-100.0); Mean Platelet Volume 10.9 fL (9.4-12.4); Monocytes # 2.1 K/mcL (0.0-1.3); Monocytes % 15.9 %; Neutrophils # 9.6 K/mcL (1.6-8.9); Platelet Count 190 K/mcL (140-400); Red Blood Count 3.03 M/mcL (4.19-5.50); Red Cell Distribution Width 18.4 % (11.5-14.5); Segmented Neutrophils % 74.4 %
[2017-09-08 05:57] LABS: INR 1.2; Prothrombin Time 13.3 Seconds (9.4-12.1)
[2017-09-08] MEDS: Carbidopa/Levodopa 25/100 TABLET PO SCH ×3 (06:00→19:59)
[2017-09-08 06:03] LABS: Activated Partial Thrombo Time 98.5 Seconds (26.0-36.0)
[2017-09-08 06:11] LABS: Alanine Aminotransferase 4 Units/L (7-52); Albumin 2.8 g/dL (3.5-5.7); Albumin/Globulin Ratio 1.3 (1.1-2.2); Alkaline Phosphatase 63 Units/L (34-104); Aspartate Amino Transferase 32 Units/L (13-39); BUN/Creatinine Ratio 19 (6-26); Bilirubin,Direct 0.2 mg/dL (0.0-0.2); Bilirubin,Indirect 0.3 mg/dL (0.0-1.2); Bilirubin,Total 0.5 mg/dL (0.3-1.0); Blood Urea Nitrogen 22 mg/dL (8-23); Calcium 8.1 mg/dL (8.6-10.3); Carbon Dioxide 23 mEq/L (23-29); Chloride 106 mEq/L (98-107); Globulin 2.2 g/dL (2.4-3.5); Glucose 231 mg/dL (70-105); Magnesium 1.8 mg/dL (1.6-2.6); Osmolality,Calculated 297 (280-300); Potassium 4.4 mEq/L (3.5-5.1); Sodium 138 mEq/L (136-145); eGFR For African Americans > 60 (> 60); eGFR For Non-African Americans > 60 (> 60)
[2017-09-08 06:35] LABS: ABG Base Excess -2 mEq/L (-2 to 3); ABG HCO3 23 mEq/L (21-27); ABG Oxygen Saturation 100 % (95-98); ABG PCO2 37 mmHg (35-45); ABG PO2 194 mmHg (85-104); ABG TCO2 24 mEq/L (20-26); Blood Gas Modality ASSIST CONTROL; Blood Gas PEEP 5 cm H2O; Blood Gas Respiration Rate 12; Blood Gas VT 500 cc
--- NOTE | 2017-09-08 07:08 | Pulmonology Consult Note ---
<Kyle De La Rosa - Last Filed: 09/08/17 11:34> Date of Encounter: 09/08/17 Time of Encounter: 07:10 Assessment and Plan (1) Acute respiratory failure Current Visit: Yes Status: Acute Intubated early this morning after CODE BLUE with hypoxia Chest x-ray shows improvement in interstitial pulmonary edema Sedated on fentanyl and Precedex Ventilator settings: 12/500/60/5 Most recent ABG demonstrates pH of 7.40, PCO2 37, PO2 194, HCO3 23 Patient is able to follow some commands and nod his head during questioning There is a suspicion for possible aspiration last night and patient was started on IV Zosyn DuoNeb's every 4 as needed Checking sputum cx Patient remains high-risk and we will monitor closely throughout the day. Consider SAT tomorrow Qualifiers: Respiratory failure complication: hypoxia Qualified Code(s): J96.01 - Acute respiratory failure with hypoxia (2) Cardiac arrest Current Visit: Yes Status: Acute CODE BLUE was called around 0045 as patient was expansion agonal breathing with no pulse palpable. CPR was initiated with epinephrine 1 mg delivered twice. ROSC see was obtained approximately 8-10 minutes patient was intubated throughout ACLS. Review of telemetry revealed the patient experienced 1-2 minutes of ventricular tachycardia. Per EMR reviewed, patient missed Lovenox dose per report and postcode EKG reveals atrial fibrillation. Chest x-ray shows improvement in interstitial pulmonary edema On evaluation this morning, Doppler ultrasound showed a left common femoral and left popliteal DVT. We will continue amiodarone and heparin drip Discontinue maintenance fluids Added albumin 500 mL Cardiology was consulted Repeat echo ordered - preliminary shows no right heart strain Continue IV Zosyn (3) Hypotension Current Visit: Yes Status: Acute Possibly multifactorial previously from anesthesia, blood loss, pain medications Blood pressure was 80s over 40s this morning but is ada to 100/75 Holding maintenance fluids Tolerating albumin well Continue to home blood pressure medications and monitor vital signs every 4 hours Qualifiers: Hypotension type: unspecified hypotension type Qualified Code(s): I95.9 - Hypotension, unspecified (4) Deep vein thrombosis (DVT) of left lower extremity Current Visit: Yes Status: Acute On evaluation this morning, Doppler ultrasound showed a left common femoral and left popliteal DVT. Repeat echocardiogram this morning - pending results but pulmonary shows no right heart strain Continue heparin drip Qualifiers: Affected thrombotic vein of extremity: popliteal Chronicity: acute Qualified Code(s): I82.432 - Acute embolism and thrombosis of left popliteal vein (5) Parkinson disease Current Visit: Yes Status: Chronic Resuming home medications. Unaware of baseline (6) Diabetes mellitus type II, non insulin dependent Current Visit: Yes Status: Chronic Continue sliding scale insulin, monitor FS (7) Atrial fibrillation Current Visit: Yes Status: Chronic Patient was on antiplatelet due to history of falls and GI bleeding Patient is currently on amiodarone drip for recent V. tach Heparin drip Metoprolol as needed for heart rate greater than 110 Qualifiers: Atrial fibrillation type: paroxysmal Qualified Code(s): I48.0 - Paroxysmal atrial fibrillation (8) Hypertension Current Visit: Yes Status: Chronic Holding due to hypotension Qualifiers: Hypertension type: essential hypertension Qualified Code(s): I10 - Essential (primary) hypertension (9) Dementia Current Visit: Yes Status: Chronic Resuming home meds Qualifiers: Dementia type: Alzheimer's disease Alzheimer's disease onset: unspecified onset Dementia behavioral disturbance: with behavioral disturbance Qualified Code(s): G30.9 - Alzheimer's disease, unspecified; F02.81 - Dementia in other diseases classified elsewhere with behavioral disturbance; F02.81 - Dementia in other diseases classified elsewhere with behavioral disturbance; F02.81 - Dementia in other diseases classified elsewhere with behavioral disturbance (10) CAD (coronary artery disease) Current Visit: Yes Status: Chronic Known hx of CABG and multiple PCI. Most recent PCI 3 years ago Holding beta jame and Imdur Qualifiers: Coronary Disease-Associated Artery/Lesion type: [place] artery [place] vs. transplanted heart: [place] heart Associated angina: without angina Qualified Code(s): I25.10 - Atherosclerotic heart disease of [place] coronary artery without angina pectoris (11) CHF (congestive heart failure) Current Visit: Yes Status: Chronic Echocardiogram was on 08/31/17 dementia rating EF 50%, indeterminate diastolic function, moderate aortic stenosis, moderate MR, mild TR. Apical septal welch were hypokinetic, mid inferior septal and basal inferior septal welch were akinetic, mid anteroseptal and basal anterior septal welch are dyskinetic. Repeat echo pending this morning but shows no right heart strain - pending official read No evidence of acute decompensation Chest x-ray shows improvement of interstitial pulmonary edema We will continue to monitor daily Qualifiers: Congestive heart failure type: diastolic Congestive heart failure chronicity: chronic Qualified Code(s): I50.32 - Chronic diastolic (congestive ) heart failure (12) History of right hip hemiarthroplasty Current Visit: Yes Status: Acute Postop day #2 status post right hip hemiarthroplasty Orthopedic surgery following (13) DVT prophylaxis Current Visit: Yes Status: Acute Continue heparin drip History of Present Illness History of present illness: Mr. Hutchinson is a very pleasant 87-year-old male with a past history of dementia, atrial fibrillation, hypertension, type 2 diabetes, Parkinson's disease, coronary artery disease status post CABG and stents, CHF and history of abdominal aortic aneurysm who presented to [facility] on 09/06 for right hip hemiarthroplasty by Dr. Guillory. Patient was subsequently extubated and transferred to the recovery room in stable condition. Postoperative course was spent in the secure unit due to bed availability in the hospital team is managing his chronic medical conditions. Of note, patient has been experiencing progressive hypotension was thought to be multifactorial secondary to anesthesia, blood loss and pain medications. Blood pressure is really improved and was transferred out of the ICU to the orthopedic unit last night. CODE HUBERT was called around 0045 as patient was expansion agonal breathing with no pulse palpable. CPR was initiated with epinephrine 1 mg delivered twice. ROSC see was obtained approximately 8-10 minutes patient was intubated throughout ACLS. Patient was transferred to the intensive care unit for further monitoring and thus, pulmonary/critical care team was consulted. Review of telemetry revealed the patient experienced 1-2 minutes of ventricular tachycardia. Per EMR reviewed, patient missed Lovenox dose per report and postcode EKG reveals atrial fibrillation. Patient was started on amiodarone drip with bolus, maintenance fluids, IV Zosyn and heparin drip without bolus. Cardiology was consulted. On evaluation this morning, Doppler ultrasound showed a left common femoral and left popliteal DVT. Chest x-ray shows improvement in interstitial pulmonary edema. ET tube is in place as well as enteric tube. Blood gases morning demonstrates pH 7.40, PCO2 37, PO2 194, HCO3 23. Mild bump in white count of 12.9. Lactic acid trending down from 6.9 -> 3.0 this morning. Ventilator settings are at 12, 500, 60, 5. Most recent echocardiogram was on 08/31/17 dementia rating EF 50%, indeterminate diastolic function, moderate aortic stenosis, moderate MR, mild TR. Apical septal welch were hypokinetic, mid inferior septal and basal inferior septal welch were akinetic, mid anteroseptal and basal anterior septal welch are dyskinetic. Repeat echo pending this morning but shows no right heart strain. We will continue to follow patient and offer further recommendations as needed. Past Med Surg Social Fam HX - Past Medical History Medical history: atrial fibrillation, COPD, coronary artery disease, diabetes, hyperlipidemia, myocardial infarction Psychiatric history: no psych history - Past Surgical History Surgical History: coronary bypass (CABG) - Social History Smoking Status: Unknown if ever smoked Smokeless Tobacco Status: No Alcohol use: none Drug use: none - Family History Mother Living Status: Father Adopted: No Living Status: Hx Family Cardiac Disorders: Yes Hx Family Respiratory Disorders: No Hx Family Cancer: Yes (Mother) Hx Family GI Disorders: No Hx Family Endocrine Disorder: No Hx Family Neuromuscular Disorders: No Hx Family Neurologic Disorders: No Hx Family HEENT Disorders: No Hx Family Autoimmune Disorders: No Medications and Allergies Carbidopa/Levodopa 25/100 [Sinemet 25/100] 1.5 tab PO Q8H 02/08/16 [History] Lisinopril [Zestril] 5 mg PO DAILY 02/08/16 [History] Metformin HCl [Metformin HCl ER] 500 mg PO DAILY 02/08/16 [History] Metoprolol Succinate [Toprol Xl] 50 mg PO BID 02/08/16 [History] Nitroglycerin 0.4 mg PO Q5M PRN 02/08/16 [History] Pravastatin Sodium 10 mg PO HS 02/08/16 [History] DULoxetine [Cymbalta] 20 mg PO DAILY 07/08/17 [History] Isosorbide MONOnitrate [Isosorbide Mononitrate ER] 120 mg PO DAILY 07/08/17 [ History] Lactose-Reduced Food [Ensure Plus] 1 bottle PO TID 07/12/17 [History] Bisacodyl [Dulcolax] 10 mg PO DAILY PRN tablet 07/15/17 [Rx] Docusate [Colace] 100 mg PO BID capsule 07/15/17 [Rx] Ranolazine [Ranexa] 1,000 mg PO BID tab.er.12h 07/15/17 [Rx] Magnesium Hydroxide [Milk of Magnesia] 30 ml PO DAILY PRN 08/02/17 [History] Aspirin Enteric Coated [Aspirin EC] 81 mg PO DAILY #0 08/08/17 [Rx] Acetaminophen [Tylenol] 650 mg PO Q6H 08/30/17 [History] Calcium Carbonate [Calcium] 500 mg PO DAILY 08/30/17 [History] Ferrous Sulfate 324 mg PO BID 08/30/17 [History] LORazepam [Ativan] 0.5 mg PO BID 08/30/17 [History] Oseltamivir [Tamiflu] 75 mg PO DAILY 08/30/17 [History] Pantoprazole Sodium [Protonix] 40 mg PO BID 08/30/17 [History] Sennosides [Senna] 17.2 mg PO DAILY 08/30/17 [History] Sucralfate [Carafate] 1 gm PO TID 08/30/17 [History] Ampicillin Trihydrate 500 mg PO DAILY 4 Days #4 capsule 09/04/17 [Rx] Quetiapine Fumarate [Seroquel] 25 mg PO HS 30 Days #30 tablet 09/04/17 [Rx] Aspirin Enteric Coated [Aspirin EC] 325 mg PO BID #20 tablet. 09/06/17 [Rx] OxyCODONE Immed Rel [Roxicodone 5 MG] 5 mg PO Q4HR PRN #20 tablet 09/06/17 [Rx] 3 Allergy/AdvReac Type Severity Reaction Status Date / Time ezetimibe [From Zetia] AdvReac See Verified 09/06/17 15:18 Comments [id number] Reductase AdvReac See Verified 09/06/17 15:18 Inhibitor Comments ROS unobtainable: due to endotracheal tube All Systems: A 10-system review of systems was performed and is negative for pertinent findings except as documented above in the HPI. Physical Examination Vital Signs: Vital Signs, Last 4 Hours Temp Pulse Resp BP Pulse Ox 09/08/17 06:15 86 17 98/61 100 09/08/17 05:30 94 19 106/62 100 09/08/17 04:29 15 100 09/08/17 04:00 98.7 F 92 13 91/61 98 09/08/17 03:30 87 12 95/62 100 General appearance: no acute distress (Patient is able to respond to simple commands and nod during questioning) Eyes: nonicteric ENT: oropharynx moist Neck: supple Effort: normal Inspection: normal Auscultation: bilateral: clear Cardiovascular: regular rate and rhythm Gastrointestinal: normoactive bowel sounds, non-distended Integumentary: normal, other (Incision is clean dry intact) Extremities: no cyanosis, no edema, no clubbing Musculoskeletal: other (Right knee brace in place.) unable to assess due to mental status Ventilator Settings Ventilator Settings: Ventilator Settings, Last 8 Hours Ventilator Mode A/C Ventilator Mode A/C Ventilator Mode A/C Ventilator Mode VC+ Ventilator Mode A/C Ventilator Mode A/C Ventilator Mode A/C Ventilator Mode A/C Ventilator Mode A/C Ventilator Tidal Volume 500 Setting Ventilator Tidal Volume 500 Setting Ventilator Tidal Volume 500 Setting Ventilator Tidal Volume 500 Setting Ventilator Tidal Volume 500 Setting Ventilator Tidal Volume 500 Setting Ventilator Tidal Volume 500 Setting Ventilator Tidal Volume 500 Setting Ventilator Tidal Volume 500 Setting Ventilator Respiratory Rate 12 Setting Ventilator Respiratory Rate 12 Setting Ventilator Respiratory Rate 12 Setting Ventilator Respiratory Rate 12 Setting Ventilator Respiratory Rate 12 Setting Ventilator Respiratory Rate 12 Setting Ventilator Respiratory Rate 12 Setting Ventilator Respiratory Rate 12 Setting Ventilator Respiratory Rate 12 Setting Actual Respiratory Rate 17 Actual Respiratory Rate 19 Actual Respiratory Rate 14 Actual Respiratory Rate 13 Actual Respiratory Rate 12 Actual Respiratory Rate 15 Actual Respiratory Rate 14 Positive End Expiratory 5 Pressure Positive End Expiratory 5 Pressure Positive End Expiratory 5 Pressure Positive End Expiratory 5 Pressure Positive End Expiratory 5 Pressure Positive End Expiratory 5 Pressure Positive End Expiratory 5 Pressure Positive End Expiratory 5 Pressure Positive End Expiratory 5 Pressure Peak Inspiratory Airway 26 Pressure Peak Inspiratory Airway 26 Pressure Peak Inspiratory Airway 30 Pressure Peak Inspiratory Airway 26 Pressure Peak Inspiratory Airway 29 Pressure Peak Inspiratory Airway 25 Pressure Peak Inspiratory Airway 26 Pressure Results - Laboratory Findings CBC and BMP: 09/08/17 05:31 09/08/17 05:31 ABG ABG pH 7.40 pH Units (7.32-7.45) 09/08/17 06:32 ABG pCO2 37 mmHg (35-45) 09/08/17 06:32 ABG pO2 194 mmHg (85-104) H D 09/08/17 06:32 ABG O2 Saturation 100 % (95-98) H 09/08/17 06:32 PT/INR, D-dimer PT 13.3 Seconds (9.4-12.1) H 09/08/17 05:31 Abnormal lab findings: Abnormal lab results WBC 12.9 K/mcL (4.3-11.1) H 09/08/17 05:31 RBC 3.03 M/mcL (4.19-5.50) L 09/08/17 05:31 Hgb 9.2 g/dL (12.9-16.9) L 09/08/17 05:31 Hct 30.7 % (37.5-50.1) L 09/08/17 05:31 MCV 101.3 fL (83.0-100.0) H 09/08/17 05:31 MCHC 30.0 g/dL (31.6-35.5) L 09/08/17 05:31 RDW 18.4 % (11.5-14.5) H 09/08/17 05:31 Neutrophils # 9.6 K/mcL (1.6-8.9) H 09/08/17 05:31 Monocytes # 2.1 K/mcL (0.0-1.3) H 09/08/17 05:31 PT 13.3 Seconds (9.4-12.1) H 09/08/17 05:31 APTT 98.5 Seconds (26.0-36.0) H D 09/08/17 05:31 ABG pO2 194 mmHg (85-104) H D 09/08/17 06:32 ABG O2 Saturation 100 % (95-98) H 09/08/17 06:32 Glucose 231 mg/dL (70-105) H 09/08/17 05:31 POC Glucose 203 (58-89) H 09/08/17 01:16 Lactic Acid 3.0 mmol/L (0.5-2.2) H 09/08/17 05:31 Calcium 8.1 mg/dL (8.6-10.3) L 09/08/17 05:31 ALT 4 Units/L (7-52) L 09/08/17 05:31 Troponin I 1.76 ng/mL (< 0.04) H* 09/08/17 05:31 Serum Total Protein 5.0 g/dL (6.4-8.9) L 09/08/17 05:31 Albumin 2.8 g/dL (3.5-5.7) L 09/08/17 05:31 Globulin 2.2 g/dL (2.4-3.5) L 09/08/17 05:31 - Microbiology Findings Microbiology Findings: Microbiology, Last 48 Hours 09/06/17 18:12 Wound Culture - Preliminary Right Hip No growth. 09/06/17 18:12 Gram Stain - Final Right Hip - Clinical Findings Intake & Output: Intake & Output 09/07/17 09/07/17 09/08/17 15:59 23:59 07:59 Intake Total 1390 / 1390 60 / 60 1300 / 1300 Output Total 340 / 340 45 / 45 390 / 390 Balance 1050 / 1050 15 / 15 910 / 910 Consult Discharge Plan - Plan Referrals: Eileen Howard, [employer]ER [Primary Care Provider] - Prescriptions: OxyCODONE Immed Rel [Roxicodone 5 MG] 5 mg PO Q4HR PRN #20 tablet PRN Reason: Pain Aspirin Enteric Coated [Aspirin EC] 325 mg PO BID #20 tablet. <Benny Suarez W - Last Filed: 09/08/17 13:15> Date of Encounter: 09/08/17 All Systems: A 10-system review of systems was performed and is negative for pertinent findings except as documented above in the HPI. Physical Examination Vital Signs: Vital Signs, Last 4 Hours Temp Pulse Resp BP Pulse Ox 09/08/17 12:00 101 16 113/75 99 09/08/17 11:09 24 99 09/08/17 11:00 100.4 F H 101 16 113/75 99 09/08/17 10:00 91 24 93/61 98 09/08/17 09:26 13 98 Ventilator Settings Ventilator Settings: Ventilator Settings, Last 8 Hours Ventilator Mode A/C Ventilator Mode A/C Ventilator Mode A/C Ventilator Mode A/C Ventilator Mode A/C Ventilator Mode A/C Ventilator Tidal Volume 500 Setting Ventilator Tidal Volume 500 Setting Ventilator Tidal Volume 500 Setting Ventilator Tidal Volume 500 Setting Ventilator Tidal Volume 500 Setting Ventilator Tidal Volume 500 Setting Ventilator Respiratory Rate 12 Setting Ventilator Respiratory Rate 12 Setting Ventilator Respiratory Rate 12 Setting Ventilator Respiratory Rate 12 Setting Ventilator Respiratory Rate 12 Setting Ventilator Respiratory Rate 12 Setting Actual Respiratory Rate 22 Actual Respiratory Rate 14 Actual Respiratory Rate 14 Actual Respiratory Rate 30 Actual Respiratory Rate 12 Actual Respiratory Rate 17 Actual Respiratory Rate 19 Positive End Expiratory 5 Pressure Positive End Expiratory 5 Pressure Positive End Expiratory 5 Pressure Positive End Expiratory 5 Pressure Positive End Expiratory 5 Pressure Positive End Expiratory 5 Pressure Positive End Expiratory 5 Pressure Positive End Expiratory 5 Pressure Peak Inspiratory Airway 24 Pressure Peak Inspiratory Airway 24 Pressure Peak Inspiratory Airway 26 Pressure Peak Inspiratory Airway 26 Pressure Peak Inspiratory Airway 26 Pressure Results - Laboratory Findings CBC and BMP: 09/08/17 05:31 09/08/17 05:31 ABG ABG pH 7.40 pH Units (7.32-7.45) 09/08/17 06:32 ABG pCO2 37 mmHg (35-45) 09/08/17 06:32 ABG pO2 194 mmHg (85-104) H D 09/08/17 06:32 ABG O2 Saturation 100 % (95-98) H 09/08/17 06:32 PT/INR, D-dimer PT 13.3 Seconds (9.4-12.1) H 09/08/17 05:31 Abnormal lab findings: Abnormal lab results WBC 12.9 K/mcL (4.3-11.1) H 09/08/17 05:31 RBC 3.03 M/mcL (4.19-5.50) L 09/08/17 05:31 Hgb 9.2 g/dL (12.9-16.9) L 09/08/17 05:31 Hct 30.7 % (37.5-50.1) L 09/08/17 05:31 MCV 101.3 fL (83.0-100.0) H 09/08/17 05:31 MCHC 30.0 g/dL (31.6-35.5) L 09/08/17 05:31 RDW 18.4 % (11.5-14.5) H 09/08/17 05:31 Neutrophils # 9.6 K/mcL (1.6-8.9) H 09/08/17 05:31 Monocytes # 2.1 K/mcL (0.0-1.3) H 09/08/17 05:31 PT 13.3 Seconds (9.4-12.1) H 09/08/17 05:31 APTT 136.4 Seconds (26.0-36.0) H* 09/08/17 10:25 ABG pO2 194 mmHg (85-104) H D 09/08/17 06:32 ABG O2 Saturation 100 % (95-98) H 09/08/17 06:32 Glucose 231 mg/dL (70-105) H 09/08/17 05:31 POC Glucose 203 (58-89) H 09/08/17 01:16 Lactic Acid 3.0 mmol/L (0.5-2.2) H 09/08/17 05:31 Calcium 8.1 mg/dL (8.6-10.3) L 09/08/17 05:31 ALT 4 Units/L (7-52) L 09/08/17 05:31 Troponin I 1.76 ng/mL (< 0.04) H* 09/08/17 05:31 Serum Total Protein 5.0 g/dL (6.4-8.9) L 09/08/17 05:31 Albumin 2.8 g/dL (3.5-5.7) L 09/08/17 05:31 Globulin 2.2 g/dL (2.4-3.5) L 09/08/17 05:31 - Microbiology Findings Microbiology Findings: Microbiology, Last 48 Hours 09/06/17 18:12 Wound Culture - Preliminary Right Hip No growth. 09/06/17 18:12 Gram Stain - Final Right Hip - Clinical Findings Intake & Output: Intake & Output 09/07/17 09/08/17 09/08/17 23:59 07:59 15:59 Intake Total 60 / 60 1300 / 1300 525 / 525 Output Total 45 / 45 465 / 465 100 / 100 Balance 15 835 / 835 425 / 425 - Attending Attestation I examined this patient and my medical decision-making was reviewed with the Resident Physician. I agree with the documented findings, disposition and treatment plan as described except to the extent set forth below. We independently had [id number] contact with the patient I spent 33min of Critical Care time with this patient. It involved decision making of high complexity to assess, manipulate, and support vital organ system failure and/or to prevent further life threatening deterioration of the patient' s condition. The time involved in the performance of separately reportable procedures was not counted toward critical care time. Patient seen and examined at bedside Labs, radiology, chart personally reviewed. Management was reviewed during multidisciplinary critical care rounds. VP CONSTRUCTION: Post cardiac arrest neurological function appears intact at least grossly. Suspect underlying delirium with worsening agitation starting Precedex for this. Because of GCS greater than 8 he was not a candidate for hypothermia protocol Pulm: Acute respiratory failure around the time of the cardiac arrest he is on ventilator with acceptable gas exchange. Plan for spontaneous breathing trial in the morning Cards: Status post cardiac arrest unclear rhythm may have been ventricular arrhythmia although he was not on the monitor at the initial time that CPR was started. History of coronary artery disease and troponin elevation which makes ACS possibility cardiology has been consulted for this echocardiogram pending also on the differential is pulmonary embolus and his been started on empiric heparin for this possibility. Vandana duplex today was positive for DVT which appears acute given these findings I would not subject the patient to contrast load for CT PE and will empirically treat with high intensity heparin at this time. He is otherwise hemodynamically stable. . Because of atrial fibrillation and ventricular arrhythmia overnight he has been loaded and maintained on infusion of amiodarone we will discuss with cardiology about any further recommendations. He is borderline hypotensive at this time and will give a small challenge of crystalloid to assess for response. Lactate was elevated to at the time of the arrest but is now trending down we will continue to monitor this FEN-GI: Nothing by mouth for now GI prophylaxis given Renal: No clear evidence a Time but he is certainly at risk given status post cardiac arrest we will attempt to avoid nephrotoxins as possible repeat renal function pending monitor urine output and electrolytes ID: Concern for sepsis versus inflammatory response he is at risk for aspiration during the cardiac arrest although chest x-ray not clearly identified as such. He is on empiric antimicrobials for hospital-acquired infection such as Pseudomonas and MRSA was planned to de-escalate in 24-48 hours. Broad-spectrum cultures have been obtained Heme/Onc: No overt evidence of hemorrhage H&H remained stable he is on heparin infusion will continue to monitor per protocol Endo: Glucose Monitored Integ/MSK: Skin Care per routine ICU Nursing Protocol to prevent ulcers. Lines: All lines examined without evidence of infection : Dispo: Remain in ICU for ongoing care CODE: DNAR
[2017-09-08] MEDS ORDERED: Vancomycin 1,500 MG in D5% in Water 250 ML IVPB ONE ×2 (07:37→08:00)
[2017-09-08] MEDS ORDERED: *HR* Midazolam HCl 2 MG/2 ML VIAL IVP ONE (08:43)
[2017-09-08] MEDS: Amiodarone Premix 360 MG/200 ML BAG IVC SCH ×2 (09:08→20:38)
[2017-09-08] MEDS: Insulin LISPRO 300 UNITS/3 ML VIAL SQ SCH ×4 (09:08→20:01)
[2017-09-08] MEDS: Multivit/Ca/Min/Fe/FA 1 TAB TABLET PO SCH (09:09)
[2017-09-08] MEDS: *HR* LORazepam 0.5 MG TABLET PO SCH ×2 (09:09→19:45)
[2017-09-08] MEDS: Ascorbic Acid 500 MG TABLET PO SCH ×2 (09:09→16:50)
[2017-09-08] MEDS: Chlorhexidine Rinse 15 ML MOUTHWASH MM SCH ×2 (09:18→19:59)
--- NOTE | 2017-09-08 10:06 | Orthopedics Progress Note ---
Date of Encounter: 09/08/17 Time of Encounter: 10:04 Subjective Interval history: S: Events of last night noted. The patient went back to the floor, but had a run of V-Tach. The patient was coded and placed back in the ICU. DVT was found this morning on ultrasound. Patient currently on Amiodorone and Heparin O: Vitals currently stable Right thigh dressings clean, dry, intact Drain pulled with 25 cc output Cannot perform neurologic exam due to mental status. A: Post right constrained total hip Readmitted to ICU after code last night P: Resume postoperative care Supportive care per the hospitalist. Objective Vital signs: Vital Signs Temp Pulse Resp BP Pulse Ox 09/08/17 09:26 13 98 09/08/17 08:00 82 14 103/75 99 09/08/17 07:43 14 81/40 100 09/08/17 07:40 86 09/08/17 07:35 99.0 F 09/08/17 07:00 93 12 81/67 100 09/08/17 06:15 86 17 98/61 100 09/08/17 05:30 94 19 106/62 100 09/08/17 04:29 15 100 09/08/17 04:00 98.7 F 92 13 91/61 98 09/08/17 03:30 87 12 95/62 100 09/08/17 02:45 89 15 95/61 100 09/08/17 02:03 14 98 09/08/17 01:05 99.9 F H 163 22 132/100 100 09/08/17 00:55 140 128/76 09/07/17 23:38 98.7 F 101 16 101/63 92 09/07/17 21:42 97.5 F L 100 17 109/61 93 09/07/17 17:52 79 09/07/17 17:44 75 13 106/60 97 09/07/17 16:45 79 13 102/59 100 09/07/17 15:40 98.3 F 09/07/17 15:13 77 15 100 09/07/17 14:05 84 12 108/61 100 09/07/17 13:05 74 16 110/58 100 09/07/17 12:12 78 13 98 09/07/17 11:38 97.8 F 09/07/17 11:00 74 13 116/72 99 09/07/17 10:15 77 13 117/59 98 Intake and Output 09/07/17 09/08/17 09/08/17 23:59 07:59 15:59 Intake Total 60 60 1300 / 1300 Output Total 45 465 / 465 Balance 835 / 835 Intake: IV Fluids 1300 / 1300 0.9 % Sodium Chloride 1,000 ML 1000 / 1000 @ 500 mls/hr IVC .Q2H ONE Rx#: [id number] Amiodarone Premix 150mg/100mL 100 / 100 150 mg In 100 ml @ 300 mls/hr IVPB ONCE ONE Rx#:[id number] Zosyn Premix 3.375 GM/200 ML 3. 200 / 200 375 gm In 200 ml @ 50 mls/hr IVPB Q8H [facility] Rx#:[id number] Oral 60 / 60 Output: Catheter 400 / 400 Wound Drainage 65 / 65 Right Hip 65 / 65 Other: Blood Glucose* 95 243 - Labs CBC & BMP: 09/08/17 05:31 09/08/17 05:31 Labs: Abnormal lab results WBC 12.9 K/mcL (4.3-11.1) H 09/08/17 05:31 RBC 3.03 M/mcL (4.19-5.50) L 09/08/17 05:31 Hgb 9.2 g/dL (12.9-16.9) L 09/08/17 05:31 Hct 30.7 % (37.5-50.1) L 09/08/17 05:31 MCV 101.3 fL (83.0-100.0) H 09/08/17 05:31 MCHC 30.0 g/dL (31.6-35.5) L 09/08/17 05:31 RDW 18.4 % (11.5-14.5) H 09/08/17 05:31 Neutrophils # 9.6 K/mcL (1.6-8.9) H 09/08/17 05:31 Monocytes # 2.1 K/mcL (0.0-1.3) H 09/08/17 05:31 PT 13.3 Seconds (9.4-12.1) H 09/08/17 05:31 APTT 98.5 Seconds (26.0-36.0) H D 09/08/17 05:31 ABG pO2 194 mmHg (85-104) H D 09/08/17 06:32 ABG O2 Saturation 100 % (95-98) H 09/08/17 06:32 Glucose 231 mg/dL (70-105) H 09/08/17 05:31 POC Glucose 203 (58-89) H 09/08/17 01:16 Lactic Acid 3.0 mmol/L (0.5-2.2) H 09/08/17 05:31 Calcium 8.1 mg/dL (8.6-10.3) L 09/08/17 05:31 ALT 4 Units/L (7-52) L 09/08/17 05:31 Troponin I 1.76 ng/mL (< 0.04) H* 09/08/17 05:31 Serum Total Protein 5.0 g/dL (6.4-8.9) L 09/08/17 05:31 Albumin 2.8 g/dL (3.5-5.7) L 09/08/17 05:31 Globulin 2.2 g/dL (2.4-3.5) L 09/08/17 05:31 - VTE Documentation of Mechanical Device: Venous foot pump, device Consult Discharge Plan - Plan Referrals: Eileen Howard CNP [Primary Care Provider] - Prescriptions: Aspirin Enteric Coated [Aspirin EC] 325 mg PO BID #20 tablet.dr LoveDONSavanah Immed Rel [Roxicodone 5 MG] 5 mg PO Q4HR PRN #20 tablet PRN Reason: Pain
--- NOTE | 2017-09-08 10:33 | Orthopedics Progress Note ---
Date of Encounter: 09/07/17 Time of Encounter: 12:30 Subjective Interval history: NOTE THIS IS A LATE ENTRY OF YESTERDAY'S VISIT S: Patient was seen on 09/07/17, and pain was well controlled to the right hip O: Afebrile with stable vital signs Right thigh dressing was clean, dry, intact Drain had minimal sanguinous output A: Post revision right hip arthroplasty P: Discussed with Dr. Hinds Patient was to be transferred to the floor Continue postoperative care. Objective Vital signs: Vital Signs Temp Pulse Resp BP Pulse Ox 09/08/17 09:26 13 98 09/08/17 08:00 82 14 103/75 99 09/08/17 07:43 14 81/40 100 09/08/17 07:40 86 09/08/17 07:35 99.0 F 09/08/17 07:00 93 12 81/67 100 09/08/17 06:15 86 17 98/61 100 09/08/17 05:30 94 19 106/62 100 09/08/17 04:29 15 100 09/08/17 04:00 98.7 F 92 13 91/61 98 09/08/17 03:30 87 12 95/62 100 09/08/17 02:45 89 15 95/61 100 09/08/17 02:03 14 98 09/08/17 01:05 99.9 F H 163 22 132/100 100 09/08/17 00:55 140 128/76 09/07/17 23:38 98.7 F 101 16 101/63 92 09/07/17 21:42 97.5 F L 100 17 109/61 93 09/07/17 17:52 79 09/07/17 17:44 75 13 106/60 97 09/07/17 16:45 79 13 102/59 100 09/07/17 15:40 98.3 F 09/07/17 15:13 77 15 100 09/07/17 14:05 84 12 108/61 100 09/07/17 13:05 74 16 110/58 100 09/07/17 12:12 78 13 98 09/07/17 11:38 97.8 F 09/07/17 11:00 74 13 116/72 99 Intake and Output 09/07/17 09/08/17 09/08/17 23:59 07:59 15:59 Intake Total 60 / 60 1300 / 1300 Output Total 465 / 465 Balance 835 / 835 Intake: IV Fluids 1300 / 1300 0.9 % Sodium Chloride 1,000 ML 1000 / 1000 @ 500 mls/hr IVC .Q2H ONE Rx#: [id number] Amiodarone Premix 150mg/100mL 100 / 100 150 mg In 100 ml @ 300 mls/hr IVPB ONCE ONE Rx#:[id number] Zosyn Premix 3.375 GM/200 ML 3. 200 / 200 375 gm In 200 ml @ 50 mls/hr IVPB Q8H [facility] Rx#:[id number] Oral 60 / 60 Output: Catheter 400 / 400 Wound Drainage 65 / 65 Right Hip 65 Other: Blood Glucose* 95 243 - Labs CBC & BMP: 09/08/17 05:31 09/08/17 05:31 Labs: Abnormal lab results WBC 12.9 K/mcL (4.3-11.1) H 09/08/17 05:31 RBC 3.03 M/mcL (4.19-5.50) L 09/08/17 05:31 Hgb 9.2 g/dL (12.9-16.9) L 09/08/17 05:31 Hct 30.7 % (37.5-50.1) L 09/08/17 05:31 MCV 101.3 fL (83.0-100.0) H 09/08/17 05:31 MCHC 30.0 g/dL (31.6-35.5) L 09/08/17 05:31 RDW 18.4 % (11.5-14.5) H 09/08/17 05:31 Neutrophils # 9.6 K/mcL (1.6-8.9) H 09/08/17 05:31 Monocytes # 2.1 K/mcL (0.0-1.3) H 09/08/17 05:31 PT 13.3 Seconds (9.4-12.1) H 09/08/17 05:31 APTT 98.5 Seconds (26.0-36.0) H D 09/08/17 05:31 ABG pO2 194 mmHg (85-104) H D 09/08/17 06:32 ABG O2 Saturation 100 % (95-98) H 09/08/17 06:32 Glucose 231 mg/dL (70-105) H 09/08/17 05:31 POC Glucose 203 (58-89) H 09/08/17 01:16 Lactic Acid 3.0 mmol/L (0.5-2.2) H 09/08/17 05:31 Calcium 8.1 mg/dL (8.6-10.3) L 09/08/17 05:31 ALT 4 Units/L (7-52) L 09/08/17 05:31 Troponin I 1.76 ng/mL (< 0.04) H* 09/08/17 05:31 Serum Total Protein 5.0 g/dL (6.4-8.9) L 09/08/17 05:31 Albumin 2.8 g/dL (3.5-5.7) L 09/08/17 05:31 Globulin 2.2 g/dL (2.4-3.5) L 09/08/17 05:31 - VTE Documentation of Mechanical Device: Venous foot pump, device Consult Discharge Plan - Plan Referrals: Eileen Howard, ASH COLLECTOR [Primary Care Provider] - Prescriptions: Aspirin Enteric Coated [Aspirin EC] 325 mg PO BID #20 tablet. OxyCODONSavanah Immed Rel [Roxicodone 5 MG] 5 mg PO Q4HR PRN #20 tablet PRN Reason: Pain
[2017-09-08 11:25] LABS: Activated Partial Thrombo Time 136.4 Seconds (26.0-36.0)
[2017-09-08 11:26] LABS: Heparin anti-factor XA UFH 0.65 IU/mL (0.30-0.70)
--- NOTE | 2017-09-08 11:49 | Cardiology Consult Note ---
Date of Encounter: 09/08/17 Time of Encounter: 10:30 Assessment and Plan (1) Cardiopulmonary arrest with successful resuscitation Current Visit: Yes Status: Acute Successful resuscitation, unclear precipitating event, EKG changes have resolved , initial troponin not suggestive of acute ischemic event, repeat pending. On heparin IV for possible ACS, possible PE, lower extremity dopplers pending to eval for source of blood clot with PE in differential. (2) CAD (coronary artery disease) of artery bypass graft Current Visit: Yes Status: Chronic Severe triple vessel CAD, post CABG, post PCI, last PCI 2014 with seven stents at [facility], follows at [facility] with Dr. Manuel, old records ordered, serial EKGs do not demonstrate evolving OH, appears stable, lateral ST seg depression has resolved , repeat troponin pending. Very technically limited echo shows EF 35%, down from 45% on previous study, decrease may be due to technical limitations, no obvious new subsegmental wall motion abnormalites, Would continue beta blockade, serial EKGs and troponins q 8 x one more set. Qualifiers: [place] vs. transplanted heart: [place] heart Associated angina: with stable angina Qualified Code(s): I25.708 - Atherosclerosis of coronary artery bypass graft(s), unspecified, with other forms of angina pectoris (3) Atrial fibrillation by electrocardiogram Current Visit: Yes Status: Chronic chronic a fib with fairly well controlled ventricular response, had episodes of tachyarrhtymia prior to arrest, not clearly VT vs. A fib with aberrancy, now on IV amiodarone with resolution of tachyarrhythias, continue IV amiodarone for now. Code(s): I48.91 - Unspecified atrial fibrillation (4) Dementia Current Visit: Yes Status: Acute PT is following commands, unable to evaluate further due to intubation. Qualifiers: Dementia type: unspecified type Dementia behavioral disturbance: without behavioral disturbance Qualified Code(s): F03.90 - Unspecified dementia without behavioral disturbance (5) History of right hip hemiarthroplasty Current Visit: Yes Status: Acute Discussion w patient/family: The assessment and plan as outlined above was discussed with the patient and/or family members who expressed understanding and agreement. All questions were answered. Thank you for involving us in the care of your patient. Please call with any questions. History of Present Illness Consult date: 09/08/17 Requesting physician: Damián Guillory Consult reason: Arrhythmia Chief complaint: Right hip pain History of present illness: Mr. Villarreal is a 87 year old male initially admitted for right hip repair, underwent surgical intervention 09/06/2017, was recovering uneventfully, developed episodes of tachycardia, respiratory arrest, was successfully ressusitated. Pt placed on ventilatory support, IV amiodarone, transiently required pressor support. He is now intubated, awake, follows commands. He shakes his head no to questions of chest pain or pressure, motions for tube removal. Past Med Surg Social Fam HX - Past Medical History Medical history: atrial fibrillation, COPD, coronary artery disease, diabetes, hyperlipidemia, myocardial infarction Psychiatric history: no psych history - Past Surgical History Surgical History: coronary bypass (CABG) - Social History Smoking Status: Unknown if ever smoked Smokeless Tobacco Status: No Alcohol use: none Drug use: none - Family History Mother Living Status: Father Adopted: No Living Status: Hx Family Cardiac Disorders: Yes Hx Family Respiratory Disorders: No Hx Family Cancer: Yes (Mother) Hx Family GI Disorders: No Hx Family Endocrine Disorder: No Hx Family Neuromuscular Disorders: No Hx Family Neurologic Disorders: No Hx Family HEENT Disorders: No Hx Family Autoimmune Disorders: No Medications and Allergies Carbidopa/Levodopa 25/100 [Sinemet 25/100] 1.5 tab PO Q8H 02/08/16 [History] Lisinopril [Zestril] 5 mg PO DAILY 02/08/16 [History] Metformin HCl [Metformin HCl ER] 500 mg PO DAILY 02/08/16 [History] Metoprolol Succinate [Toprol Xl] 50 mg PO BID 02/08/16 [History] Nitroglycerin 0.4 mg PO Q5M PRN 02/08/16 [History] Pravastatin Sodium 10 mg PO HS 02/08/16 [History] DULoxetine [Cymbalta] 20 mg PO DAILY 07/08/17 [History] Isosorbide MONOnitrate [Isosorbide Mononitrate ER] 120 mg PO DAILY 07/08/17 [ History] Lactose-Reduced Food [Ensure Plus] 1 bottle PO TID 07/12/17 [History] Bisacodyl [Dulcolax] 10 mg PO DAILY PRN tablet 07/15/17 [Rx] Docusate [Colace] 100 mg PO BID capsule 07/15/17 [Rx] Ranolazine [Ranexa] 1,000 mg PO BID tab.er.12h 07/15/17 [Rx] Magnesium Hydroxide [Milk of Magnesia] 30 ml PO DAILY PRN 08/02/17 [History] Aspirin Enteric Coated [Aspirin EC] 81 mg PO DAILY #0 08/08/17 [Rx] Acetaminophen [Tylenol] 650 mg PO Q6H 08/30/17 [History] Calcium Carbonate [Calcium] 500 mg PO DAILY 08/30/17 [History] Ferrous Sulfate 324 mg PO BID 08/30/17 [History] LORazepam [Ativan] 0.5 mg PO BID 08/30/17 [History] Oseltamivir [Tamiflu] 75 mg PO DAILY 08/30/17 [History] Pantoprazole Sodium [Protonix] 40 mg PO BID 08/30/17 [History] Sennosides [Senna] 17.2 mg PO DAILY 08/30/17 [History] Sucralfate [Carafate] 1 gm PO TID 08/30/17 [History] Ampicillin Trihydrate 500 mg PO DAILY 4 Days #4 capsule 09/04/17 [Rx] Quetiapine Fumarate [Seroquel] 25 mg PO HS 30 Days #30 tablet 09/04/17 [Rx] Aspirin Enteric Coated [Aspirin EC] 325 mg PO BID #20 tablet. 09/06/17 [Rx] OxyCODONE Immed Rel [Roxicodone 5 MG] 5 mg PO Q4HR PRN #20 tablet 09/06/17 [Rx] 3 Allergy/AdvReac Type Severity Reaction Status Date / Time ezetimibe [From Zetia] AdvReac See Verified 09/06/17 15:18 Comments Xscoqss-Orf-Huy Reductase AdvReac See Verified 09/06/17 15:18 Inhibitor Comments ROS unobtainable: due to endotracheal tube All Systems Review: A 10-system review of systems was performed and is negative for pertinent findings except as documented above in the HPI. Physical Examination Vital Signs, Last 4 Hours Temp Pulse Resp BP Pulse Ox 09/08/17 11:09 24 99 09/08/17 11:00 100.4 F H 96 17 92/64 100 09/08/17 10:00 91 24 93/61 98 09/08/17 09:26 13 98 09/08/17 09:00 91 15 89/62 100 09/08/17 08:00 82 14 103/75 99 09/08/17 07:43 14 81/40 100 HEENT: Atraumatic Neck: No JVD, Normal carotid pulses Cardiac: Other (irregularly irregular, heart rate 100 to 120) Lungs: Other (Scattered rhonchi) Neuro: Alert and responsive, No focal deficits noted, Other (with pt intubated, moves arms and legs to command) Skin: No rashes noted on visualized skin Musculoskeletal: No Chest Wall Tenderness Extremities: No Cyanosis Results 09/08/17 05:31 09/08/17 05:31 Lab Results 09/08/17 09/08/17 09/08/17 01:19 01:19 01:19 WBC 14.6 H D Hgb 10.3 L Hct 34.3 L Plt Count 211 INR APTT Sodium 138 Potassium 3.8 Chloride 102 Carbon Dioxide 22 L BUN 23 Creatinine 1.25 Glucose 211 H Calcium 9.0 Magnesium 2.0 Total Bilirubin 0.6 AST 33 ALT 5 L Alkaline Phosphatase 72 Troponin I 0.14 H* 09/08/17 09/08/17 09/08/17 01:19 05:31 05:31 WBC 12.9 H Hgb 9.2 L Hct 30.7 L Plt Count 190 INR 1.1 APTT 28.7 Sodium Potassium Chloride Carbon Dioxide BUN Creatinine Glucose Calcium Magnesium Total Bilirubin AST ALT Alkaline Phosphatase Troponin I 1.76 H* 09/08/17 09/08/17 09/08/17 05:31 05:31 10:25 WBC Hgb Hct Plt Count INR 1.2 APTT 98.5 H D 136.4 H* Sodium 138 Potassium 4.4 Chloride 106 Carbon Dioxide 23 BUN 22 Creatinine 1.13 Glucose 231 H Calcium 8.1 L Magnesium 1.8 Total Bilirubin 0.5 AST 32 ALT 4 L Alkaline Phosphatase 63 Troponin I - Imaging and Cardiology Chest Xray: report reviewed - EKG Interpretation EKG results cardiology: personally reviewed (Atrial fib with controlled ventricular response, Lateral EKG changes present early this AM have resolved, back at baseline.) Consult Discharge Plan - Plan Referrals: Eileen Howard, ELECTRIC REFRIGERATOR SERVICER [Primary Care Provider] - Prescriptions: OxyCODONE Immed Rel [Roxicodone 5 MG] 5 mg PO Q4HR PRN #20 tablet PRN Reason: Pain Aspirin Enteric Coated [Aspirin EC] 325 mg PO BID #20 tablet.
[2017-09-08] MEDS: Aspirin 81 MG TAB.CHEW PO SCH (12:49)
[2017-09-08] MEDS: Dexmedetomidine HCl 400 MCG/100 ML MLS IVC SCH (13:19)
[2017-09-08 17:28] LABS: Basophils % 0.3 %; Hematocrit 27.5 % (37.5-50.1); Hemoglobin 8.4 g/dL (12.9-16.9); Immature Granulocytes % 0.4 % (0-4); Lymphocytes # 1.3 K/mcL (0.6-4.6); Lymphocytes % 13.4 %; Mean Corpuscular HGB Conc 30.5 g/dL (31.6-35.5); Mean Corpuscular Hemoglobin 30.3 pg (28.0-33.3); Mean Corpuscular Volume 99.3 fL (83.0-100.0); Mean Platelet Volume 10.6 fL (9.4-12.4); Monocytes # 1.4 K/mcL (0.0-1.3); Neutrophils # 6.6 K/mcL (1.6-8.9); Platelet Count 156 K/mcL (140-400); Red Blood Count 2.77 M/mcL (4.19-5.50); Red Cell Distribution Width 18.4 % (11.5-14.5); Segmented Neutrophils % 70.9 %
[2017-09-08 17:44] LABS: BUN/Creatinine Ratio 21 (6-26); Blood Urea Nitrogen 21 mg/dL (8-23); Calcium 8.1 mg/dL (8.6-10.3); Carbon Dioxide 20 mEq/L (23-29); Chloride 108 mEq/L (98-107); Glucose 143 mg/dL (70-105); Magnesium 1.8 mg/dL (1.6-2.6); Osmolality,Calculated 285 (280-300); Potassium 3.6 mEq/L (3.5-5.1); Sodium 135 mEq/L (136-145); eGFR For African Americans > 60 (> 60); eGFR For Non-African Americans > 60 (> 60)
[2017-09-09] MEDS: Lacri-Lube 3.5 GM TUBE BOTH EYES SCH ×7 (00:46→23:34)
[2017-09-09] MEDS: Piperacillin/Tazobactam 3.375 GM/200 ML BAG IVPB SCH ×3 (02:29→18:42)
[2017-09-09] MEDS: FentaNYL (PF) 1,000 MCG in 0.9 % Sodium Chloride 80 ML IVC SCH (02:31)
[2017-09-09] MEDS: Ringers Solution, Lactated 1,000 ML IVC SCH (03:49)
[2017-09-09] MEDS: Dexmedetomidine HCl 400 MCG/100 ML MLS IVC SCH (03:50)
[2017-09-09 05:25] LABS: Basophils % 0.4 %; Hematocrit 27.4 % (37.5-50.1); Hemoglobin 8.4 g/dL (12.9-16.9); Immature Granulocytes % 0.3 % (0-4); Mean Corpuscular HGB Conc 30.7 g/dL (31.6-35.5); Mean Corpuscular Hemoglobin 30.9 pg (28.0-33.3); Mean Corpuscular Volume 100.7 fL (83.0-100.0); Mean Platelet Volume 10.8 fL (9.4-12.4); Monocytes # 1.1 K/mcL (0.0-1.3); Monocytes % 14.7 %; Neutrophils # 5.5 K/mcL (1.6-8.9); Platelet Count 137 K/mcL (140-400); Red Blood Count 2.72 M/mcL (4.19-5.50); Red Cell Distribution Width 18.3 % (11.5-14.5); Segmented Neutrophils % 71.6 %
[2017-09-09 05:29] LABS: INR 1.3; Prothrombin Time 14.3 Seconds (9.4-12.1)
[2017-09-09 05:48] LABS: ABG Base Excess 1 mEq/L (-2 to 3); ABG HCO3 25 mEq/L (21-27); ABG Oxygen Saturation 97 % (95-98); ABG PCO2 39 mmHg (35-45); ABG PH 7.42 pH Units (7.32-7.45); ABG PO2 92 mmHg (85-104); ABG TCO2 26 mEq/L (20-26); Blood Gas Modality ASSIST CONTROL; Blood Gas PEEP 5 cm H2O; Blood Gas Respiration Rate 12; Blood Gas VT 500 cc
[2017-09-09 05:51] LABS: Activated Partial Thrombo Time 90.4 Seconds (26.0-36.0)
[2017-09-09] MEDS: Carbidopa/Levodopa 25/100 TABLET PO SCH ×3 (05:54→21:15)
[2017-09-09] MEDS: Famotidine 20 MG/2 ML VIAL IVP SCH ×2 (05:54→21:07)
--- NOTE | 2017-09-09 06:56 | Orthopedics Progress Note ---
Date of Encounter: 09/09/17 Time of Encounter: 06:55 - Assessment and Plan (1) Pain with hip hemiarthroplasty Current Visit: No Status: Acute Qualifiers: Encounter type: subsequent encounter Qualified Code(s): T84.84XD - Pain due to internal orthopedic prosthetic devices, implants and grafts, subsequent encounter; Z96.649 - Presence of unspecified artificial hip joint; Z96.649 - Presence of unspecified artificial hip joint (2) Generalized weakness Current Visit: No Status: Chronic (3) CAD (coronary artery disease) of artery bypass graft Current Visit: No Status: Chronic Qualifiers: [place] vs. transplanted heart: [place] heart Associated angina: with unspecified angina Qualified Code(s): I25.709 - Atherosclerosis of coronary artery bypass graft(s), unspecified, with unspecified angina pectoris (4) Parkinson disease Current Visit: Yes Status: Chronic (5) Diabetes mellitus type II, non insulin dependent Current Visit: Yes Status: Chronic (6) DVT prophylaxis Current Visit: Yes Status: Acute (7) Hypertension Current Visit: Yes Status: Chronic Qualifiers: Hypertension type: essential hypertension Qualified Code(s): I10 - Essential (primary) hypertension (8) Atrial fibrillation Current Visit: Yes Status: Chronic Qualifiers: Atrial fibrillation type: chronic Qualified Code(s): I48.2 - Chronic atrial fibrillation (9) Dementia Current Visit: Yes Status: Chronic Qualifiers: Dementia type: Alzheimer's disease Alzheimer's disease onset: unspecified onset Dementia behavioral disturbance: with behavioral disturbance Qualified Code(s): G30.9 - Alzheimer's disease, unspecified; F02.81 - Dementia in other diseases classified elsewhere with behavioral disturbance; F02.81 - Dementia in other diseases classified elsewhere with behavioral disturbance; F02.81 - Dementia in other diseases classified elsewhere with behavioral disturbance (10) AAA (abdominal aortic aneurysm) without rupture Current Visit: No Status: Chronic (11) Afib Current Visit: No Status: Chronic Qualifiers: Atrial fibrillation type: unspecified Qualified Code(s): I48.91 - Unspecified atrial fibrillation (12) CHF (congestive heart failure) Current Visit: Yes Status: Chronic Qualifiers: Congestive heart failure type: diastolic Congestive heart failure chronicity: chronic Qualified Code(s): I50.32 - Chronic diastolic (congestive ) heart failure Subjective Interval history: Patient seen this morning still intubated dressing clean dry and intact Plan as per ICU team Objective Vital signs: Vital Signs Temp Pulse Resp BP Pulse Ox 09/09/17 06:00 82 15 84/56 100 09/09/17 05:30 76 13 86/54 99 09/09/17 04:39 97.9 F 09/09/17 04:00 81 14 102/55 100 09/09/17 03:44 14 98 09/09/17 03:30 76 09/09/17 03:00 84 15 89/53 97 09/09/17 02:03 17 99 09/09/17 02:00 82 16 90/57 98 09/09/17 01:00 80 17 86/50 97 09/09/17 00:30 79 16 91/52 95 09/09/17 00:20 98.4 F 09/08/17 23:30 87 13 86/52 96 09/08/17 23:12 14 98 09/08/17 22:00 87 13 90/49 97 09/08/17 21:53 14 96 09/08/17 21:00 90 16 88/55 97 09/08/17 20:45 98 16 86/57 95 09/08/17 19:59 99.9 F H 09/08/17 19:30 18 97 09/08/17 19:00 94 15 92/59 94 09/08/17 18:06 93 17 86/55 96 09/08/17 17:12 22 91/57 96 09/08/17 16:30 100.0 F H 09/08/17 16:18 21 88/58 97 09/08/17 15:01 90 14 97/61 95 09/08/17 14:39 18 89/57 98 09/08/17 13:00 102 23 93/70 99 09/08/17 12:00 101 16 113/75 99 09/08/17 11:09 24 99 09/08/17 11:00 100.4 F H 101 16 113/75 99 09/08/17 10:00 91 24 93/61 98 09/08/17 09:26 13 98 09/08/17 09:00 93 21 91/64 99 09/08/17 08:00 82 14 103/75 99 09/08/17 07:43 14 81/40 100 09/08/17 07:40 86 09/08/17 07:35 99.0 F 09/08/17 07:00 93 12 81/67 100 Intake and Output 09/08/17 09/08/17 09/09/17 15:59 23:59 07:59 Intake Total 525 / 525 825 / 825 652 / 652 Output Total 100 / 100 200 / 200 225 / 225 Balance 425 / 425 625 / 625 427 / 427 Intake: IV Fluids 525 / 525 825 / 825 652 / 652 ALBURX 5% 12.5 gm In 250 ml @ 250 / 250 60 mls/hr IVC .Q4H10M [facility] Rx#: [id number] Amiodarone Drip Premix 360mg/ 200 / 200 200mL 360 mg In 200 ml @ 0.5 MG /MIN 16.667 mls/hr IVC CONT [facility] Rx#:[id number] PRECEDEX Premix 400 mcg In 100 100 / 100 ml @ 0.2 MCG/KG/HR 4.69 mls/hr IVC .[id number] [facility] Rx#:[id number] FentaNYL (PF) 1,000 MCG In 0.9 100 / 100 % Sodium Chloride 80 ML @ 50 MCG/HR 5 mls/hr IVC CONT [facility] Rx #:[id number] Heparin 25,000 UNIT/500 ML D5W 275 / 275 225 / 225 252 / 252 25,000 unit In 500 ml @ 14 UNIT /KG/HR 26.264 mls/hr IVC . Q19H3M [facility] Rx#:[id number] Zosyn Premix 3.375 GM/200 ML 3. 400 / 400 200 / 200 375 gm In 200 ml @ 50 mls/hr IVPB Q8H [facility] Rx#:[id number] Output: Catheter 100 / 100 150 / 150 225 / 225 Gastric Drainage 50 / 50 Other: Weight 99.5 kg Blood Glucose* 202 161 185 Patient Weight 09/09/17 23:59 Weight 99.5 kg - Labs CBC & BMP: 09/09/17 05:15 09/08/17 17:20 Labs: Abnormal lab results RBC 2.72 M/mcL (4.19-5.50) L 09/09/17 05:15 Hgb 8.4 g/dL (12.9-16.9) L 09/09/17 05:15 Hct 27.4 % (37.5-50.1) L 09/09/17 05:15 MCV 100.7 fL (83.0-100.0) H 09/09/17 05:15 MCHC 30.7 g/dL (31.6-35.5) L 09/09/17 05:15 RDW 18.3 % (11.5-14.5) H 09/09/17 05:15 Plt Count 137 K/mcL (140-400) L 09/09/17 05:15 PT 14.3 Seconds (9.4-12.1) H 09/09/17 05:15 APTT 90.4 Seconds (26.0-36.0) H D 09/09/17 05:15 Sodium 135 mEq/L (136-145) L 09/08/17 17:20 Chloride 108 mEq/L (98-107) H 09/08/17 17:20 Carbon Dioxide 20 mEq/L (23-29) L 09/08/17 17:20 Glucose 143 mg/dL (70-105) H 09/08/17 17:20 POC Glucose 202 (58-89) H 09/08/17 23:57 Calcium 8.1 mg/dL (8.6-10.3) L 09/08/17 17:20 ALT 4 Units/L (7-52) L 09/08/17 05:31 Troponin I 1.76 ng/mL (< 0.04) H* 09/08/17 05:31 Serum Total Protein 5.0 g/dL (6.4-8.9) L 09/08/17 05:31 Albumin 2.8 g/dL (3.5-5.7) L 09/08/17 05:31 Globulin 2.2 g/dL (2.4-3.5) L 09/08/17 05:31 - VTE Documentation of Mechanical Device: Venous foot pump, device Consult Discharge Plan - Plan Referrals: Eileen Howard CNP [Primary Care Provider] - Prescriptions: Aspirin Enteric Coated [Aspirin EC] 325 mg PO BID #20 tablet.dr Hernandez Immed Rel [Roxicodone 5 MG] 5 mg PO Q4HR PRN #20 tablet PRN Reason: Pain
[2017-09-09] MEDS ORDERED: *HR* EPINEPHrine 1 MG/10 ML SYRINGE IVP ONE (08:44)
[2017-09-09] MEDS: Ipratropium/Albuterol Neb 3 ML IH SCH ×4 (08:46→23:20)
--- NOTE | 2017-09-09 08:56 | Pulmonology Progress Note ---
<Ilya Carrillo Ruth - Last Filed: 09/09/17 11:26> Date of Encounter: 09/09/17 Time of Encounter: 08:54 Assessment and Plan (1) Acute respiratory failure Current Visit: Yes Status: Acute Intubated yesterday after CODE BLUE with hypoxia Chest x-ray shows improvement in interstitial pulmonary edema Sedated on fentanyl and Precedex - pt is easily arousable and responds to commands Ventilator settings: 12/500/30/5 Most recent ABG demonstrates pH of 7.42, PCO2 39, PO2 92, HCO3 25 IV Zosyn for suspicious of aspiration DuoNeb's every 4 as needed Sputum culture pending Nutrition consulted - enteral feeding and BG checks q4h Qualifiers: Respiratory failure complication: hypoxia Qualified Code(s): J96.01 - Acute respiratory failure with hypoxia (2) Cardiopulmonary arrest with successful resuscitation Current Visit: Yes Status: Acute UNIQUE GASPAR was called around 0045 yesterday as patient was expansion agonal breathing with no pulse palpable. CPR was initiated with epinephrine 1 mg delivered twice. ROSC see was obtained approximately 8-10 minutes patient was intubated throughout ACLS. Review of telemetry revealed the patient experienced 1-2 minutes of ventricular tachycardia. Per EMR review, patient missed Lovenox dose per report and postcode EKG reveals atrial fibrillation. Chest x-ray shows improvement in interstitial pulmonary edema Doppler ultrasound showed a left common femoral and left popliteal DVT. We will continue amiodarone and heparin drip Albumin 75g for hypotension Cardiology consulted - appreciate recommendations Repeat echo ordered - prelim no right heart strain, EF 35% down from 50% (3) Hypotension Current Visit: Yes Status: Acute Likely secondary to blood loss, anesthesia, pain medications Continue to hold home BP meds Will give another dose of albumin today Qualifiers: Hypotension type: unspecified hypotension type Qualified Code(s): I95.9 - Hypotension, unspecified (4) Deep vein thrombosis (DVT) of left lower extremity Current Visit: Yes Status: Acute Continue heparin drip Qualifiers: Affected thrombotic vein of extremity: popliteal Chronicity: acute Qualified Code(s): I82.432 - Acute embolism and thrombosis of left popliteal vein (5) Atrial fibrillation Current Visit: Yes Status: Chronic Currently rate controlled On amiodarone drip - recent V-tach Metoprolol PRN for HR >110 Qualifiers: Atrial fibrillation type: chronic Qualified Code(s): I48.2 - Chronic atrial fibrillation (6) History of right hip hemiarthroplasty Current Visit: Yes Status: Acute Postop day #3 status post right hip hemiarthroplasty Orthopedic surgery following (7) CHF (congestive heart failure) Current Visit: Yes Status: Chronic Echocardiogram was on 08/31/17 dementia rating EF 50%, indeterminate diastolic function, moderate aortic stenosis, moderate MR, mild TR. Apical septal welch were hypokinetic, mid inferior septal and basal inferior septal welch were akinetic, mid anteroseptal and basal anterior septal welch are dyskinetic. Repeat echo pending this morning but shows no right heart strain - pending official read No evidence of acute decompensation Chest x-ray shows improvement of interstitial pulmonary edema Qualifiers: Congestive heart failure type: diastolic Congestive heart failure chronicity: chronic Qualified Code(s): I50.32 - Chronic diastolic (congestive ) heart failure (8) CAD (coronary artery disease) Current Visit: Yes Status: Chronic Hx CAD with multiple stents - most recent PCI 2.5-3 years ago Qualifiers: Coronary Disease-Associated Artery/Lesion type: [place] artery [place] vs. transplanted heart: [place] heart Associated angina: without angina Qualified Code(s): I25.10 - Atherosclerotic heart disease of [place] coronary artery without angina pectoris (9) Parkinson disease Current Visit: Yes Status: Chronic (10) Diabetes mellitus type II, non insulin dependent Current Visit: Yes Status: Chronic (11) DVT prophylaxis Current Visit: Yes Status: Acute Heparin drip Subjective Principal diagnosis: Acute Repsiratory Failure Interval history: Pt seen and examined at bedside. Easily arousable and responds to commands. Objective PUL Vital signs: Last Vital Signs Temp 98.3 F 09/09/17 07:20 Pulse 80 09/09/17 08:00 Resp 18 09/09/17 08:00 BP 90/54 09/09/17 08:00 Pulse Ox 99 09/09/17 08:16 General appearance: no acute distress Eyes: nonicteric ENT: oropharynx moist Effort: normal Auscultation: bilateral: clear Cardiovascular: irregular rhythm (rate controlled) Gastrointestinal: normoactive bowel sounds Integumentary: normal Extremities: no cyanosis, no edema unable to assess due to mental status Ventilator Settings Ventilator Settings: Ventilator Settings, Last 8 Hours Ventilator Mode A/C Ventilator Mode A/C Ventilator Mode A/C Ventilator Mode A/C Ventilator Mode A/C Ventilator Mode A/C Ventilator Mode A/C Ventilator Mode A/C Ventilator Mode A/C Ventilator Mode A/C Ventilator Mode A/C Ventilator Tidal Volume 500 Setting Ventilator Tidal Volume 500 Setting Ventilator Tidal Volume 500 Setting Ventilator Tidal Volume 500 Setting Ventilator Tidal Volume 500 Setting Ventilator Tidal Volume 500 Setting Ventilator Tidal Volume 500 Setting Ventilator Tidal Volume 500 Setting Ventilator Tidal Volume 500 Setting Ventilator Tidal Volume 500 Setting Ventilator Tidal Volume 500 Setting Ventilator Respiratory Rate 12 Setting Ventilator Respiratory Rate 12 Setting Ventilator Respiratory Rate 12 Setting Ventilator Respiratory Rate 12 Setting Ventilator Respiratory Rate 12 Setting Ventilator Respiratory Rate 12 Setting Ventilator Respiratory Rate 12 Setting Ventilator Respiratory Rate 12 Setting Ventilator Respiratory Rate 12 Setting Ventilator Respiratory Rate 12 Setting Ventilator Respiratory Rate 12 Setting Actual Respiratory Rate 18 Actual Respiratory Rate 16 Actual Respiratory Rate 15 Actual Respiratory Rate 13 Actual Respiratory Rate 14 Actual Respiratory Rate 16 Actual Respiratory Rate 15 Actual Respiratory Rate 15 Actual Respiratory Rate 17 Actual Respiratory Rate 17 Positive End Expiratory 5 Pressure Positive End Expiratory 5 Pressure Positive End Expiratory 5 Pressure Positive End Expiratory 5 Pressure Positive End Expiratory 5 Pressure Positive End Expiratory 5 Pressure Positive End Expiratory 5 Pressure Positive End Expiratory 5 Pressure Positive End Expiratory 5 Pressure Positive End Expiratory 5 Pressure Positive End Expiratory 5 Pressure Peak Inspiratory Airway 26 Pressure Peak Inspiratory Airway 26 Pressure Peak Inspiratory Airway 25 Pressure Peak Inspiratory Airway 27 Pressure Peak Inspiratory Airway 27 Pressure Peak Inspiratory Airway 29 Pressure Peak Inspiratory Airway 27 Pressure Peak Inspiratory Airway 27 Pressure Results - Laboratory Findings CBC and BMP: 09/09/17 05:15 09/09/17 05:15 ABG ABG pH 7.42 pH Units (7.32-7.45) 09/09/17 05:45 ABG pCO2 39 mmHg (35-45) 09/09/17 05:45 ABG pO2 92 mmHg (85-104) 09/09/17 05:45 ABG O2 Saturation 97 % (95-98) 09/09/17 05:45 PT/INR, D-dimer PT 14.3 Seconds (9.4-12.1) H 09/09/17 05:15 Abnormal lab findings: Abnormal lab results RBC 2.72 M/mcL (4.19-5.50) L 09/09/17 05:15 Hgb 8.4 g/dL (12.9-16.9) L 09/09/17 05:15 Hct 27.4 % (37.5-50.1) L 09/09/17 05:15 MCV 100.7 fL (83.0-100.0) H 09/09/17 05:15 MCHC 30.7 g/dL (31.6-35.5) L 09/09/17 05:15 RDW 18.3 % (11.5-14.5) H 09/09/17 05:15 Plt Count 137 K/mcL (140-400) L 09/09/17 05:15 PT 14.3 Seconds (9.4-12.1) H 09/09/17 05:15 APTT 90.4 Seconds (26.0-36.0) H D 09/09/17 05:15 Sodium 135 mEq/L (136-145) L 09/08/17 17:20 Chloride 108 mEq/L (98-107) H 09/08/17 17:20 Carbon Dioxide 20 mEq/L (23-29) L 09/08/17 17:20 Glucose 143 mg/dL (70-105) H 09/08/17 17:20 POC Glucose 202 (58-89) H 09/08/17 23:57 Calcium 8.1 mg/dL (8.6-10.3) L 09/08/17 17:20 ALT 4 Units/L (7-52) L 09/08/17 05:31 Troponin I 1.76 ng/mL (< 0.04) H* 09/08/17 05:31 Serum Total Protein 5.0 g/dL (6.4-8.9) L 09/08/17 05:31 Albumin 2.8 g/dL (3.5-5.7) L 09/08/17 05:31 Globulin 2.2 g/dL (2.4-3.5) L 09/08/17 05:31 - Microbiology Findings Microbiology Findings: Microbiology, Last 48 Hours 09/06/17 18:12 Wound Culture - Final Right Hip No growth. 09/08/17 07:50 Sputum Culture - Preliminary Sputum - Clinical Findings Intake & Output: Intake & Output 09/08/17 09/09/17 09/09/17 23:59 07:59 15:59 Intake Total 825 / 825 652 / 652 Output Total 200 / 200 375 / 375 Balance 625 / 625 277 / 277 Weight 99.5 kg - VTE Documentation of Mechanical Device: Venous foot pump, device Consult Discharge Plan - Plan Referrals: Eileen Howard, [place] [Primary Care Provider] - Prescriptions: OxyCODONE Immed Rel [Roxicodone 5 MG] 5 mg PO Q4HR PRN #20 tablet PRN Reason: Pain Aspirin Enteric Coated [Aspirin EC] 325 mg PO BID #20 tablet.Julia Payton S - Last Filed: 09/10/17 08:29> Date of Encounter: 09/10/17 Objective PUL Vital signs: Last Vital Signs Temp 98.7 F 09/09/17 11:00 Pulse 82 09/09/17 14:00 Resp 17 09/09/17 17:04 BP 96/59 09/09/17 14:00 Pulse Ox 100 09/09/17 17:04 Ventilator Settings Ventilator Settings: Ventilator Settings, Last 8 Hours Ventilator Mode A/C Ventilator Mode A/C Ventilator Mode A/C Ventilator Mode A/C Ventilator Mode A/C Ventilator Mode A/C Ventilator Mode A/C Ventilator Tidal Volume 500 Setting Ventilator Tidal Volume 500 Setting Ventilator Tidal Volume 500 Setting Ventilator Tidal Volume 500 Setting Ventilator Tidal Volume 500 Setting Ventilator Tidal Volume 500 Setting Ventilator Tidal Volume 500 Setting Ventilator Respiratory Rate 12 Setting Ventilator Respiratory Rate 12 Setting Ventilator Respiratory Rate 12 Setting Ventilator Respiratory Rate 12 Setting Ventilator Respiratory Rate 12 Setting Ventilator Respiratory Rate 12 Setting Ventilator Respiratory Rate 12 Setting Actual Respiratory Rate 16 Actual Respiratory Rate 13 Actual Respiratory Rate 14 Actual Respiratory Rate 15 Actual Respiratory Rate 16 Actual Respiratory Rate 14 Actual Respiratory Rate 16 Positive End Expiratory 5 Pressure Positive End Expiratory 5 Pressure Positive End Expiratory 5 Pressure Positive End Expiratory 5 Pressure Positive End Expiratory 5 Pressure Positive End Expiratory 5 Pressure Positive End Expiratory 5 Pressure Peak Inspiratory Airway 30 Pressure Peak Inspiratory Airway 27 Pressure Peak Inspiratory Airway 26 Pressure Results - Laboratory Findings CBC and BMP: 09/10/17 05:49 09/10/17 05:49 ABG ABG pH 7.42 pH Units (7.32-7.45) 09/09/17 05:45 ABG pCO2 39 mmHg (35-45) 09/09/17 05:45 ABG pO2 92 mmHg (85-104) 09/09/17 05:45 ABG O2 Saturation 97 % (95-98) 09/09/17 05:45 PT/INR, D-dimer PT 14.3 Seconds (9.4-12.1) H 09/09/17 05:15 Abnormal lab findings: Abnormal lab results RBC 2.72 M/mcL (4.19-5.50) L 09/09/17 05:15 Hgb 8.4 g/dL (12.9-16.9) L 09/09/17 05:15 Hct 27.4 % (37.5-50.1) L 09/09/17 05:15 MCV 100.7 fL (83.0-100.0) H 09/09/17 05:15 MCHC 30.7 g/dL (31.6-35.5) L 09/09/17 05:15 RDW 18.3 % (11.5-14.5) H 09/09/17 05:15 Plt Count 137 K/mcL (140-400) L 09/09/17 05:15 PT 14.3 Seconds (9.4-12.1) H 09/09/17 05:15 APTT 54.2 Seconds (26.0-36.0) H 09/09/17 12:17 Sodium 134 mEq/L (136-145) L 09/09/17 05:15 Carbon Dioxide 20 mEq/L (23-29) L 09/09/17 05:15 Glucose 171 mg/dL (70-105) H 09/09/17 05:15 POC Glucose 202 (58-89) H 09/08/17 23:57 Calcium 8.1 mg/dL (8.6-10.3) L 09/09/17 05:15 ALT 5 Units/L (7-52) L 09/09/17 05:15 Troponin I 1.76 ng/mL (< 0.04) H* 09/08/17 05:31 Serum Total Protein 4.8 g/dL (6.4-8.9) L 09/09/17 05:15 Albumin 2.8 g/dL (3.5-5.7) L 09/09/17 05:15 Globulin 2.0 g/dL (2.4-3.5) L 09/09/17 05:15 Urine Clarity Turbid (Clear) A 09/09/17 11:05 Ur Specific Delia > 1.030 (1.010-1.025) H 09/09/17 11:05 Urine Protein 100 mg/dL (Neg-Trace) H 09/09/17 11:05 Urine Blood Large (Negative) H 09/09/17 11:05 Urine Microscopic RBC 30-50 per hpf (0-3) H 09/09/17 11:05 Urine Microscopic WBC 30-50 per hpf (0-3) H 09/09/17 11:05 Ur Squamous Epith Cells Many per lpf (None-Few) H 09/09/17 11:05 Granular Casts Few per lpf (None Seen) H 09/09/17 11:05 - Microbiology Findings Microbiology Findings: Microbiology, Last 48 Hours 09/06/17 18:12 Anaerobic Culture - Final Right Hip Anaerobic conditions were compromised due to failure of the anaerobic pouch to seal correctly, therefore, sample cannot be assessed for anaerobic organisms. 09/06/17 18:12 Wound Culture - Final Right Hip No growth. 09/08/17 07:50 Sputum Culture - Preliminary Sputum - Clinical Findings Intake & Output: Intake & Output 09/09/17 09/09/17 09/09/17 07:59 15:59 23:59 Intake Total 682 / 682 686 / 686 265 / 265 Output Total 375 / 375 100 / 100 Balance 307 / 307 586 / 586 265 / 265 Weight 99.5 kg - Attending Attestation I saw and evaluated this patient and my medical decision-making was reviewed with the Resident Physician. I agree with the documented findings, disposition and treatment plan as described except to the extent set forth below. We independently had [id number] contact with the patient I spent of 35 minutes of Critical Care time with this patient. It involved decision making of high complexity to assess, manipulate, and support vital organ system failure and/or to prevent further life threatening deterioration of the patient's condition. The time involved in the performance of separately reportable procedures was not counted toward critical care time. Patient seen and examined at bedside Labs, radiology, chart personally reviewed. LEAD PHARMACY TECHNICIAN:Patient is agitated follows commands on and off , will need good regimen for his agitation otherwise it will be a difficult to liberation to ventilator Pulm:acute respiratory failure secondary to code blue has aspiration like picture with fluid overload will cotinue broad spectrum antibiotics will descalate since cultures are negative ,low suspcion PE with no evidence of RV strain in ECHO cannot rule out PE because of JOSE to continue heparin drip for DVT , adjusted some TV volume and RR Cards: Patient had a cardiopulmonary arrest due to unstable V tachycardia , according to cardiology patient will need LHC but not be candidate because of comorbidities FEN-GI:Tube feeds Renal:Labs and output reviewed ID:To descalate antibiotics Heme/Onc:No acute issues Endo: Glucose Monitored Integ/MSK: Skin Care per routine ICU Nursing Protocol to prevent ulcers. Lines: All lines examined without evidence of infection : Dispo: Critrically ill CODE:DNR CCA
[2017-09-09] MEDS: Amiodarone Premix 360 MG/200 ML BAG IVC SCH ×2 (09:17→21:08)
[2017-09-09] MEDS: Ascorbic Acid 500 MG TABLET PO SCH ×2 (09:18→18:45)
[2017-09-09] MEDS: *HR* LORazepam 0.5 MG TABLET PO SCH (09:19)
[2017-09-09] MEDS: Aspirin 81 MG TAB.CHEW PO SCH (09:19)
[2017-09-09] MEDS: Multivit/Ca/Min/Fe/FA 1 TAB TABLET PO SCH (09:19)
[2017-09-09] MEDS: Chlorhexidine Rinse 15 ML MOUTHWASH MM SCH ×2 (09:19→21:08)
[2017-09-09] MEDS: Insulin LISPRO 300 UNITS/3 ML VIAL SQ SCH ×5 (09:21→21:10)
[2017-09-09 09:35] LABS: Alanine Aminotransferase 5 Units/L (7-52); Albumin 2.8 g/dL (3.5-5.7); Albumin/Globulin Ratio 1.4 (1.1-2.2); Alkaline Phosphatase 53 Units/L (34-104); Aspartate Amino Transferase 26 Units/L (13-39); BUN/Creatinine Ratio 18 (6-26); Bilirubin,Direct 0.2 mg/dL (0.0-0.2); Bilirubin,Indirect 0.3 mg/dL (0.0-1.2); Bilirubin,Total 0.5 mg/dL (0.3-1.0); Blood Urea Nitrogen 19 mg/dL (8-23); Calcium 8.1 mg/dL (8.6-10.3); Carbon Dioxide 20 mEq/L (23-29); Chloride 105 mEq/L (98-107); Glucose 171 mg/dL (70-105); Magnesium 1.7 mg/dL (1.6-2.6); Osmolality,Calculated 284 (280-300); Potassium 3.5 mEq/L (3.5-5.1); Sodium 134 mEq/L (136-145); Total Protein 4.8 g/dL (6.4-8.9); eGFR For African Americans > 60 (> 60); eGFR For Non-African Americans > 60 (> 60)
--- NOTE | 2017-09-09 09:38 | Cardiology Progress Note ---
Date of Encounter: 09/09/17 Time of Encounter: 09:30 Assessment and Plan (1) Cardiopulmonary arrest with successful resuscitation Current Visit: Yes Status: Acute S/p cardiopulmonary arrest 09/08/17. He recieved CPR and epi x1 with ROSC. Noted to have VT 2 min prior to event. He was started on IV amiodarone. On heparin IV for DVT seen on venous doppler. PE may be possibility. Troponin found to elevated at 0.14 and 1.76 s/p CPR. 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 Last PCI was at [facility] in 2014. Daughter reported that he has known CAD not amendable to PCI during last visit. Recent visit for GI bleed with troponin up to 3.35. Medical management recommended at that time. Follows with Dr. Manuel at [facility]. Will order records. Continue IV amiodarone while intubated. We will convert to oral once able. TTE pending, prelim read yesterday, EF reduced to 35% from 50%. Last TTE 08/31/16-LVEF 50%. Indeterminate diastolic function. Normal right ventricular structure and function. Moderate aortic stenosis. Moderate mitral regurgitation. Mild tricuspid regurgitation. Interatrial septum not well evaluated. Suboptimal image quality to detect PFO with saline contrast injection. No pulmonary hypertension. Further recommendations after TTE. Not a good [facility] candidate to acute anemia recent GI bleed (Hgb 13.0-> 8.4) and would likely not tolerate triple therapy. We will discuss plan of care with daughters. Consider PE work-up. Venous doppler + DVT. (2) Elevated troponin Current Visit: No Status: Acute Troponin 0.14, 1.76 s/p cardiopulmonary arrest. Known CAD, s/p CABG and miltiple PCI. Known CAD not amendable to PCI. Last C in 2014 at [facility]. Records ordered. TTE final results pending. Continue asa, statin, and bb. On heparin gtt (on hold temporarily for line placement). (3) Atrial fibrillation Current Visit: Yes Status: Chronic Currently rate controlled on IV amiodarone. On heparin gtt in the setting of DVT. Previously not on AC due to GI bleed. Qualifiers: Atrial fibrillation type: chronic Qualified Code(s): I48.2 - Chronic atrial fibrillation (4) CAD (coronary artery disease) of artery bypass graft Current Visit: Yes Status: Chronic Severe triple vessel CAD, post CABG, post PCI, last PCI 2014 with seven stents at [facility], follows at [facility] with Dr. Manuel, old records ordered. Asa, statin. Hold bb d/t hypotension. May require pressor support per primary team. Awaiting line placement. Qualifiers: [place] vs. transplanted heart: [place] heart Associated angina: with stable angina Qualified Code(s): I25.708 - Atherosclerosis of coronary artery bypass graft(s), unspecified, with other forms of angina pectoris (5) Atrial fibrillation by electrocardiogram Current Visit: Yes Status: Chronic chronic a fib with fairly well controlled ventricular response, had episodes of tachyarrhtymia prior to arrest, not clearly VT vs. A fib with aberrancy, now on IV amiodarone with resolution of tachyarrhythias, continue IV amiodarone for now. Discussion w patient/family: The assessment and plan as outlined above was discussed with the patient and/or family members who expressed understanding and agreement. All questions were answered. Thank you for involving us in the care of your patient. Please call with any questions. Subjective Principal diagnosis: Acute Repsiratory Failure Interval history: Patient awake on ventilator. Sedation turned off in preparation for c-pap trial. He does not follow commands for me. Appears agitated and is smacking my hands away when try to assess hand grasp. Objective Vital Signs, Last 4 Hours Temp Pulse Resp BP Pulse Ox 09/09/17 08:16 99 09/09/17 08:00 78 18 90/54 99 09/09/17 07:20 98.3 F 09/09/17 07:00 77 16 80/51 98 09/09/17 06:00 82 15 84/56 100 General: No Apparent Distress, Other (sedated on ventilator) HEENT: Atraumatic, Normocephaly, Mucus Membranes Moist Neck: No JVD, Normal carotid pulses Lungs: Normal Breath Sounds, No Wheeze, Rales, Rhonchi, Other (on assist control ventilator support) Neuro: Alert and responsive, Other (WIll not follow commands currently due to agitation. Moving all extremities) Abdomen: Soft, Non-Tender Skin: No rashes noted on visualized skin Musculoskeletal: Other (C/o tenderness with palpation of chest wall) Extremities: No Clubbing, No Cyanosis, Other (1+ BLE edema noted, leg wedge intact. Right hip dressing dry and intact. ) Results 09/09/17 05:15 09/09/17 05:15 Lab Results 09/08/17 09/08/17 09/08/17 10:25 16:43 17:20 WBC 9.4 Hgb 8.4 L Hct 27.5 L Plt Count 156 INR APTT 136.4 H* 84.1 H Sodium Potassium Chloride Carbon Dioxide BUN Creatinine Glucose Calcium Magnesium Total Bilirubin AST ALT Alkaline Phosphatase 09/08/17 09/08/17 09/09/17 17:20 22:40 05:15 WBC 7.7 Hgb 8.4 L Hct 27.4 L Plt Count 137 L INR APTT 42.9 H Sodium 135 L Potassium 3.6 Chloride 108 H Carbon Dioxide 20 L BUN 21 Creatinine 1.02 Glucose 143 H Calcium 8.1 L Magnesium 1.8 Total Bilirubin AST ALT Alkaline Phosphatase 09/09/17 09/09/17 05:15 05:15 WBC Hgb Hct Plt Count INR 1.3 APTT 90.4 H D Sodium 134 L Potassium 3.5 Chloride 105 Carbon Dioxide 20 L BUN 19 Creatinine 1.03 Glucose 171 H Calcium 8.1 L Magnesium 1.7 Total Bilirubin 0.5 AST 26 ALT 5 L Alkaline Phosphatase 53 TTE 08/31/16- LVEF 50%. Indeterminate diastolic function. Normal right ventricular structure and function. Moderate aortic stenosis. Moderate mitral regurgitation. Mild tricuspid regurgitation. Interatrial septum not well evaluated. Suboptimal image quality to detect PFO with saline contrast injection. No pulmonary hypertension. - Imaging and Cardiology Echo: report reviewed - EKG Interpretation EKG results cardiology: personally reviewed - VTE Documentation of Mechanical Device: Venous foot pump, device Consult Discharge Plan - Plan Referrals: Eileen Howard, [employer] TROLLEY [Primary Care Provider] - Prescriptions: OxyCODONE Immed Rel [Roxicodone 5 MG] 5 mg PO Q4HR PRN #20 tablet PRN Reason: Pain Aspirin Enteric Coated [Aspirin EC] 325 mg PO BID #20 tablet.
[2017-09-09] MEDS ORDERED: Haloperidol Lactate 5 MG/ML VIAL IVP ONE (09:57)
[2017-09-09 11:19] LABS: Bilirubin,Urine Negative (Negative); Blood,Urine Large (Negative); Clarity,Urine Turbid (Clear); Color,Urine Yellow (Yellow); Glucose,Urine (UA) Normal (Normal); Ketones,Urine Negative (Negative); Leukocyte Esterase,Urine Negative (Negative); Nitrite,Urine Negative (Negative); Protein,Urine 100 mg/dL (Neg-Trace); Specific Gravity,Urine > 1.030 (1.010-1.025); Urobilinogen,Urine Normal (Normal)
[2017-09-09 11:22] LABS: Bacteria,Urine None Seen per hpf (None-Few); RBC,Urine 30-50 per hpf (0-3); Squamous Epithelial Cell,Urine Many per lpf (None-Few); WBC,Urine 30-50 per hpf (0-3)
[2017-09-09 11:23] LABS: Potassium,Urine 71.4 mEq/L; Sodium, Urine 63.3 mEq/L
[2017-09-09 11:43] LABS: Granular Casts,Urine Few per lpf (None Seen); Hyaline Casts,Urine Few per lpf (None-Few)
[2017-09-09 12:14] LABS: Uric Acid Crystals,Urine Present
[2017-09-09] MEDS: *HR* Heparin 5,000 UNIT/ML VIAL IVP PRN (14:27)
[2017-09-09] MEDS: Heparin 25,000 UNIT/500 ML D5W 25,000 UNIT/500 ML BAG IVC SCH ×2 (18:32→21:08)
[2017-09-09] MEDS: Ferrous Sulfate Oral Soln 300 MG/5 ML UDC PO SCH (18:44)
[2017-09-09] MEDS: Docusate Oral Soln 100 MG/10 ML UDC PO SCH (21:06)
[2017-09-09 22:21] LABS: Activated Partial Thrombo Time 164.1 Seconds (26.0-36.0)
[2017-09-09 22:31] LABS: Heparin anti-factor XA UFH 0.52 IU/mL (0.30-0.70)
[2017-09-10] MEDS: Dexmedetomidine HCl 400 MCG/100 ML MLS IVC SCH ×2 (01:32→22:44)
[2017-09-10] MEDS: Lacri-Lube 3.5 GM TUBE BOTH EYES SCH ×6 (02:59→23:21)
[2017-09-10] MEDS: Ipratropium/Albuterol Neb 3 ML IH SCH ×4 (04:39→23:11)
[2017-09-10 05:04] LABS: ABG Base Excess -2 mEq/L (-2 to 3); ABG HCO3 23 mEq/L (21-27); ABG Oxygen Saturation 97 % (95-98); ABG PCO2 37 mmHg (35-45); ABG PO2 94 mmHg (85-104); ABG TCO2 24 mEq/L (20-26); Blood Gas Modality ASSIST CONTROL; Blood Gas PEEP 5 cm H2O; Blood Gas Respiration Rate 12; Blood Gas VT 500 cc
[2017-09-10 06:02] LABS: Basophils % 0.3 %; Hematocrit 25.8 % (37.5-50.1); Hemoglobin 7.9 g/dL (12.9-16.9); Immature Granulocytes % 0.3 % (0-4); Mean Corpuscular HGB Conc 30.6 g/dL (31.6-35.5); Mean Corpuscular Hemoglobin 30.2 pg (28.0-33.3); Mean Corpuscular Volume 98.5 fL (83.0-100.0); Mean Platelet Volume 10.9 fL (9.4-12.4); Monocytes # 0.8 K/mcL (0.0-1.3); Monocytes % 9.7 %; Platelet Count 136 K/mcL (140-400); Red Blood Count 2.62 M/mcL (4.19-5.50); Red Cell Distribution Width 18.3 % (11.5-14.5); Segmented Neutrophils % 76.7 %
[2017-09-10] MEDS: FentaNYL (PF) 1,000 MCG in 0.9 % Sodium Chloride 80 ML IVC SCH (06:09)
[2017-09-10] MEDS: Carbidopa/Levodopa 25/100 TABLET PO SCH ×3 (06:11→23:20)
[2017-09-10 06:13] LABS: INR 1.3; Prothrombin Time 14.6 Seconds (9.4-12.1)
[2017-09-10 06:14] LABS: Alanine Aminotransferase 4 Units/L (7-52); Albumin/Globulin Ratio 1.6 (1.1-2.2); Alkaline Phosphatase 48 Units/L (34-104); Aspartate Amino Transferase 14 Units/L (13-39); BUN/Creatinine Ratio 18 (6-26); Bilirubin,Direct 0.2 mg/dL (0.0-0.2); Bilirubin,Indirect 0.4 mg/dL (0.0-1.2); Bilirubin,Total 0.6 mg/dL (0.3-1.0); Blood Urea Nitrogen 18 mg/dL (8-23); Calcium 8.2 mg/dL (8.6-10.3); Carbon Dioxide 22 mEq/L (23-29); Chloride 104 mEq/L (98-107); Globulin 1.9 g/dL (2.4-3.5); Glucose 183 mg/dL (70-105); Magnesium 1.9 mg/dL (1.6-2.6); Osmolality,Calculated 285 (280-300); Potassium 3.4 mEq/L (3.5-5.1); Sodium 134 mEq/L (136-145); Total Protein 4.9 g/dL (6.4-8.9); eGFR For African Americans > 60 (> 60); eGFR For Non-African Americans > 60 (> 60)
[2017-09-10 06:16] LABS: Activated Partial Thrombo Time 78.5 Seconds (26.0-36.0)
--- NOTE | 2017-09-10 07:05 | Orthopedics Progress Note ---
Date of Encounter: 09/10/17 Time of Encounter: 07:05 - Assessment and Plan (1) Pain with hip hemiarthroplasty Current Visit: No Status: Acute Qualifiers: Encounter type: subsequent encounter Qualified Code(s): T84.84XD - Pain due to internal orthopedic prosthetic devices, implants and grafts, subsequent encounter; Z96.649 - Presence of unspecified artificial hip joint; Z96.649 - Presence of unspecified artificial hip joint (2) Generalized weakness Current Visit: No Status: Chronic (3) CAD (coronary artery disease) of artery bypass graft Current Visit: No Status: Chronic Qualifiers: [place] vs. transplanted heart: [place] heart Associated angina: with unspecified angina Qualified Code(s): I25.709 - Atherosclerosis of coronary artery bypass graft(s), unspecified, with unspecified angina pectoris (4) Parkinson disease Current Visit: Yes Status: Chronic (5) Diabetes mellitus type II, non insulin dependent Current Visit: Yes Status: Chronic (6) DVT prophylaxis Current Visit: Yes Status: Acute (7) Hypertension Current Visit: Yes Status: Chronic Qualifiers: Hypertension type: essential hypertension Qualified Code(s): I10 - Essential (primary) hypertension (8) Atrial fibrillation Current Visit: Yes Status: Chronic Qualifiers: Atrial fibrillation type: chronic Qualified Code(s): I48.2 - Chronic atrial fibrillation (9) Dementia Current Visit: Yes Status: Chronic Qualifiers: Dementia type: Alzheimer's disease Alzheimer's disease onset: unspecified onset Dementia behavioral disturbance: with behavioral disturbance Qualified Code(s): G30.9 - Alzheimer's disease, unspecified; F02.81 - Dementia in other diseases classified elsewhere with behavioral disturbance; F02.81 - Dementia in other diseases classified elsewhere with behavioral disturbance; F02.81 - Dementia in other diseases classified elsewhere with behavioral disturbance (10) AAA (abdominal aortic aneurysm) without rupture Current Visit: No Status: Chronic (11) Afib Current Visit: No Status: Chronic Qualifiers: Atrial fibrillation type: unspecified Qualified Code(s): I48.91 - Unspecified atrial fibrillation (12) CHF (congestive heart failure) Current Visit: Yes Status: Chronic Qualifiers: Congestive heart failure type: diastolic Congestive heart failure chronicity: chronic Qualified Code(s): I50.32 - Chronic diastolic (congestive ) heart failure Subjective Principal diagnosis: Acute Repsiratory Failure Interval history: Patient seen this morning still intubated dressing clean dry and intact Plan as per ICU team hope to extubate today Objective Vital signs: Vital Signs Temp Pulse Resp BP Pulse Ox 09/10/17 06:27 13 89/58 96 09/10/17 06:00 69 12 89/58 99 09/10/17 05:00 66 12 83/52 99 09/10/17 04:39 12 82/55 99 09/10/17 04:00 60 12 82/55 98 09/10/17 03:00 97.7 F 66 14 79/55 99 09/10/17 02:00 64 12 85/57 98 09/10/17 01:47 12 84/53 97 09/10/17 01:00 69 13 85/55 98 09/10/17 00:00 70 13 86/53 98 09/09/17 23:30 98.0 F 09/09/17 23:20 13 80/55 98 09/09/17 23:00 98.0 F 70 12 80/55 96 09/09/17 22:00 66 13 76/51 96 09/09/17 21:00 75 12 85/69 98 09/09/17 20:00 76 12 80/50 97 09/09/17 19:25 12 80/51 96 09/09/17 19:00 84 12 80/51 97 09/09/17 18:35 98.0 F 09/09/17 18:00 88 15 89/54 97 09/09/17 17:04 17 100 09/09/17 17:00 90 16 112/66 100 09/09/17 16:00 92 15 103/64 98 09/09/17 15:00 87 13 106/68 99 09/09/17 14:00 82 13 96/59 100 09/09/17 13:00 80 14 104/59 100 09/09/17 12:22 14 100 09/09/17 12:00 82 16 83/50 98 09/09/17 11:38 15 100 09/09/17 11:37 83 09/09/17 11:00 98.7 F 78 16 86/53 99 09/09/17 10:00 88 25 95/75 99 09/09/17 09:00 87 22 123/68 100 09/09/17 08:16 99 09/09/17 08:00 78 18 90/54 99 09/09/17 07:20 98.3 F Intake and Output 09/09/17 09/09/17 09/10/17 15:59 23:59 07:59 Intake Total 686 / 686 957 / 957 623 / 623 Output Total 100 / 100 275 / 275 50 / 50 Balance 586 / 586 682 / 682 573 / 573 Intake: IV Fluids 686 / 686 957 / 957 460 / 460 ALBURX 5% 12.5 gm In 250 ml @ 250 / 250 500 / 500 60 mls/hr IVC .Q4H10M [facility] Rx#: [id number] Amiodarone Drip Premix 360mg/ 200 / 200 200 / 200 200mL 360 mg In 200 ml @ 0.5 MG /MIN 16.667 mls/hr IVC CONT [facility] Rx#:[id number] PRECEDEX Premix 400 mcg In 100 15 / 15 120 / 120 ml @ 0.2 MCG/KG/HR 4.69 mls/hr IVC .[id number] [facility] Rx#:[id number] FentaNYL (PF) 1,000 MCG In 0.9 0 / 0 86 / 86 % Sodium Chloride 80 ML @ 50 MCG/HR 5 mls/hr IVC CONT [facility] Rx #:[id number] Heparin 25,000 UNIT/500 ML D5W 36 / 36 242 / 242 154 / 154 25,000 unit In 500 ml @ 14 UNIT /KG/HR 26.264 mls/hr IVC . Q19H3M [facility] Rx#:[id number] Zosyn 3.375 GM In 0.9 % Sodium 100 / 100 Chloride 100 ML @ 25 mls/hr IVPB Q8H [facility] Rx#:[id number] Zosyn Premix 3.375 GM/200 ML 3. 200 / 200 375 gm In 200 ml @ 50 mls/hr IVPB Q8H [facility] Rx#:[id number] Tube Feeding 163 / 163 Free Water Intake Amount 0 / 0 0 / 0 Output: Catheter 100 / 100 125 / 125 50 / 50 Gastric Drainage 150 / 150 Other: Weight 100.1 kg Blood Glucose* 119 164 190 Patient Weight 09/10/17 23:59 Weight 100.1 kg - Labs CBC & BMP: 09/10/17 05:49 09/10/17 05:49 Labs: Abnormal lab results RBC 2.62 M/mcL (4.19-5.50) L 09/10/17 05:49 Hgb 7.9 g/dL (12.9-16.9) L 09/10/17 05:49 Hct 25.8 % (37.5-50.1) L 09/10/17 05:49 MCHC 30.6 g/dL (31.6-35.5) L 09/10/17 05:49 RDW 18.3 % (11.5-14.5) H 09/10/17 05:49 Plt Count 136 K/mcL (140-400) L 09/10/17 05:49 PT 14.6 Seconds (9.4-12.1) H 09/10/17 05:49 APTT 78.5 Seconds (26.0-36.0) H D 09/10/17 05:49 Sodium 134 mEq/L (136-145) L 09/10/17 05:49 Potassium 3.4 mEq/L (3.5-5.1) L 09/10/17 05:49 Carbon Dioxide 22 mEq/L (23-29) L 09/10/17 05:49 Glucose 183 mg/dL (70-105) H 09/10/17 05:49 POC Glucose 164 (58-89) H 09/09/17 23:32 Calcium 8.2 mg/dL (8.6-10.3) L 09/10/17 05:49 ALT 4 Units/L (7-52) L 09/10/17 05:49 Troponin I 1.76 ng/mL (< 0.04) H* 09/08/17 05:31 Serum Total Protein 4.9 g/dL (6.4-8.9) L 09/10/17 05:49 Albumin 3.0 g/dL (3.5-5.7) L 09/10/17 05:49 Globulin 1.9 g/dL (2.4-3.5) L 09/10/17 05:49 Urine Clarity Turbid (Clear) A 09/09/17 11:05 Ur Specific [place] > 1.030 (1.010-1.025) H 09/09/17 11:05 Urine Protein 100 mg/dL (Neg-Trace) H 09/09/17 11:05 Urine Blood Large (Negative) H 09/09/17 11:05 Urine Microscopic RBC 30-50 per hpf (0-3) H 09/09/17 11:05 Urine Microscopic WBC 30-50 per hpf (0-3) H 09/09/17 11:05 Ur Squamous Epith Cells Many per lpf (None-Few) H 09/09/17 11:05 Granular Casts Few per lpf (None Seen) H 09/09/17 11:05 - VTE Documentation of Mechanical Device: Venous foot pump, device Consult Discharge Plan - Plan Referrals: Eileen Howard, PANEL CUTTER [Primary Care Provider] - Prescriptions: Aspirin Enteric Coated [Aspirin EC] 325 mg PO BID #20 tablet. OxyCODONE Immed Rel [Roxicodone 5 MG] 5 mg PO Q4HR PRN #20 tablet PRN Reason: Pain
[2017-09-10] MEDS: Insulin LISPRO 300 UNITS/3 ML VIAL SQ SCH ×4 (08:21→19:49)
--- NOTE | 2017-09-10 09:07 | Cardiology Progress Note ---
Date of Encounter: 09/10/17 Time of Encounter: 08:45 Assessment and Plan (1) Cardiopulmonary arrest with successful resuscitation Current Visit: Yes Status: Acute S/p cardiopulmonary arrest 09/08/17. He received CPR and epi x1 with ROSC. Noted to have VT 2 min prior to event per records. Telemetry reviewed and VT seen. He was started on IV amiodarone gtt. On heparin IV for DVT seen on venous doppler. PE may be possibility. Troponin found to elevated at 0.14 and 1.76 s/p CPR. 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 Last PCI was at [facility] in 2014. Daughter reported that he has known CAD not amendable to PCI during last visit. Recent visit for GI bleed with troponin up to 3.35. Medical management recommended at that time. Follows with Dr. Manuel at [facility]. Continue IV amiodarone while intubated. We will convert to oral once able. TTE - EF reduced to 35% from 50%. Indeterminate diastolic function. Enlarged LA. Limited study. Dr. Kang discussed findings with daughters yesterday. Not a good [facility] candidate to acute anemia recent GI bleed (Hgb 13.0-> 7.9) and would likely not tolerate triple therapy. Venous doppler + for DVT. Medical management recommended. Patient is a DNRCCA. (2) Ventricular tachycardia Current Visit: Yes Status: Acute On amiodarone gtt. Convert to oral once extubated. No recurrent VT seen. K-3.4, replace. K-rider ordered. Mag 1.9. (3) Elevated troponin Current Visit: No Status: Acute Troponin 0.14, 1.76 s/p cardiopulmonary arrest. Known CAD, s/p CABG and miltiple PCI. Known CAD not amendable to PCI. Last [facility] in 2014 at [facility]. Records ordered. Continue asa, statin, and bb. On heparin gtt . Medical management recommended. (4) Atrial fibrillation Current Visit: Yes Status: Chronic Currently rate controlled on IV amiodarone. On heparin gtt in the setting of DVT. Previously not on AC due to GI bleed. Qualifiers: Atrial fibrillation type: chronic Qualified Code(s): I48.2 - Chronic atrial fibrillation (5) CAD (coronary artery disease) of artery bypass graft Current Visit: Yes Status: Chronic Severe triple vessel CAD, post CABG, post PCI, last PCI 2014 with seven stents at [facility], follows at [facility] with Dr. Manuel, old records ordered. Asa, statin. Hold bb d/t hypotension. Qualifiers: [place] vs. transplanted heart: [place] heart Associated angina: with stable angina Qualified Code(s): I25.708 - Atherosclerosis of coronary artery bypass graft(s), unspecified, with other forms of angina pectoris (6) Acute systolic CHF (congestive heart failure) Current Visit: Yes Status: Acute TTE shows severe segmental systolic dysfunction with EF 35%. No significant fluid overload on exam. CXR 09/08/16 shows improved interstitial pulmonary edema. Caution with IV fluid. Noted to be hypotensive. Unable to tolerate diuretic, bb , or aceI. Discussion w patient/family: The assessment and plan as outlined above was discussed with the patient and/or family members who expressed understanding and agreement. All questions were answered. Thank you for involving us in the care of your patient. Please call with any questions. Subjective Principal diagnosis: Acute Repsiratory Failure Interval history: Patient remains sedated on ventilator this morning. Wakes easily and somewhat follows commands. No distress noted. Objective Vital Signs, Last 4 Hours Temp Pulse Resp BP Pulse Ox 09/10/17 08:00 73 12 89/59 96 09/10/17 07:42 13 93/60 98 09/10/17 07:31 97.9 F 09/10/17 07:00 73 14 87/58 96 09/10/17 06:27 13 89/58 96 09/10/17 06:00 69 12 89/58 99 General: No Apparent Distress HEENT: Atraumatic, Normocephaly, Mucus Membranes Moist Neck: No JVD, Normal carotid pulses Cardiac: Other (Iregularly irregular) Lungs: Normal Breath Sounds, No Wheeze, Rales, Rhonchi, Other (On mechanical ventilation) Neuro: Alert and responsive, No focal deficits noted Abdomen: Soft, Other (abdomen tender to palpation) Skin: No rashes noted on visualized skin Musculoskeletal: Other (Chest tender to palpation) Extremities: No Clubbing, No Cyanosis, Normal Pulses, Other (Leg wedge itact. Trace edema in RLE noted. ) Results 09/10/17 05:49 09/10/17 05:49 Lab Results 09/09/17 09/09/1718 05:15 12:17 21:13 WBC Hgb Hct Plt Count INR APTT 54.2 H 164.1 H* D Sodium 134 L Potassium 3.5 Chloride 105 Carbon Dioxide 20 L BUN 19 Creatinine 1.03 Glucose 171 H Calcium 8.1 L Magnesium 1.7 Total Bilirubin 0.5 AST 26 ALT 5 L Alkaline Phosphatase 53 09/10/17 09/10/17 09/10/17 05:49 05:49 05:49 WBC 7.8 Hgb 7.9 L Hct 25.8 L Plt Count 136 L INR 1.3 APTT 78.5 H D Sodium 134 L Potassium 3.4 L Chloride 104 Carbon Dioxide 22 L BUN 18 Creatinine 1.01 Glucose 183 H Calcium 8.2 L Magnesium 1.9 Total Bilirubin 0.6 AST 14 ALT 4 L Alkaline Phosphatase 48 - Imaging and Cardiology Echo: report reviewed - EKG Interpretation EKG results cardiology: personally reviewed - VTE Documentation of Mechanical Device: Venous foot pump, device Consult Discharge Plan - Plan Referrals: Eileen Howard, TNT POWDER WORKER [Primary Care Provider] - Prescriptions: OxyCODONE Immed Rel [Roxicodone 5 MG] 5 mg PO Q4HR PRN #20 tablet PRN Reason: Pain Aspirin Enteric Coated [Aspirin EC] 325 mg PO BID #20 tablet.
[2017-09-10] MEDS: Ascorbic Acid 500 MG TABLET PO SCH ×2 (09:09→16:16)
[2017-09-10] MEDS: Docusate Oral Soln 100 MG/10 ML UDC PO SCH ×2 (09:09→19:49)
[2017-09-10] MEDS: Ferrous Sulfate Oral Soln 300 MG/5 ML UDC PO SCH ×2 (09:09→16:16)
[2017-09-10] MEDS: Aspirin 81 MG TAB.CHEW PO SCH (09:09)
[2017-09-10] MEDS: Amiodarone Premix 360 MG/200 ML BAG IVC SCH ×2 (09:09→21:30)
[2017-09-10] MEDS: Multivit/Ca/Min/Fe/FA 1 TAB TABLET PO SCH (09:09)
--- NOTE | 2017-09-10 11:42 | Pulmonology Progress Note ---
<GerardoIlya Ruth - Last Filed: 09/10/17 11:39> Date of Encounter: 09/10/17 Time of Encounter: 11:39 Assessment and Plan (1) Acute respiratory failure Current Visit: Yes Status: Acute Intubated over the weekend after CODE BLUE with hypoxia Chest x-ray shows improvement in interstitial pulmonary edema Sedated on fentanyl and Precedex - pt is easily arousable and responds to commands Ventilator settings: /08/01 - will increase PEEP to 8 Most recent ABG demonstrates pH of 7.40, PCO2 37, PO2 94, HCO3 23 IV Zosyn for suspicious of aspiration - day 10/14 DuoNeb's every 4 as needed Sputum culture showing normal respiratory carlene Nutrition consulted - enteral feeding and BG checks q4h Failed SBT this morning - will trial again at noon and reassess Pt is a DNR-CCA - will need to discuss with family goals of care and wishes regarding intubation prior to extubation trial Qualifiers: Respiratory failure complication: hypoxia Qualified Code(s): J96.01 - Acute respiratory failure with hypoxia (2) Cardiopulmonary arrest with successful resuscitation Current Visit: Yes Status: Acute CODE HUBERT was called around 0045 yesterday as patient was expansion agonal breathing with no pulse palpable. CPR was initiated with epinephrine 1 mg delivered twice. ROSC see was obtained approximately 8-10 minutes patient was intubated throughout ACLS. Review of telemetry revealed the patient experienced 1-2 minutes of ventricular tachycardia. Per EMR review, patient missed Lovenox dose per report and postcode EKG reveals atrial fibrillation. Chest x-ray shows improvement in interstitial pulmonary edema Doppler ultrasound showed a left common femoral and left popliteal DVT. We will continue amiodarone and heparin drip - per cardio can stop the heparin drip, but will continue for now with DVT Cardiology consulted - appreciate recommendations Repeat echo ordered - prelim no right heart strain, EF 35% down from 50% (3) Hypotension Current Visit: Yes Status: Acute Likely secondary to blood loss, anesthesia, pain medications Continue to hold home BP meds Improves as sedation is decreased Qualifiers: Hypotension type: unspecified hypotension type Qualified Code(s): I95.9 - Hypotension, unspecified (4) Deep vein thrombosis (DVT) of left lower extremity Current Visit: Yes Status: Acute Continue heparin drip Qualifiers: Affected thrombotic vein of extremity: popliteal Chronicity: acute Qualified Code(s): I82.432 - Acute embolism and thrombosis of left popliteal vein (5) Atrial fibrillation Current Visit: Yes Status: Chronic Currently rate controlled On amiodarone drip - recent V-tach Metoprolol PRN for HR >110 Qualifiers: Atrial fibrillation type: chronic Qualified Code(s): I48.2 - Chronic atrial fibrillation (6) History of right hip hemiarthroplasty Current Visit: Yes Status: Acute Postop day #4 status post right hip hemiarthroplasty Orthopedic surgery following (7) CHF (congestive heart failure) Current Visit: Yes Status: Chronic Echocardiogram was on 08/31/17 dementia rating EF 50%, indeterminate diastolic function, moderate aortic stenosis, moderate MR, mild TR. Apical septal welch were hypokinetic, mid inferior septal and basal inferior septal welch were akinetic, mid anteroseptal and basal anterior septal welch are dyskinetic. Repeat echo pending this morning but shows no right heart strain - pending official read No evidence of acute decompensation Chest x-ray shows improvement of interstitial pulmonary edema Qualifiers: Congestive heart failure type: diastolic Congestive heart failure chronicity: chronic Qualified Code(s): I50.32 - Chronic diastolic (congestive ) heart failure (8) CAD (coronary artery disease) Current Visit: Yes Status: Chronic Hx CAD with multiple stents - most recent PCI 2.5-3 years ago Qualifiers: Coronary Disease-Associated Artery/Lesion type: [place] artery [place] vs. transplanted heart: [place] heart Associated angina: without angina Qualified Code(s): I25.10 - Atherosclerotic heart disease of [place] coronary artery without angina pectoris (9) Parkinson disease Current Visit: Yes Status: Chronic (10) Diabetes mellitus type II, non insulin dependent Current Visit: Yes Status: Chronic (11) DVT prophylaxis Current Visit: Yes Status: Acute Heparin drip Subjective Principal diagnosis: Acute Repsiratory Failure Interval history: Pt seen and examined at bedside. Easily arousable and responds to commands. Objective PUL Vital signs: Last Vital Signs Temp 97.9 F 09/10/17 07:31 Pulse 76 09/10/17 10:00 Resp 19 09/10/17 11:08 BP 110/98 09/10/17 11:08 Pulse Ox 99 09/10/17 11:08 General appearance: no acute distress Eyes: nonicteric ENT: oropharynx moist Effort: normal Auscultation: bilateral: diminished breath sounds Cardiovascular: irregular rhythm Gastrointestinal: normoactive bowel sounds Integumentary: normal Extremities: no cyanosis pupils equal and round, unable to assess due to mental status Ventilator Settings Ventilator Settings: Ventilator Settings, Last 8 Hours Ventilator Mode A/C Ventilator Mode A/C Ventilator Mode A/C Ventilator Mode A/C Ventilator Mode A/C Ventilator Mode A/C Ventilator Mode CPAP Ventilator Mode CPAP Ventilator Mode A/C Ventilator Mode A/C Ventilator Mode A/C Ventilator Mode A/C Ventilator Mode A/C Ventilator Tidal Volume 500 Setting Ventilator Tidal Volume 500 Setting Ventilator Tidal Volume 500 Setting Ventilator Tidal Volume 500 Setting Ventilator Tidal Volume 500 Setting Ventilator Tidal Volume 500 Setting Ventilator Tidal Volume 500 Setting Ventilator Tidal Volume 500 Setting Ventilator Tidal Volume 500 Setting Ventilator Tidal Volume 500 Setting Ventilator Tidal Volume 500 Setting Ventilator Tidal Volume 500 Setting Ventilator Respiratory Rate 12 Setting Ventilator Respiratory Rate 12 Setting Ventilator Respiratory Rate 12 Setting Ventilator Respiratory Rate 12 Setting Ventilator Respiratory Rate 12 Setting Ventilator Respiratory Rate 12 Setting Ventilator Respiratory Rate 12 Setting Ventilator Respiratory Rate 12 Setting Ventilator Respiratory Rate 12 Setting Ventilator Respiratory Rate 12 Setting Ventilator Respiratory Rate 12 Setting Ventilator Respiratory Rate 12 Setting Actual Respiratory Rate 19 Actual Respiratory Rate 14 Actual Respiratory Rate 18 Actual Respiratory Rate 19 Actual Respiratory Rate 12 Actual Respiratory Rate 14 Actual Respiratory Rate 14 Actual Respiratory Rate 13 Actual Respiratory Rate 12 Actual Respiratory Rate 12 Actual Respiratory Rate 12 Actual Respiratory Rate 12 Positive End Expiratory 8 Pressure Positive End Expiratory 8 Pressure Positive End Expiratory 5 Pressure Positive End Expiratory 5 Pressure Positive End Expiratory 5 Pressure Positive End Expiratory 5 Pressure Positive End Expiratory 5 Pressure Positive End Expiratory 5 Pressure Positive End Expiratory 5 Pressure Positive End Expiratory 5 Pressure Positive End Expiratory 5 Pressure Positive End Expiratory 5 Pressure Positive End Expiratory 5 Pressure Peak Inspiratory Airway 29 Pressure Peak Inspiratory Airway 24 Pressure Peak Inspiratory Airway 25 Pressure Peak Inspiratory Airway 24 Pressure Peak Inspiratory Airway 25 Pressure Peak Inspiratory Airway 11 Pressure Peak Inspiratory Airway 20 Pressure Peak Inspiratory Airway 29 Pressure Peak Inspiratory Airway 29 Pressure Peak Inspiratory Airway 29 Pressure Results - Laboratory Findings CBC and BMP: 09/10/17 05:49 09/10/17 05:49 ABG ABG pH 7.40 pH Units (7.32-7.45) 09/10/17 05:02 ABG pCO2 37 mmHg (35-45) 09/10/17 05:02 ABG pO2 94 mmHg (85-104) 09/10/17 05:02 ABG O2 Saturation 97 % (95-98) 09/10/17 05:02 PT/INR, D-dimer PT 14.6 Seconds (9.4-12.1) H 09/10/17 05:49 Abnormal lab findings: Abnormal lab results RBC 2.62 M/mcL (4.19-5.50) L 09/10/17 05:49 Hgb 7.9 g/dL (12.9-16.9) L 09/10/17 05:49 Hct 25.8 % (37.5-50.1) L 09/10/17 05:49 MCHC 30.6 g/dL (31.6-35.5) L 09/10/17 05:49 RDW 18.3 % (11.5-14.5) H 09/10/17 05:49 Plt Count 136 K/mcL (140-400) L 09/10/17 05:49 PT 14.6 Seconds (9.4-12.1) H 09/10/17 05:49 APTT 78.5 Seconds (26.0-36.0) H D 09/10/17 05:49 Sodium 134 mEq/L (136-145) L 09/10/17 05:49 Potassium 3.4 mEq/L (3.5-5.1) L 09/10/17 05:49 Carbon Dioxide 22 mEq/L (23-29) L 09/10/17 05:49 Glucose 183 mg/dL (70-105) H 09/10/17 05:49 POC Glucose 164 (58-89) H 09/09/17 23:32 Calcium 8.2 mg/dL (8.6-10.3) L 09/10/17 05:49 ALT 4 Units/L (7-52) L 09/10/17 05:49 Troponin I 1.76 ng/mL (< 0.04) H* 09/08/17 05:31 Serum Total Protein 4.9 g/dL (6.4-8.9) L 09/10/17 05:49 Albumin 3.0 g/dL (3.5-5.7) L 09/10/17 05:49 Globulin 1.9 g/dL (2.4-3.5) L 09/10/17 05:49 Urine Clarity Turbid (Clear) A 09/09/17 11:05 Ur Specific [place] > 1.030 (1.010-1.025) H 09/09/17 11:05 Urine Protein 100 mg/dL (Neg-Trace) H 09/09/17 11:05 Urine Blood Large (Negative) H 09/09/17 11:05 Urine Microscopic RBC 30-50 per hpf (0-3) H 09/09/17 11:05 Urine Microscopic WBC 30-50 per hpf (0-3) H 09/09/17 11:05 Ur Squamous Epith Cells Many per lpf (None-Few) H 09/09/17 11:05 Granular Casts Few per lpf (None Seen) H 09/09/17 11:05 - Microbiology Findings Microbiology Findings: Microbiology, Last 48 Hours 09/08/17 11:29 Blood Culture - Preliminary Peripheral Venipuncture No growth. 09/08/17 10:25 Blood Culture - Preliminary Peripheral Venipuncture No growth. 09/08/17 07:50 Sputum Culture - Preliminary Sputum 09/06/17 18:12 Anaerobic Culture - Final Right Hip Anaerobic conditions were compromised due to failure of the anaerobic pouch to seal correctly, therefore, sample cannot be assessed for anaerobic organisms. 09/06/17 18:12 Wound Culture - Final Right Hip No growth. - Clinical Findings Intake & Output: Intake & Output 09/09/17 09/10/17 09/10/17 23:59 07:59 15:59 Intake Total 957 / 957 623 / 623 200 / 200 Output Total 275 / 275 150 / 150 Balance 682 / 682 473 / 473 200 / 200 Weight 100.1 kg - VTE Documentation of Mechanical Device: Venous foot pump, device Consult Discharge Plan - Plan Referrals: Eileen Howard, [employer] [Primary Care Provider] - Prescriptions: OxyCODONE Immed Rel [Roxicodone 5 MG] 5 mg PO Q4HR PRN #20 tablet PRN Reason: Pain Aspirin Enteric Coated [Aspirin EC] 325 mg PO BID #20 tablet. <Julia Mejia - Last Filed: 09/11/17 06:25> Date of Encounter: 09/11/17 Objective PUL Vital signs: Last Vital Signs Temp 97.4 F L 09/11/17 03:06 Pulse 66 09/11/17 06:00 Resp 15 09/11/17 06:05 BP 93/61 09/11/17 06:05 Pulse Ox 99 09/11/17 06:05 Ventilator Settings Ventilator Settings: Ventilator Settings, Last 8 Hours Ventilator Mode CPAP Ventilator Mode A/C Ventilator Mode A/C Ventilator Mode A/C Ventilator Mode A/C Ventilator Mode A/C Ventilator Mode A/C Ventilator Mode A/C Ventilator Mode A/C Ventilator Mode A/C Ventilator Mode A/C Ventilator Mode A/C Ventilator Tidal Volume 500 Setting Ventilator Tidal Volume 500 Setting Ventilator Tidal Volume 500 Setting Ventilator Tidal Volume 500 Setting Ventilator Tidal Volume 500 Setting Ventilator Tidal Volume 500 Setting Ventilator Tidal Volume 500 Setting Ventilator Tidal Volume 500 Setting Ventilator Tidal Volume 500 Setting Ventilator Tidal Volume 500 Setting Ventilator Tidal Volume 500 Setting Ventilator Respiratory Rate 12 Setting Ventilator Respiratory Rate 12 Setting Ventilator Respiratory Rate 12 Setting Ventilator Respiratory Rate 12 Setting Ventilator Respiratory Rate 12 Setting Ventilator Respiratory Rate 12 Setting Ventilator Respiratory Rate 12 Setting Ventilator Respiratory Rate 12 Setting Ventilator Respiratory Rate 12 Setting Ventilator Respiratory Rate 12 Setting Ventilator Respiratory Rate 12 Setting Actual Respiratory Rate 15 Actual Respiratory Rate 13 Actual Respiratory Rate 15 Actual Respiratory Rate 13 Actual Respiratory Rate 13 Actual Respiratory Rate 13 Actual Respiratory Rate 14 Actual Respiratory Rate 16 Actual Respiratory Rate 15 Actual Respiratory Rate 12 Actual Respiratory Rate 15 Positive End Expiratory 8 Pressure Positive End Expiratory 8 Pressure Positive End Expiratory 8 Pressure Positive End Expiratory 8 Pressure Positive End Expiratory 8 Pressure Positive End Expiratory 8 Pressure Positive End Expiratory 8 Pressure Positive End Expiratory 8 Pressure Positive End Expiratory 8 Pressure Positive End Expiratory 8 Pressure Positive End Expiratory 8 Pressure Positive End Expiratory 8 Pressure Peak Inspiratory Airway 19 Pressure Peak Inspiratory Airway 28 Pressure Peak Inspiratory Airway 32 Pressure Peak Inspiratory Airway 31 Pressure Peak Inspiratory Airway 26 Pressure Peak Inspiratory Airway 32 Pressure Peak Inspiratory Airway 32 Pressure Peak Inspiratory Airway 26 Pressure Peak Inspiratory Airway 27 Pressure Peak Inspiratory Airway 30 Pressure Peak Inspiratory Airway 29 Pressure Results - Laboratory Findings CBC and BMP: 09/10/17 05:49 09/10/17 19:09 ABG ABG pH 7.42 pH Units (7.32-7.45) 09/11/17 04:19 ABG pCO2 34 mmHg (35-45) L 09/11/17 04:19 ABG pO2 113 mmHg (85-104) H 09/11/17 04:19 ABG O2 Saturation 99 % (95-98) H 09/11/17 04:19 PT/INR, D-dimer PT 14.8 Seconds (9.4-12.1) H 09/11/17 00:36 Abnormal lab findings: Abnormal lab results RBC 2.62 M/mcL (4.19-5.50) L 09/10/17 05:49 Hgb 7.9 g/dL (12.9-16.9) L 09/10/17 05:49 Hct 25.8 % (37.5-50.1) L 09/10/17 05:49 MCHC 30.6 g/dL (31.6-35.5) L 09/10/17 05:49 RDW 18.3 % (11.5-14.5) H 09/10/17 05:49 Plt Count 136 K/mcL (140-400) L 09/10/17 05:49 PT 14.8 Seconds (9.4-12.1) H 09/11/17 00:36 APTT 64.6 Seconds (26.0-36.0) H 09/11/17 00:36 ABG pCO2 34 mmHg (35-45) L 09/11/17 04:19 ABG pO2 113 mmHg (85-104) H 09/11/17 04:19 ABG O2 Saturation 99 % (95-98) H 09/11/17 04:19 Sodium 134 mEq/L (136-145) L 09/10/17 05:49 Potassium 3.3 mEq/L (3.5-5.1) L 09/10/17 19:09 Carbon Dioxide 22 mEq/L (23-29) L 09/10/17 05:49 Glucose 183 mg/dL (70-105) H 09/10/17 05:49 POC Glucose 129 (58-89) H 09/10/17 23:39 Calcium 8.2 mg/dL (8.6-10.3) L 09/10/17 05:49 ALT 4 Units/L (7-52) L 09/10/17 05:49 Troponin I 1.76 ng/mL (< 0.04) H* 09/08/17 05:31 Serum Total Protein 4.9 g/dL (6.4-8.9) L 09/10/17 05:49 Albumin 3.0 g/dL (3.5-5.7) L 09/10/17 05:49 Globulin 1.9 g/dL (2.4-3.5) L 09/10/17 05:49 Urine Clarity Turbid (Clear) A 09/09/17 11:05 Ur Specific [place] > 1.030 (1.010-1.025) H 09/09/17 11:05 Urine Protein 100 mg/dL (Neg-Trace) H 09/09/17 11:05 Urine Blood Large (Negative) H 09/09/17 11:05 Urine Microscopic RBC 30-50 per hpf (0-3) H 09/09/17 11:05 Urine Microscopic WBC 30-50 per hpf (0-3) H 09/09/17 11:05 Ur Squamous Epith Cells Many per lpf (None-Few) H 09/09/17 11:05 Granular Casts Few per lpf (None Seen) H 09/09/17 11:05 - Microbiology Findings Microbiology Findings: Microbiology, Last 48 Hours 09/09/17 11:05 Urine Culture - Final Urine,[place] No growth. 09/08/17 11:29 Blood Culture - Preliminary Peripheral Venipuncture No growth. 09/08/17 10:25 Blood Culture - Preliminary Peripheral Venipuncture No growth. 09/08/17 07:50 Sputum Culture - Preliminary Sputum 09/06/17 18:12 Anaerobic Culture - Final Right Hip Anaerobic conditions were compromised due to failure of the anaerobic pouch to seal correctly, therefore, sample cannot be assessed for anaerobic organisms. 09/06/17 18:12 Wound Culture - Final Right Hip No growth. - Clinical Findings Intake & Output: Intake & Output 09/10/17 09/10/17 09/11/17 15:59 23:59 07:59 Intake Total 516 / 516 580 / 580 474 / 474 Output Total 175 / 175 225 / 225 75 / 75 Balance 341 / 341 355 / 355 399 / 399 Weight 99.7 kg - Attending Attestation I saw and evaluated this patient and my medical decision-making was reviewed with the Resident Physician. I agree with the documented findings, disposition and treatment plan as described except to the extent set forth below. We independently had [id number] contact with the patient Patient seen and examined at bedside Labs, radiology, chart personally reviewed. 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 follows commands on and off , appears to be more calm less agitated today will attempt SBT Pulm:acute respiratory failure secondary to code blue has aspiration like picture with fluid overload will cotinue broad spectrum antibiotics will descalate since cultures are negative ,low suspcion PE with no evidence of RV strain in ECHO cannot rule out PE because of JOSE to continue heparin drip for DVT , Cards: Patient had a cardiopulmonary arrest due to unstable V tachycardia , according to cardiology patient will need LHC but not be candidate because of comorbidities 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 Lines: All lines examined without evidence of infection : Dispo: Critrically ill still needing mechanical ventilation CODE:DNR CCA will need to talk with family about goals of care after extubation.
[2017-09-10] MEDS: Chlorhexidine Rinse 15 ML MOUTHWASH MM SCH ×2 (11:55→19:49)
[2017-09-10] MEDS: *HR* Heparin 5,000 UNIT/ML VIAL IVP PRN (12:41)
--- NOTE | 2017-09-10 17:21 | Electrocardiograph Report ---
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
--- NOTE | 2017-09-10 17:25 | Electrocardiograph Report ---
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
[2017-09-10] MEDS: Famotidine 20 MG/2 ML VIAL IVP SCH (19:49)
[2017-09-10] MEDS: Heparin 25,000 UNIT/500 ML D5W 25,000 UNIT/500 ML BAG IVC SCH (20:33)
[2017-09-11] MEDS: Insulin LISPRO 300 UNITS/3 ML VIAL SQ SCH ×7 (00:04→23:32)
[2017-09-11 01:09] LABS: INR 1.4; Prothrombin Time 14.8 Seconds (9.4-12.1)
[2017-09-11] MEDS: Ipratropium/Albuterol Neb 3 ML IH SCH ×4 (04:08→21:58)
[2017-09-11 04:22] LABS: ABG Base Excess -2 mEq/L (-2 to 3); ABG HCO3 22 mEq/L (21-27); ABG Oxygen Saturation 99 % (95-98); ABG PCO2 34 mmHg (35-45); ABG PH 7.42 pH Units (7.32-7.45); ABG PO2 113 mmHg (85-104); ABG TCO2 23 mEq/L (20-26); Blood Gas Modality ASSIST CONTROL; Blood Gas PEEP 8 cm H2O; Blood Gas Respiration Rate 12; Blood Gas VT 500 cc
[2017-09-11] MEDS: Lacri-Lube 3.5 GM TUBE BOTH EYES SCH ×6 (04:59→23:20)
[2017-09-11] MEDS: Carbidopa/Levodopa 25/100 TABLET PO SCH ×3 (06:19→19:51)
[2017-09-11] MEDS ORDERED: Furosemide 20 MG/2 ML VIAL IVP ONE ×2 (07:35→14:57)
[2017-09-11] MEDS: FentaNYL (PF) 1,000 MCG in 0.9 % Sodium Chloride 80 ML IVC SCH ×2 (08:07→23:20)
[2017-09-11] MEDS: Aspirin 81 MG TAB.CHEW PO SCH (08:15)
[2017-09-11] MEDS: Multivit/Ca/Min/Fe/FA 1 TAB TABLET PO SCH (08:15)
[2017-09-11] MEDS: Ascorbic Acid 500 MG TABLET PO SCH ×2 (08:15→16:19)
[2017-09-11] MEDS: Chlorhexidine Rinse 15 ML MOUTHWASH MM SCH ×2 (08:15→19:50)
[2017-09-11] MEDS: Docusate Oral Soln 100 MG/10 ML UDC PO SCH ×2 (08:16→19:51)
[2017-09-11] MEDS: Ferrous Sulfate Oral Soln 300 MG/5 ML UDC PO SCH ×2 (08:16→16:19)
--- NOTE | 2017-09-11 08:50 | Pulmonology Progress Note ---
<GerardoIlya R - Last Filed: 09/11/17 11:18> Date of Encounter: 09/11/17 Time of Encounter: 08:47 Assessment and Plan (1) Acute respiratory failure Current Visit: Yes Status: Acute Intubated over the weekend after CODE HUBERT with hypoxia Chest x-ray shows improvement in interstitial pulmonary edema Sedated on fentanyl and Precedex - pt is easily arousable and responds to commands Ventilator settings: 12/500/30/8 Most recent ABG demonstrates pH of 7.42, PCO2 34, PO2 113, HCO3 22 IV Zosyn for suspicious of aspiration - day 11/14 DuoNeb's every 4 as needed Will give Lasix this AM Sputum culture showing normal respiratory carlene Did well with SBT yesterday for several hours Pt is DNR-CCA, but he would want intubated again if needed Pt self-extubated at 0930 this morning - now on BiPAP and doing well Speech consult to evaluate tomorrow Qualifiers: Respiratory failure complication: hypoxia Qualified Code(s): J96.01 - Acute respiratory failure with hypoxia (2) Cardiopulmonary arrest with successful resuscitation Current Visit: Yes Status: Acute CODE HUBERT was called around 0045 yesterday as patient was expansion agonal breathing with no pulse palpable. CPR was initiated with epinephrine 1 mg delivered twice. ROSC see was obtained approximately 8-10 minutes patient was intubated throughout ACLS. Review of telemetry revealed the patient experienced 1-2 minutes of ventricular tachycardia. Chest x-ray shows improvement in interstitial pulmonary edema Doppler ultrasound showed a left common femoral and left popliteal DVT We will continue amiodarone drip Continue heparin for now - recent GI bleed, no active signs of bleed, Hb 10.1 today Cardiology consulted - appreciate recommendations Repeat echo ordered - prelim no right heart strain, EF 35% down from 50% (3) Hypotension Current Visit: Yes Status: Acute Likely secondary to blood loss, anesthesia, pain medications Continue to hold home BP meds Improves as sedation is decreased Qualifiers: Hypotension type: unspecified hypotension type Qualified Code(s): I95.9 - Hypotension, unspecified (4) Deep vein thrombosis (DVT) of left lower extremity Current Visit: Yes Status: Acute Continue heparin for now Qualifiers: Affected thrombotic vein of extremity: popliteal Chronicity: acute Qualified Code(s): I82.432 - Acute embolism and thrombosis of left popliteal vein (5) Atrial fibrillation Current Visit: Yes Status: Chronic Currently rate controlled On amiodarone drip - recent V-tach Metoprolol PRN for HR >110 Qualifiers: Atrial fibrillation type: chronic Qualified Code(s): I48.2 - Chronic atrial fibrillation (6) History of right hip hemiarthroplasty Current Visit: Yes Status: Acute Postop day #5 status post right hip hemiarthroplasty Orthopedic surgery following (7) CHF (congestive heart failure) Current Visit: Yes Status: Chronic Echocardiogram was on 08/31/17 dementia rating EF 50%, indeterminate diastolic function, moderate aortic stenosis, moderate MR, mild TR. Apical septal welch were hypokinetic, mid inferior septal and basal inferior septal welch were akinetic, mid anteroseptal and basal anterior septal welch are dyskinetic. Repeat echo pending this morning but shows no right heart strain - pending official read No evidence of acute decompensation Chest x-ray shows improvement of interstitial pulmonary edema Qualifiers: Congestive heart failure type: diastolic Congestive heart failure chronicity: chronic Qualified Code(s): I50.32 - Chronic diastolic (congestive ) heart failure (8) CAD (coronary artery disease) Current Visit: Yes Status: Chronic Hx CAD with multiple stents - most recent PCI 2.5-3 years ago Qualifiers: Coronary Disease-Associated Artery/Lesion type: [place] artery [place] vs. transplanted heart: [place] heart Associated angina: without angina Qualified Code(s): I25.10 - Atherosclerotic heart disease of [place] coronary artery without angina pectoris (9) Parkinson disease Current Visit: Yes Status: Chronic (10) Diabetes mellitus type II, non insulin dependent Current Visit: Yes Status: Chronic (11) DVT prophylaxis Current Visit: Yes Status: Acute Heparin Subjective Principal diagnosis: Acute Repsiratory Failure Interval history: Pt seen and examined at bedside. Easily arousable and responds to commands. Objective PUL Vital signs: Last Vital Signs Temp 97.4 F L 09/11/17 03:06 Pulse 65 09/11/17 08:00 Resp 16 09/11/17 07:00 BP 101/67 09/11/17 07:00 Pulse Ox 99 09/11/17 07:00 General appearance: no acute distress Eyes: nonicteric ENT: oropharynx moist Effort: normal Auscultation: bilateral: clear Cardiovascular: irregular rhythm Gastrointestinal: normoactive bowel sounds Extremities: no cyanosis, edema (mild LE bilaterally) non-focal exam, pupils equal and round Ventilator Settings Ventilator Settings: Ventilator Settings, Last 8 Hours Ventilator Mode A/C Ventilator Mode CPAP Ventilator Mode A/C Ventilator Mode A/C Ventilator Mode A/C Ventilator Mode A/C Ventilator Mode A/C Ventilator Mode A/C Ventilator Mode A/C Ventilator Mode A/C Ventilator Tidal Volume 500 Setting Ventilator Tidal Volume 500 Setting Ventilator Tidal Volume 500 Setting Ventilator Tidal Volume 500 Setting Ventilator Tidal Volume 500 Setting Ventilator Tidal Volume 500 Setting Ventilator Tidal Volume 500 Setting Ventilator Tidal Volume 500 Setting Ventilator Tidal Volume 500 Setting Ventilator Respiratory Rate 12 Setting Ventilator Respiratory Rate 12 Setting Ventilator Respiratory Rate 12 Setting Ventilator Respiratory Rate 12 Setting Ventilator Respiratory Rate 12 Setting Ventilator Respiratory Rate 12 Setting Ventilator Respiratory Rate 12 Setting Ventilator Respiratory Rate 12 Setting Ventilator Respiratory Rate 12 Setting Actual Respiratory Rate 17 Actual Respiratory Rate 15 Actual Respiratory Rate 13 Actual Respiratory Rate 15 Actual Respiratory Rate 13 Actual Respiratory Rate 13 Actual Respiratory Rate 13 Actual Respiratory Rate 14 Actual Respiratory Rate 16 Positive End Expiratory 8 Pressure Positive End Expiratory 8 Pressure Positive End Expiratory 8 Pressure Positive End Expiratory 8 Pressure Positive End Expiratory 8 Pressure Positive End Expiratory 8 Pressure Positive End Expiratory 8 Pressure Positive End Expiratory 8 Pressure Positive End Expiratory 8 Pressure Positive End Expiratory 8 Pressure Peak Inspiratory Airway 19 Pressure Peak Inspiratory Airway 28 Pressure Peak Inspiratory Airway 32 Pressure Peak Inspiratory Airway 31 Pressure Peak Inspiratory Airway 26 Pressure Peak Inspiratory Airway 32 Pressure Peak Inspiratory Airway 32 Pressure Peak Inspiratory Airway 26 Pressure Results - Laboratory Findings CBC and BMP: 09/11/17 09:45 09/11/17 09:45 ABG ABG pH 7.42 pH Units (7.32-7.45) 09/11/17 04:19 ABG pCO2 34 mmHg (35-45) L 09/11/17 04:19 ABG pO2 113 mmHg (85-104) H 09/11/17 04:19 ABG O2 Saturation 99 % (95-98) H 09/11/17 04:19 PT/INR, D-dimer PT 14.8 Seconds (9.4-12.1) H 09/11/17 00:36 Abnormal lab findings: Abnormal lab results RBC 2.62 M/mcL (4.19-5.50) L 09/10/17 05:49 Hgb 7.9 g/dL (12.9-16.9) L 09/10/17 05:49 Hct 25.8 % (37.5-50.1) L 09/10/17 05:49 MCHC 30.6 g/dL (31.6-35.5) L 09/10/17 05:49 RDW 18.3 % (11.5-14.5) H 09/10/17 05:49 Plt Count 136 K/mcL (140-400) L 09/10/17 05:49 PT 14.8 Seconds (9.4-12.1) H 09/11/17 00:36 APTT 64.6 Seconds (26.0-36.0) H 09/11/17 00:36 ABG pCO2 34 mmHg (35-45) L 09/11/17 04:19 ABG pO2 113 mmHg (85-104) H 09/11/17 04:19 ABG O2 Saturation 99 % (95-98) H 09/11/17 04:19 Sodium 134 mEq/L (136-145) L 09/10/17 05:49 Potassium 3.3 mEq/L (3.5-5.1) L 09/10/17 19:09 Carbon Dioxide 22 mEq/L (23-29) L 09/10/17 05:49 Glucose 183 mg/dL (70-105) H 09/10/17 05:49 POC Glucose 129 (58-89) H 09/10/17 23:39 Calcium 8.2 mg/dL (8.6-10.3) L 09/10/17 05:49 ALT 4 Units/L (7-52) L 09/10/17 05:49 Troponin I 1.76 ng/mL (< 0.04) H* 09/08/17 05:31 Serum Total Protein 4.9 g/dL (6.4-8.9) L 09/10/17 05:49 Albumin 3.0 g/dL (3.5-5.7) L 09/10/17 05:49 Globulin 1.9 g/dL (2.4-3.5) L 09/10/17 05:49 Urine Clarity Turbid (Clear) A 09/09/17 11:05 Ur Specific [place] > 1.030 (1.010-1.025) H 09/09/17 11:05 Urine Protein 100 mg/dL (Neg-Trace) H 09/09/17 11:05 Urine Blood Large (Negative) H 09/09/17 11:05 Urine Microscopic RBC 30-50 per hpf (0-3) H 09/09/17 11:05 Urine Microscopic WBC 30-50 per hpf (0-3) H 09/09/17 11:05 Ur Squamous Epith Cells Many per lpf (None-Few) H 09/09/17 11:05 Granular Casts Few per lpf (None Seen) H 09/09/17 11:05 - Microbiology Findings Microbiology Findings: Microbiology, Last 48 Hours 09/08/17 07:50 Sputum Culture - Final Sputum 09/09/17 11:05 Urine Culture - Final Urine,[place] No growth. 09/08/17 11:29 Blood Culture - Preliminary Peripheral Venipuncture No growth. 09/08/17 10:25 Blood Culture - Preliminary Peripheral Venipuncture No growth. 09/06/17 18:12 Anaerobic Culture - Final Right Hip Anaerobic conditions were compromised due to failure of the anaerobic pouch to seal correctly, therefore, sample cannot be assessed for anaerobic organisms. 09/06/17 18:12 Wound Culture - Final Right Hip No growth. - Clinical Findings Intake & Output: Intake & Output 09/10/17 09/11/17 09/11/17 23:59 07:59 15:59 Intake Total 580 / 580 474 / 474 100 / 100 Output Total 225 / 225 75 / 75 Balance 355 / 355 399 / 399 100 / 100 Weight 99.7 kg - VTE Documentation of Mechanical Device: Venous foot pump, device Consult Discharge Plan - Plan Referrals: Eileen Howard, LISW [Primary Care Provider] - Prescriptions: OxyCODONE Immed Rel [Roxicodone 5 MG] 5 mg PO Q4HR PRN #20 tablet PRN Reason: Pain Aspirin Enteric Coated [Aspirin EC] 325 mg PO BID #20 tablet.Julia Payton - Last Filed: 09/11/17 22:46> Date of Encounter: 09/11/17 Objective PUL Vital signs: Last Vital Signs Temp 98.0 F 09/11/17 19:00 Pulse 82 09/11/17 21:00 Resp 28 09/11/17 21:59 BP 117/75 09/11/17 21:00 Pulse Ox 100 09/11/17 21:59 Results - Laboratory Findings CBC and BMP: 09/11/17 09:45 09/11/17 09:45 ABG ABG pH 7.42 pH Units (7.32-7.45) 09/11/17 04:19 ABG pCO2 34 mmHg (35-45) L 09/11/17 04:19 ABG pO2 113 mmHg (85-104) H 09/11/17 04:19 ABG O2 Saturation 99 % (95-98) H 09/11/17 04:19 PT/INR, D-dimer PT 14.8 Seconds (9.4-12.1) H 09/11/17 00:36 Abnormal lab findings: Abnormal lab results WBC 12.1 K/mcL (4.3-11.1) H D 09/11/17 09:45 RBC 3.29 M/mcL (4.19-5.50) L 09/11/17 09:45 Hgb 10.1 g/dL (12.9-16.9) L D 09/11/17 09:45 Hct 32.5 % (37.5-50.1) L 09/11/17 09:45 MCHC 31.1 g/dL (31.6-35.5) L 09/11/17 09:45 RDW 17.8 % (11.5-14.5) H 09/11/17 09:45 Neutrophils # 9.3 K/mcL (1.6-8.9) H 09/11/17 09:45 Monocytes # 1.5 K/mcL (0.0-1.3) H 09/11/17 09:45 Nucleated RBCs/100 WBC 0.2 /100 WBC (0) H 09/11/17 09:45 PT 14.8 Seconds (9.4-12.1) H 09/11/17 00:36 APTT 64.6 Seconds (26.0-36.0) H 09/11/17 00:36 ABG pCO2 34 mmHg (35-45) L 09/11/17 04:19 ABG pO2 113 mmHg (85-104) H 09/11/17 04:19 ABG O2 Saturation 99 % (95-98) H 09/11/17 04:19 Sodium 133 mEq/L (136-145) L 09/11/17 09:45 Potassium 3.4 mEq/L (3.5-5.1) L 09/11/17 09:45 Glucose 127 mg/dL (70-105) H 09/11/17 09:45 POC Glucose 129 (58-89) H 09/10/17 23:39 ALT 4 Units/L (7-52) L 09/10/17 05:49 Troponin I 1.76 ng/mL (< 0.04) H* 09/08/17 05:31 Serum Total Protein 4.9 g/dL (6.4-8.9) L 09/10/17 05:49 Albumin 3.0 g/dL (3.5-5.7) L 09/10/17 05:49 Globulin 1.9 g/dL (2.4-3.5) L 09/10/17 05:49 Urine Clarity Turbid (Clear) A 09/09/17 11:05 Ur Specific [place] > 1.030 (1.010-1.025) H 09/09/17 11:05 Urine Protein 100 mg/dL (Neg-Trace) H 09/09/17 11:05 Urine Blood Large (Negative) H 09/09/17 11:05 Urine Microscopic RBC 30-50 per hpf (0-3) H 09/09/17 11:05 Urine Microscopic WBC 30-50 per hpf (0-3) H 09/09/17 11:05 Ur Squamous Epith Cells Many per lpf (None-Few) H 09/09/17 11:05 Granular Casts Few per lpf (None Seen) H 09/09/17 11:05 - Microbiology Findings Microbiology Findings: Microbiology, Last 48 Hours 09/08/17 07:50 Sputum Culture - Final Sputum 09/09/17 11:05 Urine Culture - Final Urine,[place] No growth. 09/08/17 11:29 Blood Culture - Preliminary Peripheral Venipuncture No growth. 09/08/17 10:25 Blood Culture - Preliminary Peripheral Venipuncture No growth. - Clinical Findings Intake & Output: Intake & Output 09/11/17 09/11/17 09/11/17 07:59 15:59 23:59 Intake Total 544 / 544 771 / 771 Output Total 175 / 175 550 / 550 500 / 500 Balance 369 / 369 221 / 221 -500 / -500 Weight 99.7 kg - Attending Attestation I saw and evaluated this patient and my medical decision-making was reviewed with the Resident Physician. I agree with the documented findings, disposition and treatment plan as described except to the extent set forth below. We independently had [id number] contact with the patient Patient seen and examined at bedside Labs, radiology, chart personally reviewed. ZINC PLATER:Patient is agitated follows commands on and off patient self extubated today alert following commands dementia is at baseline. Pulm:acute respiratory failure secondary to code blue has aspiration like picture with fluid overload ,cotinue broad spectrum antibiotics will descalate to continue heparin drip for DVT , To continue Dexamethasone for airway edema . 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 Lines: All lines examined without evidence of infection : Dispo: Critrically ill high chance of reintubation CODE:DNR CCA with intubation
[2017-09-11] MEDS ORDERED: Racepinephrine Neb 0.5 ML VIAL IH ONE ×2 (09:30→09:32)
[2017-09-11] MEDS ORDERED: Dexamethasone 4 MG/ML VIAL IVP ONE (09:32)
--- NOTE | 2017-09-11 09:42 | Event Note ---
Date of Encounter: 09/11/17 Time of Encounter: 09:36 The patient self-extubated this morning. Yesterday he passed a spontaneous breathing trial for several hours and the plan was for extubation today. His O2 sat was in the 90's, he was awake and following commands, but he was becoming mildly dyspnic. The patient was then placed on BiPAP with good O2 saturation and tidal volume and given racemic epi and decadron. Will give 5 more doses of decadron. He is awake, alert, and following commands.
[2017-09-11 10:03] LABS: Basophils % 0.3 %; Eosinophils % 0.1 %; Hematocrit 32.5 % (37.5-50.1); Hemoglobin 10.1 g/dL (12.9-16.9); Immature Granulocytes % 0.5 % (0-4); Lymphocytes # 1.2 K/mcL (0.6-4.6); Lymphocytes % 10.1 %; Mean Corpuscular HGB Conc 31.1 g/dL (31.6-35.5); Mean Corpuscular Hemoglobin 30.7 pg (28.0-33.3); Mean Platelet Volume 11.2 fL (9.4-12.4); Monocytes # 1.5 K/mcL (0.0-1.3); Monocytes % 12.2 %; Neutrophils # 9.3 K/mcL (1.6-8.9); Nucleated Red Blood Cells 0.2 /100 WBC (0); Platelet Count 242 K/mcL (140-400); Red Blood Count 3.29 M/mcL (4.19-5.50); Red Cell Distribution Width 17.8 % (11.5-14.5); Segmented Neutrophils % 76.8 %
[2017-09-11 10:05] LABS: Mean Corpuscular Volume 98.8 fL (83.0-100.0)
[2017-09-11 10:23] LABS: BUN/Creatinine Ratio 18 (6-26); Blood Urea Nitrogen 19 mg/dL (8-23); Calcium 8.8 mg/dL (8.6-10.3); Carbon Dioxide 23 mEq/L (23-29); Chloride 100 mEq/L (98-107); Glucose 127 mg/dL (70-105); Magnesium 2.1 mg/dL (1.6-2.6); Osmolality,Calculated 280 (280-300); Potassium 3.4 mEq/L (3.5-5.1); Sodium 133 mEq/L (136-145); eGFR For African Americans > 60 (> 60); eGFR For Non-African Americans > 60 (> 60)
--- NOTE | 2017-09-11 10:46 | Orthopedics Progress Note ---
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 transplanted heart: [place] heart Associated angina: with unspecified angina Qualified Code(s): I25.709 - Atherosclerosis of coronary artery bypass graft(s), unspecified, with unspecified angina pectoris (4) Parkinson disease Current Visit: Yes Status: Chronic (5) Diabetes mellitus type II, non insulin dependent Current Visit: Yes Status: Chronic (6) DVT prophylaxis Current Visit: Yes Status: Acute (7) Hypertension Current Visit: Yes Status: Chronic Qualifiers: Hypertension type: essential hypertension Qualified Code(s): I10 - Essential (primary) hypertension (8) Atrial fibrillation Current Visit: Yes Status: Chronic Qualifiers: Atrial fibrillation type: chronic Qualified Code(s): I48.2 - Chronic atrial fibrillation (9) Dementia Current Visit: Yes Status: Chronic Qualifiers: Dementia type: Alzheimer's disease Alzheimer's disease onset: unspecified onset Dementia behavioral disturbance: with behavioral disturbance Qualified Code(s): G30.9 - Alzheimer's disease, unspecified; F02.81 - Dementia in other diseases classified elsewhere with behavioral disturbance; F02.81 - Dementia in other diseases classified elsewhere with behavioral disturbance; F02.81 - Dementia in other diseases classified elsewhere with behavioral disturbance (10) AAA (abdominal aortic aneurysm) without rupture Current Visit: No Status: Chronic (11) Afib Current Visit: No Status: Chronic Qualifiers: Atrial fibrillation type: unspecified Qualified Code(s): I48.91 - Unspecified atrial fibrillation (12) CHF (congestive heart failure) Current Visit: Yes Status: Chronic Qualifiers: Congestive heart failure type: diastolic Congestive heart failure chronicity: chronic Qualified Code(s): I50.32 - Chronic diastolic (congestive ) heart failure Subjective Principal diagnosis: Acute Repsiratory Failure Interval history: Patient seen this morning still intubated dressing will be changed today Plan as per ICU team hope to extubate today Objective Vital signs: Vital Signs Temp Pulse Resp BP Pulse Ox 09/11/17 10:00 87 26 124/84 96 09/11/17 09:35 26 106/81 100 09/11/17 09:00 78 22 84/57 98 09/11/17 08:00 70 20 111/96 99 09/11/17 07:35 17 108/66 99 09/11/17 07:20 97.7 F 09/11/17 07:00 72 16 101/67 99 09/11/17 06:05 15 93/61 99 09/11/17 06:00 66 16 93/61 100 09/11/17 05:00 61 15 103/58 98 09/11/17 04:08 13 92/59 100 09/11/17 04:00 69 13 92/59 99 09/11/17 03:06 97.4 F L 09/11/17 03:00 64 13 92/59 100 09/11/17 01:18 14 107/70 98 09/11/17 01:00 70 14 107/70 98 09/11/17 00:00 76 15 98/62 99 09/10/17 23:37 97.8 F 09/10/17 23:11 12 101/61 100 09/10/17 23:00 76 12 101/61 100 09/10/17 22:00 80 18 117/64 100 09/10/17 21:07 18 113/75 99 09/10/17 21:00 84 18 113/75 99 09/10/17 20:05 97 09/10/17 20:00 87 15 107/72 100 09/10/17 19:25 17 118/65 100 09/10/17 19:00 102 17 118/65 100 09/10/17 18:25 101.1 F H 09/10/17 18:00 104 21 138/80 98 09/10/17 17:05 25 135/74 98 09/10/17 17:00 102 24 135/74 99 09/10/17 16:00 103 20 142/85 98 09/10/17 15:49 96.8 F L 09/10/17 15:36 25 132/81 96 09/10/17 15:00 93 27 115/75 96 09/10/17 14:00 92 22 131/74 98 09/10/17 13:24 24 138/86 94 09/10/17 13:00 99 25 138/86 98 09/10/17 12:00 97 22 142/79 93 09/10/17 11:54 97.7 F 09/10/17 11:08 19 110/98 99 09/10/17 11:00 78 22 110/98 97 Intake and Output 09/10/17 09/11/17 09/11/17 23:59 07:59 15:59 Intake Total 580 / 580 474 / 474 100 / 100 Output Total 225 / 225 175 / 175 Balance 355 / 355 299 / 299 100 / 100 Intake: IV Fluids 580 / 580 184 / 184 100 / 100 Amiodarone Drip Premix 360mg/ 200 / 200 200mL 360 mg In 200 ml @ 0.5 MG /MIN 16.667 mls/hr IVC CONT [facility] Rx#:[id number] FentaNYL (PF) 1,000 MCG In 0.9 30 / 30 55 / 55 % Sodium Chloride 80 ML @ 50 MCG/HR 5 mls/hr IVC CONT [facility] Rx #:[id number] Heparin 25,000 UNIT/500 ML D5W 250 / 250 129 / 129 25,000 unit In 500 ml @ 14 UNIT /KG/HR 26.264 mls/hr IVC . Q19H3M [facility] Rx#:[id number] Zosyn 3.375 GM In 0.9 % Sodium 100 / 100 100 / 100 Chloride 100 ML @ 25 mls/hr IVPB Q8H [facility] Rx#:[id number] Tube Feeding 290 / 290 Free Water Intake Amount 0 / 0 0 / 0 0 / 0 Output: Catheter 225 / 225 175 / 175 Other: Weight 99.7 kg Blood Glucose* 129 141 Patient Weight 09/11/17 23:59 Weight 99.7 kg - Labs CBC & BMP: 09/11/17 09:45 09/11/17 09:45 Labs: Abnormal lab results WBC 12.1 K/mcL (4.3-11.1) H D 09/11/17 09:45 RBC 3.29 M/mcL (4.19-5.50) L 09/11/17 09:45 Hgb 10.1 g/dL (12.9-16.9) L D 09/11/17 09:45 Hct 32.5 % (37.5-50.1) L 09/11/17 09:45 MCHC 31.1 g/dL (31.6-35.5) L 09/11/17 09:45 RDW 17.8 % (11.5-14.5) H 09/11/17 09:45 Neutrophils # 9.3 K/mcL (1.6-8.9) H 09/11/17 09:45 Monocytes # 1.5 K/mcL (0.0-1.3) H 09/11/17 09:45 Nucleated RBCs/100 WBC 0.2 /100 WBC (0) H 09/11/17 09:45 PT 14.8 Seconds (9.4-12.1) H 09/11/17 00:36 APTT 64.6 Seconds (26.0-36.0) H 09/11/17 00:36 ABG pCO2 34 mmHg (35-45) L 09/11/17 04:19 ABG pO2 113 mmHg (85-104) H 09/11/17 04:19 ABG O2 Saturation 99 % (95-98) H 09/11/17 04:19 Sodium 133 mEq/L (136-145) L 09/11/17 09:45 Potassium 3.4 mEq/L (3.5-5.1) L 09/11/17 09:45 Glucose 127 mg/dL (70-105) H 09/11/17 09:45 POC Glucose 129 (58-89) H 09/10/17 23:39 ALT 4 Units/L (7-52) L 09/10/17 05:49 Troponin I 1.76 ng/mL (< 0.04) H* 09/08/17 05:31 Serum Total Protein 4.9 g/dL (6.4-8.9) L 09/10/17 05:49 Albumin 3.0 g/dL (3.5-5.7) L 09/10/17 05:49 Globulin 1.9 g/dL (2.4-3.5) L 09/10/17 05:49 Urine Clarity Turbid (Clear) A 09/09/17 11:05 Ur Specific [place] > 1.030 (1.010-1.025) H 09/09/17 11:05 Urine Protein 100 mg/dL (Neg-Trace) H 09/09/17 11:05 Urine Blood Large (Negative) H 09/09/17 11:05 Urine Microscopic RBC 30-50 per hpf (0-3) H 09/09/17 11:05 Urine Microscopic WBC 30-50 per hpf (0-3) H 09/09/17 11:05 Ur Squamous Epith Cells Many per lpf (None-Few) H 09/09/17 11:05 Granular Casts Few per lpf (None Seen) H 09/09/17 11:05 - VTE Documentation of Mechanical Device: Venous foot pump, device Consult Discharge Plan - Plan Referrals: Eileen Howard [employer] [Primary Care Provider] - Prescriptions: Aspirin Enteric Coated [Aspirin EC] 325 mg PO BID #20 tablet.dr Hernandez Immed Rel [Roxicodone 5 MG] 5 mg PO Q4HR PRN #20 tablet PRN Reason: Pain
[2017-09-11] MEDS: Amiodarone Premix 360 MG/200 ML BAG IVC SCH (10:54)
--- NOTE | 2017-09-11 12:21 | Cardiology Progress Note ---
Date of Encounter: 09/11/17 Time of Encounter: 09:15 Assessment and Plan (1) Cardiopulmonary arrest with successful resuscitation Current Visit: Yes Status: Acute S/p cardiopulmonary arrest 09/08/17. He received CPR and epi x1 with ROSC. Noted to have VT for 2 min prior to event per records. Telemetry reviewed and VT seen. He was started on IV amiodarone gtt. On heparin IV for DVT seen on venous doppler. Troponin found to elevated at 0.14 and 1.76 s/p CPR. 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 Last PCI was at [facility] in 2014. Recent visit 07/2017 for GI bleed with troponin up to 3.35. Medical management recommended at that time. Follows with Dr. Manuel at [facility]. Continue IV amiodarone while intubated. We will convert to oral once able. TTE - EF reduced to 35% from 50%. Indeterminate diastolic function. Enlarged LA. Limited study. Dr. Kang discussed findings with daughters yesterday. Not a good [facility] candidate to acute anemia recent GI bleed (Hgb 13.0-> 7.9) and would likely not tolerate triple therapy. Venous doppler + for DVT. Medical management recommended. Patient is a DNRCCA. Plan of care was discussed with daughters who agree with plan. (2) Ventricular tachycardia Current Visit: Yes Status: Acute On amiodarone gtt. Convert to oral once extubated. No recurrent VT seen. K-3.4, replace. K-rider ordered by primary team today. Mag 1.9. (3) Elevated troponin Current Visit: No Status: Acute Troponin 0.14, 1.76 s/p cardiopulmonary arrest. NSTEMI vs demand ischemia. Known CAD, s/p CABG and miltiple PCI. Known CAD not amendable to PCI. Last [facility] in 2014 at [facility]. Records ordered. He is not a candidate for cardiac rehab. Continue asa, statin, and bb. On heparin gtt . Medical management recommended, see plan above. (4) Atrial fibrillation Current Visit: Yes Status: Chronic Currently rate controlled on IV amiodarone. On heparin gtt in the setting of DVT. Previously not on AC due to GI bleed. AC per primary team. Qualifiers: Atrial fibrillation type: chronic Qualified Code(s): I48.2 - Chronic atrial fibrillation (5) CAD (coronary artery disease) of artery bypass graft Current Visit: Yes Status: Chronic Severe triple vessel CAD, post CABG, post PCI, last PCI 2014 with seven stents at [facility], follows at [facility] with Dr. Manuel. Asa, statin. Hold bb d/t hypotension. B/p improving. Consider adding bb if b/p continues to improve. Qualifiers: [place] vs. transplanted heart: [place] heart Associated angina: with stable angina Qualified Code(s): I25.708 - Atherosclerosis of coronary artery bypass graft(s), unspecified, with other forms of angina pectoris (6) Acute systolic CHF (congestive heart failure) Current Visit: Yes Status: Acute TTE shows severe segmental systolic dysfunction with EF 35%. Acute systolic CHF. No significant fluid overload on exam. CXR 09/11/16 shows small left pleural effusion with atelectasis. Caution with IV fluid. Noted to be hypotensive. Unable to tolerate bb, or aceI. Discussion w patient/family: The assessment and plan as outlined above was discussed with the patient and/or family members who expressed understanding and agreement. All questions were answered. Thank you for involving us in the care of your patient. Please call with any questions. Subjective Principal diagnosis: Acute Repsiratory Failure Interval history: Patient remains sedated on ventilator this morning. Wakes easily and somewhat follows commands. No distress noted. Objective Vital Signs, Last 4 Hours Pulse Resp BP Pulse Ox 09/11/17 11:09 28 109/72 94 09/11/17 11:00 83 24 121/65 100 09/11/17 10:00 87 26 124/84 96 09/11/17 09:35 26 106/81 100 09/11/17 09:00 78 22 84/57 98 General: No Apparent Distress HEENT: Atraumatic, Normocephaly, Mucus Membranes Moist Neck: No JVD, Normal carotid pulses Cardiac: Other (Irregular) Lungs: Normal Breath Sounds, No Wheeze, Rales, Rhonchi Neuro: No focal deficits noted, Other (on sedation) Skin: No rashes noted on visualized skin Musculoskeletal: Other (C/o chest wall tenerness.) Extremities: No Clubbing, No Cyanosis, No Edema, Normal Pulses Results 09/11/17 09:45 09/11/17 09:45 Lab Results 09/10/17 09/10/1709/10/18 11:54 19:09 19:09 WBC Hgb Hct Plt Count INR APTT 52.0 H 91.9 H D Sodium Potassium 3.3 L Chloride Carbon Dioxide BUN Creatinine Glucose Calcium Magnesium 09/11/17 09/11/17 09/11/17 00:36 00:36 09:45 WBC 12.1 H D Hgb 10.1 L D Hct 32.5 L Plt Count 242 D INR 1.4 APTT 64.6 H Sodium Potassium Chloride Carbon Dioxide BUN Creatinine Glucose Calcium Magnesium 09/11/17 09:45 WBC Hgb Hct Plt Count INR APTT Sodium 133 L Potassium 3.4 L Chloride 100 Carbon Dioxide 23 BUN 19 Creatinine 1.06 Glucose 127 H Calcium 8.8 Magnesium 2.1 - Imaging and Cardiology Echo: report reviewed - EKG Interpretation EKG results cardiology: personally reviewed - VTE Documentation of Mechanical Device: Venous foot pump, device Consult Discharge Plan - Plan Referrals: Eileen Howard, [employer] [Primary Care Provider] - Prescriptions: OxyCODONE Immed Rel [Roxicodone 5 MG] 5 mg PO Q4HR PRN #20 tablet PRN Reason: Pain Aspirin Enteric Coated [Aspirin EC] 325 mg PO BID #20 tablet.
[2017-09-11] MEDS: Heparin 25,000 UNIT/500 ML D5W 25,000 UNIT/500 ML BAG IVC SCH (16:59)
[2017-09-11] MEDS: Dexamethasone 10 MG/ML VIAL IVP SCH ×2 (18:04→23:19)
[2017-09-11] MEDS: Famotidine 20 MG/2 ML VIAL IVP SCH (19:50)
[2017-09-11] MEDS: Dexmedetomidine HCl 400 MCG/100 ML MLS IVC SCH (23:20)
[2017-09-12 01:15] LABS: INR 1.4; Prothrombin Time 15.3 Seconds (9.4-12.1)
[2017-09-12 01:18] LABS: Activated Partial Thrombo Time 74.7 Seconds (26.0-36.0)
[2017-09-12] MEDS: Lacri-Lube 3.5 GM TUBE BOTH EYES SCH ×2 (02:59→08:11)
[2017-09-12] MEDS: Ipratropium/Albuterol Neb 3 ML IH SCH ×4 (03:35→22:56)
[2017-09-12] MEDS: Insulin LISPRO 300 UNITS/3 ML VIAL SQ SCH ×4 (04:47→21:24)
[2017-09-12] MEDS: Dexamethasone 10 MG/ML VIAL IVP SCH ×2 (04:50→11:45)
[2017-09-12] MEDS: Carbidopa/Levodopa 25/100 TABLET PO SCH ×2 (04:50→16:41)
[2017-09-12 04:56] LABS: Hematocrit 27.3 % (37.5-50.1); Hemoglobin 8.7 g/dL (12.9-16.9); Immature Granulocytes % 0.9 % (0-4); Lymphocytes # 0.4 K/mcL (0.6-4.6); Lymphocytes % 7.8 %; Mean Corpuscular HGB Conc 31.9 g/dL (31.6-35.5); Mean Corpuscular Hemoglobin 30.2 pg (28.0-33.3); Mean Corpuscular Volume 94.8 fL (83.0-100.0); Monocytes # 0.1 K/mcL (0.0-1.3); Monocytes % 2.5 %; Neutrophils # 4.7 K/mcL (1.6-8.9); Platelet Count 221 K/mcL (140-400); Red Blood Count 2.88 M/mcL (4.19-5.50); Red Cell Distribution Width 17.4 % (11.5-14.5); Segmented Neutrophils % 88.8 %
[2017-09-12 05:21] LABS: BUN/Creatinine Ratio 21 (6-26); Blood Urea Nitrogen 22 mg/dL (8-23); Calcium 8.4 mg/dL (8.6-10.3); Carbon Dioxide 20 mEq/L (23-29); Chloride 101 mEq/L (98-107); Glucose 184 mg/dL (70-105); Osmolality,Calculated 286 (280-300); Phosphorous 3.7 mg/dL (2.7-4.5); Potassium 3.3 mEq/L (3.5-5.1); Sodium 134 mEq/L (136-145); eGFR For African Americans > 60 (> 60); eGFR For Non-African Americans > 60 (> 60)
[2017-09-12 05:41] LABS: VBG HCO3 22 mEq/L (21-27); VBG PCO2 35 mmHg (41-51); VBG PO2 151 mmHg (25-50)
[2017-09-12] MEDS: Chlorhexidine Rinse 15 ML MOUTHWASH MM SCH (08:11)
[2017-09-12] MEDS: Ferrous Sulfate Oral Soln 300 MG/5 ML UDC PO SCH (08:11)
[2017-09-12] MEDS: Ascorbic Acid 500 MG TABLET PO SCH ×2 (08:11→16:41)
[2017-09-12] MEDS: Aspirin 81 MG TAB.CHEW PO SCH (08:11)
[2017-09-12] MEDS: Docusate Oral Soln 100 MG/10 ML UDC PO SCH (08:11)
[2017-09-12] MEDS: Multivit/Ca/Min/Fe/FA 1 TAB TABLET PO SCH (08:11)
--- NOTE | 2017-09-12 08:45 | Orthopedics Progress Note ---
Date of Encounter: 09/12/17 Time of Encounter: 08:39 - Assessment and Plan (1) Pain with hip hemiarthroplasty Current Visit: No Status: Acute Qualifiers: Encounter type: subsequent encounter Qualified Code(s): T84.84XD - Pain due to internal orthopedic prosthetic devices, implants and grafts, subsequent encounter; Z96.649 - Presence of unspecified artificial hip joint; Z96.649 - Presence of unspecified artificial hip joint (2) Generalized weakness Current Visit: No Status: Chronic (3) CAD (coronary artery disease) of artery bypass graft Current Visit: No Status: Chronic Qualifiers: [place] vs. transplanted heart: [place] heart Associated angina: with unspecified angina Qualified Code(s): I25.709 - Atherosclerosis of coronary artery bypass graft(s), unspecified, with unspecified angina pectoris (4) Parkinson disease Current Visit: Yes Status: Chronic (5) Diabetes mellitus type II, non insulin dependent Current Visit: Yes Status: Chronic (6) DVT prophylaxis Current Visit: Yes Status: Acute (7) Hypertension Current Visit: Yes Status: Chronic Qualifiers: Hypertension type: essential hypertension Qualified Code(s): I10 - Essential (primary) hypertension (8) Atrial fibrillation Current Visit: Yes Status: Chronic Qualifiers: Atrial fibrillation type: chronic Qualified Code(s): I48.2 - Chronic atrial fibrillation (9) Dementia Current Visit: Yes Status: Chronic Qualifiers: Dementia type: Alzheimer's disease Alzheimer's disease onset: unspecified onset Dementia behavioral disturbance: with behavioral disturbance Qualified Code(s): G30.9 - Alzheimer's disease, unspecified; F02.81 - Dementia in other diseases classified elsewhere with behavioral disturbance; F02.81 - Dementia in other diseases classified elsewhere with behavioral disturbance; F02.81 - Dementia in other diseases classified elsewhere with behavioral disturbance (10) AAA (abdominal aortic aneurysm) without rupture Current Visit: No Status: Chronic (11) Afib Current Visit: No Status: Chronic Qualifiers: Atrial fibrillation type: unspecified Qualified Code(s): I48.91 - Unspecified atrial fibrillation (12) CHF (congestive heart failure) Current Visit: Yes Status: Chronic Qualifiers: Congestive heart failure type: diastolic Congestive heart failure chronicity: chronic Qualified Code(s): I50.32 - Chronic diastolic (congestive ) heart failure Subjective Principal diagnosis: Acute Repsiratory Failure Interval history: Patient extubated this morning doing very well right lower extremity incision clean dry and intact patient will continue to be mobilized. Discharge from ICU as per ICU team Objective Vital signs: Vital Signs Temp Pulse Resp BP Pulse Ox 09/12/17 08:00 81 24 114/69 98 09/12/17 07:55 84 09/12/17 07:10 97.4 F L 09/12/17 07:00 98.4 F 83 24 112/82 99 09/12/17 05:42 86 26 121/76 100 09/12/17 05:00 80 24 117/72 100 09/12/17 04:00 97.7 F 78 18 110/57 100 09/12/17 03:35 18 99 09/12/17 03:00 82 12 120/78 100 09/12/17 02:55 73 09/12/17 02:00 74 26 109/77 100 09/12/17 01:00 70 28 115/69 100 09/11/17 23:56 98.0 F 75 28 111/71 100 09/11/17 23:14 84 09/11/17 23:00 82 28 114/68 100 09/11/17 22:00 81 28 106/67 100 09/11/17 21:59 28 100 09/11/17 21:00 82 18 117/75 96 09/11/17 19:59 79 18 105/68 96 09/11/17 19:28 86 09/11/17 19:00 98.0 F 86 24 95/67 96 09/11/17 18:00 79 20 121/74 96 09/11/17 17:00 90 24 116/83 97 09/11/17 16:00 88 20 101/82 98 09/11/17 15:30 98.5 F 09/11/17 15:10 26 141/93 100 09/11/17 15:00 86 22 141/93 100 09/11/17 14:00 86 27 130/75 100 09/11/17 13:34 21 83/71 100 09/11/17 13:00 87 23 120/50 100 09/11/17 12:00 77 20 119/59 100 09/11/17 11:09 28 109/72 94 09/11/17 11:00 98.6 F 83 24 121/65 100 09/11/17 10:00 87 26 124/84 96 09/11/17 09:35 26 106/81 100 09/11/17 09:00 78 22 84/57 98 Intake and Output 09/11/17 09/12/17 09/12/17 23:59 07:59 15:59 Intake Total 100 / 100 400 / 400 Output Total 500 / 500 600 / 600 Balance -400 / -400 -200 / -200 Intake: IV Fluids 100 / 100 400 / 400 Amiodarone Drip Premix 360mg/ 200 / 200 200mL 360 mg In 200 ml @ 0.5 MG /MIN 16.667 mls/hr IVC CONT MANDA Rx#:[id number] FentaNYL (PF) 1,000 MCG In 0.9 0 / 0 % Sodium Chloride 80 ML @ 50 MCG/HR 5 mls/hr IVC CONT MANDA Rx #:[id number] Zosyn 3.375 GM In 0.9 % Sodium 100 / 100 100 / 100 Chloride 100 ML @ 25 mls/hr IVPB Q8H MANDA Rx#:[id number] Potassium Chloride 10 mEq/100mL 100 / 100 10 meq In 100 ml @ 100 mls/hr IVPB Q1H PRN Rx#:[id number] Oral 0 / 0 Output: Catheter 500 / 500 600 / 600 Other: Weight 106.5 kg Blood Glucose* 172 236 - Labs CBC & BMP: 09/12/17 04:41 09/12/17 04:41 Labs: Abnormal lab results RBC 2.88 M/mcL (4.19-5.50) L 09/12/17 04:41 Hgb 8.7 g/dL (12.9-16.9) L 09/12/17 04:41 Hct 27.3 % (37.5-50.1) L 09/12/17 04:41 RDW 17.4 % (11.5-14.5) H 09/12/17 04:41 Lymphocytes # 0.4 K/mcL (0.6-4.6) L 09/12/17 04:41 Nucleated RBCs/100 WBC 0.2 /100 WBC (0) H 09/11/17 09:45 PT 15.3 Seconds (9.4-12.1) H 09/12/17 00:40 APTT 74.7 Seconds (26.0-36.0) H 09/12/17 00:40 ABG pCO2 34 mmHg (35-45) L 09/11/17 04:19 ABG pO2 113 mmHg (85-104) H 09/11/17 04:19 ABG O2 Saturation 99 % (95-98) H 09/11/17 04:19 VBG pCO2 35 mmHg (41-51) L 09/12/17 05:38 VBG pO2 151 mmHg (25-50) H 09/12/17 05:38 Sodium 134 mEq/L (136-145) L 09/12/17 04:41 Potassium 3.3 mEq/L (3.5-5.1) L 09/12/17 04:41 Carbon Dioxide 20 mEq/L (23-29) L 09/12/17 04:41 Glucose 184 mg/dL (70-105) H 09/12/17 04:41 POC Glucose 172 (58-89) H 09/11/17 23:28 Calcium 8.4 mg/dL (8.6-10.3) L 09/12/17 04:41 Venous Ioniz Calcium 1.10 mmol/L (1.15-1.35) L 09/12/17 05:38 ALT 4 Units/L (7-52) L 09/10/17 05:49 Troponin I 1.76 ng/mL (< 0.04) H* 09/08/17 05:31 Serum Total Protein 4.9 g/dL (6.4-8.9) L 09/10/17 05:49 Albumin 3.0 g/dL (3.5-5.7) L 09/10/17 05:49 Globulin 1.9 g/dL (2.4-3.5) L 09/10/17 05:49 Urine Clarity Turbid (Clear) A 09/09/17 11:05 Ur Specific [place] > 1.030 (1.010-1.025) H 09/09/17 11:05 Urine Protein 100 mg/dL (Neg-Trace) H 09/09/17 11:05 Urine Blood Large (Negative) H 09/09/17 11:05 Urine Microscopic RBC 30-50 per hpf (0-3) H 09/09/17 11:05 Urine Microscopic WBC 30-50 per hpf (0-3) H 09/09/17 11:05 Ur Squamous Epith Cells Many per lpf (None-Few) H 09/09/17 11:05 Granular Casts Few per lpf (None Seen) H 09/09/17 11:05 - VTE Documentation of Mechanical Device: Intermittent pneumatic compression device Consult Discharge Plan - Plan Referrals: Eileen Howard CNP [Primary Care Provider] - Prescriptions: Aspirin Enteric Coated [Aspirin EC] 325 mg PO BID #20 tablet. [place]xy[place] Immed Rel [Roxicodone 5 MG] 5 mg PO Q4HR PRN #20 tablet PRN Reason: Pain
[2017-09-12] MEDS ORDERED: Furosemide 20 MG TABLET PO SCH (11:00)
[2017-09-12] MEDS ORDERED: Sennosides/Docusate Sodium TABLET PO SCH (11:00)
--- NOTE | 2017-09-12 11:41 | Pulmonology Progress Note ---
<GerardoIlya Ruth - Last Filed: 09/12/17 11:37> Date of Encounter: 09/12/17 Time of Encounter: 11:38 Assessment and Plan (1) Acute respiratory failure Current Visit: Yes Status: Acute Intubated over the weekend after CODE [place]UB[place] with hypoxia Chest x-ray shows improvement in interstitial pulmonary edema Sedated on fentanyl and Precedex - pt is easily arousable and responds to commands Ventilator settings: 12/500/30/8 VBG pH 7.40 Discontinue Zosyn DuoNeb's every 4 as needed Will give Lasix this AM Sputum culture showing normal respiratory carlene Pt is DNR-CCA, but he would want intubated again if needed Pt self-extubated at 0930 09/11 - now on BiPAP and doing well Speech consult and started diet Pt showing improvement and is able to be transferred out of ICU to [facility] orthopedic floor Qualifiers: Respiratory failure complication: hypoxia Qualified Code(s): J96.01 - Acute respiratory failure with hypoxia (2) Cardiopulmonary arrest with successful resuscitation Current Visit: Yes Status: Acute UNIQUE GASPAR was called around 0045 yesterday as patient was expansion agonal breathing with no pulse palpable. CPR was initiated with epinephrine 1 mg delivered twice. ROSC see was obtained approximately 8-10 minutes patient was intubated throughout ACLS. Review of telemetry revealed the patient experienced 1-2 minutes of ventricular tachycardia. Chest x-ray shows improvement in interstitial pulmonary edema Doppler ultrasound showed a left common femoral and left popliteal DVT We will continue amiodarone drip Continue heparin for now - recent GI bleed, no active signs of bleed, Hb 10.1 today Cardiology consulted - appreciate recommendations Repeat echo ordered - prelim no right heart strain, EF 35% down from 50% (3) Hypotension Current Visit: Yes Status: Acute Likely secondary to blood loss, anesthesia, pain medications Continue to hold home BP meds Improves as sedation is decreased Qualifiers: Hypotension type: unspecified hypotension type Qualified Code(s): I95.9 - Hypotension, unspecified (4) Deep vein thrombosis (DVT) of left lower extremity Current Visit: Yes Status: Acute Continue heparin for now Qualifiers: Affected thrombotic vein of extremity: popliteal Chronicity: acute Qualified Code(s): I82.432 - Acute embolism and thrombosis of left popliteal vein (5) Atrial fibrillation Current Visit: Yes Status: Chronic Currently rate controlled On amiodarone drip - recent V-tach Metoprolol PRN for HR >110 Qualifiers: Atrial fibrillation type: chronic Qualified Code(s): I48.2 - Chronic atrial fibrillation (6) History of right hip hemiarthroplasty Current Visit: Yes Status: Acute Postop day #6 status post right hip hemiarthroplasty (7) CHF (congestive heart failure) Current Visit: Yes Status: Chronic Echocardiogram was on 08/31/17 dementia rating EF 50%, indeterminate diastolic function, moderate aortic stenosis, moderate MR, mild TR. Apical septal welch were hypokinetic, mid inferior septal and basal inferior septal welch were akinetic, mid anteroseptal and basal anterior septal welch are dyskinetic. Repeat echo pending this morning but shows no right heart strain - pending official read No evidence of acute decompensation Chest x-ray shows improvement of interstitial pulmonary edema Qualifiers: Congestive heart failure type: diastolic Congestive heart failure chronicity: chronic Qualified Code(s): I50.32 - Chronic diastolic (congestive ) heart failure (8) CAD (coronary artery disease) Current Visit: Yes Status: Chronic Hx CAD with multiple stents - most recent PCI 2.5-3 years ago Qualifiers: Coronary Disease-Associated Artery/Lesion type: [place] artery [place] vs. transplanted heart: [place] heart Associated angina: without angina Qualified Code(s): I25.10 - Atherosclerotic heart disease of [place] coronary artery without angina pectoris (9) Parkinson disease Current Visit: Yes Status: Chronic (10) Diabetes mellitus type II, non insulin dependent Current Visit: Yes Status: Chronic SSI, add levemir (11) DVT prophylaxis Current Visit: Yes Status: Acute Heparin Subjective Principal diagnosis: Acute Repsiratory Failure Interval history: Pt seen and examined at bedside. Easily arousable and responds to commands. Objective PUL Vital signs: Last Vital Signs Temp 97.4 F L 09/12/17 07:10 Pulse 84 09/12/17 09:00 Resp 16 09/12/17 10:49 BP 119/81 09/12/17 09:00 Pulse Ox 97 09/12/17 10:49 General appearance: no acute distress Eyes: nonicteric ENT: oropharynx moist Effort: normal Auscultation: bilateral: clear Cardiovascular: irregular rhythm Gastrointestinal: normoactive bowel sounds Extremities: no cyanosis, edema normal mental status, non-focal exam, pupils equal and round Results - Laboratory Findings CBC and BMP: 09/12/17 04:41 09/12/17 04:41 ABG ABG pH 7.42 pH Units (7.32-7.45) 09/11/17 04:19 ABG pCO2 34 mmHg (35-45) L 09/11/17 04:19 ABG pO2 113 mmHg (85-104) H 09/11/17 04:19 ABG O2 Saturation 99 % (95-98) H 09/11/17 04:19 PT/INR, D-dimer PT 15.3 Seconds (9.4-12.1) H 09/12/17 00:40 Abnormal lab findings: Abnormal lab results RBC 2.88 M/mcL (4.19-5.50) L 09/12/17 04:41 Hgb 8.7 g/dL (12.9-16.9) L 09/12/17 04:41 Hct 27.3 % (37.5-50.1) L 09/12/17 04:41 RDW 17.4 % (11.5-14.5) H 09/12/17 04:41 Lymphocytes # 0.4 K/mcL (0.6-4.6) L 09/12/17 04:41 Nucleated RBCs/100 WBC 0.2 /100 WBC (0) H 09/11/17 09:45 PT 15.3 Seconds (9.4-12.1) H 09/12/17 00:40 APTT 74.7 Seconds (26.0-36.0) H 09/12/17 00:40 ABG pCO2 34 mmHg (35-45) L 09/11/17 04:19 ABG pO2 113 mmHg (85-104) H 09/11/17 04:19 ABG O2 Saturation 99 % (95-98) H 09/11/17 04:19 VBG pCO2 35 mmHg (41-51) L 09/12/17 05:38 VBG pO2 151 mmHg (25-50) H 09/12/17 05:38 Sodium 134 mEq/L (136-145) L 09/12/17 04:41 Potassium 3.3 mEq/L (3.5-5.1) L 09/12/17 04:41 Carbon Dioxide 20 mEq/L (23-29) L 09/12/17 04:41 Glucose 184 mg/dL (70-105) H 09/12/17 04:41 POC Glucose 172 (58-89) H 09/11/17 23:28 Calcium 8.4 mg/dL (8.6-10.3) L 09/12/17 04:41 Venous Ioniz Calcium 1.10 mmol/L (1.15-1.35) L 09/12/17 05:38 ALT 4 Units/L (7-52) L 09/10/17 05:49 Troponin I 1.76 ng/mL (< 0.04) H* 09/08/17 05:31 Serum Total Protein 4.9 g/dL (6.4-8.9) L 09/10/17 05:49 Albumin 3.0 g/dL (3.5-5.7) L 09/10/17 05:49 Globulin 1.9 g/dL (2.4-3.5) L 09/10/17 05:49 Urine Clarity Turbid (Clear) A 09/09/17 11:05 Ur Specific [place] > 1.030 (1.010-1.025) H 09/09/17 11:05 Urine Protein 100 mg/dL (Neg-Trace) H 09/09/17 11:05 Urine Blood Large (Negative) H 09/09/17 11:05 Urine Microscopic RBC 30-50 per hpf (0-3) H 09/09/17 11:05 Urine Microscopic WBC 30-50 per hpf (0-3) H 09/09/17 11:05 Ur Squamous Epith Cells Many per lpf (None-Few) H 09/09/17 11:05 Granular Casts Few per lpf (None Seen) H 09/09/17 11:05 - Microbiology Findings Microbiology Findings: Microbiology, Last 48 Hours 09/08/17 07:50 Sputum Culture - Final Sputum 09/09/17 11:05 Urine Culture - Final Urine,[place] No growth. 09/08/17 11:29 Blood Culture - Preliminary Peripheral Venipuncture No growth. 09/08/17 10:25 Blood Culture - Preliminary Peripheral Venipuncture No growth. - Clinical Findings Intake & Output: Intake & Output 09/11/17 09/12/17 09/12/17 23:59 07:59 15:59 Intake Total 100 / 100 400 / 400 Output Total 500 / 500 600 / 600 Balance -400 / -400 -200 / -200 Weight 106.5 kg - VTE Documentation of Mechanical Device: Intermittent pneumatic compression device Consult Discharge Plan - Plan Referrals: Eileen Howard CNP [Primary Care Provider] - Prescriptions: OxyCODONE Immed Rel [Roxicodone 5 MG] 5 mg PO Q4HR PRN #20 tablet PRN Reason: Pain Aspirin Enteric Coated [Aspirin EC] 325 mg PO BID #20 tablet. <Julia Mejia S - Last Filed: 09/12/17 23:32> Date of Encounter: 09/12/17 Objective PUL Vital signs: Last Vital Signs Temp 98.1 F 09/12/17 20:27 Pulse 90 09/12/17 20:28 Resp 24 09/12/17 22:56 BP 117/78 09/12/17 20:27 Pulse Ox 98 09/12/17 22:56 Results - Laboratory Findings CBC and BMP: 09/12/17 04:41 09/12/17 04:41 ABG ABG pH 7.42 pH Units (7.32-7.45) 09/11/17 04:19 ABG pCO2 34 mmHg (35-45) L 09/11/17 04:19 ABG pO2 113 mmHg (85-104) H 09/11/17 04:19 ABG O2 Saturation 99 % (95-98) H 09/11/17 04:19 PT/INR, D-dimer PT 15.3 Seconds (9.4-12.1) H 09/12/17 00:40 Abnormal lab findings: Abnormal lab results RBC 2.88 M/mcL (4.19-5.50) L 09/12/17 04:41 Hgb 8.7 g/dL (12.9-16.9) L 09/12/17 04:41 Hct 27.3 % (37.5-50.1) L 09/12/17 04:41 RDW 17.4 % (11.5-14.5) H 09/12/17 04:41 Lymphocytes # 0.4 K/mcL (0.6-4.6) L 09/12/17 04:41 Nucleated RBCs/100 WBC 0.2 /100 WBC (0) H 09/11/17 09:45 PT 15.3 Seconds (9.4-12.1) H 09/12/17 00:40 APTT 74.7 Seconds (26.0-36.0) H 09/12/17 00:40 ABG pCO2 34 mmHg (35-45) L 09/11/17 04:19 ABG pO2 113 mmHg (85-104) H 09/11/17 04:19 ABG O2 Saturation 99 % (95-98) H 09/11/17 04:19 VBG pCO2 35 mmHg (41-51) L 09/12/17 05:38 VBG pO2 151 mmHg (25-50) H 09/12/17 05:38 Sodium 134 mEq/L (136-145) L 09/12/17 04:41 Potassium 3.3 mEq/L (3.5-5.1) L 09/12/17 04:41 Carbon Dioxide 20 mEq/L (23-29) L 09/12/17 04:41 Glucose 184 mg/dL (70-105) H 09/12/17 04:41 POC Glucose 279 (58-89) H 09/12/17 16:00 Calcium 8.4 mg/dL (8.6-10.3) L 09/12/17 04:41 Venous Ioniz Calcium 1.10 mmol/L (1.15-1.35) L 09/12/17 05:38 ALT 4 Units/L (7-52) L 09/10/17 05:49 Troponin I 1.76 ng/mL (< 0.04) H* 09/08/17 05:31 Serum Total Protein 4.9 g/dL (6.4-8.9) L 09/10/17 05:49 Albumin 3.0 g/dL (3.5-5.7) L 09/10/17 05:49 Globulin 1.9 g/dL (2.4-3.5) L 09/10/17 05:49 Urine Clarity Turbid (Clear) A 09/09/17 11:05 Ur Specific [place] > 1.030 (1.010-1.025) H 09/09/17 11:05 Urine Protein 100 mg/dL (Neg-Trace) H 09/09/17 11:05 Urine Blood Large (Negative) H 09/09/17 11:05 Urine Microscopic RBC 30-50 per hpf (0-3) H 09/09/17 11:05 Urine Microscopic WBC 30-50 per hpf (0-3) H 09/09/17 11:05 Ur Squamous Epith Cells Many per lpf (None-Few) H 09/09/17 11:05 Granular Casts Few per lpf (None Seen) H 09/09/17 11:05 - Microbiology Findings Microbiology Findings: Microbiology, Last 48 Hours 09/08/17 07:50 Sputum Culture - Final Sputum - Clinical Findings Intake & Output: Intake & Output 09/12/17 09/12/17 09/12/17 07:59 15:59 23:59 Intake Total 400 / 400 300 / 300 120 / 120 Output Total 600 / 600 150 / 150 0 / 0 Balance -200 / -200 150 / 150 120 / 120 - Attending Attestation - Attending Attestation I saw and evaluated this patient and my medical decision-making was reviewed with the Resident Physician. I agree with the documented findings, disposition and treatment plan as described except to the extent set forth below. We independently had [id number] contact with the patient Patient seen and examined at bedside Labs, radiology, chart personally reviewed. ACTUARIAL DIRECTOR:Patient is conscious alert follows commands on and off confusion patient has baseline dementia Pulm:acute respiratory failure secondary to code blue has aspiration like picture with fluid overload ,cotinue broad spectrum antibiotics will descalate to continue heparin drip for DVT , To continue Dexamethasone for airway edema to finish 4-5 doses Cards: Patient had a cardiopulmonary arrest due to unstable V tachycardia , according to cardiology patient will need LHC but not be candidate because of comorbidities new onset cardiomyopathy with EF of 35% with high chance of post extubation respiratory failure will keep him on intermittent BIPAP . Will continue the BIPAP at night will shift him to 2 N FEN-GI:Advanced according to speech recommendation Renal:Labs and output reviewed ID:To descalate antibiotics Heme/Onc:No acute issues Endo: Glucose Monitored Integ/MSK: Skin Care per routine ICU Nursing Protocol to prevent ulcers. Lines: All lines examined without evidence of infection : Dispo: Stable can be shifted to 2N CODE:DNR CCA with intubation
[2017-09-12] MEDS: Amiodarone Premix 360 MG/200 ML BAG IVC SCH ×3 (11:46→13:40)
[2017-09-12] MEDS ORDERED: Ondansetron 4 MG/2 ML VIAL IVP PRN (13:33)
[2017-09-12] MEDS ORDERED: Naloxone 0.4 MG/ML INJ IVP PRN (13:33)
[2017-09-12] MEDS ORDERED: MOM Conc 10 ML UD.LIQ PO PRN (13:33)
[2017-09-12] MEDS ORDERED: *HR* Dextrose 50 % in Water (Syg) 50 ML SYRINGE IVP PRN (13:33)
[2017-09-12] MEDS ORDERED: traMADol 50 MG TABLET PO PRN (13:33)
[2017-09-12] MEDS ORDERED: D5% in Water 1,000 ML IVC PRN (13:33)
[2017-09-12] MEDS ORDERED: *HR* Heparin 5,000 UNIT/ML VIAL IVP PRN ×2 (13:33)
[2017-09-12] MEDS ORDERED: Dextrose Gel 15 GM/37.5 ML TUBE PO PRN ×2 (13:33)
[2017-09-12] MEDS ORDERED: Ipratropium/Albuterol Neb 3 ML IH PRN (13:33)
[2017-09-12] MEDS: Furosemide 20 MG TABLET PO SCH (16:41)
[2017-09-12] MEDS ORDERED: Dexamethasone 10 MG/ML VIAL IVP SCH (17:00)
[2017-09-12] MEDS: Sennosides/Docusate Sodium TABLET PO SCH (20:20)
[2017-09-12] MEDS ORDERED: Insulin DETEMIR 100 UNIT/ML X5UNITS SQ SCH ×2 (21:00)
[2017-09-13] MEDS: Carbidopa/Levodopa 25/100 TABLET PO SCH ×3 (00:11→16:44)
[2017-09-13] MEDS: Amiodarone Premix 360 MG/200 ML BAG IVC SCH ×2 (00:12→12:49)
[2017-09-13] MEDS: Insulin LISPRO 300 UNITS/3 ML VIAL SQ SCH ×6 (01:13→21:40)
[2017-09-13] MEDS: Heparin 25,000 UNIT/500 ML D5W 25,000 UNIT/500 ML BAG IVC SCH ×2 (01:14→09:10)
[2017-09-13] MEDS: Ipratropium/Albuterol Neb 3 ML IH SCH ×4 (04:36→22:36)
[2017-09-13 06:44] LABS: Basophils % 0.2 %; Hematocrit 29.1 % (37.5-50.1); Hemoglobin 9.2 g/dL (12.9-16.9); Immature Granulocytes % 1.4 % (0-4); Lymphocytes # 0.6 K/mcL (0.6-4.6); Lymphocytes % 6.7 %; Mean Corpuscular HGB Conc 31.6 g/dL (31.6-35.5); Mean Corpuscular Hemoglobin 30.2 pg (28.0-33.3); Mean Corpuscular Volume 95.4 fL (83.0-100.0); Mean Platelet Volume 11.3 fL (9.4-12.4); Monocytes # 0.6 K/mcL (0.0-1.3); Monocytes % 7.3 %; Neutrophils # 7.1 K/mcL (1.6-8.9); Nucleated Red Blood Cells 1.7 /100 WBC (0); Platelet Count 281 K/mcL (140-400); Red Blood Count 3.05 M/mcL (4.19-5.50); Red Cell Distribution Width 17.8 % (11.5-14.5); Segmented Neutrophils % 84.4 %
[2017-09-13 07:07] LABS: Calcium 8.7 mg/dL (8.6-10.3); Potassium 3.5 mEq/L (3.5-5.1)
[2017-09-13] MEDS: Furosemide 20 MG TABLET PO SCH (08:49)
[2017-09-13] MEDS: Ascorbic Acid 500 MG TABLET PO SCH ×2 (08:49→16:44)
[2017-09-13] MEDS: Sennosides/Docusate Sodium TABLET PO SCH ×2 (08:49→20:05)
[2017-09-13] MEDS: Multivit/Ca/Min/Fe/FA 1 TAB TABLET PO SCH (08:49)
[2017-09-13] MEDS: *HR* OxyCODONE/APAP 5/325 TABLET PO PRN ×2 (08:50→16:44)
[2017-09-13] MEDS: Aspirin 81 MG TAB.CHEW PO SCH (08:51)
--- NOTE | 2017-09-13 12:40 | Internal Med Progress Note ---
Date of Encounter: 09/13/17 Time of Encounter: 12:38 - Assessment and plan (1) Acute systolic CHF (congestive heart failure) Current Visit: Yes Status: Acute Assessment and plan: Likely acute exacerbation of systolic heart failure. The patient has been on IV diuresis with Lasix. He is currently on room air. Hold Lasix given elevation in his kidney function. Continue Continue with nebulizers. Resume beta jame once dose is confirmed. Cardiology has been following. Echo results noted. Ejection fraction of 35%. (2) Cardiopulmonary arrest with successful resuscitation Current Visit: Yes Status: Acute Assessment and plan: Code was called earlier in his stay for which he had successful resuscitation. Cardiology is following. Currently on amiodarone. (3) Deep vein thrombosis (DVT) of left lower extremity Current Visit: Yes Status: Acute Assessment and plan: The patient is on a heparin drip. Hemoglobin has been stable. We will start the patient on Coumadin starting tonight. Qualifiers: Affected thrombotic vein of extremity: popliteal Chronicity: acute Qualified Code(s): I82.432 - Acute embolism and thrombosis of left popliteal vein (4) JOSE (acute kidney injury) Current Visit: Yes Status: Acute Assessment and plan: hold lasix. Creatinine mildly elevated. avoid nephrotoxins. labs in am. (5) Ventricular tachycardia Current Visit: Yes Status: Acute Assessment and plan: Continue amiodarone. Switching to by mouth will be done per cardiology. (6) Atrial fibrillation Current Visit: Yes Status: Chronic Assessment and plan: Resume beta jame once dosages confirmed. Anticoagulation with heparin currently. Start Coumadin tonight. Qualifiers: Atrial fibrillation type: chronic Qualified Code(s): I48.2 - Chronic atrial fibrillation (7) NSTEMI (non-ST elevated myocardial infarction) Current Visit: No Status: Acute Assessment and plan: Medical management per cardiology. (8) History of right hip hemiarthroplasty Current Visit: Yes Status: Acute Assessment and plan: Management per orthopedics. Continue with pain control. (9) CAD (coronary artery disease) Current Visit: Yes Status: Chronic Assessment and plan: Continue aspirin. We will ask the pharmacy to confirm the statin Ranexa and Imdur and beta jame dosages so we can restart those. Qualifiers: Coronary Disease-Associated Artery/Lesion type: [place] artery [place] vs. transplanted heart: [place] heart Associated angina: without angina Qualified Code(s): I25.10 - Atherosclerotic heart disease of [place] coronary artery without angina pectoris (10) Diabetes mellitus type II, non insulin dependent Current Visit: Yes Status: Chronic Assessment and plan: Continue with insulin sliding scale. Increase Levemir to 15 units daily from 5 units daily. Continue with Accu-Cheks. (11) Hypertension Current Visit: Yes Status: Chronic Assessment and plan: Blood pressure is stable now. Had hypotension initially on admission. The patient's blood pressure medications have been on hold. No need to resume them at the moment. We may resume his beta jame if cardiology is okay with that. Qualifiers: Hypertension type: essential hypertension Qualified Code(s): I10 - Essential (primary) hypertension (12) Parkinson disease Current Visit: Yes Status: Chronic Assessment and plan: Continue carbidopa (13) DVT prophylaxis Current Visit: Yes Status: Acute Assessment and plan: He is on a heparin drip. Hemoglobin has been stable. - Subjective Interval history: Patient was seen and examined. There has been no acute events. He is transferred out of the ICU to [facility]. Initially admitted about 6 days ago with right hip arthroplasty. His stay has been complicated by cardiopulmonary arrest for which she was intubated and transferred to the ICU. He was noted to be an wide complex tachycardia and is suspected to have went into V. tach. Cardiology is also suspected possibly atrial fibrillation. He was started on an amiodarone drip. Started on a heparin drip as he was found to have lower extremities DVTs. He self extubated 2 days ago and has been transferred out of the ICU. Currently on room air. - Constitutional Vitals: Temp Pulse Resp BP Pulse Ox 97.9 F 80 20 120/76 95 09/13/17 11:39 09/13/17 11:39 09/13/17 11:39 09/13/17 11:39 09/13/17 11:39 General appearance: Present: A&O X 2, no acute distress, obese Exam: GEN: NAD CVS: Irregular. S1, S2, No m/r/g RESP: Diminished with bibasilar crackles ABD: Soft, NT, ND, +BS EXT: No edema. 2+ DP. No rashes NEURO: Nonfocal Internal Medicine: Result - Labs CBC & Chem 7: 09/13/17 06:01 09/13/17 06:01 Labs: Short CBC 09/13/17 Range/Units 06:01 WBC 8.4 D (4.3-11.1) K/mcL Hgb 9.2 L (12.9-16.9) g/dL Hct 29.1 L (37.5-50.1) % Plt Count 281 (140-400) K/mcL Neutrophils # 7.1 (1.6-8.9) K/mcL BMP 09/13/17 06:01 Sodium 133 L Potassium 3.5 Chloride 101 Carbon Dioxide 20 L BUN 36 H Creatinine 1.58 H Glucose 129 H Calcium 8.7 - ABG Interpretation ABG results: ABG ABG pH 7.42 pH Units (7.32-7.45) 09/11/17 04:19 ABG pCO2 34 mmHg (35-45) L 09/11/17 04:19 ABG pO2 113 mmHg (85-104) H 09/11/17 04:19 ABG O2 Saturation 99 % (95-98) H 09/11/17 04:19 PT/INR, D-dimer PT 15.3 Seconds (9.4-12.1) H 09/12/17 00:40 - VTE Documentation of Mechanical Device: Venous foot pump, device Consult Discharge Plan - Plan Referrals: Anny Currie, PAC [Physician Gis Application Developer] - 09/19/17 2:45 pm (If PT still in hospital at the time of this appointment, we will reschedule appointment.) Damián Guillory MD [Partnered Physician] - 10/09/17 5:15 pm Eduardo Kang DO [Partnered Physician] - 09/19/17 8:15 am (If PT still in hospital at the time of this appointment, we will need to contact office and reschedule appointment.) Rosa Maria Mendiola [Non-Partnered Physician] - (PATIENT IS FROM [facility] NO PCP APPOINTMENT NEEDED) Prescriptions: OxyCODONE Immed Rel [Roxicodone 5 MG] 5 mg PO Q4HR PRN #20 tablet PRN Reason: Pain Aspirin Enteric Coated [Aspirin EC] 325 mg PO BID #20 tablet.
[2017-09-13] MEDS ORDERED: Insulin DETEMIR 100 UNIT/ML X5UNITS SQ ONE (12:48)
[2017-09-13] MEDS ORDERED: Insulin DETEMIR 100 UNIT/ML X5UNITS SQ SCH (13:00)
--- NOTE | 2017-09-13 16:52 | Orthopedics Progress Note ---
Date of Encounter: 09/13/17 Time of Encounter: 12:30 - Assessment and Plan (1) Generalized weakness Current Visit: No Status: Chronic (2) CAD (coronary artery disease) of artery bypass graft Current Visit: No Status: Chronic Qualifiers: [place] vs. transplanted heart: [place] heart Associated angina: with unspecified angina Qualified Code(s): I25.709 - Atherosclerosis of coronary artery bypass graft(s), unspecified, with unspecified angina pectoris (3) Parkinson disease Current Visit: Yes Status: Chronic (4) Diabetes mellitus type II, non insulin dependent Current Visit: Yes Status: Chronic (5) DVT prophylaxis Current Visit: Yes Status: Acute (6) Hypertension Current Visit: Yes Status: Chronic Qualifiers: Hypertension type: essential hypertension Qualified Code(s): I10 - Essential (primary) hypertension (7) Atrial fibrillation Current Visit: Yes Status: Chronic Qualifiers: Atrial fibrillation type: chronic Qualified Code(s): I48.2 - Chronic atrial fibrillation (8) Dementia Current Visit: Yes Status: Chronic Qualifiers: Dementia type: Alzheimer's disease Alzheimer's disease onset: unspecified onset Dementia behavioral disturbance: with behavioral disturbance Qualified Code(s): G30.9 - Alzheimer's disease, unspecified; F02.81 - Dementia in other diseases classified elsewhere with behavioral disturbance; F02.81 - Dementia in other diseases classified elsewhere with behavioral disturbance; F02.81 - Dementia in other diseases classified elsewhere with behavioral disturbance (9) AAA (abdominal aortic aneurysm) without rupture Current Visit: No Status: Chronic (10) CHF exacerbation Current Visit: No Status: Resolved Qualifiers: Congestive heart failure type: systolic Qualified Code(s): I50.23 - Acute on chronic systolic (congestive) heart failure (11) Pain with hip hemiarthroplasty Current Visit: No Status: Acute Qualifiers: Encounter type: subsequent encounter Qualified Code(s): T84.84XD - Pain due to internal orthopedic prosthetic devices, implants and grafts, subsequent encounter; Z96.649 - Presence of unspecified artificial hip joint; Z96.649 - Presence of unspecified artificial hip joint (12) Cardiopulmonary arrest with successful resuscitation Current Visit: Yes Status: Acute Subjective Principal diagnosis: POD#7 s/p right THR 09/06/17 Interval history: Patient alert on exam but only oriented to name not place or time. No complaints of pain at this time. No events overnight. Patient was extubated yesterday and stepped down from ICU. Doppler +DVT Cardiology to switch amiodorone IV to oral Patient awaiting authorization for ECF. Needed updated PT/OT eval since leaving ICU. Will likely be here until Saturday. Objective Vital signs: Vital Signs Temp Pulse Resp BP Pulse Ox 09/13/17 15:52 98.1 F 89 18 129/79 97 09/13/17 11:39 97.9 F 80 20 120/76 95 09/13/17 07:19 97.4 F L 86 20 123/79 100 09/13/17 05:56 88 18 92 09/13/17 04:36 18 92 09/13/17 03:54 97.9 F 83 18 130/75 98 09/13/17 00:38 86 17 111/79 96 09/13/17 00:08 97.9 F 77 17 111/79 96 09/12/17 22:56 24 98 09/12/17 20:28 90 09/12/17 20:27 98.1 F 90 18 117/78 09/12/17 18:00 108 124/76 09/12/17 17:00 105 133/90 Intake and Output 09/13/17 09/13/17 09/13/17 07:59 15:59 23:59 Intake Total 320 / 320 1260 / 1260 Output Total 465 / 465 400 / 400 Balance -145 / -145 860 / 860 Intake: IV Fluids 200 / 200 700 / 700 Amiodarone Drip Premix 360mg/ 200 / 200 200 / 200 200mL 360 mg In 200 ml @ 0.5 MG /MIN 16.667 mls/hr IVC CONT [facility] Rx#:[id number] Heparin 25,000 UNIT/500 ML D5W 500 / 500 25,000 unit In 500 ml @ 14 UNIT /KG/HR 26.264 mls/hr IVC . Q19H3M [facility] Rx#:[id number] Oral 120 / 120 560 / 560 Output: Urine 400 / 400 Catheter 465 / 465 Other: Meal Lunch Percent of Meal Consumed 50% Weight 105.2 kg Blood Glucose* 143 178 Patient Weight 09/13/17 23:59 Weight 105.2 kg Incision: clean and dry (dressings c/d/i with no visible drainage or surrounding erythema, no calf tenderness, good dorsiflexion of foot, grossly NV intact) - Labs CBC & BMP: 09/13/17 06:01 09/13/17 06:01 Labs: Abnormal lab results RBC 3.05 M/mcL (4.19-5.50) L 09/13/17 06:01 Hgb 9.2 g/dL (12.9-16.9) L 09/13/17 06:01 Hct 29.1 % (37.5-50.1) L 09/13/17 06:01 RDW 17.8 % (11.5-14.5) H 09/13/17 06:01 Nucleated RBCs/100 WBC 1.7 /100 WBC (0) H 09/13/17 06:01 PT 15.3 Seconds (9.4-12.1) H 09/12/17 00:40 APTT 74.5 Seconds (26.0-36.0) H 09/13/17 00:20 ABG pCO2 34 mmHg (35-45) L 09/11/17 04:19 ABG pO2 113 mmHg (85-104) H 09/11/17 04:19 ABG O2 Saturation 99 % (95-98) H 09/11/17 04:19 VBG pCO2 35 mmHg (41-51) L 09/12/17 05:38 VBG pO2 151 mmHg (25-50) H 09/12/17 05:38 Sodium 133 mEq/L (136-145) L 09/13/17 06:01 Carbon Dioxide 20 mEq/L (23-29) L 09/13/17 06:01 BUN 36 mg/dL (8-23) H 09/13/17 06:01 Creatinine 1.58 mg/dL (0.70-1.30) H 09/13/17 06:01 Est GFR ( Amer) 51 (> 60) L 09/13/17 06:01 Est GFR (Non-Af Amer) 42 (> 60) L 09/13/17 06:01 Glucose 129 mg/dL (70-105) H 09/13/17 06:01 POC Glucose 178 (58-89) H 09/13/17 15:50 Venous Ioniz Calcium 1.10 mmol/L (1.15-1.35) L 09/12/17 05:38 ALT 4 Units/L (7-52) L 09/10/17 05:49 Troponin I 1.76 ng/mL (< 0.04) H* 09/08/17 05:31 Serum Total Protein 4.9 g/dL (6.4-8.9) L 09/10/17 05:49 Albumin 3.0 g/dL (3.5-5.7) L 09/10/17 05:49 Globulin 1.9 g/dL (2.4-3.5) L 09/10/17 05:49 Urine Clarity Turbid (Clear) A 09/09/17 11:05 Ur Specific [place] > 1.030 (1.010-1.025) H 09/09/17 11:05 Urine Protein 100 mg/dL (Neg-Trace) H 09/09/17 11:05 Urine Blood Large (Negative) H 09/09/17 11:05 Urine Microscopic RBC 30-50 per hpf (0-3) H 09/09/17 11:05 Urine Microscopic WBC 30-50 per hpf (0-3) H 09/09/17 11:05 Ur Squamous Epith Cells Many per lpf (None-Few) H 09/09/17 11:05 Granular Casts Few per lpf (None Seen) H 09/09/17 11:05 - VTE Documentation of Mechanical Device: Venous foot pump, device Consult Discharge Plan - Plan Referrals: Anny Currie PAC [Physician Relief Man] - 09/19/17 2:45 pm (If PT still in hospital at the time of this appointment, we will reschedule appointment.) Damián Guillory MD [Partnered Physician] - 10/09/17 5:15 pm Eduardo Kang DO [Partnered Physician] - 09/19/17 8:15 am (If PT still in hospital at the time of this appointment, we will need to contact office and reschedule appointment.) Rosa Maria Mendiola [Non-Partnered Physician] - (PATIENT IS FROM [facility] NO PCP APPOINTMENT NEEDED) Prescriptions: OxyCODONE Immed Rel [Roxicodone 5 MG] 5 mg PO Q4HR PRN #20 tablet PRN Reason: Pain Aspirin Enteric Coated [Aspirin EC] 325 mg PO BID #20 tablet.
[2017-09-13] MEDS ORDERED: *HR* Warfarin 2.5 MG TABLET PO ONE (18:00)
[2017-09-13] MEDS ORDERED: Warfarin perPT PO PRN (18:00)
[2017-09-13] MEDS: Insulin DETEMIR 100 UNIT/ML X5UNITS SQ SCH (20:06)
[2017-09-14] MEDS: Carbidopa/Levodopa 25/100 TABLET PO SCH ×3 (00:42→16:36)
[2017-09-14] MEDS: Heparin 25,000 UNIT/500 ML D5W 25,000 UNIT/500 ML BAG IVC SCH ×2 (03:02→23:13)
[2017-09-14 04:18] LABS: Basophils % 0.1 %; Hematocrit 27.8 % (37.5-50.1); Hemoglobin 8.9 g/dL (12.9-16.9); Immature Granulocytes % 1.9 % (0-4); Lymphocytes # 0.4 K/mcL (0.6-4.6); Lymphocytes % 4.1 %; Mean Corpuscular Hemoglobin 29.4 pg (28.0-33.3); Mean Corpuscular Volume 91.7 fL (83.0-100.0); Mean Platelet Volume 10.9 fL (9.4-12.4); Monocytes % 9.4 %; Neutrophils # 8.9 K/mcL (1.6-8.9); Nucleated Red Blood Cells 1.6 /100 WBC (0); Platelet Count 295 K/mcL (140-400); Red Blood Count 3.03 M/mcL (4.19-5.50); Red Cell Distribution Width 17.7 % (11.5-14.5); Segmented Neutrophils % 84.5 %
[2017-09-14 04:23] LABS: INR 1.4; Prothrombin Time 15.7 Seconds (9.4-12.1)
[2017-09-14 04:26] LABS: Activated Partial Thrombo Time 75.1 Seconds (26.0-36.0)
[2017-09-14] MEDS: Ipratropium/Albuterol Neb 3 ML IH SCH ×4 (04:27→22:27)
[2017-09-14 04:45] LABS: Calcium 8.6 mg/dL (8.6-10.3); Potassium 3.7 mEq/L (3.5-5.1)
[2017-09-14] MEDS: Insulin LISPRO 300 UNITS/3 ML VIAL SQ SCH ×4 (08:38→20:20)
[2017-09-14] MEDS: *HR* Amiodarone 200 MG TABLET PO SCH (08:38)
[2017-09-14] MEDS: Sennosides/Docusate Sodium TABLET PO SCH ×2 (08:39→20:21)
[2017-09-14] MEDS: Ascorbic Acid 500 MG TABLET PO SCH ×2 (08:40→16:36)
[2017-09-14] MEDS: Aspirin 81 MG TAB.CHEW PO SCH (08:40)
[2017-09-14] MEDS: Multivit/Ca/Min/Fe/FA 1 TAB TABLET PO SCH (08:40)
[2017-09-14] MEDS: *HR* OxyCODONE/APAP 5/325 TABLET PO PRN (12:11)
--- NOTE | 2017-09-14 12:16 | Internal Med Progress Note ---
Date of Encounter: 09/14/17 Time of Encounter: 10:00 - Assessment and plan (1) Acute systolic CHF (congestive heart failure) Current Visit: Yes Status: Acute Assessment and plan: Likely acute exacerbation of systolic heart failure. The patient has been on IV diuresis with Lasix. He is currently on room air. Continue to hold Lasix given elevation in his kidney function. Continue Continue with nebulizers. Resume beta jame. Cardiology has been following. Echo results noted. Ejection fraction of 35%. (2) Cardiopulmonary arrest with successful resuscitation Current Visit: Yes Status: Acute Assessment and plan: Code was called earlier in his stay for which he had successful resuscitation. Cardiology is following. Currently on amiodarone. (3) Deep vein thrombosis (DVT) of left lower extremity Current Visit: Yes Status: Acute Assessment and plan: The patient is on a heparin drip. Hemoglobin has been stable. c/w coumadin Qualifiers: Affected thrombotic vein of extremity: popliteal Chronicity: acute Qualified Code(s): I82.432 - Acute embolism and thrombosis of left popliteal vein (4) JOSE (acute kidney injury) Current Visit: Yes Status: Acute Assessment and plan: hold lasix. again trending up but only mild. avoid nephrotoxins. labs in am. (5) Ventricular tachycardia Current Visit: Yes Status: Acute Assessment and plan: Continue amiodarone. switched to oral. (6) Atrial fibrillation Current Visit: Yes Status: Chronic Assessment and plan: Resume beta jame once dosages confirmed. Anticoagulation with heparin currently and coumadin bridging. Qualifiers: Atrial fibrillation type: chronic Qualified Code(s): I48.2 - Chronic atrial fibrillation (7) NSTEMI (non-ST elevated myocardial infarction) Current Visit: No Status: Acute Assessment and plan: Medical management per cardiology. (8) History of right hip hemiarthroplasty Current Visit: Yes Status: Acute Assessment and plan: Management per orthopedics. Continue with pain control. (9) CAD (coronary artery disease) Current Visit: Yes Status: Chronic Assessment and plan: Continue aspirin. We will ask the pharmacy to confirm the statin Ranexa and Imdur and beta jame dosages so we can restart those. Qualifiers: Coronary Disease-Associated Artery/Lesion type: [place] artery [place] vs. transplanted heart: [place] heart Associated angina: without angina Qualified Code(s): I25.10 - Atherosclerotic heart disease of [place] coronary artery without angina pectoris (10) Diabetes mellitus type II, non insulin dependent Current Visit: Yes Status: Chronic Assessment and plan: Continue with insulin sliding scale. c/w levemir 15 units daily. Continue with Accu-Cheks. (11) Hypertension Current Visit: Yes Status: Chronic Assessment and plan: Blood pressure is stable now. Had hypotension initially on admission. The patient's blood pressure medications have been on hold. resume BB. Qualifiers: Hypertension type: essential hypertension Qualified Code(s): I10 - Essential (primary) hypertension (12) Parkinson disease Current Visit: Yes Status: Chronic Assessment and plan: Continue carbidopa (13) DVT prophylaxis Current Visit: Yes Status: Acute Assessment and plan: He is on a heparin drip. Hemoglobin has been stable. - Subjective Interval history: Patient was seen and examined. There has been no acute events. given coumadin yesterday. remain on heparin drip. h/o of bleed. no signs of bleeding. Continues to feel better. He is transferred out of the ICU to [facility]. Initially admitted about 6 days ago with right hip arthroplasty. His stay has been complicated by cardiopulmonary arrest for which she was intubated and transferred to the ICU. He was noted to be an wide complex tachycardia and is suspected to have went into V. tach. Cardiology is also suspected possibly atrial fibrillation. He was started on an amiodarone drip. Started on a heparin drip as he was found to have lower extremities DVTs. He self extubated 2 days ago and has been transferred out of the ICU. Currently on room air. - Constitutional Vitals: Temp Pulse Resp BP Pulse Ox 97.6 F 95 18 128/78 91 09/14/17 11:03 09/14/17 11:03 09/14/17 11:03 09/14/17 11:03 09/14/17 11:03 General appearance: Present: A&O X 2, no acute distress, obese Exam: GEN: NAD CVS: Irregular. S1, S2, No m/r/g RESP: Diminished with bibasilar crackles ABD: Soft, NT, ND, +BS EXT: No edema. 2+ DP. No rashes NEURO: Nonfocal Internal Medicine: Result - Labs CBC & Chem 7: 09/14/17 04:07 09/14/17 04:07 Labs: Short CBC 09/14/17 Range/Units 04:07 WBC 10.5 (4.3-11.1) K/mcL Hgb 8.9 L (12.9-16.9) g/dL Hct 27.8 L (37.5-50.1) % Plt Count 295 (140-400) K/mcL Neutrophils # 8.9 (1.6-8.9) K/mcL BMP 09/14/17 04:07 Sodium 132 L Potassium 3.7 Chloride 100 Carbon Dioxide 20 L BUN 46 H Creatinine 1.68 H Glucose 217 H Calcium 8.6 - ABG Interpretation ABG results: ABG ABG pH 7.42 pH Units (7.32-7.45) 09/11/17 04:19 ABG pCO2 34 mmHg (35-45) L 09/11/17 04:19 ABG pO2 113 mmHg (85-104) H 09/11/17 04:19 ABG O2 Saturation 99 % (95-98) H 09/11/17 04:19 PT/INR, D-dimer PT 15.7 Seconds (9.4-12.1) H 09/14/17 04:07 - Impressions Impressions Chest X-Ray 09/10/17 08:13 IMPRESSION: 1. Endotracheal tube tip approximately 2.7 cm above the doe. 2. Stable cardiomegaly. Pulmonary vascular congestion. Previously noted edema has improved. 3. Small left pleural effusion with adjacent atelectasis. D/ / 09/10/2017 13:32:12 Victor[facility] Interpreting Provider: Victorina Chavira MD - VTE Documentation of Mechanical Device: Venous foot pump, device Consult Discharge Plan - Plan Referrals: Anny Currie PAC [Physician Dry Cleaning Checker] - 09/19/17 2:45 pm (If PT still in hospital at the time of this appointment, we will reschedule appointment.) Damián Guillory MD [Partnered Physician] - 10/09/17 5:15 pm Eduardo Kang DO [Partnered Physician] - 09/19/17 8:15 am (If PT still in hospital at the time of this appointment, we will need to contact office and reschedule appointment.) Rosa Maria Mendiola [Non-Partnered Physician] - (PATIENT IS FROM [facility] NO PCP APPOINTMENT NEEDED) Prescriptions: OxyCODONE Immed Rel [Roxicodone 5 MG] 5 mg PO Q4HR PRN #20 tablet PRN Reason: Pain Aspirin Enteric Coated [Aspirin EC] 325 mg PO BID #20 tablet.
--- NOTE | 2017-09-14 14:40 | Orthopedics Progress Note ---
Date of Encounter: 09/14/17 Time of Encounter: 13:30 Subjective Principal diagnosis: POD#8 s/p right THR 09/06/17 Interval history: Patient states he is feeling much better today he complains of no pain. Right hip wound is clean dry and intact SCDs and hip wedge in place Bilateral calves soft and nontender Neurovascular intact distally Postoperative day #8, patient is doing much better from a cardiac standpoint He will be transferred back to [facility] today We will restart PT/OT Continue cardiac management as per hospitalist/cardiology Objective Vital signs: Vital Signs Temp Pulse Resp BP Pulse Ox 09/14/17 11:03 97.6 F 95 18 128/78 91 09/14/17 10:12 16 99 09/14/17 07:18 97.8 F 93 16 123/81 93 09/14/17 04:27 16 95 09/14/17 04:09 88 16 95 09/14/17 04:03 97.7 F 94 16 129/93 95 09/14/17 00:27 96 19 98 09/14/17 00:09 97.7 F 92 19 133/86 98 09/13/17 22:36 16 98 09/13/17 21:04 97.5 F L 89 17 121/88 100 09/13/17 20:18 97.5 F L 89 17 121/88 100 09/13/17 17:00 86 16 140/87 89 09/13/17 16:30 86 132/78 09/13/17 15:52 98.1 F 89 18 129/79 97 09/13/17 15:30 83 129/79 Intake and Output 09/13/17 09/14/17 09/14/17 23:59 07:59 15:59 Intake Total 670 / 670 0 / 0 Output Total 425 / 425 645 / 645 400 / 400 Balance -425 / -425 -400 / -400 Intake: IV Fluids 550 / 550 Heparin 25,000 UNIT/500 ML D5W 550 / 550 25,000 unit In 500 ml @ 14 UNIT /KG/HR 29.456 mls/hr IVC . [id number] [facility] Rx#:[id number] Oral 120 / 120 0 / 0 Output: Catheter 400 / 400 645 / 645 400 / 400 Urethral ([place]) 200 / 200 Wound Drainage 25 / 25 Right Hip Other: Meal Dinner Breakfast Percent of Meal Consumed 50% 0% Blood Glucose* 183 198 139 - Labs CBC & BMP: 09/14/17 04:07 09/14/17 04:07 Labs: Abnormal lab results RBC 3.03 M/mcL (4.19-5.50) L 09/14/17 04:07 Hgb 8.9 g/dL (12.9-16.9) L 09/14/17 04:07 Hct 27.8 % (37.5-50.1) L 09/14/17 04:07 RDW 17.7 % (11.5-14.5) H 09/14/17 04:07 Lymphocytes # 0.4 K/mcL (0.6-4.6) L 09/14/17 04:07 Nucleated RBCs/100 WBC 1.6 /100 WBC (0) H 09/14/17 04:07 PT 15.7 Seconds (9.4-12.1) H 09/14/17 04:07 APTT 75.1 Seconds (26.0-36.0) H 09/14/17 04:07 ABG pCO2 34 mmHg (35-45) L 09/11/17 04:19 ABG pO2 113 mmHg (85-104) H 09/11/17 04:19 ABG O2 Saturation 99 % (95-98) H 09/11/17 04:19 VBG pCO2 35 mmHg (41-51) L 09/12/17 05:38 VBG pO2 151 mmHg (25-50) H 09/12/17 05:38 Sodium 132 mEq/L (136-145) L 09/14/17 04:07 Carbon Dioxide 20 mEq/L (23-29) L 09/14/17 04:07 BUN 46 mg/dL (8-23) H 09/14/17 04:07 Creatinine 1.68 mg/dL (0.70-1.30) H 09/14/17 04:07 Est GFR ( Amer) 47 (> 60) L 09/14/17 04:07 Est GFR (Non-Af Amer) 39 (> 60) L 09/14/17 04:07 BUN/Creatinine Ratio 27 (6-26) H 09/14/17 04:07 Glucose 217 mg/dL (70-105) H 09/14/17 04:07 POC Glucose 139 (58-89) H 09/14/17 11:05 Venous Ioniz Calcium 1.10 mmol/L (1.15-1.35) L 09/12/17 05:38 ALT 4 Units/L (7-52) L 09/10/17 05:49 Troponin I 1.76 ng/mL (< 0.04) H* 09/08/17 05:31 Serum Total Protein 4.9 g/dL (6.4-8.9) L 09/10/17 05:49 Albumin 3.0 g/dL (3.5-5.7) L 09/10/17 05:49 Globulin 1.9 g/dL (2.4-3.5) L 09/10/17 05:49 Urine Clarity Turbid (Clear) A 09/09/17 11:05 Ur Specific [place] > 1.030 (1.010-1.025) H 09/09/17 11:05 Urine Protein 100 mg/dL (Neg-Trace) H 09/09/17 11:05 Urine Blood Large (Negative) H 09/09/17 11:05 Urine Microscopic RBC 30-50 per hpf (0-3) H 09/09/17 11:05 Urine Microscopic WBC 30-50 per hpf (0-3) H 09/09/17 11:05 Ur Squamous Epith Cells Many per lpf (None-Few) H 09/09/17 11:05 Granular Casts Few per lpf (None Seen) H 09/09/17 11:05 - VTE Documentation of Mechanical Device: Venous foot pump, device Consult Discharge Plan - Plan Referrals: Anny Currie PAC [Physician Cardiovascular Sonographer] - 09/19/17 2:45 pm (If PT still in hospital at the time of this appointment, we will reschedule appointment.) Damián Guillory MD [Partnered Physician] - 10/09/17 5:15 pm Eduardo Kang DO [Partnered Physician] - 09/19/17 8:15 am (If PT still in hospital at the time of this appointment, we will need to contact office and reschedule appointment.) Rosa Maria Mendiola [Non-Partnered Physician] - (PATIENT IS FROM [facility] NO PCP APPOINTMENT NEEDED) Prescriptions: OxyCODONE Immed Rel [Roxicodone 5 MG] 5 mg PO Q4HR PRN #20 tablet PRN Reason: Pain Aspirin Enteric Coated [Aspirin EC] 325 mg PO BID #20 tablet.
[2017-09-14] MEDS: *HR* OxyCODONE Immed Rel 5 MG TABLET PO PRN (17:06)
[2017-09-14] MEDS ORDERED: *HR* Warfarin 1 MG TABLET PO ONE (18:00)
[2017-09-14] MEDS: Metoprolol XL (24 HR) Succ 50 MG TAB.ER.24H PO SCH (20:22)
[2017-09-14] MEDS: Insulin DETEMIR 100 UNIT/ML X5UNITS SQ SCH (20:25)
[2017-09-15] MEDS: Carbidopa/Levodopa 25/100 TABLET PO SCH ×4 (00:12→23:41)
[2017-09-15 04:00] LABS: Basophils % 0.1 %; Hematocrit 30.1 % (37.5-50.1); Hemoglobin 9.5 g/dL (12.9-16.9); Lymphocytes # 0.8 K/mcL (0.6-4.6); Mean Corpuscular HGB Conc 31.6 g/dL (31.6-35.5); Mean Corpuscular Hemoglobin 29.7 pg (28.0-33.3); Mean Corpuscular Volume 94.1 fL (83.0-100.0); Mean Platelet Volume 10.9 fL (9.4-12.4); Monocytes # 2.2 K/mcL (0.0-1.3); Nucleated Red Blood Cells 3.4 /100 WBC (0); Platelet Count 358 K/mcL (140-400); Red Cell Distribution Width 18.1 % (11.5-14.5); Segmented Neutrophils % 82.9 %
[2017-09-15 04:01] LABS: Neutrophils # 16.2 K/mcL (1.6-8.9)
[2017-09-15 04:05] LABS: INR 1.4; Prothrombin Time 15.5 Seconds (9.4-12.1)
[2017-09-15 04:07] LABS: Activated Partial Thrombo Time 83.9 Seconds (26.0-36.0)
[2017-09-15] MEDS: Ipratropium/Albuterol Neb 3 ML IH SCH ×4 (04:18→22:37)
[2017-09-15 04:41] LABS: Calcium 8.9 mg/dL (8.6-10.3)
[2017-09-15] MEDS ORDERED: 0.9 % Sodium Chloride 500 ML IVC SCH (07:45)
[2017-09-15] MEDS: Isosorbide MONOnitrate (24 HR) 60 MG TAB.ER.24H PO SCH (07:56)
[2017-09-15] MEDS: Metoprolol XL (24 HR) Succ 50 MG TAB.ER.24H PO SCH ×2 (08:02→20:15)
[2017-09-15] MEDS: Aspirin 81 MG TAB.CHEW PO SCH (08:02)
[2017-09-15] MEDS: Multivit/Ca/Min/Fe/FA 1 TAB TABLET PO SCH (08:02)
[2017-09-15] MEDS: *HR* OxyCODONE Immed Rel 5 MG TABLET PO PRN ×2 (08:03→13:20)
[2017-09-15] MEDS: *HR* Amiodarone 200 MG TABLET PO SCH (08:03)
[2017-09-15] MEDS: Ascorbic Acid 500 MG TABLET PO SCH ×2 (08:03→16:40)
[2017-09-15] MEDS: Insulin LISPRO 300 UNITS/3 ML VIAL SQ SCH ×4 (08:05→20:19)
[2017-09-15] MEDS: Sennosides/Docusate Sodium TABLET PO SCH ×2 (08:06→20:21)
--- NOTE | 2017-09-15 11:10 | Internal Med Progress Note ---
Date of Encounter: 09/15/17 Time of Encounter: 07:30 - Assessment and plan (1) Leukocytosis Current Visit: Yes Status: Acute Assessment and plan: Has no fever. Given the significant elevation in white count check a urinalysis and chest x-ray. Surgical site seems to be clean and intact with no surrounding erythema or drainage. Qualifiers: Leukocytosis type: unspecified Qualified Code(s): D72.829 - Elevated white blood cell count, unspecified (2) Acute systolic CHF (congestive heart failure) Current Visit: Yes Status: Acute Assessment and plan: Likely acute exacerbation of systolic heart failure. The patient has been on IV diuresis with Lasix. He is currently on room air. Continue to hold Lasix given elevation in his kidney function. Continue Continue with nebulizers. Resume beta jame. Cardiology has been following. Echo results noted. Ejection fraction of 35%. (3) Cardiopulmonary arrest with successful resuscitation Current Visit: Yes Status: Acute Assessment and plan: Code was called earlier in his stay for which he had successful resuscitation. Cardiology is following. Currently on amiodarone. (4) Deep vein thrombosis (DVT) of left lower extremity Current Visit: Yes Status: Acute Assessment and plan: The patient is on a heparin drip. Hemoglobin has been stable. c/w coumadin Qualifiers: Affected thrombotic vein of extremity: popliteal Chronicity: acute Qualified Code(s): I82.432 - Acute embolism and thrombosis of left popliteal vein (5) JOSE (acute kidney injury) Current Visit: Yes Status: Acute Assessment and plan: hold lasix. We will give 500 mL of normal saline running at 100 mL an hour. Total went to give him more fluids given his cardiac function. Creatinine has not improved over the last couple days . avoid nephrotoxins. labs in am. (6) Ventricular tachycardia Current Visit: Yes Status: Acute Assessment and plan: Continue amiodarone. switched to oral. (7) Atrial fibrillation Current Visit: Yes Status: Chronic Assessment and plan: Resumed beta jame. Anticoagulation with heparin currently and coumadin bridging. Qualifiers: Atrial fibrillation type: chronic Qualified Code(s): I48.2 - Chronic atrial fibrillation (8) NSTEMI (non-ST elevated myocardial infarction) Current Visit: No Status: Acute Assessment and plan: Medical management per cardiology. (9) History of right hip hemiarthroplasty Current Visit: Yes Status: Acute Assessment and plan: Management per orthopedics. Continue with pain control. (10) CAD (coronary artery disease) Current Visit: Yes Status: Chronic Assessment and plan: Continue aspirin. We will ask the pharmacy to confirm the statin Ranexa and Imdur and beta jame dosages so we can restart those. Qualifiers: Coronary Disease-Associated Artery/Lesion type: [place] artery [place] vs. transplanted heart: [place] heart Associated angina: without angina Qualified Code(s): I25.10 - Atherosclerotic heart disease of [place] coronary artery without angina pectoris (11) Diabetes mellitus type II, non insulin dependent Current Visit: Yes Status: Chronic Assessment and plan: Continue with insulin sliding scale. c/w levemir 15 units daily. Continue with Accu-Cheks. (12) Hypertension Current Visit: Yes Status: Chronic Assessment and plan: Blood pressure is stable now. Had hypotension initially on admission. The patient's blood pressure medications have been on hold. resumed BB. Qualifiers: Hypertension type: essential hypertension Qualified Code(s): I10 - Essential (primary) hypertension (13) Parkinson disease Current Visit: Yes Status: Chronic Assessment and plan: Continue carbidopa (14) DVT prophylaxis Current Visit: Yes Status: Acute Assessment and plan: He is on a heparin drip. Hemoglobin has been stable. - Subjective Interval history: Patient was seen and examined. There has been no acute events. WBC count noted to be elevated. Patient is afebrile. Given coumadin last 2 days. remain on heparin drip. h/o of bleed. no signs of bleeding. Continues to feel better. Was initially in the ICU before transfer out. Initially admitted with right hip arthroplasty. His stay has been complicated by cardiopulmonary arrest for which she was intubated and transferred to the ICU. He was noted to be in wide complex tachycardia and is suspected to have went into V. tach. Cardiology also suspected possibly atrial fibrillation. He was started on an amiodarone drip. Started on a heparin drip as he was found to have lower extremities DVTs. He self extubated and has been transferred out of the ICU. Currently on room air. - Constitutional Vitals: Temp Pulse Resp BP Pulse Ox 97.9 F 89 18 127/83 95 09/15/17 07:09 09/15/17 07:09 09/15/17 10:17 09/15/17 07:09 09/15/17 10:17 General appearance: Present: A&O X 2, no acute distress, obese Exam: GEN: NAD CVS: Irregular. S1, S2, No m/r/g RESP: Diminished with bibasilar crackles ABD: Soft, NT, ND, +BS EXT: No edema. 2+ DP. No rashes NEURO: Nonfocal Internal Medicine: Result - Labs CBC & Chem 7: 09/15/17 03:51 09/15/17 03:51 Labs: Short CBC 09/15/17 Range/Units 03:51 WBC 19.5 H D (4.3-11.1) K/mcL Hgb 9.5 L (12.9-16.9) g/dL Hct 30.1 L (37.5-50.1) % Plt Count 358 (140-400) K/mcL Neutrophils # 16.2 H (1.6-8.9) K/mcL BMP 09/15/17 03:51 Sodium 133 L Potassium 4.0 Chloride 101 Carbon Dioxide 22 L BUN 48 H Creatinine 1.69 H Glucose 197 H Calcium 8.9 - ABG Interpretation ABG results: ABG ABG pH 7.42 pH Units (7.32-7.45) 09/11/17 04:19 ABG pCO2 34 mmHg (35-45) L 09/11/17 04:19 ABG pO2 113 mmHg (85-104) H 09/11/17 04:19 ABG O2 Saturation 99 % (95-98) H 09/11/17 04:19 PT/INR, D-dimer PT 15.5 Seconds (9.4-12.1) H 09/15/17 03:51 - Impressions Impressions Chest X-Ray 09/15/17 07:35 IMPRESSION: Small to moderate bilateral pleural effusions and pulmonary edema D/ / Magdi Silva MD / Magdi Silva MD Interpreting Provider: Magdi Silva MD - VTE Documentation of Mechanical Device: Intermittent pneumatic compression device Consult Discharge Plan - Plan Referrals: Anny Currie, PAC [Physician Stocklayer] - 09/19/17 2:45 pm (If PT still in hospital at the time of this appointment, we will reschedule appointment.) Damián Guillory MD [Partnered Physician] - 10/09/17 5:15 pm Eduardo Knag DO [Partnered Physician] - 09/19/17 8:15 am (If PT still in hospital at the time of this appointment, we will need to contact office and reschedule appointment.) Rosa Maria Mendiola [Non-Partnered Physician] - (PATIENT IS FROM [facility] NO PCP APPOINTMENT NEEDED) Prescriptions: OxyCODONE Immed Rel [Roxicodone 5 MG] 5 mg PO Q4HR PRN #20 tablet PRN Reason: Pain Aspirin Enteric Coated [Aspirin EC] 325 mg PO BID #20 tablet.
--- NOTE | 2017-09-15 12:13 | Orthopedics Progress Note ---
Date of Encounter: 09/15/17 Time of Encounter: 12:11 Subjective Principal diagnosis: POD# s/p right THR 09/06/17 Interval history: Patient not very communicative this morning, expresses no pain Patient was able to participate with therapy Right hip wound is clean dry and intact SCDs and hip wedge in place Bilateral calves soft and nontender Neurovascular intact distally Postoperative day #9, stable DVT prophylaxis Telemetry monitoring ECF placement . Objective Vital signs: Vital Signs Temp Pulse Resp BP Pulse Ox 09/15/17 11:47 97.4 F L 94 16 188/77 97 09/15/17 10:17 18 95 09/15/17 07:09 97.9 F 89 18 127/83 93 09/15/17 04:19 16 94 09/14/17 23:39 97.8 F 97 18 130/82 93 09/14/17 22:28 18 95 09/14/17 19:08 97.7 F 93 18 128/87 92 09/14/17 16:27 16 90 09/14/17 16:21 97.8 F 96 15 130/86 96 Intake and Output 09/14/17 09/15/17 09/15/17 23:59 07:59 15:59 Intake Total 450 / 450 156 / 156 Output Total 400 / 400 Balance 50 / 50 156 / 156 Intake: IV Fluids 450 / 450 156 / 156 Heparin 25,000 UNIT/500 ML D5W 450 / 450 156 / 156 25,000 unit In 500 ml @ 14 UNIT /KG/HR 29.456 mls/hr IVC . [id number] [facility] Rx#:[id number] Output: Catheter 400 / 400 Other: Meal Dinner Percent of Meal Consumed 100% Stool Size Large Stool Consistency soft Stool Color Brown # Bowel Movements 2 Blood Glucose* 198 194 124 - Labs CBC & BMP: 09/15/17 03:51 09/15/17 03:51 Labs: Abnormal lab results WBC 19.5 K/mcL (4.3-11.1) H D 09/15/17 03:51 RBC 3.20 M/mcL (4.19-5.50) L 09/15/17 03:51 Hgb 9.5 g/dL (12.9-16.9) L 09/15/17 03:51 Hct 30.1 % (37.5-50.1) L 09/15/17 03:51 RDW 18.1 % (11.5-14.5) H 09/15/17 03:51 Neutrophils # 16.2 K/mcL (1.6-8.9) H 09/15/17 03:51 Monocytes # 2.2 K/mcL (0.0-1.3) H 09/15/17 03:51 Nucleated RBCs/100 WBC 3.4 /100 WBC (0) H 09/15/17 03:51 PT 15.5 Seconds (9.4-12.1) H 09/15/17 03:51 APTT 83.9 Seconds (26.0-36.0) H 09/15/17 03:51 ABG pCO2 34 mmHg (35-45) L 09/11/17 04:19 ABG pO2 113 mmHg (85-104) H 09/11/17 04:19 ABG O2 Saturation 99 % (95-98) H 09/11/17 04:19 VBG pCO2 35 mmHg (41-51) L 09/12/17 05:38 VBG pO2 151 mmHg (25-50) H 09/12/17 05:38 Sodium 133 mEq/L (136-145) L 09/15/17 03:51 Carbon Dioxide 22 mEq/L (23-29) L 09/15/17 03:51 BUN 48 mg/dL (8-23) H 09/15/17 03:51 Creatinine 1.69 mg/dL (0.70-1.30) H 09/15/17 03:51 Est GFR ( Amer) 47 (> 60) L 09/15/17 03:51 Est GFR (Non-Af Amer) 39 (> 60) L 09/15/17 03:51 BUN/Creatinine Ratio 28 (6-26) H 09/15/17 03:51 Glucose 197 mg/dL (70-105) H 09/15/17 03:51 POC Glucose 198 (58-89) H 09/14/17 20:18 Venous Ioniz Calcium 1.10 mmol/L (1.15-1.35) L 09/12/17 05:38 ALT 4 Units/L (7-52) L 09/10/17 05:49 Troponin I 1.76 ng/mL (< 0.04) H* 09/08/17 05:31 Serum Total Protein 4.9 g/dL (6.4-8.9) L 09/10/17 05:49 Albumin 3.0 g/dL (3.5-5.7) L 09/10/17 05:49 Globulin 1.9 g/dL (2.4-3.5) L 09/10/17 05:49 Urine Clarity Turbid (Clear) A 09/09/17 11:05 Ur Specific [place] > 1.030 (1.010-1.025) H 09/09/17 11:05 Urine Protein 100 mg/dL (Neg-Trace) H 09/09/17 11:05 Urine Blood Large (Negative) H 09/09/17 11:05 Urine Microscopic RBC 30-50 per hpf (0-3) H 09/09/17 11:05 Urine Microscopic WBC 30-50 per hpf (0-3) H 09/09/17 11:05 Ur Squamous Epith Cells Many per lpf (None-Few) H 09/09/17 11:05 Granular Casts Few per lpf (None Seen) H 09/09/17 11:05 - VTE Documentation of Mechanical Device: Intermittent pneumatic compression device Consult Discharge Plan - Plan Referrals: Anny Currie PAC [Physician Sales Merchandiser] - 09/19/17 2:45 pm (If PT still in hospital at the time of this appointment, we will reschedule appointment.) Damián Guillory MD [Partnered Physician] - 10/09/17 5:15 pm Eduardo Kang DO [Partnered Physician] - 09/19/17 8:15 am (If PT still in hospital at the time of this appointment, we will need to contact office and reschedule appointment.) Rosa Maria Mendiola [Non-Partnered Physician] - (PATIENT IS FROM [facility] NO PCP APPOINTMENT NEEDED) Prescriptions: OxyCODONE Immed Rel [Roxicodone 5 MG] 5 mg PO Q4HR PRN #20 tablet PRN Reason: Pain Aspirin Enteric Coated [Aspirin EC] 325 mg PO BID #20 tablet.
[2017-09-15] MEDS: Heparin 25,000 UNIT/500 ML D5W 25,000 UNIT/500 ML BAG IVC SCH (16:43)
[2017-09-15] MEDS: *HR* OxyCODONE/APAP 5/325 TABLET PO PRN (16:43)
[2017-09-15] MEDS ORDERED: *HR* Warfarin 3 MG TABLET PO ONE (18:00)
[2017-09-15] MEDS: Insulin DETEMIR 100 UNIT/ML X5UNITS SQ SCH (20:15)
[2017-09-16] MEDS: Ipratropium/Albuterol Neb 3 ML IH SCH ×2 (04:34→11:16)
[2017-09-16 06:15] LABS: INR 1.6; Prothrombin Time 17.9 Seconds (9.4-12.1)
[2017-09-16 06:16] LABS: Basophils % 0.1 %; Hemoglobin 8.5 g/dL (12.9-16.9); Immature Granulocytes % 1.5 % (0-4); Lymphocytes # 0.8 K/mcL (0.6-4.6); Lymphocytes % 5.1 %; Mean Corpuscular HGB Conc 31.5 g/dL (31.6-35.5); Mean Corpuscular Hemoglobin 29.9 pg (28.0-33.3); Mean Corpuscular Volume 95.1 fL (83.0-100.0); Mean Platelet Volume 10.9 fL (9.4-12.4); Monocytes # 1.4 K/mcL (0.0-1.3); Monocytes % 8.9 %; Neutrophils # 12.8 K/mcL (1.6-8.9); Nucleated Red Blood Cells 4.3 /100 WBC (0); Platelet Count 344 K/mcL (140-400); Red Blood Count 2.84 M/mcL (4.19-5.50); Red Cell Distribution Width 18.6 % (11.5-14.5); Segmented Neutrophils % 84.4 %
--- NOTE | 2017-09-16 06:47 | Orthopedics Progress Note ---
Date of Encounter: 09/16/17 Time of Encounter: 06:46 - Assessment and Plan (1) Pain with hip hemiarthroplasty Current Visit: No Status: Acute Qualifiers: Encounter type: subsequent encounter Qualified Code(s): T84.84XD - Pain due to internal orthopedic prosthetic devices, implants and grafts, subsequent encounter; Z96.649 - Presence of unspecified artificial hip joint; Z96.649 - Presence of unspecified artificial hip joint (2) Generalized weakness Current Visit: No Status: Chronic (3) CAD (coronary artery disease) of artery bypass graft Current Visit: No Status: Chronic Qualifiers: [place] vs. transplanted heart: [place] heart Associated angina: with unspecified angina Qualified Code(s): I25.709 - Atherosclerosis of coronary artery bypass graft(s), unspecified, with unspecified angina pectoris (4) Parkinson disease Current Visit: Yes Status: Chronic (5) Diabetes mellitus type II, non insulin dependent Current Visit: Yes Status: Chronic (6) DVT prophylaxis Current Visit: Yes Status: Acute (7) Hypertension Current Visit: Yes Status: Chronic Qualifiers: Hypertension type: essential hypertension Qualified Code(s): I10 - Essential (primary) hypertension (8) Atrial fibrillation Current Visit: Yes Status: Chronic Qualifiers: Atrial fibrillation type: chronic Qualified Code(s): I48.2 - Chronic atrial fibrillation (9) Dementia Current Visit: Yes Status: Chronic Qualifiers: Dementia type: Alzheimer's disease Alzheimer's disease onset: unspecified onset Dementia behavioral disturbance: with behavioral disturbance Qualified Code(s): G30.9 - Alzheimer's disease, unspecified; F02.81 - Dementia in other diseases classified elsewhere with behavioral disturbance; F02.81 - Dementia in other diseases classified elsewhere with behavioral disturbance; F02.81 - Dementia in other diseases classified elsewhere with behavioral disturbance (10) AAA (abdominal aortic aneurysm) without rupture Current Visit: No Status: Chronic (11) Afib Current Visit: No Status: Chronic Qualifiers: Atrial fibrillation type: unspecified Qualified Code(s): I48.91 - Unspecified atrial fibrillation (12) CHF (congestive heart failure) Current Visit: Yes Status: Chronic Qualifiers: Congestive heart failure type: diastolic Congestive heart failure chronicity: chronic Qualified Code(s): I50.32 - Chronic diastolic (congestive ) heart failure Subjective Principal diagnosis: POD# s/p right THR 09/06/17 Interval history: Patient was seen this morning respiratory stridor was evaluated by medicine concern for aspiration Afebrile vital signs stable. Operative extremity: Neurovascularly intact Dressing clean dry and intact Calves nontender Assessment and plan: Continue with postoperative care plan as per medical team orthopedic stable we will plan on transferring to medical service. Objective Vital signs: Vital Signs Temp Pulse Resp BP Pulse Ox 09/16/17 04:34 19 96 09/15/17 23:27 98.4 F 82 14 125/76 92 09/15/17 22:37 18 90 09/15/17 20:05 98.5 F 90 16 113/73 96 09/15/17 15:49 19 92 09/15/17 15:36 97.6 F 94 15 119/79 92 09/15/17 11:47 97.4 F L 94 16 188/77 97 09/15/17 10:17 18 95 09/15/17 07:09 97.9 F 89 18 127/83 93 Intake and Output 09/15/17 09/15/17 09/16/17 15:59 23:59 07:59 Intake Total 120 / 120 500 / 500 Output Total 950 / 950 250 / 250 Balance -830 / -830 250 / 250 Intake: IV Fluids 500 / 500 Heparin 25,000 UNIT/500 ML D5W 500 / 500 25,000 unit In 500 ml @ 14 UNIT /KG/HR 29.456 mls/hr IVC . [id number] [facility] Rx#:[id number] Oral 120 / 120 0 / 0 Output: Catheter 950 / 950 250 / 250 Other: Meal Lunch Dinner Percent of Meal Consumed 0% Stool Size Large Stool Consistency loose Stool Color Brown Green Black # Bowel Movements 1 Blood Glucose* 124 199 - Labs CBC & BMP: 09/16/17 05:53 09/15/17 03:51 Labs: Abnormal lab results WBC 15.2 K/mcL (4.3-11.1) H 09/16/17 05:53 RBC 2.84 M/mcL (4.19-5.50) L 09/16/17 05:53 Hgb 8.5 g/dL (12.9-16.9) L 09/16/17 05:53 Hct 27.0 % (37.5-50.1) L 09/16/17 05:53 MCHC 31.5 g/dL (31.6-35.5) L 09/16/17 05:53 RDW 18.6 % (11.5-14.5) H 09/16/17 05:53 Neutrophils # 12.8 K/mcL (1.6-8.9) H 09/16/17 05:53 Monocytes # 1.4 K/mcL (0.0-1.3) H 09/16/17 05:53 Nucleated RBCs/100 WBC 4.3 /100 WBC (0) H 09/16/17 05:53 PT 17.9 Seconds (9.4-12.1) H 09/16/17 05:53 APTT 83.9 Seconds (26.0-36.0) H 09/15/17 03:51 ABG pCO2 34 mmHg (35-45) L 09/11/17 04:19 ABG pO2 113 mmHg (85-104) H 09/11/17 04:19 ABG O2 Saturation 99 % (95-98) H 09/11/17 04:19 VBG pCO2 35 mmHg (41-51) L 09/12/17 05:38 VBG pO2 151 mmHg (25-50) H 09/12/17 05:38 Sodium 133 mEq/L (136-145) L 09/15/17 03:51 Carbon Dioxide 22 mEq/L (23-29) L 09/15/17 03:51 BUN 48 mg/dL (8-23) H 09/15/17 03:51 Creatinine 1.69 mg/dL (0.70-1.30) H 09/15/17 03:51 Est GFR ( Amer) 47 (> 60) L 09/15/17 03:51 Est GFR (Non-Af Amer) 39 (> 60) L 09/15/17 03:51 BUN/Creatinine Ratio 28 (6-26) H 09/15/17 03:51 Glucose 197 mg/dL (70-105) H 09/15/17 03:51 POC Glucose 188 (58-89) H 09/15/17 16:50 Venous Ioniz Calcium 1.10 mmol/L (1.15-1.35) L 09/12/17 05:38 ALT 4 Units/L (7-52) L 09/10/17 05:49 Troponin I 1.76 ng/mL (< 0.04) H* 09/08/17 05:31 Serum Total Protein 4.9 g/dL (6.4-8.9) L 09/10/17 05:49 Albumin 3.0 g/dL (3.5-5.7) L 09/10/17 05:49 Globulin 1.9 g/dL (2.4-3.5) L 09/10/17 05:49 Urine Clarity Turbid (Clear) A 09/09/17 11:05 Ur Specific [place] > 1.030 (1.010-1.025) H 09/09/17 11:05 Urine Protein 100 mg/dL (Neg-Trace) H 09/09/17 11:05 Urine Blood Large (Negative) H 09/09/17 11:05 Urine Microscopic RBC 30-50 per hpf (0-3) H 09/09/17 11:05 Urine Microscopic WBC 30-50 per hpf (0-3) H 09/09/17 11:05 Ur Squamous Epith Cells Many per lpf (None-Few) H 09/09/17 11:05 Granular Casts Few per lpf (None Seen) H 09/09/17 11:05 - VTE Documentation of Mechanical Device: Venous foot pump, device Consult Discharge Plan - Plan Referrals: Anny Currie PAC [Physician School Treasurer] - 09/19/17 2:45 pm (If PT still in hospital at the time of this appointment, we will reschedule appointment.) Damián Guillory MD [Partnered Physician] - 10/09/17 5:15 pm Eduardo Kang DO [Partnered Physician] - 09/19/17 8:15 am (If PT still in hospital at the time of this appointment, we will need to contact office and reschedule appointment.) Rosa Maria Mendiola [Non-Partnered Physician] - (PATIENT IS FROM [facility] NO PCP APPOINTMENT NEEDED) Prescriptions: Aspirin Enteric Coated [Aspirin EC] 325 mg PO BID #20 tablet. OxyCODONE Immed Rel [Roxicodone 5 MG] 5 mg PO Q4HR PRN #20 tablet PRN Reason: Pain
[2017-09-16 06:49] LABS: Calcium 8.2 mg/dL (8.6-10.3)
--- NOTE | 2017-09-16 06:55 | Event Note ---
Date of Encounter: 09/16/17 Time of Encounter: 06:20 Report by RN pt is more lethargic and less alert, had vomiting during night and concern for aspiration. Saw pt at bedside. In no acute respiratory distress but rhonchi in b/l lung. Can be waken up with stimulation and move 4 limbs. plan: 1. NPO, reevaluate by speech therapy 2. CXR stat, please follow. 3. Empirically start unasyn 3g iv q6hr.
[2017-09-16] MEDS ORDERED: Furosemide 20 MG/2 ML VIAL IVP ONE (07:49)
[2017-09-16] MEDS: Furosemide 20 MG/2 ML VIAL IVP ONE ×2 (07:52→10:00)
--- NOTE | 2017-09-16 07:52 | Internal Med Progress Note ---
Date of Encounter: 09/16/17 Time of Encounter: 07:50 - Assessment and plan (1) Goals of care, counseling/discussion Current Visit: Yes Status: Acute Assessment and plan: Patient with an acute change in clinical status this morning. We will transfer him to 2 N. Chest x-ray with what looks like pulmonary edema, cannot 100% rule out an infiltrate. He is on antibiotics for possible aspiration. I do want to have him Lasix however his blood pressure is on the softer side. We will transfer him to [address] a PICC line stat and start him on a dopamine drip. Hold heparin drip in the low pressure and slight drop in hemoglobin. Spoke to family and they are aware of his declining status. We will put him on BiPAP for his respiratory distress. Check an ABG. He is a DNR DNI and family is consistent with that. (2) Leukocytosis Current Visit: Yes Status: Acute Assessment and plan: Spoke to orthopedics and medicine will be primary now. Has no fever. WBC better this morning. Started on Unasyn for fear of aspiration pneumonia. CXR pending this am. Yesterday there was some pulm edema on CXR but no obvious infiltrate. Surgical site seems to be clean and intact with no surrounding erythema or drainage. Qualifiers: Leukocytosis type: unspecified Qualified Code(s): D72.829 - Elevated white blood cell count, unspecified (3) Acute systolic CHF (congestive heart failure) Current Visit: Yes Status: Acute Assessment and plan: Likely acute exacerbation of systolic heart failure. He was doing well for a few day but now sudden hypoxia with crackles. BP is marginal. Will give him 20 mg IV lasix. repeat CXR. check lactic acid. c/w nebs. c/w O2 support. Transfer to 2 N. The patient has been on IV diuresis with Lasix before in his stay. Continue Continue with nebulizers. Resume beta jame. Cardiology has been following. Echo results noted. Ejection fraction of 35%. (4) Cardiopulmonary arrest with successful resuscitation Current Visit: Yes Status: Acute Assessment and plan: Code was called earlier in his stay for which he had successful resuscitation. Cardiology is following. Currently on amiodarone. (5) Deep vein thrombosis (DVT) of left lower extremity Current Visit: Yes Status: Acute Assessment and plan: The patient is on a heparin dri and coumadin. Hgb dropped about a gram. stopp heparin drip for now and check stools for blood. He has a h/o bleed. Qualifiers: Affected thrombotic vein of extremity: popliteal Chronicity: acute Qualified Code(s): I82.432 - Acute embolism and thrombosis of left popliteal vein (6) JOSE (acute kidney injury) Current Visit: Yes Status: Acute Assessment and plan: possibly cardiorenal. Wlll see if lasix helps. Creatinine has not improved over the last couple days . avoid nephrotoxins. labs in am. (7) Ventricular tachycardia Current Visit: Yes Status: Acute Assessment and plan: Continue amiodarone. switched to oral. (8) Atrial fibrillation Current Visit: Yes Status: Chronic Assessment and plan: Resumed beta jame. Hold anticoags due to low BP and drop in H/H with h/o bleed on anticoag previously. Qualifiers: Atrial fibrillation type: chronic Qualified Code(s): I48.2 - Chronic atrial fibrillation (9) NSTEMI (non-ST elevated myocardial infarction) Current Visit: No Status: Acute Assessment and plan: Medical management per cardiology. (10) History of right hip hemiarthroplasty Current Visit: Yes Status: Acute Assessment and plan: Management per orthopedics. Continue with pain control. (11) CAD (coronary artery disease) Current Visit: Yes Status: Chronic Assessment and plan: Continue aspirin. We will ask the pharmacy to confirm the statin Ranexa and Imdur and beta jame dosages so we can restart those. Qualifiers: Coronary Disease-Associated Artery/Lesion type: [place] artery [place] vs. transplanted heart: [place] heart Associated angina: without angina Qualified Code(s): I25.10 - Atherosclerotic heart disease of [place] coronary artery without angina pectoris (12) Diabetes mellitus type II, non insulin dependent Current Visit: Yes Status: Chronic Assessment and plan: Continue with insulin sliding scale. c/w levemir 15 units daily. Continue with Accu-Cheks. (13) Hypertension Current Visit: Yes Status: Chronic Assessment and plan: Blood pressure is stable now. Had hypotension initially on admission. The patient's blood pressure medications have been on hold. resumed BB. Qualifiers: Hypertension type: essential hypertension Qualified Code(s): I10 - Essential (primary) hypertension (14) Parkinson disease Current Visit: Yes Status: Chronic Assessment and plan: Continue carbidopa (15) DVT prophylaxis Current Visit: Yes Status: Acute Assessment and plan: stop anticoags. I would avoid SCDs for now due to DVT. - Subjective Interval history: Patient was seen and examined. The patient suddenly hypoxic and dyspnic this morning. BP initially was in the 80s systolically but when I checked it his systolic was 120s. He is on 2L when he was on RA yesterday. Night hospitalist started Unasyn suspecting aspiration pneumonia. He is lethargic. Afebrile. remains on heparin drip with coumadin bridging. h/o of bleed. no signs of bleeding. Continues to feel better. Was initially in the ICU before transfer out. Initially admitted with right hip arthroplasty. His stay has been complicated by cardiopulmonary arrest for which she was intubated and transferred to the ICU. He was noted to be in wide complex tachycardia and is suspected to have went into V. tach. Cardiology also suspected possibly atrial fibrillation. He was started on an amiodarone drip. Started on a heparin drip as he was found to have lower extremities DVTs. He self extubated and has been transferred out of the ICU. Currently on room air. - Constitutional Vitals: Temp Pulse Resp BP Pulse Ox 97.4 F L 81 28 90/59 93 09/16/17 07:21 09/16/17 07:21 09/16/17 07:21 09/16/17 07:21 09/16/17 07:21 General appearance: Present: A&O X 2, no acute distress, obese Exam: GEN: NAD CVS: Irregular. S1, S2, No m/r/g RESP: Diminished. crakles bilaterally. coarse at the bases ABD: Soft, NT, ND, +BS EXT: 1+ edema. 2+ DP. No rashes NEURO: Nonfocal Internal Medicine: Result - Labs CBC & Chem 7: 09/16/17 05:53 09/16/17 05:53 Labs: Short CBC 09/16/17 Range/Units 05:53 WBC 15.2 H (4.3-11.1) K/mcL Hgb 8.5 L (12.9-16.9) g/dL Hct 27.0 L (37.5-50.1) % Plt Count 344 (140-400) K/mcL Neutrophils # 12.8 H (1.6-8.9) K/mcL BMP 09/16/17 05:53 Sodium 135 L Potassium 4.0 Chloride 103 Carbon Dioxide 21 L BUN 55 H Creatinine 1.41 H Glucose 206 H Calcium 8.2 L - ABG Interpretation ABG results: ABG ABG pH 7.42 pH Units (7.32-7.45) 09/11/17 04:19 ABG pCO2 34 mmHg (35-45) L 09/11/17 04:19 ABG pO2 113 mmHg (85-104) H 09/11/17 04:19 ABG O2 Saturation 99 % (95-98) H 09/11/17 04:19 PT/INR, D-dimer PT 17.9 Seconds (9.4-12.1) H 09/16/17 05:53 - Impressions Impressions Chest X-Ray 09/15/17 07:35 IMPRESSION: Small to moderate bilateral pleural effusions and pulmonary edema D/ / Magdi Silva MD / Magdi Silva MD Interpreting Provider: Magdi Silva MD - VTE Documentation of Mechanical Device: Venous foot pump, device Consult Discharge Plan - Plan Referrals: Anny Currie PAC [Physician Monitoring Specialist] - 09/19/17 2:45 pm (If PT still in hospital at the time of this appointment, we will reschedule appointment.) Damián Guillory MD [Partnered Physician] - 10/09/17 5:15 pm Eduardo Kang DO [Partnered Physician] - 09/19/17 8:15 am (If PT still in hospital at the time of this appointment, we will need to contact office and reschedule appointment.) Rosa Maria Mendiola [Non-Partnered Physician] - (PATIENT IS FROM [facility] NO PCP APPOINTMENT NEEDED) Prescriptions: OxyCODONE Immed Rel [Roxicodone 5 MG] 5 mg PO Q4HR PRN #20 tablet PRN Reason: Pain Aspirin Enteric Coated [Aspirin EC] 325 mg PO BID #20 tablet.
[2017-09-16] MEDS: Heparin 25,000 UNIT/500 ML D5W 25,000 UNIT/500 ML BAG IVC SCH (08:53)
[2017-09-16] MEDS ORDERED: Ampicillin/Sulbactam 3,000 MG in 0.9 % Sodium Chloride Mini Bag 100 ML IVPB SCH (09:00)
[2017-09-16 09:10] LABS: ABG Base Excess -1 mEq/L (-2 to 3); ABG HCO3 22 mEq/L (21-27); ABG Oxygen Saturation 85 % (95-98); ABG PCO2 32 mmHg (35-45); ABG PH 7.45 pH Units (7.32-7.45); ABG PO2 47 mmHg (85-104); ABG TCO2 23 mEq/L (20-26)
[2017-09-16] MEDS: Ascorbic Acid 500 MG TABLET PO SCH (09:12)
[2017-09-16] MEDS: Carbidopa/Levodopa 25/100 TABLET PO SCH (09:12)
[2017-09-16] MEDS: *HR* Amiodarone 200 MG TABLET PO SCH (09:12)
[2017-09-16] MEDS: Aspirin 81 MG TAB.CHEW PO SCH (09:12)
[2017-09-16] MEDS: Sennosides/Docusate Sodium TABLET PO SCH (09:13)
[2017-09-16] MEDS: Metoprolol XL (24 HR) Succ 50 MG TAB.ER.24H PO SCH (09:13)
[2017-09-16] MEDS: Multivit/Ca/Min/Fe/FA 1 TAB TABLET PO SCH (09:13)
[2017-09-16] MEDS: Isosorbide MONOnitrate (24 HR) 60 MG TAB.ER.24H PO SCH (09:13)
[2017-09-16] MEDS ORDERED: Lidocaine -MPF 1% 2 ML VIAL INFILT ONE (09:47)
[2017-09-16] MEDS: Insulin LISPRO 300 UNITS/3 ML VIAL SQ SCH ×2 (10:20→11:59)
[2017-09-16] MEDS ORDERED: 0.9 % Sodium Chloride 1,000 ML ONE (10:36)
[2017-09-16] MEDS ORDERED: 0.9 % Sodium Chloride 250 ML IVC ONE (10:40)
[2017-09-16] MEDS ORDERED: *HR* LORazepam 2 MG/ML VIAL ONE (11:41)
[2017-09-16] MEDS ORDERED: *HR* LORazepam 2 MG/ML VIAL IVP PRN (11:50)
[2017-09-16 12:45] VITALS: BP 52/37
--- NOTE | 2017-09-16 14:48 | Death Note ---
Pronouncement Note - Date and Time of Date of : 09/16/17 Time of : 12:53 - PCOD Preliminary cause of : Respiratory arrest - Summary Additional details: 87-year-old male with a past history of dementia, atrial fibrillation, hypertension, type 2 diabetes, Parkinson's disease, coronary artery disease status post CABG and stents, CHF and history of abdominal aortic aneurysm who presented to [facility] on 09/06/17 for right hip hemiarthroplasty by Dr. Guillory. Patient was subsequently extubated and transferred to the recovery room in stable condition. UNIQUE GASPAR was called around 00:45 on 09/08/2017 as patient was noted to have agonal breathing with no pulse palpable. CPR was initiated with epinephrine 1 mg delivered twice. ROSC was obtained approximately 8-10 minutes later and the patient patient was intubated and the Patient was transferred to the intensive care unit for further. He was noted to be in wide complex tachycardia and was suspected to have went into V. tach. Cardiology also suspected possibly atrial fibrillation. He was started on an amiodarone drip. Started on a heparin drip as he was found to have lower extremities DVTs. He self extubated 2 days ago and has been transferred out of the ICU. On 09/16/2009 he went into respiratory distress and his chest x-ray showed findings of pulmonary edema. He was also started on broad-spectrum antibiotics as he was having hypotension. He was transferred to stepdown unit and a PICC line was placed and we started dopamine drip. We continued to notice that he was deteriorating and family was contacted and we had a family meeting. Family confirms that he is a DNR/DNI. I suspect that the patient may have a GI bleed being on anticoagulation as he has a history of. Family before we started anticoagulation bridging where aware that this is a risk given the fact that he had a GI bleed in the past. We decided to start him on anticoagulation given the overall picture of him having a cardio pulmonary arrest earlier this day which DVTs were found and there was suspicion that he might have a PE as well. Unfortunately patient eventually passed on 09/16/2001 at 12:53 PM. - Additional Data Confirmation of : no pulse, no respirations, no heart sounds, pupils fixed and dilated Family: at bedside Attending physician: Becky Hernandez
--- NOTE | 2017-09-16 14:51 | Discharge Summary ---
Date of Encounter: 09/16/17 Time of Encounter: 12:53 - Discharge Diagnosis (1) Cardiopulmonary arrest with successful resuscitation Priority: Primary Status: Acute (2) Leukocytosis Priority: Primary Status: Acute Qualifiers: Leukocytosis type: unspecified Qualified Code(s): D72.829 - Elevated white blood cell count, unspecified (3) Acute systolic CHF (congestive heart failure) Priority: Primary Status: Acute (4) Deep vein thrombosis (DVT) of left lower extremity Priority: Primary Status: Acute Qualifiers: Affected thrombotic vein of extremity: popliteal Chronicity: acute Qualified Code(s): I82.432 - Acute embolism and thrombosis of left popliteal vein (5) JOSE (acute kidney injury) Priority: Primary Status: Acute (6) Ventricular tachycardia Priority: Primary Status: Acute (7) Atrial fibrillation Priority: Primary Status: Chronic Qualifiers: Atrial fibrillation type: chronic Qualified Code(s): I48.2 - Chronic atrial fibrillation (8) NSTEMI (non-ST elevated myocardial infarction) Priority: Primary Status: Acute (9) History of right hip hemiarthroplasty Priority: Secondary Status: Acute (10) CAD (coronary artery disease) Priority: Secondary Status: Chronic Qualifiers: Coronary Disease-Associated Artery/Lesion type: [place] artery [place] vs. transplanted heart: [place] heart Associated angina: without angina Qualified Code(s): I25.10 - Atherosclerotic heart disease of [place] coronary artery without angina pectoris (11) Diabetes mellitus type II, non insulin dependent Priority: Secondary Status: Chronic (12) Hypertension Priority: Secondary Status: Chronic Qualifiers: Hypertension type: essential hypertension Qualified Code(s): I10 - Essential (primary) hypertension (13) Parkinson disease Priority: Secondary Status: Chronic - Discharge Medications Prescriptions: OxyCODONE Immed Rel [Roxicodone 5 MG] 5 mg PO Q4HR PRN #20 tablet PRN Reason: Pain Aspirin Enteric Coated [Aspirin EC] 325 mg PO BID #20 tablet.dr Home Medications: Carbidopa/Levodopa 25/100 [Sinemet 25/100] 1 tab PO Q8H 02/08/16 [History] Lisinopril [Zestril] 5 mg PO DAILY 02/08/16 [History] Metformin HCl [Metformin HCl ER] 500 mg PO DAILY 02/08/16 [History] Metoprolol Succinate [Toprol Xl] 50 mg PO BID 02/08/16 [History] Nitroglycerin 0.4 mg PO Q5M PRN 02/08/16 [History] DULoxetine [Cymbalta] 20 mg PO DAILY 07/08/17 [History] Isosorbide MONOnitrate [Isosorbide Mononitrate ER] 120 mg PO DAILY 07/08/17 [ History] Bisacodyl [Dulcolax] 10 mg PO DAILY PRN tablet 07/15/17 [Rx] Docusate [Colace] 100 mg PO BID capsule 07/15/17 [Rx] Ranolazine [Ranexa] 1,000 mg PO BID tab.er.12h 07/15/17 [Rx] Magnesium Hydroxide [Milk of Magnesia] 30 ml PO DAILY PRN 08/02/17 [History] Aspirin Enteric Coated [Aspirin EC] 81 mg PO DAILY #0 08/08/17 [Rx] Acetaminophen [Tylenol] 650 mg PO Q6H 08/30/17 [History] Calcium Carbonate [Calcium] 500 mg PO DAILY 08/30/17 [History] Ferrous Sulfate 324 mg PO BID 08/30/17 [History] LORazepam [Ativan] 0.5 mg PO BID PRN 08/30/17 [History] Pantoprazole Sodium [Protonix] 40 mg PO BID 08/30/17 [History] Sennosides [Senna] 17.2 mg PO DAILY 08/30/17 [History] Sucralfate [Carafate] 1 gm PO TIDAC 08/30/17 [History] Quetiapine Fumarate [Seroquel] 25 mg PO HS 30 Days #30 tablet 09/04/17 [Rx] Aspirin Enteric Coated [Aspirin EC] 325 mg PO BID #20 tablet. 09/06/17 [Rx] OxyCODONE Immed Rel [Roxicodone 5 MG] 5 mg PO Q4HR PRN #20 tablet 09/06/17 [Rx] Lactose-Reduced Food [Ensure Liquid] 1 bottle PO TIDAC 09/13/17 [History] Allergies/Adverse Reactions: 3 Allergy/AdvReac Type Severity Reaction Status Date / Time ezetimibe [From Zetia] AdvReac See Verified 09/06/17 15:18 Comments Jjoofns-Rth-Fgd Reductase AdvReac See Verified 09/06/17 15:18 Inhibitor Comments Procedures/tests Complete & Pending: Procedures Performed prior 72 hours Category Date Time Status ECG 12 lead ECG [ECG] Stat Y 09/16/17 07:39 Completed Date of admission: 09/06/17 15:19 Primary care physician: Eileen Howard CNP Consults: 09/06/17 21:15 Consult to Nurse Navigator [CONS] Routine Comment: ortho navigator Consult to Occupational Therapy [CONS] Routine Comment: Evaluate, develop and implement POC Reason for Consult: total hip replacement Consult to Physical Therapy [CONS] Routine Comment: Evaluate, develop and implement POC Reason for Consult: total hip replacement Consult to Machine Installer [CONS] Routine Reason for SW Consult: post op joint replacement RT Post Op Consult [CONS] Routine 09/08/17 01:13 Consult to Cardiology [CONS] Routine Comment: Consulting Provider: Cardiology [place] Reason for Consult: cardiac arrest. looks VT Call Completed: No 09/08/17 01:30 Consult to Pulmonology [CONS] Routine Consulting Provider: Pulm Crit Care & Sleep [place] Reason for Consult: mangement of intubated patient. went into VT post op , ROSC Call Completed: No 09/09/17 11:09 dietary consult [Consult to Nutrition] [CONS] Stat Comment: Consulting Provider: NUTRITION Reason for Dietary Consult: Tube Feed Start & Manage 09/11/17 10:59 Consult to Speech Therapy [CONS] Routine Comment: Evaluate, develop and implement POC Reason for Consult: Pt self extubated this morning and doing well. Also has dementia at baseline. Please evaluate tomorrow. Time Notified: 11:02 Call Completed: Yes 09/16/17 06:50 Consult to Speech Therapy [CONS] Stat Comment: Evaluate, develop and implement POC Reason for Consult: Reevaluate swallow function Call Completed: No 09/16/17 09:47 Consult to Invasive Line Access Team [CONS] Routine Reason for Consult: Picc Line Insertion Line Type: PICC Call Completed: Yes 09/16/17 11:51 Consult to Palliative Care [CONS] Routine Comment: Consulting Provider: Palliative Care [place] Reason for Consult: END OF LIFE CARE. COMFORT MEASURES. Call Completed: Yes - Patient Status Disposition: - Discharge Instructions Follow Up With: Anny Currie PAC [Physician Airplane Patrol Pilot] - 09/19/17 2:45 pm (If PT still in hospital at the time of this appointment, we will reschedule appointment.) Damián Guillory MD [Partnered Physician] - 10/09/17 5:15 pm Eduardo Kang DO [Partnered Physician] - 09/19/17 8:15 am (If PT still in hospital at the time of this appointment, we will need to contact office and reschedule appointment.) Rosa Maria Mendiola [Non-Partnered Physician] - (PATIENT IS FROM [facility] NO PCP APPOINTMENT NEEDED) Hospital course: Mr. Villarreal is a 87-year-old male with a past history of dementia, atrial fibrillation, hypertension, type 2 diabetes, Parkinson's disease, coronary artery disease status post CABG and stents, CHF and history of abdominal aortic aneurysm who presented to [facility] on 09/06[facility]17 for right hip hemiarthroplasty by Dr. Guillory. Patient was subsequently extubated and transferred to the recovery room in stable condition. UNIQUE GASPAR was called around 00:45 on 09/08/2017 as patient was noted to have agonal breathing with no pulse palpable. CPR was initiated with epinephrine 1 mg delivered twice. ROSC was obtained approximately 8-10 minutes later and the patient patient was intubated and the Patient was transferred to the intensive care unit for further. He was noted to be in wide complex tachycardia and was suspected to have went into V. tach. Cardiology also suspected possibly atrial fibrillation. He was started on an amiodarone drip. Started on a heparin drip as he was found to have lower extremities DVTs. He self extubated 2 days ago and has been transferred out of the ICU. On 09/16/2009 he went into respiratory distress and his chest x-ray showed findings of pulmonary edema. He was also started on broad-spectrum antibiotics as he was having hypotension. He was transferred to stepdown unit and a PICC line was placed and we started dopamine drip. We continued to notice that he was deteriorating and family was contacted and we had a family meeting. Family confirms that he is a DNR/DNI. I suspect that the patient may have a GI bleed being on anticoagulation as he has a history of. Family before we started anticoagulation bridging where aware that this is a risk given the fact that he had a GI bleed in the past. We decided to start him on anticoagulation given the overall picture of him having a cardio pulmonary arrest earlier this day which DVTs were found and there was suspicion that he might have a PE as well. Unfortunately patient eventually passed on 09/16/2001 at 12:53 PM. - Time Spent with Patient Total time spent providing and/or coordinating discharge services: Greater than 30 minutes - Constitutional Vitals: Temp Pulse Resp BP Pulse Ox 97.4 F L 13 0 52/37 99 09/16/17 07:21 09/16/17 12:35 09/16/17 12:35 09/16/17 12:16 09/16/17 11:17 General appearance: Present: A&O X 2, no acute distress, obese Exam: Patient has no pulse or respiration or heart sounds pupils are fixed and dilated. - VTE Documentation of Mechanical Device: Venous foot pump, device
--- NOTE | 2017-09-16 16:40 | Electrocardiograph Report ---
[place] [id number] Test Date: 2017-09-16 Pat Name: Ranjith Villarreal Department: 114 Room: 2N09 Gender: M Hr Manager: : [id number] Requested By: Becky Hernandez Order Number: [id number] Reading MD: Marychuy Manjarrez Measurements Intervals [place] Rate: 87 P: VA: 0 QRS: 38 QRSD: 94 T: 74 QT: 391 QTc: 435 Interpretive Statements ATRIAL FIBRILLATION NONSPECIFIC ST & T-WAVE ABNORMALITY ABNORMAL RHYTHM ECG Electronically Signed On 09-16-2017 16:38:45 EST by Marychuy Manjarrez
== END 2017-09-16 14:48 | disposition expired | DRG 469 ==
LOC: SAMDAY 14:20 → SUATTDRO 15:19 → ICNU 15:19 → 3NENU 09-07 20:48 → ICNU 09-08 01:25 → 2NNU 09-12 13:03 → 3NENU 09-14 15:12 → 2NNU 09-16 08:09
PROVIDERS: ADMIT Orthopaedic Surgery; ATTEND Internal Medicine